=== PATIENT | male | born 1960 | race Caucasian/White ===

== ENCOUNTER 2019-12-28 22:47 | Inpatient (IN) | payer OTHER ==
[~2019-12-28] VITALS: Ht 177.8 cm; Wt 116.6 kg
--- NOTE | 2019-12-28 23:48 | PHYS DOC ---
Past Medical History Past Medical History: Hypertension Past Surgical History: Colectomy Smoking Status: Former Smoker Alcohol Use: Occasionally General Adult EDM: Chief Complaint: ABDOMINAL PAIN HPI: HPI: 59-year-old male presents with abdominal pain, nausea, abdominal distention and constipation that began about 10:00 this morning. Patient describes his pain is diffuse in his abdomen and crampy and severe in nature. Pain is worse with movement. Pain is nonradiating. Review of Systems: Review of Systems: Constitutional: Denies fever or chills. [] Eyes: Denies change in visual acuity. [] HENT: Denies nasal congestion or sore throat. [] Respiratory: Denies cough or but has chronic shortness of breath. [] Cardiovascular: Denies chest pain or edema. [] GI: Complains of abdominal pain, nausea, and constipation : Denies dysuria. [] Musculoskeletal: Denies back pain or joint pain. [] Integument: Denies rash. [] Neurologic: Denies headache, focal weakness or sensory changes. [] Endocrine: Denies polyuria or polydipsia. [] Lymphatic: Denies swollen glands. [] Psychiatric: Denies depression or anxiety. [] Heart Score: Risk Factors: Risk Factors: DM, Current or recent (<one month) smoker, HTN, HLP, family history of CAD, obesity. Risk Scores: Score 0 - 3: 2.5% MACE over next 6 weeks - Discharge Home Score 4 - 6: 20.3% MACE over next 6 weeks - Admit for Clinical Observation Score 7 - 10: 72.7% MACE over next 6 weeks - Early Invasive Strategies Current Medications: Current Medications Medications (Trade) Dose Ordered Sig/Cony Start Time Stop Time Status Last Admin Dose Admin Ondansetron HCl (Zofran) 4 mg 1X ONCE 12/29/19 00:00 12/29/19 00:01 Sodium Chloride 1,000 ml @ 1,000 mls/hr Q1H 12/29/19 00:00 12/29/19 00:59 Allergies: Allergies: Allergies Coded Allergies Type Severity Reaction Last Updated Verified Iodinated Contrast Media Allergy Intermediate hives 12/28/19 Yes ketorolac Allergy Intermediate hives 12/28/19 Yes Physical Exam: PE: Constitutional: Well developed, well nourished, no acute distress, non-toxic appearance. HENT: No trismus Eyes: Conjunctiva clear, EOMI Neck: Normal range of motion, no tenderness, supple, no stridor. [] Cardiovascular: Regular rate/rhythm, peripheral pulse intact, [employer] intact Lungs & Thorax: No respiratory distress Abdomen: Mild distention. Diffuse tenderness to palpation. No guarding or rebound. No pulsatile masses. Reducible umbilical hernia Skin: Diffuse: Intact, no rash Back: Full ROM Extremities: Normal inspection, no edema Neurologic: Alert and oriented X 3, normal motor function, , no focal deficits noted. Psychologic: Affect normal, judgement normal, mood normal. EKG: EKG: [] EKG interpreted by me at 11:51 PM normal sinus rhythm with a rate of 95 normal axis normal intervals normal ST segments Radiology/Procedures: Radiology/Procedures: [][facility] [address] [place] [address] IMAGING REPORT Signed PATIENT: JOE HYLTON ACCOUNT: [id number] : 1960 LOCATION: ER AGE: 59 SEX: M EXAM STATUS: REG ER ORD. PHYSICIAN: FELIX PRIETO MD REASON: RO SBO PROCEDURE: CT ABD PEL W/ORAL CONTRST ONLY CT scan of the abdomen and pelvis with contrast 12/29/2019 CLINICAL HISTORY: Abdominal pain, constipation and nausea. TECHNIQUE: After the oral administration of contrast only, contiguous, 5 mm axial sections were obtained through the abdomen and pelvis. One or more of the following individualized dose reduction techniques were utilized for this study: 1. Automated exposure control. 2. Adjustment of the mA and/or kV according to patient size. 3. Use of iterative reconstruction technique. FINDINGS: Comparison study is dated 10/30/2008. Images through the lung bases demonstrate a 1.5 cm rounded noncalcified nodule within the left lower lobe. A right perihilar infiltrate is seen. The liver parenchyma has a decreased attenuation consistent with fatty infiltration. The spleen, pancreas, adrenal glands and kidneys are within normal limits. Atherosclerotic calcification of the abdominal aorta is seen. The abdominal aorta tapers normally. The gallbladder is slightly contracted. No free fluid or free air is within the abdomen. Air and stool are seen throughout the colon. The appendix is well-visualized and is within normal limits. A umbilical hernia is seen which measures 7.7 cm in transverse diameter. This contains incarcerated proximal ileum. Progressive dilatation of the jejunum is seen extending into this hernia. These findings are consistent with a small bowel obstruction. The mid/distal ileum is normal in caliber. Air and stool are seen throughout the colon. Scattered diverticula are seen involving the colon. No inflammatory changes are seen adjacent fat. Images through pelvis demonstrate the urinary bladder distended with urine. The prostate gland is enlarged likely related to BPH. Calcifications are seen within the pelvis consistent with phleboliths. Very mild S-shaped curvature of the thoracolumbar spine is noted. Degenerative changes are seen involving lower thoracic and throughout the lumbar spine. IMPRESSION: 1. 7.7 cm umbilical hernia is seen which contains incarcerated small bowel loops resulting in a small bowel obstruction. 2. 1.5 cm noncalcified nodule is seen within the left lower lobe. Follow-up per Fleischner Society recommendations (see below) is recommended. Radiology, July 2016, volume 284, number 1, pages 228-243): In low risk solitary nodule patient: <6mm - No follow up required. 6-8mm - CT at 6-12 months, then consider CT at 18-24 months >8mm - Consider CT at 3 months, PET/CT, or tissue sampling In high risk solitary nodule patient: <6mm - Optional 12 month follow up. 6-8mm - CT at 6-12 months, then CT at 18-24 months >8mm - Consider CT at 3 months, PET/CT, or tissue sampling Electronically signed by: Scottie Quan MD (12/29/2019 2:53 AM) [id number] DICTATED and SIGNED BY: SCOTTIE QUAN MD DATE: 12/29/19 0253 Course & Med Decision Making: Course & Med Decision Making Pertinent Labs and Imaging studies reviewed. (See chart for details) []3:10 d/w Dr. Mcleod, suggests ng tube and admit to medicine. d/w dr. yaquelin burnett, will admit. kub/cxr done. official read not back. d/w gerald, will follow up on Dragon Disclaimer: Dragval Disclaimer: This electronic medical record was generated, in whole or in part, using a voice recognition dictation system. Departure Departure Impression: Primary Impression: Incarcerated umbilical hernia Additional Impression: Small bowel obstruction Disposition: 09 ADMITTED INPATIENT Condition: STABLE Referrals: UNKNOWN PCP NAME (PCP) Justicifation of Admission Dx: Justifications for Admission: Justification of Admission Dx: Yes FELIX PRIETO MD Dec 28, 2019 23:48
[2019-12-28 23:51] LABS: BASO % 0 % (0-3); EOS # 0.1 x10^3/uL (0.0-0.7); EOS % 1 % (0-3); HEMATOCRIT 44.9 % (39.0-53.0); HEMOGLOBIN 15.4 g/dL (13.0-17.5); LYMPH # 2.2 x10^3/uL (1.0-4.8); LYMPH % 24 % (24-48); MEAN CORPUSCULAR HEMOGLOBIN 31 pg (25-35); MEAN CORPUSCULAR HGB CONC 34 g/dL (31-37); MEAN CORPUSCULAR VOLUME 91 fL (79-100); MONO # 0.6 x10^3/uL (0.0-1.1); MONO % 6 % (0-9); NEUT # 6.6 x10^3/uL (1.8-7.7); NEUT % 69 % (31-73); PLATELET COUNT 380 x10^3/uL (140-400); RED BLOOD COUNT 4.94 x10^6/uL (4.30-5.70); RED CELL DISTRIBUTION WIDTH 14.4 % (11.5-14.5); WHITE BLOOD COUNT 9.5 x10^3/uL (4.0-11.0)
[2019-12-29] MEDS ORDERED: ONDANSETRON PF 4 MG/2 ML VIAL. IVP ONE
[2019-12-29] MEDS ORDERED: IV NORMAL SALINE 1000ML BAG 1,000 ML IV SCH
[2019-12-29] MEDS ORDERED: BARIUM SULFATE 2.1% 450 ML SUSP PO ONE (00:30)
[2019-12-29 00:36] LABS: CALCIUM 9.1 mg/dL (8.5-10.1); CREATININE 1.4 mg/dL (0.7-1.3); GFR 52.2; POTASSIUM 4.3 mmol/L (3.5-5.1)
[2019-12-29 00:43] LABS: ALBUMIN/GLOBULIN RATIO 1.1 (1.0-1.7); TOTAL BILIRUBIN 0.2 mg/dL (0.2-1.0); TOTAL PROTEIN 7.5 g/dL (6.4-8.2)
[2019-12-29 01:28] LABS: BILIRUBIN,URINE NEGATIVE (NEG); CLARITY,URINE CLEAR; COLOR,URINE YELLOW; NITRITE,URINE NEGATIVE (NEG); PROTEIN,URINE NEGATIVE (NEG-TRACE); UROBILINOGEN,URINE 0.2 mg/dL (0.2 mg/dL)
[2019-12-29 01:52] LABS: BACTERIA,URINE FEW /HPF (0-FEW); SQUAMOUS EPITHELIAL CELL,UR OCC /LPF
--- NOTE | 2019-12-29 02:57 | RAD ---
CT scan of the abdomen and pelvis with contrast 12/29/2019 CLINICAL HISTORY: Abdominal pain, constipation and nausea. TECHNIQUE: After the oral administration of contrast only, contiguous, 5 mm axial sections were obtained through the abdomen and pelvis. One or more of the following individualized dose reduction techniques were utilized for this study: 1. Automated exposure control. 2. Adjustment of the mA and/or kV according to patient size. 3. Use of iterative reconstruction technique. FINDINGS: Comparison study is dated 10/30/2008. Images through the lung bases demonstrate a 1.5 cm rounded noncalcified nodule within the left lower lobe. A right perihilar infiltrate is seen. The liver parenchyma has a decreased attenuation consistent with fatty infiltration. The spleen, pancreas, adrenal glands and kidneys are within normal limits. Atherosclerotic calcification of the abdominal aorta is seen. The abdominal aorta tapers normally. The gallbladder is slightly contracted. No free fluid or free air is within the abdomen. Air and stool are seen throughout the colon. The appendix is well-visualized and is within normal limits. A umbilical hernia is seen which measures 7.7 cm in transverse diameter. This contains incarcerated proximal ileum. Progressive dilatation of the jejunum is seen extending into this hernia. These findings are consistent with a small bowel obstruction. The mid/distal ileum is normal in caliber. Air and stool are seen throughout the colon. Scattered diverticula are seen involving the colon. No inflammatory changes are seen adjacent fat. Images through pelvis demonstrate the urinary bladder distended with urine. The prostate gland is enlarged likely related to BPH. Calcifications are seen within the pelvis consistent with phleboliths. Very mild S-shaped curvature of the thoracolumbar spine is noted. Degenerative changes are seen involving lower thoracic and throughout the lumbar spine. IMPRESSION: 1. 7.7 cm umbilical hernia is seen which contains incarcerated small bowel loops resulting in a small bowel obstruction. 2. 1.5 cm noncalcified nodule is seen within the left lower lobe. Follow-up per Fleischner Society recommendations (see below) is recommended. Radiology, July 2016, volume 284, number 1, pages 228-243): In low risk solitary nodule patient: <6mm - No follow up required. 6-8mm - CT at 6-12 months, then consider CT at 18-24 months >8mm - Consider CT at 3 months, PET/CT, or tissue sampling In high risk solitary nodule patient: <6mm - Optional 12 month follow up. 6-8mm - CT at 6-12 months, then CT at 18-24 months >8mm - Consider CT at 3 months, PET/CT, or tissue sampling Electronically signed by: Scottie Quan MD (12/29/2019 2:53 AM) [id number]
[2019-12-29] MEDS ORDERED: ONDANSETRON PF 4 MG/2 ML VIAL. IV PRN ×3 (03:30→17:15)
[2019-12-29] MEDS ORDERED: MORPHINE SULFATE 4 MG/ML VIAL. IV ONE ×2 (03:30→22:30)
[2019-12-29] MEDS ORDERED: BENZOCAINE ONE 20% MUCOSAL SPRAY. MM (04:00)
[2019-12-29 06:05] VITALS: BP 137/87
--- NOTE | 2019-12-29 06:05 | NUR ---
Pt admitted to room 650 via ER cart. Pt transferred self to bed from ER cart. Admission questions completed, history done. Pt states he takes a lot medications, but doesn't know all of their names and doses. He gets his meds through [facility], med list needs to be obtained, will pass on in report. Uriel venegas sandra, unable to find SCD machine at this time, will defer that and full assessment to dayshift nurse after report. Call light in reach, doctor paged for pain medication orders. Still awaiting KUB results from ER for NG tube placement. NG tube in in right nare, pt c/o sore throat, but NG had to be attempted 3 times in ER. POC discussed, admission packet given to pt. Will monitor and nursing report to Zee CHEEK.
--- NOTE | 2019-12-29 06:28 | RAD ---
Portable erect chest radiograph to include AP abdomen radiograph 12/29/2019 CLINICAL HISTORY: NG tube placement. An AP erect portable digital radiograph of the chest was obtained. An AP supine digital radiographs of the abdomen/pelvis was obtained. A right internal jugular Ghyrpd-u-[id number] type catheter is seen with its tip extending to overlie the SVC/right atrial junction. A NG tube has been placed. The tip of this tube appears to be coiled upon itself and the region of the GE junction/distal thoracic esophagus. The cardiac and mediastinal silhouettes are within normal limits in size and configuration. No acute pulmonary infiltrate is seen. No pleural effusion or pneumothorax is noted. The abdominal bowel gas pattern is nonobstructive. Calcifications are seen within the pelvis consistent with phleboliths. Degenerative changes are seen involving the thoracic and lumbar spine. IMPRESSION: The NG tube appears to be coiled upon itself in the region of the GE junction/distal thoracic esophagus. Electronically signed by: Scottie Quan MD (12/29/2019 6:25 AM) [id number]
--- NOTE | 2019-12-29 06:28 | RAD ---
Portable erect chest radiograph to include AP abdomen radiograph 12/29/2019 CLINICAL HISTORY: NG tube placement. An AP erect portable digital radiograph of the chest was obtained. An AP supine digital radiographs of the abdomen/pelvis was obtained. A right internal jugular [id number]-q-Ihzv type catheter is seen with its tip extending to overlie the SVC/right atrial junction. A NG tube has been placed. The tip of this tube appears to be coiled upon itself and the region of the GE junction/distal thoracic esophagus. The cardiac and mediastinal silhouettes are within normal limits in size and configuration. No acute pulmonary infiltrate is seen. No pleural effusion or pneumothorax is noted. The abdominal bowel gas pattern is nonobstructive. Calcifications are seen within the pelvis consistent with phleboliths. Degenerative changes are seen involving the thoracic and lumbar spine. IMPRESSION: The NG tube appears to be coiled upon itself in the region of the GE junction/distal thoracic esophagus. Electronically signed by: Scottie Quan MD (12/29/2019 6:25 AM) [id number]
[2019-12-29 07:00] VITALS: BP 125/78
[2019-12-29] MEDS: IV NORMAL SALINE 1000ML BAG 1,000 ML IV SCH ×4 (07:20→22:43)
[2019-12-29] MEDS: MORPHINE SULFATE 2 MG/ML VIAL. IV PRN ×2 (07:20→11:37)
--- NOTE | 2019-12-29 08:26 | PDOC1 ---
History and Physical Date of Admission: Date of Admission DATE: 12/29/19 TIME: 08:22 Chief Complaint: Chief Complain: Abdominal pain History of Present Illness: HPI: 59-year-old male presents with abdominal pain, nausea, abdominal distention and constipation that began about 10:00 this morning. Patient describes his pain is diffuse in his abdomen and crampy and severe in nature. Pain is worse with movement. Pain is nonradiating. Patient states last bowel movement was 2 days ago. Patient has been passing gas denies shortness of breath, chest pain, fever, no bloody bowel movements or diarrhea Past Medical/Surgical History: PMH/PSH: Past Medical History: Hypertension Past Surgical History: Colectomy Arthritis * Constipation * Depression * Diabetes-Type II * High Cholesterol * Hypertension Allergies: Allergies: Coded Allergies: Iodinated Contrast Media (Verified Allergy, Intermediate, hives, 12/28/19) ketorolac (Verified Allergy, Intermediate, hives, 12/28/19) Family History: Family History: None Social History: Social History: Smoking Status: Former Smoker Alcohol Use: Occasionally Current Medications: Current Medications Current Medications Sodium Chloride 1,000 ml @ 1,000 mls/hr Q1H IV Last administered on 12/29/19at 00:21; Start 12/29/19 at 00:00; Stop 12/29/19 at 00:59; Status DC Ondansetron HCl (Zofran) 4 mg 1X ONCE IVP Last administered on 12/29/19at 00:21; Start 12/29/19 at 00:00; Stop 12/29/19 at 00:01; Status DC Barium Sulfate (Readi-Cat 2) 900 ml 1X ONCE PO Last administered on 12/29/19at 00:00; Start 12/29/19 at 00:30; Stop 12/29/19 at 00:31; Status DC Morphine Sulfate (Morphine Sulfate) 4 mg 1X ONCE IV Last administered on 12/29/19at 03:20; Start 12/29/19 at 03:30; Stop 12/29/19 at 03:31; Status DC Ondansetron HCl (Zofran) 4 mg PRN Q8HRS PRN IV NAUSEA/VOMITING 1ST CHOICE; Start 12/29/19 at 03:30; Stop 12/30/19 at 03:29 Sodium Chloride 1,000 ml @ 125 mls/hr Q8H IV Last administered on 12/29/19at 07:20; Start 12/29/19 at 03:30; Stop 12/30/19 at 03:29 Benzocaine (Hurricaine One) 1 spray 1X ONCE MM Last administered on 12/29/19at 04:23; Start 12/29/19 at 04:00; Stop 12/29/19 at 04:01; Status DC Morphine Sulfate (Morphine Sulfate) 2 mg PRN Q2HR PRN IV SEVERE PAIN 7-10 Last administered on 12/29/19at 07:20; Start 12/29/19 at 06:45 ROS: Review of Systems Review of System REVIEW OF SYSTEMS: GENERAL: Denies weakness SKIN: No bruising, hair changes or rashes. EYES: No blurred, double or loss of vision. NOSE AND THROAT: No history of nosebleeds, hoarseness or sore throat. HEART: No history of palpitations, chest pain or shortness of breath on exertion. LUNGS: Denies cough, hemoptysis, wheezing or shortness of breath. GASTROINTESTINAL: Denies changes in appetite, nausea, vomiting, diarrhea or constipation. GENITOURINARY: No history of frequency, urgency, hesitancy or nocturia. NEUROLOGIC: Denies history of numbness, tingling, or tremor. PSYCHIATRIC: No history of panic, anxiety or depression. ENDOCRINE: No history of heat or cold intolerance, polyuria or polydipsia. EXTREMITIES: Denies joint pain, pain on walking or stiffness. Physical Exam: Vital Signs: Vital Signs Date Time Temp Pulse Resp B/P (MAP) Pulse Ox O2 Delivery O2 Flow Rate FiO2 12/29/19 07:20 20 Room Air 12/29/19 07:00 98.3 93 125/78 (94) 93 98.3 Physcial Exam: GEN: No apparent distress. Alert and oriented HEENT: Normal cephalic, atraumatic, external auditory canals are patent EYES: Extraocular muscles are intact, pupil are equally round and reactive to light and accommodation MUSCULOSKELETAL: Well developed , well nourished, good range of motion ENDOCRINE: No thyromegaly was palpated LYMPHATICS: No cervical chain or axillary nodes were noted HEMATOPOIETIC: No bruising NECK: Supple, no JVD, no thyromegaly was noted LUNGS: Clear to auscultation in all lung thompson without rhonchi or wheezing HEART: RRR, S!, S2 present. Peripheral pulses intact, no obvious murmurs noted ABDOMEN: Abdomen is obese and distended. Hypoactive bowel sounds. Obvious hernia with bowel palpated. No signs of erythema. Epigastric tenderness EXTREMITIES: Without clubbing, cyanosis, or edema. Pedal pulses intact. Negative Homans sign NEUROLOGIC: Normal speech and tone. A&O x 3, moves all extremities, no obvious focal deficits PSYCHIATRIC: Normal affect, normal mood. Stable SKIN: No ulcerations or rashes, good skin turgor, no jaundice VASCULAR: Good capillary refill, neurovascular bundle appears to be intact Labs: Labs: Laboratory Tests Test 12/28/19 22:38 12/28/19 23:40 12/29/19 01:15 12/29/19 07:58 Sodium Level 140 mmol/L (136-145) Potassium Level 4.3 mmol/L (3.5-5.1) Chloride Level 102 mmol/L (98-107) Carbon Dioxide Level 25 mmol/L (21-32) Anion Gap 13 (6-14) Blood Urea Nitrogen 24 mg/dL (8-26) Creatinine 1.4 mg/dL (0.7-1.3) Estimated GFR (Cockcroft-Gault) 52.2 BUN/Creatinine Ratio 17 (6-20) Glucose Level 138 mg/dL (70-99) Calcium Level 9.1 mg/dL (8.5-10.1) Total Bilirubin 0.2 mg/dL (0.2-1.0) Aspartate Amino Transf (AST/SGOT) 20 U/L (15-37) Alanine Aminotransferase (ALT/SGPT) 41 U/L (16-63) Alkaline Phosphatase 61 U/L (46-116) Total Protein 7.5 g/dL (6.4-8.2) Albumin 4.0 g/dL (3.4-5.0) Albumin/Globulin Ratio 1.1 (1.0-1.7) Lipase 40 U/L (73-393) White Blood Count 9.5 x10^3/uL (4.0-11.0) Red Blood Count 4.94 x10^6/uL (4.30-5.70) Hemoglobin 15.4 g/dL (13.0-17.5) Hematocrit 44.9 % (39.0-53.0) Mean Corpuscular Volume 91 fL (79-100) Mean Corpuscular Hemoglobin 31 pg (25-35) Mean Corpuscular Hemoglobin Concent 34 g/dL (31-37) Red Cell Distribution Width 14.4 % (11.5-14.5) Platelet Count 380 x10^3/uL (140-400) Neutrophils (%) (Auto) 69 % (31-73) Lymphocytes (%) (Auto) 24 % (24-48) Monocytes (%) (Auto) 6 % (0-9) Eosinophils (%) (Auto) 1 % (0-3) Basophils (%) (Auto) 0 % (0-3) Neutrophils # (Auto) 6.6 x10^3/uL (1.8-7.7) Lymphocytes # (Auto) 2.2 x10^3/uL (1.0-4.8) Monocytes # (Auto) 0.6 x10^3/uL (0.0-1.1) Eosinophils # (Auto) 0.1 x10^3/uL (0.0-0.7) Basophils # (Auto) 0.0 x10^3/uL (0.0-0.2) Urine Collection Type Void Urine Color Yellow Urine Clarity Clear Urine pH 5.0 (<5.0-8.0) Urine Specific [place] 1.020 (1.000-1.030) Urine Protein Negative mg/dL (NEG-TRACE) Urine Glucose (UA) Negative mg/dL (NEG) Urine Ketones (Stick) Negative mg/dL (NEG) Urine Blood Negative (NEG) Urine Nitrite Negative (NEG) Urine Bilirubin Negative (NEG) Urine Urobilinogen Dipstick 0.2 mg/dL (0.2 mg/dL) Urine Leukocyte Esterase Negative (NEG) Urine RBC 1-2 /HPF (0-2) Urine WBC 1-4 /HPF (0-4) Urine Squamous Epithelial Cells Occ /LPF Urine Bacteria Few /HPF (0-FEW) Urine Mucus Slight /LPF Glucose (Fingerstick) 139 mg/dL (70-99) Laboratory Tests Test 12/28/19 22:38 12/28/19 23:40 12/29/19 01:15 12/29/19 07:58 Sodium Level 140 mmol/L (136-145) Potassium Level 4.3 mmol/L (3.5-5.1) Chloride Level 102 mmol/L (98-107) Carbon Dioxide Level 25 mmol/L (21-32) Anion Gap 13 (6-14) Blood Urea Nitrogen 24 mg/dL (8-26) Creatinine 1.4 mg/dL (0.7-1.3) Estimated GFR (Cockcroft-Gault) 52.2 BUN/Creatinine Ratio 17 (6-20) Glucose Level 138 mg/dL (70-99) Calcium Level 9.1 mg/dL (8.5-10.1) Total Bilirubin 0.2 mg/dL (0.2-1.0) Aspartate Amino Transf (AST/SGOT) 20 U/L (15-37) Alanine Aminotransferase (ALT/SGPT) 41 U/L (16-63) Alkaline Phosphatase 61 U/L (46-116) Total Protein 7.5 g/dL (6.4-8.2) Albumin 4.0 g/dL (3.4-5.0) Albumin/Globulin Ratio 1.1 (1.0-1.7) Lipase 40 U/L (73-393) White Blood Count 9.5 x10^3/uL (4.0-11.0) Red Blood Count 4.94 x10^6/uL (4.30-5.70) Hemoglobin 15.4 g/dL (13.0-17.5) Hematocrit 44.9 % (39.0-53.0) Mean Corpuscular Volume 91 fL (79-100) Mean Corpuscular Hemoglobin 31 pg (25-35) Mean Corpuscular Hemoglobin Concent 34 g/dL (31-37) Red Cell Distribution Width 14.4 % (11.5-14.5) Platelet Count 380 x10^3/uL (140-400) Neutrophils (%) (Auto) 69 % (31-73) Lymphocytes (%) (Auto) 24 % (24-48) Monocytes (%) (Auto) 6 % (0-9) Eosinophils (%) (Auto) 1 % (0-3) Basophils (%) (Auto) 0 % (0-3) Neutrophils # (Auto) 6.6 x10^3/uL (1.8-7.7) Lymphocytes # (Auto) 2.2 x10^3/uL (1.0-4.8) Monocytes # (Auto) 0.6 x10^3/uL (0.0-1.1) Eosinophils # (Auto) 0.1 x10^3/uL (0.0-0.7) Basophils # (Auto) 0.0 x10^3/uL (0.0-0.2) Urine Collection Type Void Urine Color Yellow Urine Clarity Clear Urine pH 5.0 (<5.0-8.0) Urine Specific [place] 1.020 (1.000-1.030) Urine Protein Negative mg/dL (NEG-TRACE) Urine Glucose (UA) Negative mg/dL (NEG) Urine Ketones (Stick) Negative mg/dL (NEG) Urine Blood Negative (NEG) Urine Nitrite Negative (NEG) Urine Bilirubin Negative (NEG) Urine Urobilinogen Dipstick 0.2 mg/dL (0.2 mg/dL) Urine Leukocyte Esterase Negative (NEG) Urine RBC 1-2 /HPF (0-2) Urine WBC 1-4 /HPF (0-4) Urine Squamous Epithelial Cells Occ /LPF Urine Bacteria Few /HPF (0-FEW) Urine Mucus Slight /LPF Glucose (Fingerstick) 139 mg/dL (70-99) Assessment/Plan Assessment/Plan Acute abdominal pain due to partial SBO Incarcerated umbilical hernia Acute renal failurevasomotor nephropathy Hypertension Diabetes Dyslipidemia History of constipation Admit to medicine/telemetry N.p.o. Serial abdominal exams KUB in the a.m. Surgical consult Continue IV fluids IV pain management NG tube placement if persistent nausea vomiting Lovenox for DVT prophylaxis Regular diet Full code Discussed with RN and SW Dispo pending KUB in the a.m. Pending surgical evaluation. Will consider discharge when pain is controlled and tolerating diet Justicifation of Admission Dx: Justifications for Admission: Justification of Admission Dx: Yes CHEIKH SAENZ MD Dec 29, 2019 08:26
[2019-12-29] MEDS ORDERED: DEXTROSE 50% 25 GM / 50ML DISP.SYRIN. IV PRN (08:30)
--- NOTE | 2019-12-29 10:52 | PDOC2 ---
CONSULT Date of Consult Date of Consult DATE: 12/29/19 TIME: 10:51 History of Present Illness Reason for Visit: The patient is a 59 year old male who reported to the ER due to abdominal pain. The pain was located in the central abdomen with associated distension and nausea. He reports passing gas, no stool. Past Medical History Past Medical History morbid obesity Cardiovascular: HTN Past Surgical History Past Surgical History reports colon resection with prior hernia repair Social History 1 pack per day Current Problem List Problem List Problems Medical Problems: (1) Incarcerated umbilical hernia Status: Acute (2) Small bowel obstruction Status: Acute Current Medications Current Medications Current Medications Sodium Chloride 1,000 ml @ 1,000 mls/hr Q1H IV Last administered on 12/29/19at 00:21; Start 12/29/19 at 00:00; Stop 12/29/19 at 00:59; Status DC Ondansetron HCl (Zofran) 4 mg 1X ONCE IVP Last administered on 12/29/19at 00:21; Start 12/29/19 at 00:00; Stop 12/29/19 at 00:01; Status DC Barium Sulfate (Readi-Cat 2) 900 ml 1X ONCE PO Last administered on 12/29/19at 00:00; Start 12/29/19 at 00:30; Stop 12/29/19 at 00:31; Status DC Morphine Sulfate (Morphine Sulfate) 4 mg 1X ONCE IV Last administered on 12/29/19at 03:20; Start 12/29/19 at 03:30; Stop 12/29/19 at 03:31; Status DC Ondansetron HCl (Zofran) 4 mg PRN Q8HRS PRN IV NAUSEA/VOMITING 1ST CHOICE; Start 12/29/19 at 03:30; Stop 12/30/19 at 03:29 Sodium Chloride 1,000 ml @ 125 mls/hr Q8H IV Last administered on 12/29/19at 07:20; Start 12/29/19 at 03:30; Stop 12/30/19 at 03:29 Benzocaine (Hurricaine One) 1 spray 1X ONCE MM Last administered on 12/29/19at 04:23; Start 12/29/19 at 04:00; Stop 12/29/19 at 04:01; Status DC Morphine Sulfate (Morphine Sulfate) 2 mg PRN Q2HR PRN IV SEVERE PAIN 7-10 Last administered on 12/29/19at 07:20; Start 12/29/19 at 06:45 Insulin Human Lispro (HumaLOG) 0-5 UNITS TIDWMEALS SQ ; Start 12/29/19 at 12:00 Dextrose (Dextrose 50%-Water Syringe) 12.5 gm PRN Q15MIN PRN IV SEE COMMENTS; Start 12/29/19 at 08:30 Allergies Allergies: Coded Allergies: Iodinated Contrast Media (Verified Allergy, Intermediate, hives, 12/28/19) ketorolac (Verified Allergy, Intermediate, hives, 12/28/19) ROS General: No: Chills, Night Sweats, Fatigue, Malaise, Appetite, Other PSYCHOLOGICAL ROS: No: Anxiety, Behavioral Disorder, Concentration difficultie, Decreased libido, Depression, Disorientation, Hallucinations, Hostility, Irritablity, Memory difficulties, Mood Swings, Obsessive thoughts, Physical abuse, Sexual abuse, Sleep disturbances, Suicidal ideation, Other Eyes: No Blurry vision, No Decreased vision, No Double vision, No Dry eyes, No Excessive tearing, No Eye Pain, No Itchy Eyes, No Loss of vision, No Photophobia, No Scotomata, No Uses contacts, No Uses glasses, No Other HEENT: No: Heacaches, Visual Changes, Hearing change, Nasal congestion, Nasal discharge, Oral lesions, Sinus pain, Sore Throat, Epistaxis, Sneezing, Snoring, Tinnitus, Vertigo, Vocal changes, Other ALLERGY AND IMMUNOLOGY: No: Hives, Insect Bite Sensitivity, Itchy/Watery Eyes, Nasal Congestion, Post Nasal Drip, Seasonal Allergies, Other Hematological and Lymphatic: No: Bleeding Problems, Blood Clots, Blood Transfusions, Brusing, Night Sweats, Pallor, Swollen Lymph Nodes, Other ENDOCRINE: No: Breast Changes, Galactorrhea, Hair Pattern Changes, Hot Flashes, Malaise/lethargy, Mood Swings, Palpitations, Polydipsia/polyuria, Skin Changes, Temperature Intolerance, Unexpected Weight Changes, Other Respiratory: No: Cough, Hemoptysis, Orthopnea, Pleuritic Pain, Shortness of breath, SOB with excertion, Sputum Changes, Stridor, Tachypnea, Wheezing, Other Cardiovascular: No Chest Pain, No Palpitations, No Orthopnea, No Paroxysmal Noc. Dyspnea, No Edema, No Lt Headedness, No Other Gastrointestinal: Yes Abdominal Pain Genitourinary: No Dysuria, No Frequency, No Incontinence, No Hematuria, No Retention, No Discharge, No Urgency, No Pain, No Flank Pain, No Other, No , No , No , No , No , No , No Musculoskeletal: No Gait Disturbance, No Joint Pain, No Joint Stiffness, No Joint Swelling, No Muscle Pain, No Muscular Weakness, No Pain In:, No Swelling In:, No Other Neurological: No Behavorial Changes, No Bowel/Bladder ControlChng, No Confusion, No Dizziness, No Gait Disturbance, No Headaches, No Impaired Coord/balance, No Memory Loss, No Numbness/Tingling, No Seizures, No Speech Prob lems, No Tremors, No Visual Changes, No Weakness, No Other Skin: No Dry Skin, No Eczema, No Hair Changes, No Lumps, No Mole Changes, No Mottling, No Nail Changes, No Pruritus, No Rash, No Skin Lesion Changes, No Other, No Acne Physical Exam General: Alert, Oriented X3, No acute distress HEENT: Atraumatic Lungs: Clear to auscultation Heart: Regular rate Abdomen: Other (morbidly obese, abdomen with mild distension, tender with palpation central abdomen, prior healed vertical midline scar, soft reducible hernia near umbilicus) Extremities: No clubbing, No cyanosis Skin: No rashes Neuro: Normal speech Vitals VITALS Vital Signs Date Time Temp Pulse Resp B/P (MAP) Pulse Ox O2 Delivery O2 Flow Rate FiO2 12/29/19 07:50 18 Room Air 12/29/19 07:00 98.3 93 125/78 (94) 93 98.3 Labs Labs Laboratory Tests Test 12/28/19 22:38 12/28/19 23:40 12/29/19 01:15 12/29/19 07:58 Sodium Level 140 mmol/L (136-145) Potassium Level 4.3 mmol/L (3.5-5.1) Chloride Level 102 mmol/L (98-107) Carbon Dioxide Level 25 mmol/L (21-32) Anion Gap 13 (6-14) Blood Urea Nitrogen 24 mg/dL (8-26) Creatinine 1.4 mg/dL (0.7-1.3) Estimated GFR (Cockcroft-Gault) 52.2 BUN/Creatinine Ratio 17 (6-20) Glucose Level 138 mg/dL (70-99) Calcium Level 9.1 mg/dL (8.5-10.1) Total Bilirubin 0.2 mg/dL (0.2-1.0) Aspartate Amino Transf (AST/SGOT) 20 U/L (15-37) Alanine Aminotransferase (ALT/SGPT) 41 U/L (16-63) Alkaline Phosphatase 61 U/L (46-116) Total Protein 7.5 g/dL (6.4-8.2) Albumin 4.0 g/dL (3.4-5.0) Albumin/Globulin Ratio 1.1 (1.0-1.7) Lipase 40 U/L (73-393) White Blood Count 9.5 x10^3/uL (4.0-11.0) Red Blood Count 4.94 x10^6/uL (4.30-5.70) Hemoglobin 15.4 g/dL (13.0-17.5) Hematocrit 44.9 % (39.0-53.0) Mean Corpuscular Volume 91 fL (79-100) Mean Corpuscular Hemoglobin 31 pg (25-35) Mean Corpuscular Hemoglobin Concent 34 g/dL (31-37) Red Cell Distribution Width 14.4 % (11.5-14.5) Platelet Count 380 x10^3/uL (140-400) Neutrophils (%) (Auto) 69 % (31-73) Lymphocytes (%) (Auto) 24 % (24-48) Monocytes (%) (Auto) 6 % (0-9) Eosinophils (%) (Auto) 1 % (0-3) Basophils (%) (Auto) 0 % (0-3) Neutrophils # (Auto) 6.6 x10^3/uL (1.8-7.7) Lymphocytes # (Auto) 2.2 x10^3/uL (1.0-4.8) Monocytes # (Auto) 0.6 x10^3/uL (0.0-1.1) Eosinophils # (Auto) 0.1 x10^3/uL (0.0-0.7) Basophils # (Auto) 0.0 x10^3/uL (0.0-0.2) Urine Collection Type Void Urine Color Yellow Urine Clarity Clear Urine pH 5.0 (<5.0-8.0) Urine Specific [place] 1.020 (1.000-1.030) Urine Protein Negative mg/dL (NEG-TRACE) Urine Glucose (UA) Negative mg/dL (NEG) Urine Ketones (Stick) Negative mg/dL (NEG) Urine Blood Negative (NEG) Urine Nitrite Negative (NEG) Urine Bilirubin Negative (NEG) Urine Urobilinogen Dipstick 0.2 mg/dL (0.2 mg/dL) Urine Leukocyte Esterase Negative (NEG) Urine RBC 1-2 /HPF (0-2) Urine WBC 1-4 /HPF (0-4) Urine Squamous Epithelial Cells Occ /LPF Urine Bacteria Few /HPF (0-FEW) Urine Mucus Slight /LPF Glucose (Fingerstick) 139 mg/dL (70-99) Laboratory Tests Test 12/28/19 22:38 12/28/19 23:40 12/29/19 01:15 12/29/19 07:58 Sodium Level 140 mmol/L (136-145) Potassium Level 4.3 mmol/L (3.5-5.1) Chloride Level 102 mmol/L (98-107) Carbon Dioxide Level 25 mmol/L (21-32) Anion Gap 13 (6-14) Blood Urea Nitrogen 24 mg/dL (8-26) Creatinine 1.4 mg/dL (0.7-1.3) Estimated GFR (Cockcroft-Gault) 52.2 BUN/Creatinine Ratio 17 (6-20) Glucose Level 138 mg/dL (70-99) Calcium Level 9.1 mg/dL (8.5-10.1) Total Bilirubin 0.2 mg/dL (0.2-1.0) Aspartate Amino Transf (AST/SGOT) 20 U/L (15-37) Alanine Aminotransferase (ALT/SGPT) 41 U/L (16-63) Alkaline Phosphatase 61 U/L (46-116) Total Protein 7.5 g/dL (6.4-8.2) Albumin 4.0 g/dL (3.4-5.0) Albumin/Globulin Ratio 1.1 (1.0-1.7) Lipase 40 U/L (73-393) White Blood Count 9.5 x10^3/uL (4.0-11.0) Red Blood Count 4.94 x10^6/uL (4.30-5.70) Hemoglobin 15.4 g/dL (13.0-17.5) Hematocrit 44.9 % (39.0-53.0) Mean Corpuscular Volume 91 fL (79-100) Mean Corpuscular Hemoglobin 31 pg (25-35) Mean Corpuscular Hemoglobin Concent 34 g/dL (31-37) Red Cell Distribution Width 14.4 % (11.5-14.5) Platelet Count 380 x10^3/uL (140-400) Neutrophils (%) (Auto) 69 % (31-73) Lymphocytes (%) (Auto) 24 % (24-48) Monocytes (%) (Auto) 6 % (0-9) Eosinophils (%) (Auto) 1 % (0-3) Basophils (%) (Auto) 0 % (0-3) Neutrophils # (Auto) 6.6 x10^3/uL (1.8-7.7) Lymphocytes # (Auto) 2.2 x10^3/uL (1.0-4.8) Monocytes # (Auto) 0.6 x10^3/uL (0.0-1.1) Eosinophils # (Auto) 0.1 x10^3/uL (0.0-0.7) Basophils # (Auto) 0.0 x10^3/uL (0.0-0.2) Urine Collection Type Void Urine Color Yellow Urine Clarity Clear Urine pH 5.0 (<5.0-8.0) Urine Specific [place] 1.020 (1.000-1.030) Urine Protein Negative mg/dL (NEG-TRACE) Urine Glucose (UA) Negative mg/dL (NEG) Urine Ketones (Stick) Negative mg/dL (NEG) Urine Blood Negative (NEG) Urine Nitrite Negative (NEG) Urine Bilirubin Negative (NEG) Urine Urobilinogen Dipstick 0.2 mg/dL (0.2 mg/dL) Urine Leukocyte Esterase Negative (NEG) Urine RBC 1-2 /HPF (0-2) Urine WBC 1-4 /HPF (0-4) Urine Squamous Epithelial Cells Occ /LPF Urine Bacteria Few /HPF (0-FEW) Urine Mucus Slight /LPF Glucose (Fingerstick) 139 mg/dL (70-99) Assessment/Plan Assessment/Plan 59 year old male with ventral hernia, ?bowel obstruction, hernia appears reducible but difficult to be certain due to habitus; recommend bowel rest, pain control, serial exams, xrays; currently the patient is super morbidly obese and continues to use tobacco; the chance of success with an attempt at repair of the hernia under current circumstance is very limited with very significant risks; it would be important to quit smoking and lose a significant amount of weight prior to any attempt at surgical correction of the hernia and to reduce operative risks. The current concern is regarding bowel involvement with some degree of obstruction. Continue bowel rest, KUB in AM. May consider SB series to further evaluate if obstruction present. FELIX DAVIS MD Dec 29, 2019 10:52
[2019-12-29 11:10] VITALS: BP 126/84
--- NOTE | 2019-12-29 11:50 | NUR ---
Report received from TR[employer] LOADER Ivone, patient arrived to unit, patient hooked up to suction, patient assessed at this time, dressing are clean dry and intact. Patient currently has dilaudid TRANSITION MGR pump. Patient is a bit groggy but responds to verbal stimuli. Patient given instructions on use of TRANSITION MGR pump. Kauffman catheter in place as well. Patient orientated to unit and bed placed in lowest position and locked. Call light placed within reach of patient. Patient on frequent vital signs per protocol. Will continue to monitor patient at this time.
[2019-12-29] MEDS: INSULIN LISPRO 300 UNITS/3 ML VIAL. SQ SCH ×2 (12:00→16:59)
[2019-12-29 15:00] VITALS: BP 126/91
[2019-12-29] MEDS ORDERED: LIDOCAINE 2% JELLY 6ML IN APPLICATOR. MM ONE (16:00)
[2019-12-29 16:42] LABS: PROTHROMBIN TIME PATIENT 12.6 SEC (11.7-14.0)
[2019-12-29] MEDS ORDERED: KETAMINE HCL IN NACL, ISO-OSM 50 MG/5 ML SYRINGE ONE (16:51)
[2019-12-29] MEDS ORDERED: fentaNYL PF VIAL 100 MCG/2 ML VIAL ONE (16:51)
[2019-12-29] MEDS ORDERED: SUCCINYLCHOLINE 200 MG/10 ML VIAL. ONE (16:51)
[2019-12-29] MEDS ORDERED: FAMOTIDINE 20 MG/2 ML VIAL ONE (16:51)
[2019-12-29] MEDS ORDERED: LIDOCAINE 2% PF 5 ML VIAL. ONE (16:51)
[2019-12-29] MEDS ORDERED: PROPOFOL 10 MG/ML (20ML) VIAL. IV ONE (16:51)
[2019-12-29] MEDS ORDERED: DEXAMETHASONE SOD PHOS 4 MG/ML VIAL ONE (16:51)
[2019-12-29] MEDS ORDERED: ROCURONIUM 50 MG/5 ML VIAL. ONE ×3 (16:51→21:05)
[2019-12-29] MEDS ORDERED: ONDANSETRON PF 4 MG/2 ML VIAL. ONE ×2 (16:51→20:48)
[2019-12-29] MEDS ORDERED: PHENYLEPHRINE in 0.9% NACL PF 1 MG/10 ML SYRINGE. IV ONE ×2 (16:51→21:04)
--- NOTE | 2019-12-29 17:02 | NUR ---
Patients pain began to increase and his abdomen became more distended. I spoke to Dr Mcleod several times and labs as well as CT abdomen and pelvis ordered stat. Dr Elmore was at bedside and attempted several times to put in NG tube. We were unsucessful. Decision was made to take pt to surgery. Consents reviewed and signed. Pts cousin Chelsea was notified. Pt taken to surgery.
[2019-12-29] MEDS ORDERED: IV RINGERS,LACTATED 1000ML 1,000 ML IV SCH (17:07)
[2019-12-29] MEDS ORDERED: BUPIVACAINE-EPI 0.5%-1:200000 MPF 30 ML VIAL. ONE (17:14)
[2019-12-29] MEDS ORDERED: HYDROmorphone 2 MG/ML VIAL IV PRN (17:15)
[2019-12-29] MEDS ORDERED: LIDOCAINE 1% PF 2 ML VIAL. ID PRN (17:15)
[2019-12-29] MEDS ORDERED: MORPHINE SULFATE 2 MG/ML VIAL. IV PRN (17:15)
[2019-12-29] MEDS ORDERED: fentaNYL PF VIAL 100 MCG/2 ML VIAL IV PRN ×2 (17:15)
[2019-12-29] MEDS ORDERED: PIPERACILLIN/TAZOBACTAM 4.5 GM in IV NORMAL SALINE 100ML 100 ML IV ONE (17:45)
[2019-12-29] MEDS ORDERED: HYDROmorphone 2 MG/ML VIAL ONE ×2 (18:29→22:35)
[2019-12-29] MEDS ORDERED: DESFLURANE > 120 MINUTES IH ONE (18:59)
[2019-12-29] MEDS ORDERED: REMIFENTANIL 1 MG VIAL. IV ONE (20:32)
--- NOTE | 2019-12-29 21:41 | PDOC4 ---
Operative Note Operative Note Operative Note: Preoperative Diagnosis: Incarcerated ventral hernia with high-grade bowel obstruction Postoperative Diagnosis: Same Procedure: Repair of incarcerated ventral hernia with mesh Surgeon: Harsha [employer] Instructor: Jesus BUSCH Anesthesia: General EBL: 100 mL Specimen: None Drains: 19 Somali SHARON x2 Complications: None Indication: The patient is a 59-year-old male who presented with abdominal pain. His evaluation is consistent with incarcerated ventral hernia with a high-grade bowel obstruction. Based on his clinical presentation we recommend urgent surgical intervention. The risks of surgery were discussed which include bleeding, infection, hernia recurrence, pain, bowel injury, anesthetic risk, wound healing problems, potential need for additional surgery or procedure. He understands and would like to proceed. Description: The patient was taken to the operating room and placed supine in the operating table. General anesthesia was performed. The abdomen was prepped with ChloraPrep and draped with sterile towels, sheets, and an Ioban. A ve rtical midline incision was made in the skin with a scalpel. Cautery dissection was carried down to the fascia. The fascia was carefully opened and the abdominal cavity was entered. The patient had prominent adhesions involving bowel to the abdominal wall. These were quite dense and essentially incorporated into the abdominal wall. An extensive lysis of adhesions was required to free up the bowel. A small enterotomy was made in 1 loop with dense adhesions. This was repaired primarily with 2-0 Vicryl. An additional serosal disruption was also oversewn with 2-0 Vicryl. When the bowel was freed off the abdominal wall we were able to fully explore the abdominal cavity and run the small bowel. The intraoperative findings did confirm a high-grade bowel o bstruction due to the hernia with a well-defined transition point. The bowel appeared viable however with no evidence of ischemia or necrosis. A few interloop bowel adhesions were lysed and the remaining small bowel appeared unremarkable. We then mobilized the skin flaps laterally away from the fascia. This helped provide significant mobilization of the fascia for closure with reduced tension. Given the limited degree of contamination we did not feel that it was suitable for permanent synthetic mesh. The fascia was approximated with a 1 Prolene suture. The fascia was then reinforced with an onlay Phasix mesh. The mesh was sutured to the fascia using several interrupted 2-0 Vicryl stitches. The mesh provided very good coverage of the entire abdominal wall and appeared to reinforce the repair well. Two SHARON drains were left anterior to the mesh which exited the right and left lateral abdomen. These were secured to the skin with 2-0 silk. The subcutaneous tissues were approximated with 3-0 Vicryl. The skin was closed with 4-0 Monocryl. Steri-Strips and sterile dressings were applied. The patient tolerated the procedure well and was sent to the recovery room in stable condition. At the end of the case all counts were correct. FELIX DAVIS MD Dec 29, 2019 21:41
[2019-12-29] MEDS ORDERED: NALOXONE 0.4 MG/ML VIAL. IV PRN (21:45)
[2019-12-29] MEDS ORDERED: ENOXAPARIN 40 MG/0.4 ML SYRINGE. SQ SCH (22:00)
[2019-12-29] MEDS ORDERED: PROCHLORPERAZINE 10 MG/2 ML VIAL. ONE (22:02)
[2019-12-29] MEDS ORDERED: MORPHINE SULFATE 4 MG/ML VIAL. ONE (22:03)
[2019-12-29] MEDS: PROCHLORPERAZINE 10 MG/2 ML VIAL. IV PRN ×2 (22:14→22:41)
[2019-12-29] MEDS: HYDROmorphone 12mg/30ml PCA 30 ML IV PRN (22:19)
[2019-12-29] MEDS ORDERED: HYDROmorphone 2 MG/ML VIAL IV ONE (22:45)
[2019-12-29 23:30] VITALS: BP 155/90
[2019-12-29 23:45] VITALS: BP 139/87
[2019-12-30] VITALS (10 sets, daily range): BP systolic 125–158; BP diastolic 59–99
[2019-12-30 04:05] LABS: BASO % 0 % (0-3); EOS % 0 % (0-3); HEMOGLOBIN 15.1 g/dL (13.0-17.5); LYMPH # 0.7 x10^3/uL (1.0-4.8); LYMPH % 9 % (24-48); MEAN CORPUSCULAR HEMOGLOBIN 31 pg (25-35); MEAN CORPUSCULAR HGB CONC 34 g/dL (31-37); MEAN CORPUSCULAR VOLUME 91 fL (79-100); MONO # 0.8 x10^3/uL (0.0-1.1); MONO % 9 % (0-9); NEUT % 82 % (31-73); PLATELET COUNT 330 x10^3/uL (140-400); RED BLOOD COUNT 4.92 x10^6/uL (4.30-5.70); RED CELL DISTRIBUTION WIDTH 14.6 % (11.5-14.5); WHITE BLOOD COUNT 8.6 x10^3/uL (4.0-11.0)
--- NOTE | 2019-12-30 08:22 | RAD ---
Examination: Acute abdomen series HISTORY: History of small bowel obstruction. COMPARISON: 12/29/2019. Findings/ impression: Low lung volumes and technique accentuates heart size and pulmonary vascularity. Right-sided Port-A-Cath is identified. Feeding tube is identified in the stomach. Opacity identified in the right hilar infrahilar region likely atelectasis or infiltrate or neoplasm. Few distended bowel loops identified in the abdomen likely ileus or small bowel obstruction. Tubing projects in the abdomen likely drain tubing. Electronically signed by: Balaji Gonzalez MD (12/30/2019 8:19 AM) [id number]
[2019-12-30] MEDS ORDERED: ENOXAPARIN 40 MG/0.4 ML SYRINGE. SQ SCH (09:00)
[2019-12-30] MEDS: INSULIN LISPRO 300 UNITS/3 ML VIAL. SQ SCH ×3 (09:21→16:48)
--- NOTE | 2019-12-30 10:40 | PDOC ---
PROGRESS NOTES Subjective Subjective Some surgical pain, but looks improved from preop Objective Objective Vital Signs Date Time Temp Pulse Resp B/P (MAP) Pulse Ox O2 Delivery O2 Flow Rate FiO2 12/30/19 09:51 98.8 98.8 12/30/19 08:10 Nasal Cannula 2.0 12/30/19 07:59 117 22 149/59 (89) 93 Intake and Output 12/30/19 07:00 Intake Total 3100 ml Output Total 1510 ml Balance 1590 ml Intake IV Total 3100 ml Output Urine Total 700 ml Gastric Drainage Total 710 ml Estimated Blood Loss 100 ml Physical Exam Abdomen: Soft (binder intact, drains intact) General: Alert, Oriented X3 Assessment Assessment Problems Medical Problems: (1) Incarcerated umbilical hernia Status: Acute (2) Small bowel obstruction Status: Acute Plan Plan of Care POD 1 VHR with mesh; supportive care, continue NG for now until bowel fctn returns Comment Review of Relevant I have reviewed the following items catarina (where applicable) has been applied. Labs Laboratory Tests Test 12/28/19 22:38 12/28/19 23:40 12/29/19 01:15 12/29/19 03:30 Sodium Level 140 mmol/L (136-145) Potassium Level 4.3 mmol/L (3.5-5.1) Chloride Level 102 mmol/L (98-107) Carbon Dioxide Level 25 mmol/L (21-32) Anion Gap 13 (6-14) Blood Urea Nitrogen 24 mg/dL (8-26) Creatinine 1.4 mg/dL (0.7-1.3) Estimated GFR (Cockcroft-Gault) 52.2 BUN/Creatinine Ratio 17 (6-20) Glucose Level 138 mg/dL (70-99) Calcium Level 9.1 mg/dL (8.5-10.1) Total Bilirubin 0.2 mg/dL (0.2-1.0) Aspartate Amino Transf (AST/SGOT) 20 U/L (15-37) Alanine Aminotransferase (ALT/SGPT) 41 U/L (16-63) Alkaline Phosphatase 61 U/L (46-116) Total Protein 7.5 g/dL (6.4-8.2) Albumin 4.0 g/dL (3.4-5.0) Albumin/Globulin Ratio 1.1 (1.0-1.7) Lipase 40 U/L (73-393) White Blood Count 9.5 x10^3/uL (4.0-11.0) Red Blood Count 4.94 x10^6/uL (4.30-5.70) Hemoglobin 15.4 g/dL (13.0-17.5) Hematocrit 44.9 % (39.0-53.0) Mean Corpuscular Volume 91 fL (79-100) Mean Corpuscular Hemoglobin 31 pg (25-35) Mean Corpuscular Hemoglobin Concent 34 g/dL (31-37) Red Cell Distribution Width 14.4 % (11.5-14.5) Platelet Count 380 x10^3/uL (140-400) Neutrophils (%) (Auto) 69 % (31-73) Lymphocytes (%) (Auto) 24 % (24-48) Monocytes (%) (Auto) 6 % (0-9) Eosinophils (%) (Auto) 1 % (0-3) Basophils (%) (Auto) 0 % (0-3) Neutrophils # (Auto) 6.6 x10^3/uL (1.8-7.7) Lymphocytes # (Auto) 2.2 x10^3/uL (1.0-4.8) Monocytes # (Auto) 0.6 x10^3/uL (0.0-1.1) Eosinophils # (Auto) 0.1 x10^3/uL (0.0-0.7) Basophils # (Auto) 0.0 x10^3/uL (0.0-0.2) Urine Collection Type Void Urine Color Yellow Urine Clarity Clear Urine pH 5.0 (<5.0-8.0) Urine Specific [place] 1.020 (1.000-1.030) Urine Protein Negative mg/dL (NEG-TRACE) Urine Glucose (UA) Negative mg/dL (NEG) Urine Ketones (Stick) Negative mg/dL (NEG) Urine Blood Negative (NEG) Urine Nitrite Negative (NEG) Urine Bilirubin Negative (NEG) Urine Urobilinogen Dipstick 0.2 mg/dL (0.2 mg/dL) Urine Leukocyte Esterase Negative (NEG) Urine RBC 1-2 /HPF (0-2) Urine WBC 1-4 /HPF (0-4) Urine Squamous Epithelial Cells Occ /LPF Urine Bacteria Few /HPF (0-FEW) Urine Mucus Slight /LPF Coronavirus (COVID-19)(PCR) Negative (NEGATIVE) Test 12/29/19 07:58 12/29/19 12:07 12/29/19 15:10 12/29/19 16:24 Glucose (Fingerstick) 139 mg/dL (70-99) 170 mg/dL (70-99) 202 mg/dL (70-99) Prothrombin Time 12.6 SEC (11.7-14.0) Prothromb Time International Ratio 1.0 (0.8-1.1) Activated Partial Thromboplast Time 28 SEC (24-38) Lactic Acid Level 2.9 mmol/L (0.4-2.0) Test 12/29/19 18:30 12/29/19 20:44 12/29/19 22:02 12/30/19 03:30 Glucose (Fingerstick) 154 mg/dL (70-99) 191 mg/dL (70-99) 155 mg/dL (70-99) White Blood Count 8.6 x10^3/uL (4.0-11.0) Red Blood Count 4.92 x10^6/uL (4.30-5.70) Hemoglobin 15.1 g/dL (13.0-17.5) Hematocrit 45.0 % (39.0-53.0) Mean Corpuscular Volume 91 fL (79-100) Mean Corpuscular Hemoglobin 31 pg (25-35) Mean Corpuscular Hemoglobin Concent 34 g/dL (31-37) Red Cell Distribution Width 14.6 % (11.5-14.5) Platelet Count 330 x10^3/uL (140-400) Neutrophils (%) (Auto) 82 % (31-73) Lymphocytes (%) (Auto) 9 % (24-48) Monocytes (%) (Auto) 9 % (0-9) Eosinophils (%) (Auto) 0 % (0-3) Basophils (%) (Auto) 0 % (0-3) Neutrophils # (Auto) 7.0 x10^3/uL (1.8-7.7) Lymphocytes # (Auto) 0.7 x10^3/uL (1.0-4.8) Monocytes # (Auto) 0.8 x10^3/uL (0.0-1.1) Eosinophils # (Auto) 0.0 x10^3/uL (0.0-0.7) Basophils # (Auto) 0.0 x10^3/uL (0.0-0.2) Lactic Acid Level 1.5 mmol/L (0.4-2.0) Test 12/30/19 08:07 Glucose (Fingerstick) 211 mg/dL (70-99) Laboratory Tests Test 12/29/19 12:07 12/29/19 15:10 12/29/19 16:24 12/29/19 18:30 Glucose (Fingerstick) 170 mg/dL (70-99) 202 mg/dL (70-99) 154 mg/dL (70-99) Prothrombin Time 12.6 SEC (11.7-14.0) Prothromb Time International Ratio 1.0 (0.8-1.1) Activated Partial Thromboplast Time 28 SEC (24-38) Lactic Acid Level 2.9 mmol/L (0.4-2.0) Test 12/29/19 20:44 12/29/19 22:02 12/30/19 03:30 12/30/19 08:07 Glucose (Fingerstick) 191 mg/dL (70-99) 155 mg/dL (70-99) 211 mg/dL (70-99) White Blood Count 8.6 x10^3/uL (4.0-11.0) Red Blood Count 4.92 x10^6/uL (4.30-5.70) Hemoglobin 15.1 g/dL (13.0-17.5) Hematocrit 45.0 % (39.0-53.0) Mean Corpuscular Volume 91 fL (79-100) Mean Corpuscular Hemoglobin 31 pg (25-35) Mean Corpuscular Hemoglobin Concent 34 g/dL (31-37) Red Cell Distribution Width 14.6 % (11.5-14.5) Platelet Count 330 x10^3/uL (140-400) Neutrophils (%) (Auto) 82 % (31-73) Lymphocytes (%) (Auto) 9 % (24-48) Monocytes (%) (Auto) 9 % (0-9) Eosinophils (%) (Auto) 0 % (0-3) Basophils (%) (Auto) 0 % (0-3) Neutrophils # (Auto) 7.0 x10^3/uL (1.8-7.7) Lymphocytes # (Auto) 0.7 x10^3/uL (1.0-4.8) Monocytes # (Auto) 0.8 x10^3/uL (0.0-1.1) Eosinophils # (Auto) 0.0 x10^3/uL (0.0-0.7) Basophils # (Auto) 0.0 x10^3/uL (0.0-0.2) Lactic Acid Level 1.5 mmol/L (0.4-2.0) Medications Current Medications Sodium Chloride 1,000 ml @ 1,000 mls/hr Q1H IV Last administered on 12/29/19at 00:21; Start 12/29/19 at 00:00; Stop 12/29/19 at 00:59; Status DC Ondansetron HCl (Zofran) 4 mg 1X ONCE IVP Last administered on 12/29/19at 00:21; Start 12/29/19 at 00:00; Stop 12/29/19 at 00:01; Status DC Barium Sulfate (Readi-Cat 2) 900 ml 1X ONCE PO Last administered on 12/29/19at 00:00; Start 12/29/19 at 00:30; Stop 12/29/19 at 00:31; Status DC Morphine Sulfate (Morphine Sulfate) 4 mg 1X ONCE IV Last administered on 12/29/19at 03:20; Start 12/29/19 at 03:30; Stop 12/29/19 at 03:31; Status DC Ondansetron HCl (Zofran) 4 mg PRN Q8HRS PRN IV NAUSEA/VOMITING 1ST CHOICE Last administered on 12/29/19at 11:36; Start 12/29/19 at 03:30; Stop 12/29/19 at 14:29; Status DC Sodium Chloride 1,000 ml @ 125 mls/hr Q8H IV Last administered on 12/29/19at 22:43; Start 12/29/19 at 03:30; Stop 12/30/19 at 03:29; Status DC Benzocaine (Hurricaine One) 1 spray 1X ONCE MM Last administered on 12/29/19at 04:23; Start 12/29/19 at 04:00; Stop 12/29/19 at 04:01; Status DC Morphine Sulfate (Morphine Sulfate) 2 mg PRN Q2HR PRN IV SEVERE PAIN 7-10 Last administered on 12/29/19at 11:37; Start 12/29/19 at 06:45; Stop 12/29/19 at 22:08; Status DC Insulin Human Lispro (HumaLOG) 0-5 UNITS TIDWMEALS SQ ; Start 12/29/19 at 12:00 Dextrose (Dextrose 50%-Water Syringe) 12.5 gm PRN Q15MIN PRN IV SEE COMMENTS; Start 12/29/19 at 08:30 Enoxaparin Sodium (Lovenox 60mg Syringe) 60 mg Q12HR SQ ; Start 12/29/19 at 13:15; Stop 12/30/19 at 08:00; Status DC Ondansetron HCl (Zofran) 4 mg PRN Q4HRS PRN IV NAUSEA/VOMITING 1ST CHOICE; Start 12/29/19 at 16:00 Lidocaine HCl (Glydo (Lidocaine) Jelly) 1 kaya 1X ONCE MM Last administered on 12/29/19at 16:34; Start 12/29/19 at 16:00; Stop 12/29/19 at 16:01; Status DC Lidocaine HCl (Glydo (Lidocaine) Jelly) 1 kaya 1X ONCE MM Last administered on 12/29/19at 16:00; Start 12/29/19 at 16:00; Stop 12/29/19 at 16:01; Status DC Fentanyl Citrate (Fentanyl 2ml Vial) 100 mcg STK-MED ONCE .ROUTE ; Start 12/29/19 at 16:51; Stop 12/29/19 at 16:51; Status DC Ketamine HCl (Ketamine) 50 mg STK-MED ONCE .ROUTE ; Start 12/29/19 at 16:51; Stop 12/29/19 at 16:51; Status DC Succinylcholine Chloride (Anectine) 200 mg STK-MED ONCE .ROUTE ; Start 12/29/19 at 16:51; Stop 12/29/19 at 16:51; Status DC Rocuronium Speed (Zemuron) 50 mg STK-MED ONCE .ROUTE ; Start 12/29/19 at 16:51; Stop 12/29/19 at 16:51; Status DC Dexamethasone Sodium Phosphate (Decadron) 4 mg STK-MED ONCE .ROUTE ; Start 12/29/19 at 16:51; Stop 12/29/19 at 16:52; Status DC Ondansetron HCl (Zofran) 4 mg STK-MED ONCE .ROUTE ; Start 12/29/19 at 16:51; Stop 12/29/19 at 16:52; Status DC Propofol (Diprivan) 200 mg STK-MED ONCE IV ; Start 12/29/19 at 16:51; Stop 12/29/19 at 16:52; Status DC Famotidine (Pepcid Vial) 20 mg STK-MED ONCE .ROUTE ; Start 12/29/19 at 16:51; Stop 12/29/19 at 16:52; Status DC Lidocaine HCl (Lidocaine Pf 2% Vial) 5 ml STK-MED ONCE .ROUTE ; Start 12/29/19 at 16:51; Stop 12/29/19 at 16:52; Status DC Phenylephrine HCl (PHENYLEPHRINE in 0.9% NACL PF) 1 mg STK-MED ONCE IV ; Start 12/29/19 at 16:51; Stop 12/29/19 at 16:52; Status DC Ondansetron HCl (Zofran) 4 mg PRN Q6HRS PRN IV NAUSEA/VOMITING; Start 12/29/19 at 17:15; Stop 12/30/19 at 00:00; Status DC Fentanyl Citrate (Fentanyl 2ml Vial) 25 mcg PRN Q5MIN PRN IV MILD PAIN 1-3; Start 12/29/19 at 17:15; Stop 12/30/19 at 00:00; Status DC Fentanyl Citrate (Fentanyl 2ml Vial) 50 mcg PRN Q5MIN PRN IV MODERATE TO SEVERE PAIN; Start 12/29/19 at 17:15; Stop 12/30/19 at 00:00; Status DC Morphine Sulfate (Morphine Sulfate) 1 mg PRN Q10MIN PRN IV SEVERE PAIN 7-10; Start 12/29/19 at 17:15; Stop 12/30/19 at 00:00; Status DC Ringer's Solution 1,000 ml @ 30 mls/hr Q24H IV Last administered on 12/29/19at 22:14; Start 12/29/19 at 17:07; Stop 12/30/19 at 05:06; Status DC Lidocaine HCl (Xylocaine-Mpf 1% 2ml Vial) 2 ml PRN 1X PRN ID PRIOR TO IV START; Start 12/29/19 at 17:15; Stop 12/30/19 at 00:00; Status DC Hydromorphone HCl (Dilaudid) 0.5 mg PRN Q10MIN PRN IV SEV PAIN, Second choice; Start 12/29/19 at 17:15; Stop 12/30/19 at 00:00; Status DC Prochlorperazine Edisylate (Compazine) 5 mg PACU PRN PRN IV NAUSEA, MRX1 Last administered on 12/29/19at 22:41; Start 12/29/19 at 17:15; Stop 12/30/19 at 00:00; Status DC Bupivacaine HCl/ Epinephrine Bitart (Sensorcain-Epi 0.5%-1:[id number] Mpf) 30 ml STK-MED ONCE .ROUTE ; Start 12/29/19 at 17:14; Stop 12/29/19 at 17:14; Status DC Piperacillin Sod/ Tazobactam Sod 4.5 gm/Sodium Chloride 100 ml @ 200 mls/hr 1X ONCE IV Last administered on 12/29/19at 17:49; Start 12/29/19 at 17:45; Stop 12/29/19 at 18:14; Status DC Rocuronium Speed (Zemuron) 50 mg STK-MED ONCE .ROUTE ; Start 12/29/19 at 18:04; Stop 12/29/19 at 18:04; Status DC Hydromorphone HCl (Dilaudid) 2 mg STK-MED ONCE .ROUTE ; Start 12/29/19 at 18:29; Stop 12/29/19 at 18:29; Status DC Desflurane (Suprane) 90 ml STK-MED ONCE IH ; Start 12/29/19 at 18:59; Stop 12/29/19 at 18:59; Status DC Ondansetron HCl (Zofran) 4 mg STK-MED ONCE .ROUTE ; Start 12/29/19 at 20:48; Stop 12/29/19 at 20:48; Status DC Phenylephrine HCl (PHENYLEPHRINE in 0.9% NACL PF) 1 mg STK-MED ONCE IV ; Start 12/29/19 at 21:04; Stop 12/29/19 at 21:04; Status DC Rocuronium Speed (Zemuron) 50 mg STK-MED ONCE .ROUTE ; Start 12/29/19 at 21:05; Stop 12/29/19 at 21:06; Status DC Naloxone HCl (Narcan) 0.4 mg PRN Q2MIN PRN IV SEE INSTRUCTIONS; Start 12/29/19 at 21:45 Sodium Chloride 1,000 ml @ 25 mls/hr Q24H IV Last administered on 12/29/19at 21:41; Start 12/29/19 at 21:41 Hydromorphone HCl 30 ml @ 0 mls/hr CONT PRN PRN IV PER PROTOCOL Last administered on 12/29/19at 22:19; Start 12/29/19 at 21:45 Enoxaparin Sodium (Lovenox 40mg Syringe) 40 mg Q24H SQ ; Start 12/29/19 at 22:00; Status Cancel Morphine Sulfate (Morphine Sulfate) 4 mg 1X ONCE IV Last administered on 12/29/19at 22:18; Start 12/29/19 at 22:30; Stop 12/29/19 at 22:31; Status DC Hydromorphone HCl (Dilaudid) 2 mg STK-MED ONCE .ROUTE ; Start 12/29/19 at 22:35; Stop 12/29/19 at 22:35; Status DC Hydromorphone HCl (Dilaudid) 2 mg 1X ONCE IV Last administered on 12/29/19at 22:41; Start 12/29/19 at 22:45; Stop 12/29/19 at 22:46; Status DC Enoxaparin Sodium (Lovenox 40mg Syringe) 40 mg Q24H SQ ; Start 12/30/19 at 09:00; Stop 12/30/19 at 07:59; Status DC Enoxaparin Sodium (Lovenox 60mg Syringe) 60 mg Q12HR SQ Last administered on 12/30/19at 09:41; Start 12/30/19 at 09:00 Vitals/I & O Vital Sign - Last 24 Hours 12/29/19 12/29/19 12/29/19 12/29/19 11:10 11:37 12:07 15:00 Temp 98.8 98.9 98.8 98.9 Pulse 101 102 Resp 20 B/P (MAP) 126/84 (98) 126/91 (103) Pulse Ox 92 94 O2 Delivery Room Air Room Air Room Air Room Air 12/29/19 12/29/19 12/29/19 12/29/19 21:51 21:51 22:06 22:18 Temp 98.4 98.4 Pulse 108 100 Resp 22 22 20 B/P (MAP) 157/79 175/82 Pulse Ox 99 95 95 O2 Delivery Mask Simple Mask Nasal Cannula O2 Flow Rate 10 10 10 2.0 12/29/19 12/29/19 12/29/19 12/29/19 22:19 22:21 22:36 22:41 Pulse 103 111 Resp 22 20 22 20 B/P (MAP) 173/81 185/81 Pulse Ox 94 93 94 O2 Delivery Nasal Cannula Nasal Cannula Nasal Cannula Nasal Cannula O2 Flow Rate 2.0 2 2 2.0 12/29/19 12/29/19 12/29/19 12/29/19 22:49 22:49 23:00 23:00 Temp 97.0 97.0 Pulse 110 Resp 20 B/P (MAP) 150/72 Pulse Ox 95 95 96 O2 Delivery Nasal Cannula Nasal Cannula Nasal Cannula Nasal Cannula O2 Flow Rate 2.0 2.0 2 2 12/29/19 12/29/19 12/29/19 12/30/19 23:15 23:30 23:45 00:00 Temp 97.2 98.6 97.2 98.6 Pulse 108 112 114 113 Resp 20 26 B/P (MAP) 166/75 155/90 (111) 139/87 (104) 148/87 (107) Pulse Ox 95 93 O2 Delivery Nasal Cannula O2 Flow Rate 2 12/30/19 12/30/19 12/30/19 12/30/19 00:15 00:45 02:00 03:00 Temp 99.3 99.3 Pulse 116 110 112 109 Resp 18 B/P (MAP) 151/89 (109) 139/95 (110) 158/90 (112) 142/93 (109) Pulse Ox 93 12/30/19 12/30/19 12/30/19 07:59 08:10 09:51 Temp 99.3 98.8 99.3 98.8 Pulse 117 Resp 22 B/P (MAP) 149/59 (89) Pulse Ox 93 O2 Delivery Nasal Cannula Nasal Cannula O2 Flow Rate 4.0 2.0 Intake and Output 12/29/19 12/29/19 12/30/19 15:00 23:00 07:00 Intake Total 3100 ml Output Total 1100 ml 410 ml Balance 2000 ml -410 ml Justicifation of Admission Dx: Justifications for Admission: Justification of Admission Dx: Yes FELIX DAVIS MD Dec 30, 2019 10:40
--- NOTE | 2019-12-30 11:01 | PDOC ---
PROGRESS NOTES History of Present Illness History of Present Illness Assessment/Plan Assessment/Plan Acute abdominal pain Incarcerated ventral hernia with high-grade bowel obstruction pod # 1 Acute renal failurevasomotor nephropathy Hypertension Diabetes Dyslipidemia History of constipation PLAN Admit to medicine/telemetry N.p.o. Serial abdominal exams KUB in the a.m. Surgical consult Continue IV fluids IV pain management NG tube placement Lovenox for DVT prophylaxis Regular diet Full code Discussed with RN Justicifation of Admission Dx: Justifications for Admission: Justification of Admission Dx: Yes Operative Note Operative Note Operative Note Operative Note: Preoperative Diagnosis: Incarcerated ventral hernia with high-grade bowel obstruction Postoperative Diagnosis: Same Procedure: Repair of incarcerated ventral hernia with mesh Surgeon: Harsha Blacktop Spreader: Jesus BUSCH Anesthesia: General EBL: 100 mL Specimen: None Drains: 19 [place] SHARON x2 Complications: None Indication: The patient is a 59-year-old male who presented with abdominal pain. His evaluation is consistent with incarcerated ventral hernia with a high-grade bowel obstruction. Vitals Vitals Vital Signs Date Time Temp Pulse Resp B/P (MAP) Pulse Ox O2 Delivery O2 Flow Rate FiO2 12/30/19 09:51 98.8 98.8 12/30/19 08:10 Nasal Cannula 2.0 12/30/19 07:59 117 22 149/59 (89) 93 Physical Exam General: Alert, Oriented X3, Cooperative, No acute distress Heart: Regular rate, No murmurs Abdomen: Soft (binder intact, drains intact) Extremities: No clubbing, No cyanosis Skin: No rashes Labs LABS Operative Note Operative Note: Preoperative Diagnosis: Incarcerated ventral hernia with high-grade bowel obstruction Postoperative Diagnosis: Same Procedure: Repair of incarcerated ventral hernia with mesh Surgeon: Harsha Blacktop Spreader: Jesus BUSCH Anesthesia: General EBL: 100 mL Specimen: None Drains: 19 Armenian SHARON x2 Complications: None Laboratory Tests Test 12/29/19 12:07 12/29/19 15:10 12/29/19 16:24 12/29/19 18:30 Glucose (Fingerstick) 170 mg/dL (70-99) 202 mg/dL (70-99) 154 mg/dL (70-99) Prothrombin Time 12.6 SEC (11.7-14.0) Prothromb Time International Ratio 1.0 (0.8-1.1) Activated Partial Thromboplast Time 28 SEC (24-38) Lactic Acid Level 2.9 mmol/L (0.4-2.0) Test 12/29/19 20:44 12/29/19 22:02 12/30/19 03:30 12/30/19 08:07 Glucose (Fingerstick) 191 mg/dL (70-99) 155 mg/dL (70-99) 211 mg/dL (70-99) White Blood Count 8.6 x10^3/uL (4.0-11.0) Red Blood Count 4.92 x10^6/uL (4.30-5.70) Hemoglobin 15.1 g/dL (13.0-17.5) Hematocrit 45.0 % (39.0-53.0) Mean Corpuscular Volume 91 fL (79-100) Mean Corpuscular Hemoglobin 31 pg (25-35) Mean Corpuscular Hemoglobin Concent 34 g/dL (31-37) Red Cell Distribution Width 14.6 % (11.5-14.5) Platelet Count 330 x10^3/uL (140-400) Neutrophils (%) (Auto) 82 % (31-73) Lymphocytes (%) (Auto) 9 % (24-48) Monocytes (%) (Auto) 9 % (0-9) Eosinophils (%) (Auto) 0 % (0-3) Basophils (%) (Auto) 0 % (0-3) Neutrophils # (Auto) 7.0 x10^3/uL (1.8-7.7) Lymphocytes # (Auto) 0.7 x10^3/uL (1.0-4.8) Monocytes # (Auto) 0.8 x10^3/uL (0.0-1.1) Eosinophils # (Auto) 0.0 x10^3/uL (0.0-0.7) Basophils # (Auto) 0.0 x10^3/uL (0.0-0.2) Lactic Acid Level 1.5 mmol/L (0.4-2.0) Assessment and Plan Assessmemt and Plan Problems Medical Problems: (1) Incarcerated umbilical hernia Status: Acute (2) Small bowel obstruction Status: Acute Comment Review of Relevant I have reviewed the following items catarina (where applicable) has been applied. Labs Laboratory Tests Test 12/28/19 22:38 12/28/19 23:40 12/29/19 01:15 12/29/19 03:30 Sodium Level 140 mmol/L (136-145) Potassium Level 4.3 mmol/L (3.5-5.1) Chloride Level 102 mmol/L (98-107) Carbon Dioxide Level 25 mmol/L (21-32) Anion Gap 13 (6-14) Blood Urea Nitrogen 24 mg/dL (8-26) Creatinine 1.4 mg/dL (0.7-1.3) Estimated GFR (Cockcroft-Gault) 52.2 BUN/Creatinine Ratio 17 (6-20) Glucose Level 138 mg/dL (70-99) Calcium Level 9.1 mg/dL (8.5-10.1) Total Bilirubin 0.2 mg/dL (0.2-1.0) Aspartate Amino Transf (AST/SGOT) 20 U/L (15-37) Alanine Aminotransferase (ALT/SGPT) 41 U/L (16-63) Alkaline Phosphatase 61 U/L (46-116) Total Protein 7.5 g/dL (6.4-8.2) Albumin 4.0 g/dL (3.4-5.0) Albumin/Globulin Ratio 1.1 (1.0-1.7) Lipase 40 U/L (73-393) White Blood Count 9.5 x10^3/uL (4.0-11.0) Red Blood Count 4.94 x10^6/uL (4.30-5.70) Hemoglobin 15.4 g/dL (13.0-17.5) Hematocrit 44.9 % (39.0-53.0) Mean Corpuscular Volume 91 fL (79-100) Mean Corpuscular Hemoglobin 31 pg (25-35) Mean Corpuscular Hemoglobin Concent 34 g/dL (31-37) Red Cell Distribution Width 14.4 % (11.5-14.5) Platelet Count 380 x10^3/uL (140-400) Neutrophils (%) (Auto) 69 % (31-73) Lymphocytes (%) (Auto) 24 % (24-48) Monocytes (%) (Auto) 6 % (0-9) Eosinophils (%) (Auto) 1 % (0-3) Basophils (%) (Auto) 0 % (0-3) Neutrophils # (Auto) 6.6 x10^3/uL (1.8-7.7) Lymphocytes # (Auto) 2.2 x10^3/uL (1.0-4.8) Monocytes # (Auto) 0.6 x10^3/uL (0.0-1.1) Eosinophils # (Auto) 0.1 x10^3/uL (0.0-0.7) Basophils # (Auto) 0.0 x10^3/uL (0.0-0.2) Urine Collection Type Void Urine Color Yellow Urine Clarity Clear Urine pH 5.0 (<5.0-8.0) Urine Specific [place] 1.020 (1.000-1.030) Urine Protein Negative mg/dL (NEG-TRACE) Urine Glucose (UA) Negative mg/dL (NEG) Urine Ketones (Stick) Negative mg/dL (NEG) Urine Blood Negative (NEG) Urine Nitrite Negative (NEG) Urine Bilirubin Negative (NEG) Urine Urobilinogen Dipstick 0.2 mg/dL (0.2 mg/dL) Urine Leukocyte Esterase Negative (NEG) Urine RBC 1-2 /HPF (0-2) Urine WBC 1-4 /HPF (0-4) Urine Squamous Epithelial Cells Occ /LPF Urine Bacteria Few /HPF (0-FEW) Urine Mucus Slight /LPF Coronavirus (COVID-19)(PCR) Negative (NEGATIVE) Test 12/29/19 07:58 12/29/19 12:07 12/29/19 15:10 12/29/19 16:24 Glucose (Fingerstick) 139 mg/dL (70-99) 170 mg/dL (70-99) 202 mg/dL (70-99) Prothrombin Time 12.6 SEC (11.7-14.0) Prothromb Time International Ratio 1.0 (0.8-1.1) Activated Partial Thromboplast Time 28 SEC (24-38) Lactic Acid Level 2.9 mmol/L (0.4-2.0) Test 12/29/19 18:30 12/29/19 20:44 12/29/19 22:02 12/30/19 03:30 Glucose (Fingerstick) 154 mg/dL (70-99) 191 mg/dL (70-99) 155 mg/dL (70-99) White Blood Count 8.6 x10^3/uL (4.0-11.0) Red Blood Count 4.92 x10^6/uL (4.30-5.70) Hemoglobin 15.1 g/dL (13.0-17.5) Hematocrit 45.0 % (39.0-53.0) Mean Corpuscular Volume 91 fL (79-100) Mean Corpuscular Hemoglobin 31 pg (25-35) Mean Corpuscular Hemoglobin Concent 34 g/dL (31-37) Red Cell Distribution Width 14.6 % (11.5-14.5) Platelet Count 330 x10^3/uL (140-400) Neutrophils (%) (Auto) 82 % (31-73) Lymphocytes (%) (Auto) 9 % (24-48) Monocytes (%) (Auto) 9 % (0-9) Eosinophils (%) (Auto) 0 % (0-3) Basophils (%) (Auto) 0 % (0-3) Neutrophils # (Auto) 7.0 x10^3/uL (1.8-7.7) Lymphocytes # (Auto) 0.7 x10^3/uL (1.0-4.8) Monocytes # (Auto) 0.8 x10^3/uL (0.0-1.1) Eosinophils # (Auto) 0.0 x10^3/uL (0.0-0.7) Basophils # (Auto) 0.0 x10^3/uL (0.0-0.2) Lactic Acid Level 1.5 mmol/L (0.4-2.0) Test 12/30/19 08:07 Glucose (Fingerstick) 211 mg/dL (70-99) Laboratory Tests Test 12/29/19 12:07 12/29/19 15:10 12/29/19 16:24 12/29/19 18:30 Glucose (Fingerstick) 170 mg/dL (70-99) 202 mg/dL (70-99) 154 mg/dL (70-99) Prothrombin Time 12.6 SEC (11.7-14.0) Prothromb Time International Ratio 1.0 (0.8-1.1) Activated Partial Thromboplast Time 28 SEC (24-38) Lactic Acid Level 2.9 mmol/L (0.4-2.0) Test 12/29/19 20:44 12/29/19 22:02 12/30/19 03:30 12/30/19 08:07 Glucose (Fingerstick) 191 mg/dL (70-99) 155 mg/dL (70-99) 211 mg/dL (70-99) White Blood Count 8.6 x10^3/uL (4.0-11.0) Red Blood Count 4.92 x10^6/uL (4.30-5.70) Hemoglobin 15.1 g/dL (13.0-17.5) Hematocrit 45.0 % (39.0-53.0) Mean Corpuscular Volume 91 fL (79-100) Mean Corpuscular Hemoglobin 31 pg (25-35) Mean Corpuscular Hemoglobin Concent 34 g/dL (31-37) Red Cell Distribution Width 14.6 % (11.5-14.5) Platelet Count 330 x10^3/uL (140-400) Neutrophils (%) (Auto) 82 % (31-73) Lymphocytes (%) (Auto) 9 % (24-48) Monocytes (%) (Auto) 9 % (0-9) Eosinophils (%) (Auto) 0 % (0-3) Basophils (%) (Auto) 0 % (0-3) Neutrophils # (Auto) 7.0 x10^3/uL (1.8-7.7) Lymphocytes # (Auto) 0.7 x10^3/uL (1.0-4.8) Monocytes # (Auto) 0.8 x10^3/uL (0.0-1.1) Eosinophils # (Auto) 0.0 x10^3/uL (0.0-0.7) Basophils # (Auto) 0.0 x10^3/uL (0.0-0.2) Lactic Acid Level 1.5 mmol/L (0.4-2.0) Medications Current Medications Sodium Chloride 1,000 ml @ 1,000 mls/hr Q1H IV Last administered on 12/29/19at 00:21; Start 12/29/19 at 00:00; Stop 12/29/19 at 00:59; Status DC Ondansetron HCl (Zofran) 4 mg 1X ONCE IVP Last administered on 12/29/19at 00:2 1; Start 12/29/19 at 00:00; Stop 12/29/19 at 00:01; Status DC Barium Sulfate (Readi-Cat 2) 900 ml 1X ONCE PO Last administered on 12/29/19at 00:00; Start 12/29/19 at 00:30; Stop 12/29/19 at 00:31; Status DC Morphine Sulfate (Morphine Sulfate) 4 mg 1X ONCE IV Last administered on 12/29/19at 03:20; Start 12/29/19 at 03:30; Stop 12/29/19 at 03:31; Status DC Ondansetron HCl (Zofran) 4 mg PRN Q8HRS PRN IV NAUSEA/VOMITING 1ST CHOICE Last administered on 12/29/19at 11:36; Start 12/29/19 at 03:30; Stop 12/29/19 at 14:29; Status DC Sodium Chloride 1,000 ml @ 125 mls/hr Q8H IV Last administered on 12/29/19at 22:43; Start 12/29/19 at 03:30; Stop 12/30/19 at 03:29; Status DC Benzocaine (Hurricaine One) 1 spray 1X ONCE MM Last administered on 12/29/19at 04:23; Start 12/29/19 at 04:00; Stop 12/29/19 at 04:01; Status DC Morphine Sulfate (Morphine Sulfate) 2 mg PRN Q2HR PRN IV SEVERE PAIN 7-10 Last administered on 12/29/19at 11:37; Start 12/29/19 at 06:45; Stop 12/29/19 at 22:08; Status DC Insulin Human Lispro (HumaLOG) 0-5 UNITS TIDWMEALS SQ ; Start 12/29/19 at 12:00 Dextrose (Dextrose 50%-Water Syringe) 12.5 gm PRN Q15MIN PRN IV SEE COMMENTS; Start 12/29/19 at 08:30 Enoxaparin Sodium (Lovenox 60mg Syringe) 60 mg Q12HR SQ ; Start 12/29/19 at 13:15; Stop 12/30/19 at 08:00; Status DC Ondansetron HCl (Zofran) 4 mg PRN Q4HRS PRN IV NAUSEA/VOMITING 1ST CHOICE; Start 12/29/19 at 16:00 Lidocaine HCl (Glydo (Lidocaine) Jelly) 1 kaya 1X ONCE MM Last administered on 12/29/19at 16:34; Start 12/29/19 at 16:00; Stop 12/29/19 at 16:01; Status DC Lidocaine HCl (Glydo (Lidocaine) Jelly) 1 kaya 1X ONCE MM Last administered on 12/29/19at 16:00; Start 12/29/19 at 16:00; Stop 12/29/19 at 16:01; Status DC Fentanyl Citrate (Fentanyl 2ml Vial) 100 mcg STK-MED ONCE .ROUTE ; Start 12/11 01/30 at 16:51; Stop 12/29/19 at 16:51; Status DC Ketamine HCl (Ketamine) 50 mg STK-MED ONCE .ROUTE ; Start 12/29/19 at 16:51; Stop 12/29/19 at 16:51; Status DC Succinylcholine Chloride (Anectine) 200 mg STK-MED ONCE .ROUTE ; Start 12/29/19 at 16:51; Stop 12/29/19 at 16:51; Status DC Rocuronium [place] (Zemuron) 50 mg STK-MED ONCE .ROUTE ; Start 12/29/19 at 16:51; Stop 12/29/19 at 16:51; Status DC Dexamethasone Sodium Phosphate (Decadron) 4 mg STK-MED ONCE .ROUTE ; Start 12/29/19 at 16:51; Stop 12/29/19 at 16:52; Status DC Ondansetron HCl (Zofran) 4 mg STK-MED ONCE .ROUTE ; Start 12/29/19 at 16:51; Stop 12/29/19 at 16:52; Status DC Propofol (Diprivan) 200 mg STK-MED ONCE IV ; Start 12/29/19 at 16:51; Stop 12/29/19 at 16:52; Status DC Famotidine (Pepcid Vial) 20 mg STK-MED ONCE .ROUTE ; Start 12/29/19 at 16:51; Stop 12/29/19 at 16:52; Status DC Lidocaine HCl (Lidocaine Pf 2% Vial) 5 ml STK-MED ONCE .ROUTE ; Start 12/29/19 at 16:51; Stop 12/29/19 at 16:52; Status DC Phenylephrine HCl (PHENYLEPHRINE in 0.9% NACL PF) 1 mg STK-MED ONCE IV ; Start 12/29/19 at 16:51; Stop 12/29/19 at 16:52; Status DC Ondansetron HCl (Zofran) 4 mg PRN Q6HRS PRN IV NAUSEA/VOMITING; Start 12/29/19 at 17:15; Stop 12/30/19 at 00:00; Status DC Fentanyl Citrate (Fentanyl 2ml Vial) 25 mcg PRN Q5MIN PRN IV MILD PAIN 1-3; Start 12/29/19 at 17:15; Stop 12/30/19 at 00:00; Status DC Fentanyl Citrate (Fentanyl 2ml Vial) 50 mcg PRN Q5MIN PRN IV MODERATE TO SEVERE PAIN; Start 12/29/19 at 17:15; Stop 12/30/19 at 00:00; Status DC Morphine Sulfate (Morphine Sulfate) 1 mg PRN Q10MIN PRN IV SEVERE PAIN 7-10; Start 12/29/19 at 17:15; Stop 12/30/19 at 00:00; Status DC Ringer's Solution 1,000 ml @ 30 mls/hr Q24H IV Last administered on 12/29/19at 22:14; Start 12/29/19 at 17:07; Stop 12/30/19 at 05:06; Status DC Lidocaine HCl (Xylocaine-Mpf 1% 2ml Vial) 2 ml PRN 1X PRN ID PRIOR TO IV START; Start 12/29/19 at 17:15; Stop 12/30/19 at 00:00; Status DC Hydromorphone HCl (Dilaudid) 0.5 mg PRN Q10MIN PRN IV SEV PAIN, Second choice; Start 12/29/19 at 17:15; Stop 12/30/19 at 00:00; Status DC Prochlorperazine Edisylate (Compazine) 5 mg PACU PRN PRN IV NAUSEA, MRX1 Last administered on 12/29/19at 22:41; Start 12/29/19 at 17:15; Stop 12/30/19 at 00:00; Status DC Bupivacaine HCl/ Epinephrine Bitart (Sensorcain-Epi 0.5%-1:619320 Mpf) 30 ml STK-MED ONCE .ROUTE ; Start 7/18/20 at 17:14; Stop 12/29/19 at 17:14; Status DC Piperacillin Sod/ Tazobactam Sod 4.5 gm/Sodium Chloride 100 ml @ 200 mls/hr 1X ONCE IV Last administered on 12/29/19at 17:49; Start 12/29/19 at 17:45; Stop 12/29/19 at 18:14; Status DC Rocuronium [place] (Zemuron) 50 mg STK-MED ONCE .ROUTE ; Start 12/29/19 at 18:04; Stop 12/29/19 at 18:04; Status DC Hydromorphone HCl (Dilaudid) 2 mg STK-MED ONCE .ROUTE ; Start 12/29/19 at 18:29; Stop 12/29/19 at 18:29; Status DC Desflurane (Suprane) 90 ml STK-MED ONCE IH ; Start 12/29/19 at 18:59; Stop 12/29/19 at 18:59; Status DC Ondansetron HCl (Zofran) 4 mg STK-MED ONCE .ROUTE ; Start 12/29/19 at 20:48; Stop 12/29/19 at 20:48; Status DC Phenylephrine HCl (PHENYLEPHRINE in 0.9% NACL PF) 1 mg STK-MED ONCE IV ; Start 12/29/19 at 21:04; Stop 12/29/19 at 21:04; Status DC Rocuronium [place] (Zemuron) 50 mg STK-MED ONCE .ROUTE ; Start 12/29/19 at 21:05; Stop 12/29/19 at 21:06; Status DC Naloxone HCl (Narcan) 0.4 mg PRN Q2MIN PRN IV SEE INSTRUCTIONS; Start 12/29/19 at 21:45 Sodium Chloride 1,000 ml @ 25 mls/hr Q24H IV Last administered on 12/29/19at 21:41; Start 12/29/19 at 21:41 Hydromorphone HCl 30 ml @ 0 mls/hr CONT PRN PRN IV PER PROTOCOL Last ad ministered on 12/29/19at 22:19; Start 12/29/19 at 21:45 Enoxaparin Sodium (Lovenox 40mg Syringe) 40 mg Q24H SQ ; Start 12/29/19 at 22:00; Status Cancel Morphine Sulfate (Morphine Sulfate) 4 mg 1X ONCE IV Last administered on 12/29/19at 22:18; Start 12/29/19 at 22:30; Stop 12/29/19 at 22:31; Status DC Hydromorphone HCl (Dilaudid) 2 mg STK-MED ONCE .ROUTE ; Start 12/29/19 at 22:35; Stop 12/29/19 at 22:35; Status DC Hydromorphone HCl (Dilaudid) 2 mg 1X ONCE IV Last administered on 12/29/19at 22:41; Start 12/29/19 at 22:45; Stop 12/29/19 at 22:46; Status DC Enoxaparin Sodium (Lovenox 40mg Syringe) 40 mg Q24H SQ ; Start 12/30/19 at 09:00; Stop 12/30/19 at 07:59; Status DC Enoxaparin Sodium (Lovenox 60mg Syringe) 60 mg Q12HR SQ Last administered on 12/30/19at 09:41; Start 12/30/19 at 09:00 Vitals/I & O Vital Sign - Last 24 Hours 12/29/19 12/29/19 12/29/19 12/29/19 11:10 11:37 12:07 15:00 Temp 98.8 98.9 98.8 98.9 Pulse 101 102 Resp B/P (MAP) 126/84 (98) 126/91 (103) Pulse Ox 92 94 O2 Delivery Room Air Room Air Room Air Room Air 12/29/19 12/29/19 12/29/19 12/29/19 21:51 21:51 22:06 22:18 Temp 98.4 98.4 Pulse 108 100 Resp B/P (MAP) 157/79 175/82 Pulse Ox 99 95 95 O2 Delivery Mask Simple Mask Nasal Cannula O2 Flow Rate 10 10 10 2.0 12/29/19 12/29/19 12/29/19 12/29/19 22:19 22:21 22:36 22:41 Pulse 103 111 Resp B/P (MAP) 173/81 185/81 Pulse Ox 94 93 94 O2 Delivery Nasal Cannula Nasal Cannula Nasal Cannula Nasal Cannula O2 Flow Rate 2.0 2 2 2.0 7/18/20 7/18/20 7/18/20 7/18/20 22:49 22:49 23:00 23:00 Temp 97.0 97.0 Pulse 110 Resp 20 B/P (MAP) 150/72 Pulse Ox 95 95 96 O2 Delivery Nasal Cannula Nasal Cannula Nasal Cannula Nasal Cannula O2 Flow Rate 2.0 2.0 2 2 12/29/19 12/29/19 12/29/19 12/30/19 23:15 23:30 23:45 00:00 Temp 97.2 98.6 97.2 98.6 Pulse 108 112 114 113 Resp 20 26 B/P (MAP) 166/75 155/90 (111) 139/87 (104) 148/87 (107) Pulse Ox 95 93 O2 Delivery Nasal Cannula O2 Flow Rate 2 12/30/19 12/30/19 12/30/19 12/30/19 00:15 00:45 02:00 03:00 Temp 99.3 99.3 Pulse 116 110 112 109 Resp 18 B/P (MAP) 151/89 (109) 139/95 (110) 158/90 (112) 142/93 (109) Pulse Ox 93 12/30/19 12/30/19 12/30/19 07:59 08:10 09:51 Temp 99.3 98.8 99.3 98.8 Pulse 117 Resp 22 B/P (MAP) 149/59 (89) Pulse Ox 93 O2 Delivery Nasal Cannula Nasal Cannula O2 Flow Rate 4.0 2.0 Intake and Output 12/29/19 12/29/19 12/30/19 15:00 23:00 07:00 Intake Total 3100 ml Output Total 1100 ml 410 ml Balance 2000 ml -410 ml Justicifation of Admission Dx: Justifications for Admission: Justification of Admission Dx: Yes JONO DAVIS MD Dec 30, 2019 11:01
[2019-12-30] MEDS: HYDROmorphone 12mg/30ml PCA 30 ML IV PRN (19:02)
[2019-12-30] MEDS ORDERED: PHENOL ORAL SPRAY 177ML BOTTLE. PO PRN (21:00)
[2019-12-30] MEDS: IV NORMAL SALINE 1000ML BAG 1,000 ML IV SCH (21:41)
--- NOTE | 2019-12-31 02:03 | NUR ---
Patient removed NG tube. Patient is requesting another not be placed. After explaining to patient reasoning for NG tube he refuses to allow this RN to try and replace NG tube at this time. Paged MD to make aware of current situation. NG tube had minimal output < 20ml out since beginning of shift. Will continue to monitor patient at this time.
[2019-12-31 03:00] VITALS: BP 134/98
[2019-12-31 04:28] LABS: BASO % 0 % (0-3); EOS % 0 % (0-3); HEMATOCRIT 39.2 % (39.0-53.0); HEMOGLOBIN 13.1 g/dL (13.0-17.5); LYMPH # 1.3 x10^3/uL (1.0-4.8); LYMPH % 15 % (24-48); MEAN CORPUSCULAR HEMOGLOBIN 31 pg (25-35); MEAN CORPUSCULAR HGB CONC 33 g/dL (31-37); MEAN CORPUSCULAR VOLUME 91 fL (79-100); MONO % 11 % (0-9); NEUT # 6.5 x10^3/uL (1.8-7.7); NEUT % 74 % (31-73); PLATELET COUNT 288 x10^3/uL (140-400); RED BLOOD COUNT 4.29 x10^6/uL (4.30-5.70); RED CELL DISTRIBUTION WIDTH 14.7 % (11.5-14.5); WHITE BLOOD COUNT 8.8 x10^3/uL (4.0-11.0)
[2019-12-31 05:25] LABS: ALBUMIN 2.9 g/dL (3.4-5.0); ALBUMIN/GLOBULIN RATIO 0.7 (1.0-1.7); CALCIUM 8.3 mg/dL (8.5-10.1); CREATININE 1.5 mg/dL (0.7-1.3); GFR 48.2; POTASSIUM 3.9 mmol/L (3.5-5.1); TOTAL BILIRUBIN 0.4 mg/dL (0.2-1.0); TOTAL PROTEIN 6.8 g/dL (6.4-8.2)
[2019-12-31 07:00] VITALS: BP 149/94
--- NOTE | 2019-12-31 07:56 | EKG ---
[facility] [address] [place] [address] Test Date: 2019-12-28 Test Time: 23:47:58 Pat Name: JOE HYLTON Department: Room: Gender: M Inspector Plating: : 1960 Requested By: FELIX PRIETO Order Number: [id number] Reading MD: Measurements Intervals [place] Rate: 95 P: 56 NC: 152 QRS: 46 QRSD: 90 T: 62 QT: 354 QTc: 448 Interpretive Statements SINUS RHYTHM NORMAL ECG RI6.02 No previous ECG available for comparison
[2019-12-31] MEDS: INSULIN LISPRO 300 UNITS/3 ML VIAL. SQ SCH ×3 (08:00→17:00)
--- NOTE | 2019-12-31 08:02 | PDOC ---
PROGRESS NOTES History of Present Illness History of Present Illness Assessment/Plan Assessment/Plan Acute abdominal pain Incarcerated ventral hernia with high-grade bowel obstruction pod # 3 Acute renal failurevasomotor nephropathy Hypertension Diabetes Dyslipidemia History of constipation ATELECTASIS PLAN Admit to medicine/telemetry N.p.o. Serial abdominal exams KUB in the a.m. Surgical consult Continue IV fluids IV pain management NG tube placement Lovenox for DVT prophylaxis Regular diet Full code Discussed with RN IS PT/OT 37 min pt exam, chart review, > 50% of time spent with exam, chart review, pt care coordination Justicifation of Admission Dx: Justifications for Admission: Justification of Admission Dx: Yes Operative Note Operative Note Operative Note Operative Note: Preoperative Diagnosis: Incarcerated ventral hernia with high-grade bowel obstruction Postoperative Diagnosis: Same Procedure: Repair of incarcerated ventral hernia with mesh Surgeon: Harsha Optimization Specialist: Jesus BUSCH Anesthesia: General EBL: 100 mL Specimen: None Drains: 19 American SHARON x2 Complications: None Indication: The patient is a 59-year-old male who presented with abdominal pain. His evaluation is consistent with incarcerated ventral hernia with a high-grade bowel obstruction. Vitals Vitals Vital Signs Date Time Temp Pulse Resp B/P (MAP) Pulse Ox O2 Delivery O2 Flow Rate FiO2 12/31/19 03:00 99.0 107 18 134/98 (110) 95 Nasal Cannula 4.0 99.0 Physical Exam General: Alert, Oriented X3, Cooperative, No acute distress Heart: Regular rate, Normal S1, No murmurs Lungs: Clear Abdomen: Soft (binder intact, drains intact), No tenderness Extremities: No clubbing, No cyanosis Skin: No rashes Labs LABS Laboratory Tests Test 12/30/19 08:07 12/30/19 12:43 12/30/19 16:46 12/30/19 21:21 Glucose (Fingerstick) 211 mg/dL (70-99) 183 mg/dL (70-99) 200 mg/dL (70-99) 191 mg/dL (70-99) Test 12/31/19 04:03 White Blood Count 8.8 x10^3/uL (4.0-11.0) Red Blood Count 4.29 x10^6/uL (4.30-5.70) Hemoglobin 13.1 g/dL (13.0-17.5) Hematocrit 39.2 % (39.0-53.0) Mean Corpuscular Volume 91 fL (79-100) Mean Corpuscular Hemoglobin 31 pg (25-35) Mean Corpuscular Hemoglobin Concent 33 g/dL (31-37) Red Cell Distribution Width 14.7 % (11.5-14.5) Platelet Count 288 x10^3/uL (140-400) Neutrophils (%) (Auto) 74 % (31-73) Lymphocytes (%) (Auto) 15 % (24-48) Monocytes (%) (Auto) 11 % (0-9) Eosinophils (%) (Auto) 0 % (0-3) Basophils (%) (Auto) 0 % (0-3) Neutrophils # (Auto) 6.5 x10^3/uL (1.8-7.7) Lymphocytes # (Auto) 1.3 x10^3/uL (1.0-4.8) Monocytes # (Auto) 1.0 x10^3/uL (0.0-1.1) Eosinophils # (Auto) 0.0 x10^3/uL (0.0-0.7) Basophils # (Auto) 0.0 x10^3/uL (0.0-0.2) Sodium Level 144 mmol/L (136-145) Potassium Level 3.9 mmol/L (3.5-5.1) Chloride Level 109 mmol/L (98-107) Carbon Dioxide Level 23 mmol/L (21-32) Anion Gap 12 (6-14) Blood Urea Nitrogen 22 mg/dL (8-26) Creatinine 1.5 mg/dL (0.7-1.3) Estimated GFR (Cockcroft-Gault) 48.2 BUN/Creatinine Ratio 15 (6-20) Glucose Level 206 mg/dL (70-99) Calcium Level 8.3 mg/dL (8.5-10.1) Total Bilirubin 0.4 mg/dL (0.2-1.0) Aspartate Amino Transf (AST/SGOT) 16 U/L (15-37) Alanine Aminotransferase (ALT/SGPT) 58 U/L (16-63) Alkaline Phosphatase 49 U/L (46-116) Total Protein 6.8 g/dL (6.4-8.2) Albumin 2.9 g/dL (3.4-5.0) Albumin/Globulin Ratio 0.7 (1.0-1.7) Assessment and Plan Assessmemt and Plan Problems Medical Problems: (1) Incarcerated umbilical hernia Status: Acute (2) Small bowel obstruction Status: Acute Comment Review of Relevant I have reviewed the following items catarina (where applicable) has been applied. Labs Laboratory Tests Test 12/29/19 12:07 12/29/19 15:10 12/29/19 16:24 12/29/19 18:30 Glucose (Fingerstick) 170 mg/dL (70-99) 202 mg/dL (70-99) 154 mg/dL (70-99) Prothrombin Time 12.6 SEC (11.7-14.0) Prothromb Time International Ratio 1.0 (0.8-1.1) Activated Partial Thromboplast Time 28 SEC (24-38) Lactic Acid Level 2.9 mmol/L (0.4-2.0) Test 12/29/19 20:44 12/29/19 22:02 12/30/19 03:30 12/30/19 08:07 Glucose (Fingerstick) 191 mg/dL (70-99) 155 mg/dL (70-99) 211 mg/dL (70-99) White Blood Count 8.6 x10^3/uL (4.0-11.0) Red Blood Count 4.92 x10^6/uL (4.30-5.70) Hemoglobin 15.1 g/dL (13.0-17.5) Hematocrit 45.0 % (39.0-53.0) Mean Corpuscular Volume 91 fL (79-100) Mean Corpuscular Hemoglobin 31 pg (25-35) Mean Corpuscular Hemoglobin Concent 34 g/dL (31-37) Red Cell Distribution Width 14.6 % (11.5-14.5) Platelet Count 330 x10^3/uL (140-400) Neutrophils (%) (Auto) 82 % (31-73) Lymphocytes (%) (Auto) 9 % (24-48) Monocytes (%) (Auto) 9 % (0-9) Eosinophils (%) (Auto) 0 % (0-3) Basophils (%) (Auto) 0 % (0-3) Neutrophils # (Auto) 7.0 x10^3/uL (1.8-7.7) Lymphocytes # (Auto) 0.7 x10^3/uL (1.0-4.8) Monocytes # (Auto) 0.8 x10^3/uL (0.0-1.1) Eosinophils # (Auto) 0.0 x10^3/uL (0.0-0.7) Basophils # (Auto) 0.0 x10^3/uL (0.0-0.2) Lactic Acid Level 1.5 mmol/L (0.4-2.0) Test 12/30/19 12:43 12/30/19 16:46 12/30/19 21:21 12/31/19 04:03 Glucose (Fingerstick) 183 mg/dL (70-99) 200 mg/dL (70-99) 191 mg/dL (70-99) White Blood Count 8.8 x10^3/uL (4.0-11.0) Red Blood Count 4.29 x10^6/uL (4.30-5.70) Hemoglobin 13.1 g/dL (13.0-17.5) Hematocrit 39.2 % (39.0-53.0) Mean Corpuscular Volume 91 fL (79-100) Mean Corpuscular Hemoglobin 31 pg (25-35) Mean Corpuscular Hemoglobin Concent 33 g/dL (31-37) Red Cell Distribution Width 14.7 % (11.5-14.5) Platelet Count 288 x10^3/uL (140-400) Neutrophils (%) (Auto) 74 % (31-73) Lymphocytes (%) (Auto) 15 % (24-48) Monocytes (%) (Auto) 11 % (0-9) Eosinophils (%) (Auto) 0 % (0-3) Basophils (%) (Auto) 0 % (0-3) Neutrophils # (Auto) 6.5 x10^3/uL (1.8-7.7) Lymphocytes # (Auto) 1.3 x10^3/uL (1.0-4.8) Monocytes # (Auto) 1.0 x10^3/uL (0.0-1.1) Eosinophils # (Auto) 0.0 x10^3/uL (0.0-0.7) Basophils # (Auto) 0.0 x10^3/uL (0.0-0.2) Sodium Level 144 mmol/L (136-145) Potassium Level 3.9 mmol/L (3.5-5.1) Chloride Level 109 mmol/L (98-107) Carbon Dioxide Level 23 mmol/L (21-32) Anion Gap 12 (6-14) Blood Urea Nitrogen 22 mg/dL (8-26) Creatinine 1.5 mg/dL (0.7-1.3) Estimated GFR (Cockcroft-Gault) 48.2 BUN/Creatinine Ratio 15 (6-20) Glucose Level 206 mg/dL (70-99) Calcium Level 8.3 mg/dL (8.5-10.1) Total Bilirubin 0.4 mg/dL (0.2-1.0) Aspartate Amino Transf (AST/SGOT) 16 U/L (15-37) Alanine Aminotransferase (ALT/SGPT) 58 U/L (16-63) Alkaline Phosphatase 49 U/L (46-116) Total Protein 6.8 g/dL (6.4-8.2) Albumin 2.9 g/dL (3.4-5.0) Albumin/Globulin Ratio 0.7 (1.0-1.7) Laboratory Tests Test 12/30/19 08:07 12/30/19 12:43 12/30/19 16:46 12/30/19 21:21 Glucose (Fingerstick) 211 mg/dL (70-99) 183 mg/dL (70-99) 200 mg/dL (70-99) 191 mg/dL (70-99) Test 12/31/19 04:03 White Blood Count 8.8 x10^3/uL (4.0-11.0) Red Blood Count 4.29 x10^6/uL (4.30-5.70) Hemoglobin 13.1 g/dL (13.0-17.5) Hematocrit 39.2 % (39.0-53.0) Mean Corpuscular Volume 91 fL (79-100) Mean Corpuscular Hemoglobin 31 pg (25-35) Mean Corpuscular Hemoglobin Concent 33 g/dL (31-37) Red Cell Distribution Width 14.7 % (11.5-14.5) Platelet Count 288 x10^3/uL (140-400) Neutrophils (%) (Auto) 74 % (31-73) Lymphocytes (%) (Auto) 15 % (24-48) Monocytes (%) (Auto) 11 % (0-9) Eosinophils (%) (Auto) 0 % (0-3) Basophils (%) (Auto) 0 % (0-3) Neutrophils # (Auto) 6.5 x10^3/uL (1.8-7.7) Lymphocytes # (Auto) 1.3 x10^3/uL (1.0-4.8) Monocytes # (Auto) 1.0 x10^3/uL (0.0-1.1) Eosinophils # (Auto) 0.0 x10^3/uL (0.0-0.7) Basophils # (Auto) 0.0 x10^3/uL (0.0-0.2) Sodium Level 144 mmol/L (136-145) Potassium Level 3.9 mmol/L (3.5-5.1) Chloride Level 109 mmol/L (98-107) Carbon Dioxide Level 23 mmol/L (21-32) Anion Gap 12 (6-14) Blood Urea Nitrogen 22 mg/dL (8-26) Creatinine 1.5 mg/dL (0.7-1.3) Estimated GFR (Cockcroft-Gault) 48.2 BUN/Creatinine Ratio 15 (6-20) Glucose Level 206 mg/dL (70-99) Calcium Level 8.3 mg/dL (8.5-10.1) Total Bilirubin 0.4 mg/dL (0.2-1.0) Aspartate Amino Transf (AST/SGOT) 16 U/L (15-37) Alanine Aminotransferase (ALT/SGPT) 58 U/L (16-63) Alkaline Phosphatase 49 U/L (46-116) Total Protein 6.8 g/dL (6.4-8.2) Albumin 2.9 g/dL (3.4-5.0) Albumin/Globulin Ratio 0.7 (1.0-1.7) Medications Current Medications Sodium Chloride 1,000 ml @ 1,000 mls/hr Q1H IV Last administered on 12/29/19at 00:21; Start 12/29/19 at 00:00; Stop 12/29/19 at 00:59; Status DC Ondansetron HCl (Zofran) 4 mg 1X ONCE IVP Last administered on 12/29/19at 00:21; Start 12/29/19 at 00:00; Stop 12/29/19 at 00:01; Status DC Barium Sulfate (Readi-Cat 2) 900 ml 1X ONCE PO Last administered on 12/29/19at 00:00; Start 12/29/19 at 00:30; Stop 12/29/19 at 00:31; Status DC Morphine Sulfate (Morphine Sulfate) 4 mg 1X ONCE IV Last administered on 12/29/19at 03:20; Start 12/29/19 at 03:30; Stop 12/29/19 at 03:31; Status DC Ondansetron HCl (Zofran) 4 mg PRN Q8HRS PRN IV NAUSEA/VOMITING 1ST CHOICE Last administered on 12/29/19at 11:36; Start 12/29/19 at 03:30; Stop 12/29/19 at 14:29; Status DC Sodium Chloride 1,000 ml @ 125 mls/hr Q8H IV Last administered on 12/29/19at 22:43; Start 12/29/19 at 03:30; Stop 12/30/19 at 03:29; Status DC Benzocaine (Hurricaine One) 1 spray 1X ONCE MM Last administered on 12/29/19at 04:23; Start 12/29/19 at 04:00; Stop 12/29/19 at 04:01; Status DC Morphine Sulfate (Morphine Sulfate) 2 mg PRN Q2HR PRN IV SEVERE PAIN 7-10 Last administered on 12/29/19at 11:37; Start 12/29/19 at 06:45; Stop 12/29/19 at 22:08; Status DC Insulin Human Lispro (HumaLOG) 0-5 UNITS TIDWMEALS SQ ; Start 12/29/19 at 12:00 Dextrose (Dextrose 50%-Water Syringe) 12.5 gm PRN Q15MIN PRN IV SEE COMMENTS; Start 12/29/19 at 08:30 Enoxaparin Sodium (Lovenox 60mg Syringe) 60 mg Q12HR SQ ; Start 12/29/19 at 13:15; Stop 12/30/19 at 08:00; Status DC Ondansetron HCl (Zofran) 4 mg PRN Q4HRS PRN IV NAUSEA/VOMITING 1ST CHOICE; Start 12/29/19 at 16:00 Lidocaine HCl (Glydo (Lidocaine) Jelly) 1 kaya 1X ONCE MM Last administered on 12/29/19at 16:34; Start 12/29/19 at 16:00; Stop 12/29/19 at 16:01; Status DC Lidocaine HCl (Glydo (Lidocaine) Jelly) 1 kaya 1X ONCE MM Last administered on 12/29/19at 16:00; Start 12/29/19 at 16:00; Stop 12/29/19 at 16:01; Status DC Fentanyl Citrate (Fentanyl 2ml Vial) 100 mcg STK-MED ONCE .ROUTE ; Start 12/29/19 at 16:51; Stop 12/29/19 at 16:51; Status DC Ketamine HCl (Ketamine) 50 mg STK-MED ONCE .ROUTE ; Start 12/29/19 at 16:51; Stop 12/29/19 at 16:51; Status DC Succinylcholine Chloride (Anectine) 200 mg STK-MED ONCE .ROUTE ; Start 12/29/19 at 16:51; Stop 12/29/19 at 16:51; Status DC Rocuronium [place] (Zemuron) 50 mg STK-MED ONCE .ROUTE ; Start 12/29/19 at 16:51; Stop 12/29/19 at 16:51; Status DC Dexamethasone Sodium Phosphate (Decadron) 4 mg STK-MED ONCE .ROUTE ; Start 12/29/19 at 16:51; Stop 12/29/19 at 16:52; Status DC Ondansetron HCl (Zofran) 4 mg STK-MED ONCE .ROUTE ; Start 12/29/19 at 16:51; Stop 12/29/19 at 16:52; Status DC Propofol (Diprivan) 200 mg STK-MED ONCE IV ; Start 12/29/19 at 16:51; Stop 12/29/19 at 16:52; Status DC Famotidine (Pepcid Vial) 20 mg STK-MED ONCE .ROUTE ; Start 12/29/19 at 16:51; Stop 12/29/19 at 16:52; Status DC Lidocaine HCl (Lidocaine Pf 2% Vial) 5 ml STK-MED ONCE .ROUTE ; Start 12/29/19 at 16:51; Stop 12/29/19 at 16:52; Status DC Phenylephrine HCl (PHENYLEPHRINE in 0.9% NACL PF) 1 mg STK-MED ONCE IV ; Start 12/29/19 at 16:51; Stop 12/29/19 at 16:52; Status DC Ondansetron HCl (Zofran) 4 mg PRN Q6HRS PRN IV NAUSEA/VOMITING; Start 12/29/19 at 17:15; Stop 12/30/19 at 00:00; Status DC Fentanyl Citrate (Fentanyl 2ml Vial) 25 mcg PRN Q5MIN PRN IV MILD PAIN 1-3; Start 12/29/19 at 17:15; Stop 12/30/19 at 00:00; Status DC Fentanyl Citrate (Fentanyl 2ml Vial) 50 mcg PRN Q5MIN PRN IV MODERATE TO SEVERE PAIN; Start 12/29/19 at 17:15; Stop 12/30/19 at 00:00; Status DC Morphine Sulfate (Morphine Sulfate) 1 mg PRN Q10MIN PRN IV SEVERE PAIN 7-10; Start 12/29/19 at 17:15; Stop 12/30/19 at 00:00; Status DC Ringer's Solution 1,000 ml @ 30 mls/hr Q24H IV Last administered on 12/29/19at 22:14; Start 12/29/19 at 17:07; Stop 12/30/19 at 05:06; Status DC Lidocaine HCl (Xylocaine-Mpf 1% 2ml Vial) 2 ml PRN 1X PRN ID PRIOR TO IV START; Start 12/29/19 at 17:15; Stop 12/30/19 at 00:00; Status DC Hydromorphone HCl (Dilaudid) 0.5 mg PRN Q10MIN PRN IV SEV PAIN, Second choice; Start 12/29/19 at 17:15; Stop 12/30/19 at 00:00; Status DC Prochlorperazine Edisylate (Compazine) 5 mg PACU PRN PRN IV NAUSEA, MRX1 Last administered on 12/29/19at 22:41; Start 12/29/19 at 17:15; Stop 12/30/19 at 00:00; Status DC Bupivacaine HCl/ Epinephrine Bitart (Sensorcain-Epi 0.5%-1:100168 Mpf) [address] K-MED ONCE .ROUTE ; Start 12/29/19 at 17:14; Stop 12/29/19 at 17:14; Status DC Piperacillin Sod/ Tazobactam Sod 4.5 gm/Sodium Chloride 100 ml @ 200 mls/hr 1X ONCE IV Last administered on 12/29/19at 17:49; Start 12/29/19 at 17:45; Stop 12/29/19 at 18:14; Status DC Rocuronium [place] (Zemuron) 50 mg STK-MED ONCE .ROUTE ; Start 12/29/19 at 18:04; Stop 12/29/19 at 18:04; Status DC Hydromorphone HCl (Dilaudid) 2 mg STK-MED ONCE .ROUTE ; Start 12/29/19 at 18:29; Stop 12/29/19 at 18:29; Status DC Desflurane (Suprane) 90 ml STK-MED ONCE IH ; Start 12/29/19 at 18:59; Stop 12/29/19 at 18:59; Status DC Ondansetron HCl (Zofran) 4 mg STK-MED ONCE .ROUTE ; Start 12/29/19 at 20:48; Stop 12/29/19 at 20:48; Status DC Phenylephrine HCl (PHENYLEPHRINE in 0.9% NACL PF) 1 mg STK-MED ONCE IV ; Start 12/29/19 at 21:04; Stop 12/29/19 at 21:04; Status DC Rocuronium [place] (Zemuron) 50 mg STK-MED ONCE .ROUTE ; Start 12/29/19 at 21:05; Stop 12/29/19 at 21:06; Status DC Naloxone HCl (Narcan) 0.4 mg PRN Q2MIN PRN IV SEE INSTRUCTIONS; Start 12/29/19 at 21:45 Sodium Chloride 1,000 ml @ 25 mls/hr Q24H IV Last administered on 12/30/19at 21:41; Start 12/29/19 at 21:41 Hydromorphone HCl 30 ml @ 0 mls/hr CONT PRN PRN IV PER PROTOCOL Last administered on 12/30/19at 19:02; Start 12/29/19 at 21:45 Enoxaparin Sodium (Lovenox 40mg Syringe) 40 mg Q24H SQ ; Start 12/29/19 at 22:00; Status Cancel Morphine Sulfate (Morphine Sulfate) 4 mg 1X ONCE IV Last administered on 12/29/19at 22:18; Start 12/29/19 at 22:30; Stop 12/29/19 at 22:31; Status DC Hydromorphone HCl (Dilaudid) 2 mg STK-MED ONCE .ROUTE ; Start 12/29/19 at 22:35; Stop 12/29/19 at 22:35; Status DC Hydromorphone HCl (Dilaudid) 2 mg 1X ONCE IV Last administered on 12/29/19at 22:41; Start 12/29/19 at 22:45; Stop 12/29/19 at 22:46; Status DC Enoxaparin Sodium (Lovenox 40mg Syringe) 40 mg Q24H SQ ; Start 12/30/19 at 09:00; Stop 12/30/19 at 07:59; Status DC Enoxaparin Sodium (Lovenox 60mg Syringe) 60 mg Q12HR SQ Last administered on 12/30/19at 21:38; Start 12/30/19 at 09:00 Phenol (Chloraseptic) 1 spray PRN Q2HR PRN PO SORE THROAT Last administered on 12/30/19at 21:39; Start 12/30/19 at 21:00 Vitals/I & O Vital Sign - Last 24 Hours 12/30/19 12/30/19 12/30/19 12/30/19 08:10 09:51 11:59 15:57 Temp 98.8 98.7 98.3 98.8 98.7 98.3 Pulse 109 111 Resp 22 22 B/P (MAP) 125/81 (96) 132/88 (103) Pulse Ox 94 92 O2 Delivery Nasal Cannula Nasal Cannula Nasal Cannula O2 Flow Rate 2.0 4.0 4.0 12/30/19 12/30/19 12/30/19 12/30/19 19:00 19:02 20:00 21:37 Temp 99.2 99.2 Pulse 120 Resp 18 B/P (MAP) 149/99 (116) Pulse Ox 94 92 O2 Delivery Nasal Cannula Nasal Cannula Nasal Cannula O2 Flow Rate 2.0 4.0 12/30/19 12/31/19 23:00 03:00 Temp 100.1 99.0 100.1 99.0 Pulse 115 107 Resp 18 18 B/P (MAP) 137/96 (110) 134/98 (110) Pulse Ox 91 95 O2 Delivery Nasal Cannula Nasal Cannula O2 Flow Rate 4.0 4.0 Intake and Output 12/30/19 12/30/19 12/31/19 15:00 23:00 07:00 Intake Total 28 ml Output Total 780 ml 990 ml 450 ml Balance -780 ml -962 ml -450 ml Justicifation of Admission Dx: Justifications for Admission: Justification of Admission Dx: Yes JONO DAVIS MD Dec 31, 2019 08:02
--- NOTE | 2019-12-31 10:11 | PDOC ---
[facility] [employer] 12/31/19 1011: SURGICAL PROGRESS NOTE Subjective sitting up in chair pain managed no flatus no n/v removed ng overnight Vital Signs Vital Signs Date Time Temp Pulse Resp B/P (MAP) Pulse Ox O2 Delivery O2 Flow Rate FiO2 12/31/19 08:00 Nasal Cannula 4.0 12/31/19 03:00 99.0 107 18 134/98 (110) 95 99.0 I&O Intake and Output 12/31/19 07:00 Intake Total 28 ml Output Total 2220 ml Balance -2192 ml Intake IV Total 28 ml Output Urine Total 1650 ml Gastric Drainage Total 220 ml Drainage Total 350 ml General: Alert, Oriented X3, Cooperative Abdomen: Soft, Other (dressing dry, binder in place, drain serosang ) Labs Laboratory Tests Test 12/29/19 12:07 12/29/19 15:10 12/29/19 16:24 12/29/19 18:30 Glucose (Fingerstick) 170 mg/dL (70-99) 202 mg/dL (70-99) 154 mg/dL (70-99) Prothrombin Time 12.6 SEC (11.7-14.0) Prothromb Time International Ratio 1.0 (0.8-1.1) Activated Partial Thromboplast Time 28 SEC (24-38) Lactic Acid Level 2.9 mmol/L (0.4-2.0) Test 12/29/19 20:44 12/29/19 22:02 12/30/19 03:30 12/30/19 08:07 Glucose (Fingerstick) 191 mg/dL (70-99) 155 mg/dL (70-99) 211 mg/dL (70-99) White Blood Count 8.6 x10^3/uL (4.0-11.0) Red Blood Count 4.92 x10^6/uL (4.30-5.70) Hemoglobin 15.1 g/dL (13.0-17.5) Hematocrit 45.0 % (39.0-53.0) Mean Corpuscular Volume 91 fL (79-100) Mean Corpuscular Hemoglobin 31 pg (25-35) Mean Corpuscular Hemoglobin Concent 34 g/dL (31-37) Red Cell Distribution Width 14.6 % (11.5-14.5) Platelet Count 330 x10^3/uL (140-400) Neutrophils (%) (Auto) 82 % (31-73) Lymphocytes (%) (Auto) 9 % (24-48) Monocytes (%) (Auto) 9 % (0-9) Eosinophils (%) (Auto) 0 % (0-3) Basophils (%) (Auto) 0 % (0-3) Neutrophils # (Auto) 7.0 x10^3/uL (1.8-7.7) Lymphocytes # (Auto) 0.7 x10^3/uL (1.0-4.8) Monocytes # (Auto) 0.8 x10^3/uL (0.0-1.1) Eosinophils # (Auto) 0.0 x10^3/uL (0.0-0.7) Basophils # (Auto) 0.0 x10^3/uL (0.0-0.2) Lactic Acid Level 1.5 mmol/L (0.4-2.0) Test 12/30/19 12:43 12/30/19 16:46 12/30/19 21:21 12/31/19 04:03 Glucose (Fingerstick) 183 mg/dL (70-99) 200 mg/dL (70-99) 191 mg/dL (70-99) White Blood Count 8.8 x10^3/uL (4.0-11.0) Red Blood Count 4.29 x10^6/uL (4.30-5.70) Hemoglobin 13.1 g/dL (13.0-17.5) Hematocrit 39.2 % (39.0-53.0) Mean Corpuscular Volume 91 fL (79-100) Mean Corpuscular Hemoglobin 31 pg (25-35) Mean Corpuscular Hemoglobin Concent 33 g/dL (31-37) Red Cell Distribution Width 14.7 % (11.5-14.5) Platelet Count 288 x10^3/uL (140-400) Neutrophils (%) (Auto) 74 % (31-73) Lymphocytes (%) (Auto) 15 % (24-48) Monocytes (%) (Auto) 11 % (0-9) Eosinophils (%) (Auto) 0 % (0-3) Basophils (%) (Auto) 0 % (0-3) Neutrophils # (Auto) 6.5 x10^3/uL (1.8-7.7) Lymphocytes # (Auto) 1.3 x10^3/uL (1.0-4.8) Monocytes # (Auto) 1.0 x10^3/uL (0.0-1.1) Eosinophils # (Auto) 0.0 x10^3/uL (0.0-0.7) Basophils # (Auto) 0.0 x10^3/uL (0.0-0.2) Sodium Level 144 mmol/L (136-145) Potassium Level 3.9 mmol/L (3.5-5.1) Chloride Level 109 mmol/L (98-107) Carbon Dioxide Level 23 mmol/L (21-32) Anion Gap 12 (6-14) Blood Urea Nitrogen 22 mg/dL (8-26) Creatinine 1.5 mg/dL (0.7-1.3) Estimated GFR (Cockcroft-Gault) 48.2 BUN/Creatinine Ratio 15 (6-20) Glucose Level 206 mg/dL (70-99) Calcium Level 8.3 mg/dL (8.5-10.1) Total Bilirubin 0.4 mg/dL (0.2-1.0) Aspartate Amino Transf (AST/SGOT) 16 U/L (15-37) Alanine Aminotransferase (ALT/SGPT) 58 U/L (16-63) Alkaline Phosphatase 49 U/L (46-116) Total Protein 6.8 g/dL (6.4-8.2) Albumin 2.9 g/dL (3.4-5.0) Albumin/Globulin Ratio 0.7 (1.0-1.7) Test 12/31/19 08:49 Glucose (Fingerstick) 175 mg/dL (70-99) Laboratory Tests Test 12/30/19 12:43 12/30/19 16:46 12/30/19 21:21 12/31/19 04:03 Glucose (Fingerstick) 183 mg/dL (70-99) 200 mg/dL (70-99) 191 mg/dL (70-99) White Blood Count 8.8 x10^3/uL (4.0-11.0) Red Blood Count 4.29 x10^6/uL (4.30-5.70) Hemoglobin 13.1 g/dL (13.0-17.5) Hematocrit 39.2 % (39.0-53.0) Mean Corpuscular Volume 91 fL (79-100) Mean Corpuscular Hemoglobin 31 pg (25-35) Mean Corpuscular Hemoglobin Concent 33 g/dL (31-37) Red Cell Distribution Width 14.7 % (11.5-14.5) Platelet Count 288 x10^3/uL (140-400) Neutrophils (%) (Auto) 74 % (31-73) Lymphocytes (%) (Auto) 15 % (24-48) Monocytes (%) (Auto) 11 % (0-9) Eosinophils (%) (Auto) 0 % (0-3) Basophils (%) (Auto) 0 % (0-3) Neutrophils # (Auto) 6.5 x10^3/uL (1.8-7.7) Lymphocytes # (Auto) 1.3 x10^3/uL (1.0-4.8) Monocytes # (Auto) 1.0 x10^3/uL (0.0-1.1) Eosinophils # (Auto) 0.0 x10^3/uL (0.0-0.7) Basophils # (Auto) 0.0 x10^3/uL (0.0-0.2) Sodium Level 144 mmol/L (136-145) Potassium Level 3.9 mmol/L (3.5-5.1) Chloride Level 109 mmol/L (98-107) Carbon Dioxide Level 23 mmol/L (21-32) Anion Gap 12 (6-14) Blood Urea Nitrogen 22 mg/dL (8-26) Creatinine 1.5 mg/dL (0.7-1.3) Estimated GFR (Cockcroft-Gault) 48.2 BUN/Creatinine Ratio 15 (6-20) Glucose Level 206 mg/dL (70-99) Calcium Level 8.3 mg/dL (8.5-10.1) Total Bilirubin 0.4 mg/dL (0.2-1.0) Aspartate Amino Transf (AST/SGOT) 16 U/L (15-37) Alanine Aminotransferase (ALT/SGPT) 58 U/L (16-63) Alkaline Phosphatase 49 U/L (46-116) Total Protein 6.8 g/dL (6.4-8.2) Albumin 2.9 g/dL (3.4-5.0) Albumin/Globulin Ratio 0.7 (1.0-1.7) Test 12/31/19 08:49 Glucose (Fingerstick) 175 mg/dL (70-99) Problem List Problems Medical Problems: (1) Incarcerated umbilical hernia Status: Acute (2) Small bowel obstruction Status: Acute Assessment/Plan s/p VHR await bowel function would rec replacing NG tube if patient will allow Justicifation of Admission Dx: Justifications for Admission: Justification of Admission Dx: Yes FELIX DAVIS MD 12/31/19 1104: SURGICAL PROGRESS NOTE Assessment/Plan Above noted; NG came out; would prefer replacing given degree of obstruction AMY HENRY APRN Dec 31, 2019 10:11 FELIX DAVIS MD Dec 31, 2019 11:04
[2019-12-31 11:00] VITALS: BP 132/89
--- NOTE | 2019-12-31 11:16 | NUR ---
doesn't want ng replaced
--- NOTE | 2019-12-31 15:38 | NUR ---
ambulated to room 428 and back. soa with exertion. burped but is not passing flatus. doesn't want them to try to put ng down--they tried several times and couldn't place and was very uncomfortable. resting in recliner at this time with 02 on at 4l
--- NOTE | 2019-12-31 16:09 | NUR ---
SS following for discharge planning. SS reviewed pt chart and discussed with pt RN. Pt is from home and is currently requiring oxygen. Pt had surgery on 12/29/2019. Pt currently NPO and pulled NG tube out. Pt refusing to have NG tube replaced. SS will continue to follow for discharge planning.
--- NOTE | 2019-12-31 17:53 | NUR ---
ambulated in hallway x 2. tolerated well. sitting in chair. left julián drain had 30cc and right had 10cc
[2019-12-31 19:00] VITALS: BP 155/100
[2019-12-31] MEDS: IV NORMAL SALINE 1000ML BAG 1,000 ML IV SCH (19:55)
[2019-12-31] MEDS: HYDROmorphone 12mg/30ml PCA 30 ML IV PRN (20:23)
[2019-12-31 23:00] VITALS: BP 158/91
[2020-01-01 03:00] VITALS: BP 139/88
[2020-01-01 07:00] VITALS: BP 159/97
[2020-01-01 07:06] LABS: ALBUMIN 2.9 g/dL (3.4-5.0); CALCIUM 8.7 mg/dL (8.5-10.1); PHOSPHORUS 3.4 mg/dL (2.6-4.7); POTASSIUM 3.9 mmol/L (3.5-5.1)
[2020-01-01] MEDS: INSULIN LISPRO 300 UNITS/3 ML VIAL. SQ SCH ×3 (08:00→17:00)
--- NOTE | 2020-01-01 08:22 | PDOC ---
PROGRESS NOTES History of Present Illness History of Present Illness IMPRESSION Assessment/Plan Acute abdominal pain Incarcerated ventral hernia with high-grade bowel obstruction pod # 3 Acute renal failurevasomotor nephropathy Hypertension Diabetes Dyslipidemia History of constipation ATELECTASIS PLAN Admit to medicine/telemetry N.p.o. Serial abdominal exams KUB in the a.m. Surgical consult Continue IV fluids IV pain management NG tube placement Lovenox for DVT prophylaxis Regular diet Full code Discussed with RN IS PT/OT WORING WELL WITH PT 27 min pt exam, chart review, > 50% of time spent with exam, chart review, pt care coordination Justicifation of Admission Dx: Justifications for Admission: Justification of Admission Dx: Yes Operative Note Operative Note Operative Note Operative Note: Preoperative Diagnosis: Incarcerated ventral hernia with high-grade bowel obstruction Postoperative Diagnosis: Same Procedure: Repair of incarcerated ventral hernia with mesh Surgeon: Harsha Spout Tender: Jesus BUSCH Anesthesia: General EBL: 100 mL Specimen: None Drains: 19 [place] SHARON x2 Complications: None Indication: The patient is a 59-year-old male who presented with abdominal pain. His evaluation is consistent with incarcerated ventral hernia with a high-grade bowel obstruction. Vitals Vitals Vital Signs Date Time Temp Pulse Resp B/P (MAP) Pulse Ox O2 Delivery O2 Flow Rate FiO2 01/01/20 07:00 98.6 97 18 159/97 (117) 96 Nasal Cannula 4.0 98.6 Physical Exam General: Alert, Oriented X3, Cooperative, No acute distress Heart: Regular rate, Normal S1, No murmurs Lungs: Clear Abdomen: Normal bowel sounds, Soft (binder intact, drains intact), No tenderness Extremities: No clubbing, No cyanosis, No edema Skin: No rashes Labs LABS Laboratory Tests Test 12/31/19 08:49 12/31/19 12:21 12/31/19 17:09 12/31/19 21:07 Glucose (Fingerstick) 175 mg/dL (70-99) 164 mg/dL (70-99) 155 mg/dL (70-99) 140 mg/dL (70-99) Test 01/01/20 05:50 01/01/20 07:28 Sodium Level 145 mmol/L (136-145) Potassium Level 3.9 mmol/L (3.5-5.1) Chloride Level 108 mmol/L (98-107) Carbon Dioxide Level 25 mmol/L (21-32) Anion Gap 12 (6-14) Blood Urea Nitrogen 16 mg/dL (8-26) Creatinine 1.0 mg/dL (0.7-1.3) Estimated GFR (Cockcroft-Gault) 77.0 Glucose Level 155 mg/dL (70-99) Calcium Level 8.7 mg/dL (8.5-10.1) Phosphorus Level 3.4 mg/dL (2.6-4.7) Albumin 2.9 g/dL (3.4-5.0) Glucose (Fingerstick) 145 mg/dL (70-99) Assessment and Plan Assessmemt and Plan Problems Medical Problems: (1) Incarcerated umbilical hernia Status: Acute (2) Small bowel obstruction Status: Acute Comment Review of Relevant I have reviewed the following items catarina (where applicable) has been applied. Labs Laboratory Tests Test 12/30/19 12:43 12/30/19 16:46 12/30/19 21:21 12/31/19 04:03 Glucose (Fingerstick) 183 mg/dL (70-99) 200 mg/dL (70-99) 191 mg/dL (70-99) White Blood Count 8.8 x10^3/uL (4.0-11.0) Red Blood Count 4.29 x10^6/uL (4.30-5.70) Hemoglobin 13.1 g/dL (13.0-17.5) Hematocrit 39.2 % (39.0-53.0) Mean Corpuscular Volume 91 fL (79-100) Mean Corpuscular Hemoglobin 31 pg (25-35) Mean Corpuscular Hemoglobin Concent 33 g/dL (31-37) Red Cell Distribution Width 14.7 % (11.5-14.5) Platelet Count 288 x10^3/uL (140-400) Neutrophils (%) (Auto) 74 % (31-73) Lymphocytes (%) (Auto) 15 % (24-48) Monocytes (%) (Auto) 11 % (0-9) Eosinophils (%) (Auto) 0 % (0-3) Basophils (%) (Auto) 0 % (0-3) Neutrophils # (Auto) 6.5 x10^3/uL (1.8-7.7) Lymphocytes # (Auto) 1.3 x10^3/uL (1.0-4.8) Monocytes # (Auto) 1.0 x10^3/uL (0.0-1.1) Eosinophils # (Auto) 0.0 x10^3/uL (0.0-0.7) Basophils # (Auto) 0.0 x10^3/uL (0.0-0.2) Sodium Level 144 mmol/L (136-145) Potassium Level 3.9 mmol/L (3.5-5.1) Chloride Level 109 mmol/L (98-107) Carbon Dioxide Level 23 mmol/L (21-32) Anion Gap 12 (6-14) Blood Urea Nitrogen 22 mg/dL (8-26) Creatinine 1.5 mg/dL (0.7-1.3) Estimated GFR (Cockcroft-Gault) 48.2 BUN/Creatinine Ratio 15 (6-20) Glucose Level 206 mg/dL (70-99) Calcium Level 8.3 mg/dL (8.5-10.1) Total Bilirubin 0.4 mg/dL (0.2-1.0) Aspartate Amino Transf (AST/SGOT) 16 U/L (15-37) Alanine Aminotransferase (ALT/SGPT) 58 U/L (16-63) Alkaline Phosphatase 49 U/L (46-116) Total Protein 6.8 g/dL (6.4-8.2) Albumin 2.9 g/dL (3.4-5.0) Albumin/Globulin Ratio 0.7 (1.0-1.7) Test 12/31/19 08:49 12/31/19 12:21 12/31/19 17:09 12/31/19 21:07 Glucose (Fingerstick) 175 mg/dL (70-99) 164 mg/dL (70-99) 155 mg/dL (70-99) 140 mg/dL (70-99) Test 01/01/20 05:50 01/01/20 07:28 Sodium Level 145 mmol/L (136-145) Potassium Level 3.9 mmol/L (3.5-5.1) Chloride Level 108 mmol/L (98-107) Carbon Dioxide Level 25 mmol/L (21-32) Anion Gap 12 (6-14) Blood Urea Nitrogen 16 mg/dL (8-26) Creatinine 1.0 mg/dL (0.7-1.3) Estimated GFR (Cockcroft-Gault) 77.0 Glucose Level 155 mg/dL (70-99) Calcium Level 8.7 mg/dL (8.5-10.1) Phosphorus Level 3.4 mg/dL (2.6-4.7) Albumin 2.9 g/dL (3.4-5.0) Glucose (Fingerstick) 145 mg/dL (70-99) Laboratory Tests Test 12/31/19 08:49 12/31/19 12:21 12/31/19 17:09 12/31/19 21:07 Glucose (Fingerstick) 175 mg/dL (70-99) 164 mg/dL (70-99) 155 mg/dL (70-99) 140 mg/dL (70-99) Test 01/01/20 05:50 01/01/20 07:28 Sodium Level 145 mmol/L (136-145) Potassium Level 3.9 mmol/L (3.5-5.1) Chloride Level 108 mmol/L (98-107) Carbon Dioxide Level 25 mmol/L (21-32) Anion Gap 12 (6-14) Blood Urea Nitrogen 16 mg/dL (8-26) Creatinine 1.0 mg/dL (0.7-1.3) Estimated GFR (Cockcroft-Gault) 77.0 Glucose Level 155 mg/dL (70-99) Calcium Level 8.7 mg/dL (8.5-10.1) Phosphorus Level 3.4 mg/dL (2.6-4.7) Albumin 2.9 g/dL (3.4-5.0) Glucose (Fingerstick) 145 mg/dL (70-99) Medications Current Medications Sodium Chloride 1,000 ml @ 1,000 mls/hr Q1H IV Last administered on 12/29/19at 00:21; Start 12/29/19 at 00:00; Stop 12/29/19 at 00:59; Status DC Ondansetron HCl (Zofran) 4 mg 1X ONCE IVP Last administered on 12/29/19at 00:21; Start 12/29/19 at 00:00; Stop 12/29/19 at 00:01; Status DC Barium Sulfate (Readi-Cat 2) 900 ml 1X ONCE PO Last administered on 12/29/19at 00:00; Start 12/29/19 at 00:30; Stop 12/29/19 at 00:31; Status DC Morphine Sulfate (Morphine Sulfate) 4 mg 1X ONCE IV Last administered on 12/29/19at 03:20; Start 12/29/19 at 03:30; Stop 12/29/19 at 03:31; Status DC Ondansetron HCl (Zofran) 4 mg PRN Q8HRS PRN IV NAUSEA/VOMITING 1ST CHOICE Last administered on 12/29/19at 11:36; Start 12/29/19 at 03:30; Stop 12/29/19 at 14:29; Status DC Sodium Chloride 1,000 ml @ 125 mls/hr Q8H IV Last administered on 12/29/19at 22:43; Start 12/29/19 at 03:30; Stop 12/30/19 at 03:29; Status DC Benzocaine (Hurricaine One) 1 spray 1X ONCE MM Last administered on 12/29/19at 04:23; Start 12/29/19 at 04:00; Stop 12/29/19 at 04:01; Status DC Morphine Sulfate (Morphine Sulfate) 2 mg PRN Q2HR PRN IV SEVERE PAIN 7-10 Last administered on 12/29/19at 11:37; Start 12/29/19 at 06:45; Stop 12/29/19 at 22:08; Status DC Insulin Human Lispro (HumaLOG) 0-5 UNITS TIDWMEALS SQ ; Start 12/29/19 at 12:00 Dextrose (Dextrose 50%-Water Syringe) 12.5 gm PRN Q15MIN PRN IV SEE COMMENTS; Start 12/29/19 at 08:30 Enoxaparin Sodium (Lovenox 60mg Syringe) 60 mg Q12HR SQ ; Start 12/29/19 at 13:15; Stop 12/30/19 at 08:00; Status DC Ondansetron HCl (Zofran) 4 mg PRN Q4HRS PRN IV NAUSEA/VOMITING 1ST CHOICE; Start 12/29/19 at 16:00 Lidocaine HCl (Glydo (Lidocaine) Jelly) 1 kaya 1X ONCE MM Last administered on 12/29/19at 16:34; Start 12/29/19 at 16:00; Stop 12/29/19 at 16:01; Status DC Lidocaine HCl (Glydo (Lidocaine) Jelly) 1 kaya 1X ONCE MM Last administered on 12/29/19at 16:00; Start 12/29/19 at 16:00; Stop 12/29/19 at 16:01; Status DC Fentanyl Citrate (Fentanyl 2ml Vial) 100 mcg STK-MED ONCE .ROUTE ; Start 12/29/19 at 16:51; Stop 12/29/19 at 16:51; Status DC Ketamine HCl (Ketamine) 50 mg STK-MED ONCE .ROUTE ; Start 12/29/19 at 16:51; Stop 12/29/19 at 16:51; Status DC Succinylcholine Chloride (Anectine) 200 mg STK-MED ONCE .ROUTE ; Start 12/29/19 at 16:51; Stop 12/29/19 at 16:51; Status DC Rocuronium [place] (Zemuron) 50 mg STK-MED ONCE .ROUTE ; Start 12/29/19 at 16:51; Stop 12/29/19 at 16:51; Status DC Dexamethasone Sodium Phosphate (Decadron) 4 mg STK-MED ONCE .ROUTE ; Start 12/29/19 at 16:51; Stop 12/29/19 at 16:52; Status DC Ondansetron HCl (Zofran) 4 mg STK-MED ONCE .ROUTE ; Start 12/29/19 at 16:51; Stop 12/29/19 at 16:52; Status DC Propofol (Diprivan) 200 mg STK-MED ONCE IV ; Start 12/29/19 at 16:51; Stop 12/29/19 at 16:52; Status DC Famotidine (Pepcid Vial) 20 mg STK-MED ONCE .ROUTE ; Start 12/29/19 at 16:51; Stop 12/29/19 at 16:52; Status DC Lidocaine HCl (Lidocaine Pf 2% Vial) 5 ml STK-MED ONCE .ROUTE ; Start 12/29/19 at 16:51; Stop 12/29/19 at 16:52; Status DC Phenylephrine HCl (PHENYLEPHRINE in 0.9% NACL PF) 1 mg STK-MED ONCE IV ; Start 12/29/19 at 16:51; Stop 12/29/19 at 16:52; Status DC Ondansetron HCl (Zofran) 4 mg PRN Q6HRS PRN IV NAUSEA/VOMITING; Start 12/29/19 at 17:15; Stop 12/30/19 at 00:00; Status DC Fentanyl Citrate (Fentanyl 2ml Vial) 25 mcg PRN Q5MIN PRN IV MILD PAIN 1-3; Start 12/29/19 at 17:15; Stop 12/30/19 at 00:00; Status DC Fentanyl Citrate (Fentanyl 2ml Vial) 50 mcg PRN Q5MIN PRN IV MODERATE TO SEVERE PAIN; Start 12/29/19 at 17:15; Stop 12/30/19 at 00:00; Status DC Morphine Sulfate (Morphine Sulfate) 1 mg PRN Q10MIN PRN IV SEVERE PAIN 7-10; Start 12/29/19 at 17:15; Stop 12/30/19 at 00:00; Status DC Ringer's Solution 1,000 ml @ 30 mls/hr Q24H IV Last administered on 12/29/19at 22:14; Start 12/29/19 at 17:07; Stop 12/30/19 at 05:06; Status DC Lidocaine HCl (Xylocaine-Mpf 1% 2ml Vial) 2 ml PRN 1X PRN ID PRIOR TO IV START; Start 12/29/19 at 17:15; Stop 12/30/19 at 00:00; Status DC Hydromorphone HCl (Dilaudid) 0.5 mg PRN Q10MIN PRN IV SEV PAIN, Second choice; Start 12/29/19 at 17:15; Stop 12/30/19 at 00:00; Status DC Prochlorperazine Edisylate (Compazine) 5 mg PACU PRN PRN IV NAUSEA, MRX1 Last administered on 12/29/19at 22:41; Start 12/29/19 at 17:15; Stop 12/30/19 at 00:00; Status DC Bupivacaine HCl/ Epinephrine Bitart (Sensorcain-Epi 0.5%-1:330802 Mpf) 30 ml STK-MED ONCE .ROUTE ; Start 12/29/19 at 17:14; Stop 12/29/19 at 17:14; Status DC Piperacillin Sod/ Tazobactam Sod 4.5 gm/Sodium Chloride 100 ml @ 200 mls/hr 1X ONCE IV Last administered on 12/29/19at 17:49; Start 12/29/19 at 17:45; Stop 12/29/19 at 18:14; Status DC Rocuronium [place] (Zemuron) 50 mg STK-MED ONCE .ROUTE ; Start 12/29/19 at 18:04; Stop 12/29/19 at 18:04; Status DC Hydromorphone HCl (Dilaudid) 2 mg STK-MED ONCE .ROUTE ; Start 12/29/19 at 18:29; Stop 12/29/19 at 18:29; Status DC Desflurane (Suprane) 90 ml STK-MED ONCE IH ; Start 12/29/19 at 18:59; Stop 12/29/19 at 18:59; Status DC Ondansetron HCl (Zofran) 4 mg STK-MED ONCE .ROUTE ; Start 12/29/19 at 20:48; Stop 12/29/19 at 20:48; Status DC Phenylephrine HCl (PHENYLEPHRINE in 0.9% NACL PF) 1 mg STK-MED ONCE IV ; Start 12/29/19 at 21:04; Stop 12/29/19 at 21:04; Status DC Rocuronium [place] (Zemuron) 50 mg STK-MED ONCE .ROUTE ; Start 12/29/19 at 21:05; Stop 12/29/19 at 21:06; Status DC Naloxone HCl (Narcan) 0.4 mg PRN Q2MIN PRN IV SEE INSTRUCTIONS; Start 12/29/19 at 21:45 Sodium Chloride 1,000 ml @ 25 mls/hr Q24H IV Last administered on 12/31/19at 19:55; Start 12/29/19 at 21:41 Hydromorphone HCl 30 ml @ 0 mls/hr CONT PRN PRN IV PER PROTOCOL Last administered on 12/31/19at 20:23; Start 12/29/19 at 21:45 Enoxaparin Sodium (Lovenox 40mg Syringe) 40 mg Q24H SQ ; Start 12/29/19 at 22:00; Status Cancel Morphine Sulfate (Morphine Sulfate) 4 mg 1X ONCE IV Last administered on 12/29/19at 22:18; Start 12/29/19 at 22:30; Stop 12/29/19 at 22:31; Status DC Hydromorphone HCl (Dilaudid) 2 mg STK-MED ONCE .ROUTE ; Start 12/29/19 at 22:35; Stop 12/29/19 at 22:35; Status DC Hydromorphone HCl (Dilaudid) 2 mg 1X ONCE IV Last administered on 12/29/19at 22:41; Start 12/29/19 at 22:45; Stop 12/29/19 at 22:46; Status DC Enoxaparin Sodium (Lovenox 40mg Syringe) 40 mg Q24H SQ ; Start 12/30/19 at 09:00; Stop 12/30/19 at 07:59; Status DC Enoxaparin Sodium (Lovenox 60mg Syringe) 60 mg Q12HR SQ Last administered on 12/31/19at 21:19; Start 12/30/19 at 09:00 Phenol (Chloraseptic) 1 spray PRN Q2HR PRN PO SORE THROAT Last administered on 12/30/19at 21:39; Start 12/30/19 at 21:00 Vitals/I & O Vital Sign - Last 24 Hours 12/31/19 12/31/19 12/31/19 12/31/19 11:00 15:54 17:46 19:00 Temp 98.2 98.4 98.2 98.4 Pulse 102 102 Resp 18 18 B/P (MAP) 132/89 (103) 155/100 (118) Pulse Ox 94 94 95 91 O2 Delivery Room Air Nasal Cannula Nasal Cannula Nasal Cannula O2 Flow Rate 4.0 3.5 4.0 12/31/19 12/31/19 12/31/19 12/31/19 20:15 20:23 21:00 23:00 Temp 98.4 98.4 Pulse 99 Resp 18 B/P (MAP) 158/91 (113) Pulse Ox 2 95 95 O2 Delivery Nasal Cannula Nasal Cannula Nasal Cannula Nasal Cannula O2 Flow Rate 4.0 4.0 4.0 01/01/20 01/01/20 03:00 07:00 Temp 97.6 98.6 97.6 98.6 Pulse 100 97 Resp 18 18 B/P (MAP) 139/88 (105) 159/97 (117) Pulse Ox 94 96 O2 Delivery Nasal Cannula Nasal Cannula O2 Flow Rate 4.0 4.0 Intake and Output 12/31/19 12/31/19 01/01/20 15:00 23:00 07:00 Output Total 1060 ml 160 ml 300 ml Balance -1060 ml -160 ml -300 ml Justicifation of Admission Dx: Justifications for Admission: Justification of Admission Dx: Yes JONO DAVIS MD Jan 01, 2020 08:22
--- NOTE | 2020-01-01 09:24 | PDOC ---
AMY HENRY INFORMATION TECHNOLOGY ARCHITECT 01/01/20 0924: SURGICAL PROGRESS NOTE Subjective small amount of flatus this AM ambulating pain managed refused ng replacement yesterday Vital Signs Vital Signs Date Time Temp Pulse Resp B/P (MAP) Pulse Ox O2 Delivery O2 Flow Rate FiO2 01/01/20 07:00 98.6 97 18 159/97 (117) 96 Nasal Cannula 4.0 98.6 I&O Intake and Output 01/01/20 07:00 Output Total 1520 ml Balance -1520 ml Output Urine Total 1350 ml Drainage Total 170 ml PATIENT HAS A LOONEY: Yes General: Alert, Oriented X3, Cooperative Abdomen: Soft, Other (dressings dry, drains serosang ) Labs Laboratory Tests Test 12/30/19 12:43 12/30/19 16:46 12/30/19 21:21 12/31/19 04:03 Glucose (Fingerstick) 183 mg/dL (70-99) 200 mg/dL (70-99) 191 mg/dL (70-99) White Blood Count 8.8 x10^3/uL (4.0-11.0) Red Blood Count 4.29 x10^6/uL (4.30-5.70) Hemoglobin 13.1 g/dL (13.0-17.5) Hematocrit 39.2 % (39.0-53.0) Mean Corpuscular Volume 91 fL (79-100) Mean Corpuscular Hemoglobin 31 pg (25-35) Mean Corpuscular Hemoglobin Concent 33 g/dL (31-37) Red Cell Distribution Width 14.7 % (11.5-14.5) Platelet Count 288 x10^3/uL (140-400) Neutrophils (%) (Auto) 74 % (31-73) Lymphocytes (%) (Auto) 15 % (24-48) Monocytes (%) (Auto) 11 % (0-9) Eosinophils (%) (Auto) 0 % (0-3) Basophils (%) (Auto) 0 % (0-3) Neutrophils # (Auto) 6.5 x10^3/uL (1.8-7.7) Lymphocytes # (Auto) 1.3 x10^3/uL (1.0-4.8) Monocytes # (Auto) 1.0 x10^3/uL (0.0-1.1) Eosinophils # (Auto) 0.0 x10^3/uL (0.0-0.7) Basophils # (Auto) 0.0 x10^3/uL (0.0-0.2) Sodium Level 144 mmol/L (136-145) Potassium Level 3.9 mmol/L (3.5-5.1) Chloride Level 109 mmol/L (98-107) Carbon Dioxide Level 23 mmol/L (21-32) Anion Gap 12 (6-14) Blood Urea Nitrogen 22 mg/dL (8-26) Creatinine 1.5 mg/dL (0.7-1.3) Estimated GFR (Cockcroft-Gault) 48.2 BUN/Creatinine Ratio 15 (6-20) Glucose Level 206 mg/dL (70-99) Calcium Level 8.3 mg/dL (8.5-10.1) Total Bilirubin 0.4 mg/dL (0.2-1.0) Aspartate Amino Transf (AST/SGOT) 16 U/L (15-37) Alanine Aminotransferase (ALT/SGPT) 58 U/L (16-63) Alkaline Phosphatase 49 U/L (46-116) Total Protein 6.8 g/dL (6.4-8.2) Albumin 2.9 g/dL (3.4-5.0) Albumin/Globulin Ratio 0.7 (1.0-1.7) Test 12/31/19 08:49 12/31/19 12:21 12/31/19 17:09 12/31/19 21:07 Glucose (Fingerstick) 175 mg/dL (70-99) 164 mg/dL (70-99) 155 mg/dL (70-99) 140 mg/dL (70-99) Test 01/01/20 05:50 01/01/20 07:28 Sodium Level 145 mmol/L (136-145) Potassium Level 3.9 mmol/L (3.5-5.1) Chloride Level 108 mmol/L (98-107) Carbon Dioxide Level 25 mmol/L (21-32) Anion Gap 12 (6-14) Blood Urea Nitrogen 16 mg/dL (8-26) Creatinine 1.0 mg/dL (0.7-1.3) Estimated GFR (Cockcroft-Gault) 77.0 Glucose Level 155 mg/dL (70-99) Calcium Level 8.7 mg/dL (8.5-10.1) Phosphorus Level 3.4 mg/dL (2.6-4.7) Albumin 2.9 g/dL (3.4-5.0) Glucose (Fingerstick) 145 mg/dL (70-99) Laboratory Tests Test 12/31/19 12:21 12/31/19 17:09 12/31/19 21:07 01/01/20 05:50 Glucose (Fingerstick) 164 mg/dL (70-99) 155 mg/dL (70-99) 140 mg/dL (70-99) Sodium Level 145 mmol/L (136-145) Potassium Level 3.9 mmol/L (3.5-5.1) Chloride Level 108 mmol/L (98-107) Carbon Dioxide Level 25 mmol/L (21-32) Anion Gap 12 (6-14) Blood Urea Nitrogen 16 mg/dL (8-26) Creatinine 1.0 mg/dL (0.7-1.3) Estimated GFR (Cockcroft-Gault) 77.0 Glucose Level 155 mg/dL (70-99) Calcium Level 8.7 mg/dL (8.5-10.1) Phosphorus Level 3.4 mg/dL (2.6-4.7) Albumin 2.9 g/dL (3.4-5.0) Test 01/01/20 07:28 Glucose (Fingerstick) 145 mg/dL (70-99) Problem List Problems Medical Problems: (1) Incarcerated umbilical hernia Status: Acute (2) Small bowel obstruction Status: Acute Assessment/Plan s/p [facility] await improved bowel fx--sips and ice chips ny MARICHUY looney continue ambulating Justicifation of Admission Dx: Justifications for Admission: Justification of Admission Dx: Yes FELIX DAVIS MD 01/01/20 1252: SURGICAL PROGRESS NOTE Assessment/Plan Agree with above; would go slow with AMY Stiles APRN Jan 01, 2020 09:24 FELIX DAVIS MD Jan 01, 2020 12:52
--- NOTE | 2020-01-01 10:01 | NUR ---
SW following. Discussed with RN, pt on 2L oxygen - RN will try to titrate. Pt still has [employer], no NG tube, NPO, minor being removed today, awaiting bowel function. SW will continue to follow.
[2020-01-01 10:30] VITALS: BP 141/86
[2020-01-01 14:23] VITALS: BP 146/99
[2020-01-01 19:00] VITALS: BP 148/92
[2020-01-01] MEDS: IV NORMAL SALINE 1000ML BAG 1,000 ML IV SCH (20:41)
[2020-01-01 23:00] VITALS: BP 156/89
[2020-01-02] VITALS (7 sets, daily range): BP systolic 136–165; BP diastolic 85–104
[2020-01-02] MEDS: HYDROmorphone 12mg/30ml PCA 30 ML IV PRN (00:30)
[2020-01-02] MEDS: INSULIN LISPRO 300 UNITS/3 ML VIAL. SQ SCH ×3 (08:00→17:00)
--- NOTE | 2020-01-02 11:10 | PDOC ---
PROGRESS NOTES Subjective Subjective improving, passing gas, had a stool, hungry Objective Objective Vital Signs Date Time Temp Pulse Resp B/P (MAP) Pulse Ox O2 Delivery O2 Flow Rate FiO2 01/02/20 08:14 98.2 92 20 148/96 (113) 93 98.2 01/02/20 08:00 Room Air 01/02/20 03:00 3.0 Intake and Output 01/02/20 07:00 Intake Total 100 ml Output Total 845 ml Balance -745 ml Intake Oral 100 ml Output Urine Total 575 ml Drainage Total 270 ml # Voids 2 # Bowel Movements 2 Physical Exam Abdomen: Soft Assessment Assessment Problems Medical Problems: (1) Incarcerated umbilical hernia Status: Acute (2) Small bowel obstruction Status: Acute Plan Plan of Care Start liquids Comment Review of Relevant I have reviewed the following items catarina (where applicable) has been applied. Labs Laboratory Tests Test 12/31/19 12:21 12/31/19 17:09 12/31/19 21:07 01/01/20 05:50 Glucose (Fingerstick) 164 mg/dL (70-99) 155 mg/dL (70-99) 140 mg/dL (70-99) Sodium Level 145 mmol/L (136-145) Potassium Level 3.9 mmol/L (3.5-5.1) Chloride Level 108 mmol/L (98-107) Carbon Dioxide Level 25 mmol/L (21-32) Anion Gap 12 (6-14) Blood Urea Nitrogen 16 mg/dL (8-26) Creatinine 1.0 mg/dL (0.7-1.3) Estimated GFR (Cockcroft-Gault) 77.0 Glucose Level 155 mg/dL (70-99) Calcium Level 8.7 mg/dL (8.5-10.1) Phosphorus Level 3.4 mg/dL (2.6-4.7) Albumin 2.9 g/dL (3.4-5.0) Test 01/01/20 07:28 01/01/20 11:13 01/01/20 12:14 01/01/20 16:09 Glucose (Fingerstick) 145 mg/dL (70-99) 172 mg/dL (70-99) 154 mg/dL (70-99) 111 mg/dL (70-99) Test 01/01/20 21:13 01/02/20 07:50 Glucose (Fingerstick) 107 mg/dL (70-99) 123 mg/dL (70-99) Laboratory Tests Test 01/01/20 11:13 01/01/20 12:14 01/01/20 16:09 01/01/20 21:13 Glucose (Fingerstick) 172 mg/dL (70-99) 154 mg/dL (70-99) 111 mg/dL (70-99) 107 mg/dL (70-99) Test 01/02/20 07:50 Glucose (Fingerstick) 123 mg/dL (70-99) Medications Current Medications Sodium Chloride 1,000 ml @ 1,000 mls/hr Q1H IV Last administered on 12/29/19at 00:21; Start 12/29/19 at 00:00; Stop 12/29/19 at 00:59; Status DC Ondansetron HCl (Zofran) 4 mg 1X ONCE IVP Last administered on 12/29/19at 00:21; Start 12/29/19 at 00:00; Stop 12/29/19 at 00:01; Status DC Barium Sulfate (Readi-Cat 2) 900 ml 1X ONCE PO Last administered on 12/29/19at 00:00; Start 12/29/19 at 00:30; Stop 12/29/19 at 00:31; Status DC Morphine Sulfate (Morphine Sulfate) 4 mg 1X ONCE IV Last administered on 12/29/19at 03:20; Start 12/29/19 at 03:30; Stop 12/29/19 at 03:31; Status DC Ondansetron HCl (Zofran) 4 mg PRN Q8HRS PRN IV NAUSEA/VOMITING 1ST CHOICE Last administered on 12/29/19at 11:36; Start 12/29/19 at 03:30; Stop 12/29/19 at 14:29; Status DC Sodium Chloride 1,000 ml @ 125 mls/hr Q8H IV Last administered on 12/29/19at 22:43; Start 12/29/19 at 03:30; Stop 12/30/19 at 03:29; Status DC Benzocaine (Hurricaine One) 1 spray 1X ONCE MM Last administered on 12/29/19at 04:23; Start 12/29/19 at 04:00; Stop 12/29/19 at 04:01; Status DC Morphine Sulfate (Morphine Sulfate) 2 mg PRN Q2HR PRN IV SEVERE PAIN 7-10 Last administered on 12/29/19at 11:37; Start 12/29/19 at 06:45; Stop 12/29/19 at 22:0 8; Status DC Insulin Human Lispro (HumaLOG) 0-5 UNITS TIDWMEALS SQ ; Start 12/29/19 at 12:00 Dextrose (Dextrose 50%-Water Syringe) 12.5 gm PRN Q15MIN PRN IV SEE COMMENTS; Start 12/29/19 at 08:30 Enoxaparin Sodium (Lovenox 60mg Syringe) 60 mg Q12HR SQ ; Start 12/29/19 at 13:15; Stop 12/30/19 at 08:00; Status DC Ondansetron HCl (Zofran) 4 mg PRN Q4HRS PRN IV NAUSEA/VOMITING 1ST CHOICE; Start 12/29/19 at 16:00 Lidocaine HCl (Glydo (Lidocaine) Jelly) 1 kaya 1X ONCE MM Last administered on 12/29/19at 16:34; Start 12/29/19 at 16:00; Stop 12/29/19 at 16:01; Status DC Lidocaine HCl (Glydo (Lidocaine) Jelly) 1 kaya 1X ONCE MM Last administered on 12/29/19at 16:00; Start 12/29/19 at 16:00; Stop 12/29/19 at 16:01; Status DC Fentanyl Citrate (Fentanyl 2ml Vial) 100 mcg STK-MED ONCE .ROUTE ; Start 12/29/19 at 16:51; Stop 12/29/19 at 16:51; Status DC Ketamine HCl (Ketamine) 50 mg STK-MED ONCE .ROUTE ; Start 12/29/19 at 16:51; Stop 12/29/19 at 16:51; Status DC Succinylcholine Chloride (Anectine) 200 mg STK-MED ONCE .ROUTE ; Start 12/29/19 at 16:51; Stop 12/29/19 at 16:51; Status DC Rocuronium [place] (Zemuron) 50 mg STK-MED ONCE .ROUTE ; Start 12/29/19 at 16:51; Stop 12/29/19 at 16:51; Status DC Dexamethasone Sodium Phosphate (Decadron) 4 mg STK-MED ONCE .ROUTE ; Start 12/29/19 at 16:51; Stop 12/29/19 at 16:52; Status DC Ondansetron HCl (Zofran) 4 mg STK-MED ONCE .ROUTE ; Start 12/29/19 at 16:51; Stop 12/29/19 at 16:52; Status DC Propofol (Diprivan) 200 mg STK-MED ONCE IV ; Start 12/29/19 at 16:51; Stop 12/29/19 at 16:52; Status DC Famotidine (Pepcid Vial) 20 mg STK-MED ONCE .ROUTE ; Start 12/29/19 at 16:51; Stop 12/29/19 at 16:52; Status DC Lidocaine HCl (Lidocaine Pf 2% Vial) 5 ml STK-MED ONCE .ROUTE ; Start 12/29/19 at 16:51; Stop 12/29/19 at 16:52; Status DC Phenylephrine HCl (PHENYLEPHRINE in 0.9% NACL PF) 1 mg STK-MED ONCE IV ; Start 12/29/19 at 16:51; Stop 12/29/19 at 16:52; Status DC Ondansetron HCl (Zofran) 4 mg PRN Q6HRS PRN IV NAUSEA/VOMITING; Start 12/29/19 at 17:15; Stop 12/30/19 at 00:00; Status DC Fentanyl Citrate (Fentanyl 2ml Vial) 25 mcg PRN Q5MIN PRN IV MILD PAIN 1-3; Start 12/29/19 at 17:15; Stop 12/30/19 at 00:00; Status DC Fentanyl Citrate (Fentanyl 2ml Vial) 50 mcg PRN Q5MIN PRN IV MODERATE TO SEVERE PAIN; Start 12/29/19 at 17:15; Stop 12/30/19 at 00:00; Status DC Morphine Sulfate (Morphine Sulfate) 1 mg PRN Q10MIN PRN IV SEVERE PAIN 7-10; Start 12/29/19 at 17:15; Stop 12/30/19 at 00:00; Status DC Ringer's Solution 1,000 ml @ 30 mls/hr Q24H IV Last administered on 12/29/19at 22:14; Start 12/29/19 at 17:07; Stop 12/30/19 at 05:06; Status DC Lidocaine HCl (Xylocaine-Mpf 1% 2ml Vial) 2 ml PRN 1X PRN ID PRIOR TO IV START; Start 12/29/19 at 17:15; Stop 12/30/19 at 00:00; Status DC Hydromorphone HCl (Dilaudid) 0.5 mg PRN Q10MIN PRN IV SEV PAIN, Second choice; Start 12/29/19 at 17:15; Stop 12/30/19 at 00:00; Status DC Prochlorperazine Edisylate (Compazine) 5 mg PACU PRN PRN IV NAUSEA, MRX1 Last administered on 12/29/19at 22:41; Start 12/29/19 at 17:15; Stop 12/30/19 at 00:00; Status DC Bupivacaine HCl/ Epinephrine Bitart (Sensorcain-Epi 0.5%-1:640375 Mpf) 30 ml STK-MED ONCE .ROUTE ; Start 12/29/19 at 17:14; Stop 12/29/19 at 17:14; Status DC Piperacillin Sod/ Tazobactam Sod 4.5 gm/Sodium Chloride 100 ml @ 200 mls/hr 1X ONCE IV Last administered on 12/29/19at 17:49; Start 12/29/19 at 17:45; Stop 12/29/19 at 18:14; Status DC Rocuronium [place] (Zemuron) 50 mg STK-MED ONCE .ROUTE ; Start 12/29/19 at 18:04; Stop 12/29/19 at 18:04; Status DC Hydromorphone HCl (Dilaudid) 2 mg STK-MED ONCE .ROUTE ; Start 12/29/19 at 18:29; Stop 12/29/19 at 18:29; Status DC Desflurane (Suprane) 90 ml STK-MED ONCE IH ; Start 12/29/19 at 18:59; Stop 12/29/19 at 18:59; Status DC Ondansetron HCl (Zofran) 4 mg STK-MED ONCE .ROUTE ; Start 12/29/19 at 20:48; Stop 12/29/19 at 20:48; Status DC Phenylephrine HCl (PHENYLEPHRINE in 0.9% NACL PF) 1 mg STK-MED ONCE IV ; Start 12/29/19 at 21:04; Stop 12/29/19 at 21:04; Status DC Rocuronium [place] (Zemuron) 50 mg STK-MED ONCE .ROUTE ; Start 12/29/19 at 21:05; Stop 12/29/19 at 21:06; Status DC Naloxone HCl (Narcan) 0.4 mg PRN Q2MIN PRN IV SEE INSTRUCTIONS; Start 12/29/19 at 21:45 Sodium Chloride 1,000 ml @ 25 mls/hr Q24H IV Last administered on 12/31/19at 19:55; Start 12/29/19 at 21:41 Hydromorphone HCl 30 ml @ 0 mls/hr CONT PRN PRN IV PER PROTOCOL Last administered on 01/02/20at 00:30; Start 12/29/19 at 21:45 Enoxaparin Sodium (Lovenox 40mg Syringe) 40 mg Q24H SQ ; Start 12/29/19 at 22:00; Status Cancel Morphine Sulfate (Morphine Sulfate) 4 mg 1X ONCE IV Last administered on 12/29/19at 22:18; Start 12/29/19 at 22:30; Stop 12/29/19 at 22:31; Status DC Hydromorphone HCl (Dilaudid) 2 mg STK-MED ONCE .ROUTE ; Start 12/29/19 at 22:35; Stop 12/29/19 at 22:35; Status DC Hydromorphone HCl (Dilaudid) 2 mg 1X ONCE IV Last administered on 12/29/19at 22:41; Start 12/29/19 at 22:45; Stop 12/29/19 at 22:46; Status DC Enoxaparin Sodium (Lovenox 40mg Syringe) 40 mg Q24H SQ ; Start 12/30/19 at 09:00; Stop 12/30/19 at 07:59; Status DC Enoxaparin Sodium (Lovenox 60mg Syringe) 60 mg Q12HR SQ Last administered on 01/02/20at 08:18; Start 12/30/19 at 09:00 Phenol (Chloraseptic) 1 spray PRN Q2HR PRN PO SORE THROAT Last administered on 12/30/19at 21:39; Start 12/30/19 at 21:00 Vitals/I & O Vital Sign - Last 24 Hours 01/01/20 01/01/20 01/01/20 01/01/20 14:23 19:00 20:00 23:00 Temp 97.8 98.2 98.3 97.8 98.2 98.3 Pulse 98 92 94 Resp 18 18 18 B/P (MAP) 146/99 (115) 148/92 (110) 156/89 (111) Pulse Ox 95 96 93 O2 Delivery Nasal Cannula Nasal Cannula Nasal Cannula Nasal Cannula O2 Flow Rate 3.0 3.0 3.0 3.0 01/02/20 01/02/20 01/02/20 01/02/20 00:30 01:00 03:00 07:05 Temp 98.7 98.2 98.7 98.2 Pulse 96 92 Resp 18 16 18 20 B/P (MAP) 139/85 (103) 148/96 (113) Pulse Ox 93 93 95 93 O2 Delivery Nasal Cannula Nasal Cannula Nasal Cannula O2 Flow Rate 3.0 3.0 3.0 01/02/20 01/02/20 08:00 08:14 Temp 98.2 98.2 Pulse 92 Resp 20 B/P (MAP) 148/96 (113) Pulse Ox 93 O2 Delivery Room Air Intake and Output 01/01/20 01/01/20 01/02/20 15:00 23:00 07:00 Intake Total 0 ml 50 ml 50 ml Output Total 30 ml 300 ml 515 ml Balance -30 ml -250 ml -465 ml Justicifation of Admission Dx: Justifications for Admission: Justification of Admission Dx: Yes FELIX DAVIS MD Jan 02, 2020 11:10
[2020-01-02] MEDS ORDERED: HYDROmorphone 2 MG/ML VIAL IVP PRN ×4 (11:15→11:30)
--- NOTE | 2020-01-02 12:11 | NUR ---
SW following. Discussed with RN, pt advanced to clear liquid diet, had two BM. RN reported pt gets around fine. Therapy now recommending home health at discharge. SW to meet with pt to determine home health decision. SUMAN will continue to follow. Addendum: 01/02/20 at 1552 by MARILYN WILL SUMAN met wit pt (no isolation precautions at the time) to discuss home health. Pt agreeable, does not have a preference, signed choice of vendor form. SUMAN explained pt's insurance is not accepted with many home health companies. SUMAN will continue to follow.
[2020-01-02] MEDS: oxyCODONE/APAP 10/325 1 TAB TABLET PO PRN ×3 (12:13→22:47)
--- NOTE | 2020-01-02 15:45 | PDOC ---
PROGRESS NOTES Chief Complaint Chief Complaint No acute events reported overnight, case discussed with nursing staff patient in no acute distress no complaints during my visit, case discussed with certified ophthalmic surgical assistant at bedside and we will start advancing diet as tolerated History of Present Illness History of Present Illness IMPRESSION Assessment/Plan Acute abdominal pain Incarcerated ventral hernia with high-grade bowel obstruction pod # 3 Acute renal failurevasomotor nephropathy Hypertension Diabetes Dyslipidemia History of constipation ATELECTASIS PLAN Resume diet as per certified ophthalmic surgical assistant Continue IV fluids, may discontinue if he is tolerating oral route well IV pain management as per certified ophthalmic surgical assistant and oral pain management as well as per certified ophthalmic surgical assistant Lovenox for DVT prophylaxis Full code Discussed with RN IS PT/OT WORING WELL WITH PT 27 min pt exam, chart review, > 50% of time spent with exam, chart review, pt care coordination Justicifation of Admission Dx: Justifications for Admission: Justification of Admission Dx: Yes Operative Note Operative Note Operative Note Operative Note: Preoperative Diagnosis: Incarcerated ventral hernia with high-grade bowel obstruction Postoperative Diagnosis: Same Procedure: Repair of incarcerated ventral hernia with mesh Surgeon: Harsha Warp Clamper: Jesus BUSCH Anesthesia: General EBL: 100 mL Specimen: None Drains: 19 [place] SHARON x2 Complications: None Indication: The patient is a 59-year-old male who presented with abdominal pain. His evaluation is consistent with incarcerated ventral hernia with a high-grade bowel obstruction. Vitals Vitals Vital Signs Date Time Temp Pulse Resp B/P (MAP) Pulse Ox O2 Delivery O2 Flow Rate FiO2 01/02/20 15:00 98.5 97 20 136/104 (115) 95 Room Air 98.5 01/02/20 03:00 3.0 Physical Exam General: Alert, Oriented X3, Cooperative, No acute distress Heart: Regular rate, Normal S1, No murmurs Lungs: Clear Abdomen: Soft Extremities: No clubbing, No cyanosis, No edema Skin: No rashes Labs LABS Laboratory Tests Test 01/01/20 16:09 01/01/20 21:13 01/02/20 07:50 01/02/20 11:53 Glucose (Fingerstick) 111 mg/dL (70-99) 107 mg/dL (70-99) 123 mg/dL (70-99) 127 mg/dL (70-99) Assessment and Plan Assessmemt and Plan Problems Medical Problems: (1) Incarcerated umbilical hernia Status: Acute (2) Small bowel obstruction Status: Acute Comment Review of Relevant I have reviewed the following items catarina (where applicable) has been applied. Labs Laboratory Tests Test 12/31/19 17:09 12/31/19 21:07 01/01/20 05:50 01/01/20 07:28 Glucose (Fingerstick) 155 mg/dL (70-99) 140 mg/dL (70-99) 145 mg/dL (70-99) Sodium Level 145 mmol/L (136-145) Potassium Level 3.9 mmol/L (3.5-5.1) Chloride Level 108 mmol/L (98-107) Carbon Dioxide Level 25 mmol/L (21-32) Anion Gap 12 (6-14) Blood Urea Nitrogen 16 mg/dL (8-26) Creatinine 1.0 mg/dL (0.7-1.3) Estimated GFR (Cockcroft-Gault) 77.0 Glucose Level 155 mg/dL (70-99) Calcium Level 8.7 mg/dL (8.5-10.1) Phosphorus Level 3.4 mg/dL (2.6-4.7) Albumin 2.9 g/dL (3.4-5.0) Test 01/01/20 11:13 01/01/20 12:14 01/01/20 16:09 01/01/20 21:13 Glucose (Fingerstick) 172 mg/dL (70-99) 154 mg/dL (70-99) 111 mg/dL (70-99) 107 mg/dL (70-99) Test 01/02/20 07:50 01/02/20 11:53 Glucose (Fingerstick) 123 mg/dL (70-99) 127 mg/dL (70-99) Laboratory Tests Test 01/01/20 16:09 01/01/20 21:13 01/02/20 07:50 01/02/20 11:53 Glucose (Fingerstick) 111 mg/dL (70-99) 107 mg/dL (70-99) 123 mg/dL (70-99) 127 mg/dL (70-99) Medications Current Medications Sodium Chloride 1,000 ml @ 1,000 mls/hr Q1H IV Last administered on 12/29/19at 00:21; Start 12/29/19 at 00:00; Stop 12/29/19 at 00:59; Status DC Ondansetron HCl (Zofran) 4 mg 1X ONCE IVP Last administered on 12/29/19at 00:21; Start 12/29/19 at 00:00; Stop 12/29/19 at 00:01; Status DC Barium Sulfate (Readi-Cat 2) 900 ml 1X ONCE PO Last administered on 12/29/19at 00:00; Start 12/29/19 at 00:30; Stop 12/29/19 at 00:31; Status DC Morphine Sulfate (Morphine Sulfate) 4 mg 1X ONCE IV Last administered on 12/29/19at 03:20; Start 12/29/19 at 03:30; Stop 12/29/19 at 03:31; Status DC Ondansetron HCl (Zofran) 4 mg PRN Q8HRS PRN IV NAUSEA/VOMITING 1ST CHOICE Last administered on 12/29/19at 11:36; Start 12/29/19 at 03:30; Stop 12/29/19 at 14:29; Status DC Sodium Chloride 1,000 ml @ 125 mls/hr Q8H IV Last administered on 12/29/19at 22:43; Start 12/29/19 at 03:30; Stop 12/30/19 at 03:29; Status DC Benzocaine (Hurricaine One) 1 spray 1X ONCE MM Last administered on 12/29/19at 04:23; Start 12/29/19 at 04:00; Stop 12/29/19 at 04:01; Status DC Morphine Sulfate (Morphine Sulfate) 2 mg PRN Q2HR PRN IV SEVERE PAIN 7-10 Last administered on 12/29/19at 11:37; Start 12/29/19 at 06:45; Stop 12/29/19 at 22:08; Status DC Insulin Human Lispro (HumaLOG) 0-5 UNITS TIDWMEALS SQ ; Start 12/29/19 at 12:00 Dextrose (Dextrose 50%-Water Syringe) 12.5 gm PRN Q15MIN PRN IV SEE COMMENTS; Start 12/29/19 at 08:30 Enoxaparin Sodium (Lovenox 60mg Syringe) 60 mg Q12HR SQ ; Start 12/29/19 at 13:15; Stop 12/30/19 at 08:00; Status DC Ondansetron HCl (Zofran) 4 mg PRN Q4HRS PRN IV NAUSEA/VOMITING 1ST CHOICE; Sta rt 12/29/19 at 16:00 Lidocaine HCl (Glydo (Lidocaine) Jelly) 1 kaya 1X ONCE MM Last administered on 12/29/19at 16:34; Start 12/29/19 at 16:00; Stop 12/29/19 at 16:01; Status DC Lidocaine HCl (Glydo (Lidocaine) Jelly) 1 kaya 1X ONCE MM Last administered on 12/29/19at 16:00; Start 12/29/19 at 16:00; Stop 12/29/19 at 16:01; Status DC Fentanyl Citrate (Fentanyl 2ml Vial) 100 mcg STK-MED ONCE .ROUTE ; Start 12/29/19 at 16:51; Stop 12/29/19 at 16:51; Status DC Ketamine HCl (Ketamine) 50 mg STK-MED ONCE .ROUTE ; Start 12/29/19 at 16:51; Stop 12/29/19 at 16:51; Status DC Succinylcholine Chloride (Anectine) 200 mg STK-MED ONCE .ROUTE ; Start 12/29/19 at 16:51; Stop 12/29/19 at 16:51; Status DC Rocuronium [place] (Zemuron) 50 mg STK-MED ONCE .ROUTE ; Start 12/29/19 at 16:51; Stop 12/29/19 at 16:51; Status DC Dexamethasone Sodium Phosphate (Decadron) 4 mg STK-MED ONCE .ROUTE ; Start 12/29/19 at 16:51; Stop 12/29/19 at 16:52; Status DC Ondansetron HCl (Zofran) 4 mg STK-MED ONCE .ROUTE ; Start 12/29/19 at 16:51; St op 12/29/19 at 16:52; Status DC Propofol (Diprivan) 200 mg STK-MED ONCE IV ; Start 12/29/19 at 16:51; Stop 12/29/19 at 16:52; Status DC Famotidine (Pepcid Vial) 20 mg STK-MED ONCE .ROUTE ; Start 12/29/19 at 16:51; Stop 12/29/19 at 16:52; Status DC Lidocaine HCl (Lidocaine Pf 2% Vial) 5 ml STK-MED ONCE .ROUTE ; Start 12/29/19 at 16:51; Stop 12/29/19 at 16:52; Status DC Phenylephrine HCl (PHENYLEPHRINE in 0.9% NACL PF) 1 mg STK-MED ONCE IV ; Start 12/29/19 at 16:51; Stop 12/29/19 at 16:52; Status DC Ondansetron HCl (Zofran) 4 mg PRN Q6HRS PRN IV NAUSEA/VOMITING; Start 12/29/19 at 17:15; Stop 12/30/19 at 00:00; Status DC Fentanyl Citrate (Fentanyl 2ml Vial) 25 mcg PRN Q5MIN PRN IV MILD PAIN 1-3; Start 12/29/19 at 17:15; Stop 12/30/19 at 00:00; Status DC Fentanyl Citrate (Fentanyl 2ml Vial) 50 mcg PRN Q5MIN PRN IV MODERATE TO SEVERE PAIN; Start 12/29/19 at 17:15; Stop 12/30/19 at 00:00; Status DC Morphine Sulfate (Morphine Sulfate) 1 mg PRN Q10MIN PRN IV SEVERE PAIN 7-10; Start 12/29/19 at 17:15; Stop 12/30/19 at 00:00; Status DC Ringer's Solution 1,000 ml @ 30 mls/hr Q24H IV Last administered on 12/29/19at 22:14; Start 12/29/19 at 17:07; Stop 12/30/19 at 05:06; Status DC Lidocaine HCl (Xylocaine-Mpf 1% 2ml Vial) 2 ml PRN 1X PRN ID PRIOR TO IV START; Start 12/29/19 at 17:15; Stop 12/30/19 at 00:00; Status DC Hydromorphone HCl (Dilaudid) 0.5 mg PRN Q10MIN PRN IV SEV PAIN, Second choice; Start 12/29/19 at 17:15; Stop 12/30/19 at 00:00; Status DC Prochlorperazine Edisylate (Compazine) 5 mg PACU PRN PRN IV NAUSEA, MRX1 Last administered on 12/29/19at 22:41; Start 12/29/19 at 17:15; Stop 12/30/19 at 00:00; Status DC Bupivacaine HCl/ Epinephrine Bitart (Sensorcain-Epi 0.5%-1:026769 Mpf) 30 ml STK-MED ONCE .ROUTE ; Start 12/29/19 at 17:14; Stop 12/29/19 at 17:14; Status DC Piperacillin Sod/ Tazobactam Sod 4.5 gm/Sodium Chloride 100 ml @ 200 mls/hr 1X ONCE IV Last administered on 12/29/19at 17:49; Start 12/29/19 at 17:45; Stop 12/29/19 at 18:14; Status DC Rocuronium [place] (Zemuron) 50 mg STK-MED ONCE .ROUTE ; Start 12/29/19 at 18:04; Stop 12/29/19 at 18:04; Status DC Hydromorphone HCl (Dilaudid) 2 mg STK-MED ONCE .ROUTE ; Start 12/29/19 at 18:29; Stop 12/29/19 at 18:29; Status DC Desflurane (Suprane) 90 ml STK-MED ONCE IH ; Start 12/29/19 at 18:59; Stop 12/29/19 at 18:59; Status DC Ondansetron HCl (Zofran) 4 mg STK-MED ONCE .ROUTE ; Start 12/29/19 at 20:48; Stop 12/29/19 at 20:48; Status DC Phenylephrine HCl (PHENYLEPHRINE in 0.9% NACL PF) 1 mg STK-MED ONCE IV ; Start 12/29/19 at 21:04; Stop 12/29/19 at 21:04; Status DC Rocuronium [place] (Zemuron) 50 mg STK-MED ONCE .ROUTE ; Start 12/29/19 at 21:05; Stop 12/29/19 at 21:06; Status DC Naloxone HCl (Narcan) 0.4 mg PRN Q2MIN PRN IV SEE INSTRUCTIONS; Start 12/29/19 at 21:45; Stop 01/02/20 at 11:13; Status DC Sodium Chloride 1,000 ml @ 25 mls/hr Q24H IV Last administered on 12/31/19at 19:55; Start 12/29/19 at 21:41; Stop 01/02/20 at 11:13; Status DC Hydromorphone HCl 30 ml @ 0 mls/hr CONT PRN PRN IV PER PROTOCOL Last administered on 01/02/20at 00:30; Start 12/29/19 at 21:45; Stop 01/02/20 at 11:13; Status DC Enoxaparin Sodium (Lovenox 40mg Syringe) 40 mg Q24H SQ ; Start 12/29/19 at 22:00; Status Cancel Morphine Sulfate (Morphine Sulfate) 4 mg 1X ONCE IV Last administered on 12/29/19at 22:18; Start 12/29/19 at 22:30; Stop 12/29/19 at 22:31; Status DC Hydromorphone HCl (Dilaudid) 2 mg STK-MED ONCE .ROUTE ; Start 12/29/19 at 22:35; Stop 12/29/19 at 22:35; Status DC Hydromorphone HCl (Dilaudid) 2 mg 1X ONCE IV Last administered on 12/29/19at 22:41; Start 12/29/19 at 22:45; Stop 12/29/19 at 22:46; Status DC Enoxaparin Sodium (Lovenox 40mg Syringe) 40 mg Q24H SQ ; Start 12/30/19 at 09:00; Stop 12/30/19 at 07:59; Status DC Enoxaparin Sodium (Lovenox 60mg Syringe) 60 mg Q12HR SQ Last administered on at 08:18; Start 12/30/19 at 09:00 Phenol (Chloraseptic) 1 spray PRN Q2HR PRN PO SORE THROAT Last administered on 12/30/19at 21:39; Start 12/30/19 at 21:00 Oxycodone/ Acetaminophen (Percocet 10/325) 1 tab PRN Q4HRS PRN PO MODERATE PAIN Last administered on 01/02/20at 12:13; Start 01/02/20 at 11:15 Hydromorphone HCl (Dilaudid) 0.2 mg PRN Q3HRS PRN IVP MODERATE TO SEVERE PAIN; Start 01/02/20 at 11:15 Oxycodone/ Acetaminophen (Percocet 10/325) 2 tab PRN Q4HRS PRN PO SEVERE PAIN; Start 01/02/20 at 11:30 Hydromorphone HCl (Dilaudid) 1 mg PRN Q3HRS PRN IVP MODERATE TO SEVERE PAIN; Start 01/02/20 at 11:30 Hydromorphone HCl (Dilaudid) 0.4 mg PRN Q3HRS PRN IVP MODERATE TO SEVERE PAIN; Start 01/02/20 at 11:30 Hydromorphone HCl (Dilaudid) 0.6 mg PRN Q3HRS PRN IVP MODERATE TO SEVERE PAIN; Start 01/02/20 at 11:30 Hydromorphone HCl (Dilaudid) 0.8 mg PRN Q3HRS PRN IVP MODERATE TO SEVERE PAIN; Start 01/02/20 at 11:30 Vitals/I & O Vital Sign - Last 24 Hours 01/01/20 01/01/20 01/01/20 01/02/20 19:00 20:00 23:00 00:30 Temp 98.2 98.3 98.2 98.3 Pulse 92 94 Resp 18 18 18 B/P (MAP) 148/92 (110) 156/89 (111) Pulse Ox 96 93 93 O2 Delivery Nasal Cannula Nasal Cannula Nasal Cannula Nasal Cannula O2 Flow Rate 3.0 3.0 3.0 3.0 01/02/20 01/02/20 01/02/20 01/02/20 01:00 03:00 07:05 08:00 Temp 98.7 98.2 98.7 98.2 Pulse 96 92 Resp 16 18 20 B/P (MAP) 139/85 (103) 148/96 (113) Pulse Ox 93 95 93 O2 Delivery Nasal Cannula Nasal Cannula Room Air O2 Flow Rate 3.0 3.0 01/02/20 01/02/20 01/02/20 01/02/20 08:14 11:00 12:13 13:13 Temp 98.2 98.0 98.2 98.0 Pulse 92 98 Resp 20 20 B/P (MAP) 148/96 (113) 154/99 (117) Pulse Ox 93 93 O2 Delivery Room Air Room Air 01/02/20 15:00 Temp 98.5 98.5 Pulse 97 Resp 20 B/P (MAP) 136/104 (115) Pulse Ox 95 O2 Delivery Room Air Intake and Output 01/01/20 01/01/20 01/02/20 15:00 23:00 07:00 Intake Total 0 ml 50 ml 50 ml Output Total 30 ml 300 ml 515 ml Balance -30 ml -250 ml -465 ml Justicifation of Admission Dx: Justifications for Admission: Justification of Admission Dx: Yes KATHY SANCHEZ MD Jan 02, 2020 15:45
[2020-01-03 03:00] VITALS: BP 156/93
[2020-01-03] MEDS: oxyCODONE/APAP 10/325 1 TAB TABLET PO PRN ×6 (03:22→20:06)
[2020-01-03 07:00] VITALS: BP 147/93
[2020-01-03] MEDS: INSULIN LISPRO 300 UNITS/3 ML VIAL. SQ SCH ×3 (08:00→17:00)
[2020-01-03 11:00] VITALS: BP 132/104
--- NOTE | 2020-01-03 11:11 | NUR ---
SW following. Discussed with RN, pt on full liquid diet. SUMAN faxed home health referral to [facility] as they are in network for pt's insurance, awaiting acceptance decision. SUMAN will continue to follow. Addendum: 01/03/20 at 1443 by MARILYN WILL [facility] declined due to staffing. [facility], [facility] and [facility] are not in network. [facility] is at capacity. SUMAN spoke with pt, pt verbalized understanding of difficulty in finding home health at this time. Pt reported he can go home with no home health and can call his cousin if he needs anything. Pt anticipating his diet being advanced tomorrow (01/04/2020). SW will continue to try for home health. RN notified.
--- NOTE | 2020-01-03 12:35 | PDOC ---
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 1235: SURGICAL PROGRESS NOTE Subjective full liquids started this AM no n/v + flatus Vital Signs Vital Signs Date Time Temp Pulse Resp B/P (MAP) Pulse Ox O2 Delivery O2 Flow Rate FiO2 01/03/20 11:00 97.9 95 18 132/104 (113) 96 Room Air 97.9 I&O Intake and Output 01/03/20 07:00 Intake Total 300 ml Output Total 70 ml Balance 230 ml Intake Oral 300 ml Drainage Total 70 ml # Voids 3 General: Alert, Oriented X3, Cooperative Abdomen: Soft, Other (binder in place, drains serosang) Labs Laboratory Tests Test 01/01/20 16:09 01/01/20 21:13 01/02/20 07:50 01/02/20 11:53 Glucose (Fingerstick) 111 mg/dL (70-99) 107 mg/dL (70-99) 123 mg/dL (70-99) 127 mg/dL (70-99) Test 01/02/20 20:27 01/03/20 06:54 01/03/20 11:37 Glucose (Fingerstick) 132 mg/dL (70-99) 136 mg/dL (70-99) 204 mg/dL (70-99) Laboratory Tests Test 01/02/20 20:27 01/03/20 06:54 01/03/20 11:37 Glucose (Fingerstick) 132 mg/dL (70-99) 136 mg/dL (70-99) 204 mg/dL (70-99) Problem List Problems Medical Problems: (1) Incarcerated umbilical hernia Status: Acute (2) Small bowel obstruction Status: Acute Assessment/Plan slowly advancing diet Justicifation of Admission Dx: Justifications for Admission: Justification of Admission Dx: Yes FELIX DAVIS MD 01/03/20 1653: SURGICAL PROGRESS NOTE Assessment/Plan Agree with above, ?discharge tomorrow? AMY HENRY APRN Jan 03, 2020 12:35 FELIX DAVIS MD Jan 03, 2020 16:53
--- NOTE | 2020-01-03 14:42 | PDOC ---
PROGRESS NOTES Chief Complaint Chief Complaint Patient in no acute events reported overnight, case discussed with nursing staff patient in no acute distress no complaints during my visit, case discussed with surgical services director at bedside and we will start advancing diet as tolerated patient quite concerned about constipation since he has suffered from in the past which has given him trouble. Reassurance has been provided no other concerns voiced during my visit History of Present Illness History of Present Illness IMPRESSION Assessment/Plan Acute abdominal pain Incarcerated ventral hernia with high-grade bowel obstruction pod # 3 Acute renal failurevasomotor nephropathy Hypertension Diabetes Dyslipidemia History of constipation ATELECTASIS PLAN Resume diet as per surgical services director MiraLAX MiraLAX and Colace Continue IV fluids, may discontinue if he is tolerating oral route well IV pain management as per surgical services director and oral pain management as well as per surgical services director Lovenox for DVT prophylaxis Full code Discussed with RN IS PT/OT WORING WELL WITH PT 27 min pt exam, chart review, > 50% of time spent with exam, chart review, pt care coordination Justicifation of Admission Dx: Justifications for Admission: Justification of Admission Dx: Yes Operative Note Operative Note Operative Note Operative Note: Preoperative Diagnosis: Incarcerated ventral hernia with high-grade bowel obstruction Postoperative Diagnosis: Same Procedure: Repair of incarcerated ventral hernia with mesh Surgeon: Harsha Water Trainer: Jesus BUSCH Anesthesia: General EBL: 100 mL Specimen: None Drains: 19 Irish SHARON x2 Complications: None Indication: The patient is a 59-year-old male who presented with abdominal pain. His evaluation is consistent with incarcerated ventral hernia with a high-grade bowel obstruction. Vitals Vitals Vital Signs Date Time Temp Pulse Resp B/P (MAP) Pulse Ox O2 Delivery O2 Flow Rate FiO2 01/03/20 11:00 97.9 95 18 132/104 (113) 96 Room Air 97.9 Physical Exam General: Alert, Oriented X3, Cooperative Heart: Regular rate, Normal S1, No murmurs Lungs: Clear Abdomen: Soft, Other (binder in place, drains serosang) Extremities: No clubbing, No cyanosis, No edema Skin: No rashes Labs LABS Laboratory Tests Test 01/02/20 20:27 01/03/20 06:54 01/03/20 11:37 Glucose (Fingerstick) 132 mg/dL (70-99) 136 mg/dL (70-99) 204 mg/dL (70-99) Assessment and Plan Assessmemt and Plan Problems Medical Problems: (1) Incarcerated umbilical hernia Status: Acute (2) Small bowel obstruction Status: Acute Comment Review of Relevant I have reviewed the following items catarina (where applicable) has been applied. Labs Laboratory Tests Test 01/01/20 16:09 01/01/20 21:13 01/02/20 07:50 01/02/20 11:53 Glucose (Fingerstick) 111 mg/dL (70-99) 107 mg/dL (70-99) 123 mg/dL (70-99) 127 mg/dL (70-99) Test 01/02/20 20:27 01/03/20 06:54 01/03/20 11:37 Glucose (Fingerstick) 132 mg/dL (70-99) 136 mg/dL (70-99) 204 mg/dL (70-99) Laboratory Tests Test 01/02/20 20:27 01/03/20 06:54 01/03/20 11:37 Glucose (Fingerstick) 132 mg/dL (70-99) 136 mg/dL (70-99) 204 mg/dL (70-99) Medications Current Medications Sodium Chloride 1,000 ml @ 1,000 mls/hr Q1H IV Last administered on 12/29/19at 00:21; Start 12/29/19 at 00:00; Stop 12/29/19 at 00:59; Status DC Ondansetron HCl (Zofran) 4 mg 1X ONCE IVP Last administered on 12/29/19at 00:21; Start 12/29/19 at 00:00; Stop 12/29/19 at 00:01; Status DC Barium Sulfate (Readi-Cat 2) 900 ml 1X ONCE PO Last administered on 12/29/19at 00:00; Start 12/29/19 at 00:30; Stop 12/29/19 at 00:31; Status DC Morphine Sulfate (Morphine Sulfate) 4 mg 1X ONCE IV Last administered on 12/29/19at 03:20; Start 12/29/19 at 03:30; Stop 12/29/19 at 03:31; Status DC Ondansetron HCl (Zofran) 4 mg PRN Q8HRS PRN IV NAUSEA/VOMITING 1ST CHOICE Last administered on 12/29/19at 11:36; Start 12/29/19 at 03:30; Stop 12/29/19 at 14:29; Status DC Sodium Chloride 1,000 ml @ 125 mls/hr Q8H IV Last administered on 12/29/19at 22:43; Start 12/29/19 at 03:30; Stop 12/30/19 at 03:29; Status DC Benzocaine (Hurricaine One) 1 spray 1X ONCE MM Last administered on 12/29/19at 04:23; Start 12/29/19 at 04:00; Stop 12/29/19 at 04:01; Status DC Morphine Sulfate (Morphine Sulfate) 2 mg PRN Q2HR PRN IV SEVERE PAIN 7-10 Last administered on 12/29/19at 11:37; Start 12/29/19 at 06:45; Stop 12/29/19 at 22:08; Status DC Insulin Human Lispro (HumaLOG) 0-5 UNITS TIDWMEALS SQ Last administered on 01/03/20at 12:01; Start 12/29/19 at 12:00 Dextrose (Dextrose 50%-Water Syringe) 12.5 gm PRN Q15MIN PRN IV SEE COMMENTS; Start 12/29/19 at 08:30 Enoxaparin Sodium (Lovenox 60mg Syringe) 60 mg Q12HR SQ ; Start 12/29/19 at 13:15; Stop 12/30/19 at 08:00; Status DC Ondansetron HCl (Zofran) 4 mg PRN Q4HRS PRN IV NAUSEA/VOMITING 1ST CHOICE; Start 12/29/19 at 16:00 Lidocaine HCl (Glydo (Lidocaine) Jelly) 1 kaya 1X ONCE MM Last administered on 12/29/19at 16:34; Start 12/29/19 at 16:00; Stop 12/29/19 at 16:01; Status DC Lidocaine HCl (Glydo (Lidocaine) Jelly) 1 kaya 1X ONCE MM Last administered on 12/29/19at 16:00; Start 12/29/19 at 16:00; Stop 12/29/19 at 16:01; Status DC Fentanyl Citrate (Fentanyl 2ml Vial) 100 mcg [facility]-MED ONCE .ROUTE ; Start 12/29/19 at 16:51; Stop 12/29/19 at 16:51; Status DC Ketamine HCl (Ketamine) 50 mg STK-MED ONCE .ROUTE ; Start 12/29/19 at 16:51; Stop 12/29/19 at 16:51; Status DC Succinylcholine Chloride (Anectine) 200 mg STK-MED ONCE .ROUTE ; Start 12/29/19 at 16:51; Stop 12/29/19 at 16:51; Status DC Rocuronium [place] (Zemuron) 50 mg STK-MED ONCE .ROUTE ; Start 12/29/19 at 16:51; Stop 12/29/19 at 16:51; Status DC Dexamethasone Sodium Phosphate (Decadron) 4 mg STK-MED ONCE .ROUTE ; Start 12/29/19 at 16:51; Stop 12/29/19 at 16:52; Status DC Ondansetron HCl (Zofran) 4 mg STK-MED ONCE .ROUTE ; Start 12/29/19 at 16:51; Stop 12/29/19 at 16:52; Status DC Propofol (Diprivan) 200 mg STK-MED ONCE IV ; Start 12/29/19 at 16:51; Stop 12/29/19 at 16:52; Status DC Famotidine (Pepcid Vial) 20 mg STK-MED ONCE .ROUTE ; Start 12/29/19 at 16:51; Stop 12/29/19 at 16:52; Status DC Lidocaine HCl (Lidocaine Pf 2% Vial) 5 ml STK-MED ONCE .ROUTE ; Start 12/29/19 at 16:51; Stop 12/29/19 at 16:52; Status DC Phenylephrine HCl (PHENYLEPHRINE in 0.9% NACL PF) 1 mg STK-MED ONCE IV ; Start 12/29/19 at 16:51; Stop 12/29/19 at 16:52; Status DC Ondansetron HCl (Zofran) 4 mg PRN Q6HRS PRN IV NAUSEA/VOMITING; Start 12/29/19 at 17:15; Stop 12/30/19 at 00:00; Status DC Fentanyl Citrate (Fentanyl 2ml Vial) 25 mcg PRN Q5MIN PRN IV MILD PAIN 1-3; Start 12/29/19 at 17:15; Stop 12/30/19 at 00:00; Status DC Fentanyl Citrate (Fentanyl 2ml Vial) 50 mcg PRN Q5MIN PRN IV MODERATE TO SEVERE PAIN; Start 12/29/19 at 17:15; Stop 12/30/19 at 00:00; Status DC Morphine Sulfate (Morphine Sulfate) 1 mg PRN Q10MIN PRN IV SEVERE PAIN 7-10; Start 12/29/19 at 17:15; Stop 12/30/19 at 00:00; Status DC Ringer's Solution 1,000 ml @ 30 mls/hr Q24H IV Last administered on 12/29/19at 22:14; Start 12/29/19 at 17:07; Stop 12/30/19 at 05:06; Status DC Lidocaine HCl (Xylocaine-Mpf 1% 2ml Vial) 2 ml PRN 1X PRN ID PRIOR TO IV START; Start 12/29/19 at 17:15; Stop 12/30/19 at 00:00; Status DC Hydromorphone HCl (Dilaudid) 0.5 mg PRN Q10MIN PRN IV SEV PAIN, Second choice; Start 12/29/19 at 17:15; Stop 12/30/19 at 00:00; Status DC Prochlorperazine Edisylate (Compazine) 5 mg PACU PRN PRN IV NAUSEA, MRX1 Last administered on 12/29/19at 22:41; Start 12/29/19 at 17:15; Stop 12/30/19 at 00:00; Status DC Bupivacaine HCl/ Epinephrine Bitart (Sensorcain-Epi 0.5%-1:[id number] Mpf) 30 ml STK-MED ONCE .ROUTE ; Start 12/29/19 at 17:14; Stop 12/29/19 at 17:14; Status DC Piperacillin Sod/ Tazobactam Sod 4.5 gm/Sodium Chloride 100 ml @ 200 mls/hr 1X ONCE IV Last administered on 12/29/19at 17:49; Start 12/29/19 at 17:45; Stop 12/29/19 at 18:14; Status DC Rocuronium [place] (Zemuron) 50 mg STK-MED ONCE .ROUTE ; Start 12/29/19 at 18:04; Stop 12/29/19 at 18:04; Status DC Hydromorphone HCl (Dilaudid) 2 mg STK-MED ONCE .ROUTE ; Start 12/29/19 at 18:29; Stop 12/29/19 at 18:29; Status DC Desflurane (Suprane) 90 ml STK-MED ONCE IH ; Start 12/29/19 at 18:59; Stop 12/29/19 at 18:59; Status DC Ondansetron HCl (Zofran) 4 mg STK-MED ONCE .ROUTE ; Start 12/29/19 at 20:48; Stop 12/29/19 at 20:48; Status DC Phenylephrine HCl (PHENYLEPHRINE in 0.9% NACL PF) 1 mg STK-MED ONCE IV ; Start 12/29/19 at 21:04; Stop 12/29/19 at 21:04; Status DC Rocuronium [place] (Zemuron) 50 mg STK-MED ONCE .ROUTE ; Start 12/29/19 at 21:05; Stop 12/29/19 at 21:06; Status DC Naloxone HCl (Narcan) 0.4 mg PRN Q2MIN PRN IV SEE INSTRUCTIONS; Start 12/29/19 at 21:45; Stop 01/02/20 at 11:13; Status DC Sodium Chloride 1,000 ml @ 25 mls/hr Q24H IV Last administered on 12/31/19at 19:55; Start 12/29/19 at 21:41; Stop 01/02/20 at 11:13; Status DC Hydromorphone HCl 30 ml @ 0 mls/hr CONT PRN PRN IV PER PROTOCOL Last administered on 01/02/20at 00:30; Start 12/29/19 at 21:45; Stop 01/02/20 at 11:13 ; Status DC Enoxaparin Sodium (Lovenox 40mg Syringe) 40 mg Q24H SQ ; Start 12/29/19 at 22:00; Status Cancel Morphine Sulfate (Morphine Sulfate) 4 mg 1X ONCE IV Last administered on 12/29/19at 22:18; Start 12/29/19 at 22:30; Stop 12/29/19 at 22:31; Status DC Hydromorphone HCl (Dilaudid) 2 mg STK-MED ONCE .ROUTE ; Start 12/29/19 at 22:35; Stop 12/29/19 at 22:35; Status DC Hydromorphone HCl (Dilaudid) 2 mg 1X ONCE IV Last administered on 12/29/19at 22:41; Start 12/29/19 at 22:45; Stop 12/29/19 at 22:46; Status DC Enoxaparin Sodium (Lovenox 40mg Syringe) 40 mg Q24H SQ ; Start 12/30/19 at 09:00; Stop 12/30/19 at 07:59; Status DC Enoxaparin Sodium (Lovenox 60mg Syringe) 60 mg Q12HR SQ Last administered on 01/03/20at 10:15; Start 12/30/19 at 09:00 Phenol (Chloraseptic) 1 spray PRN Q2HR PRN PO SORE THROAT Last administered on 12/30/19at 21:39; Start 12/30/19 at 21:00 Oxycodone/ Acetaminophen (Percocet 10/325) 1 tab PRN Q4HRS PRN PO MODERATE PAIN Last administered on 01/02/20at 22:47; Start 01/02/20 at 11:15 Hydromorphone HCl (Dilaudid) 0.2 mg PRN Q3HRS PRN IVP MODERATE TO SEVERE PAIN; Start 01/02/20 at 11:15 Oxycodone/ Acetaminophen (Percocet 10/325) 2 tab PRN Q4HRS PRN PO SEVERE PAIN Last administered on 01/03/20at 11:41; Start 01/02/20 at 11:30 Hydromorphone HCl (Dilaudid) 1 mg PRN Q3HRS PRN IVP MODERATE TO SEVERE PAIN; Start 01/02/20 at 11:30 Hydromorphone HCl (Dilaudid) 0.4 mg PRN Q3HRS PRN IVP MODERATE TO SEVERE PAIN; Start 01/02/20 at 11:30 Hydromorphone HCl (Dilaudid) 0.6 mg PRN Q3HRS PRN IVP MODERATE TO SEVERE PAIN; Start 01/02/20 at 11:30 Hydromorphone HCl (Dilaudid) 0.8 mg PRN Q3HRS PRN IVP MODERATE TO SEVERE PAIN; Start 01/02/20 at 11:30 Remifentanil HCl (Ultiva) 1 mg STK-MED ONCE IV ; Start 12/29/19 at 20:32; Stop 01/03/20 at 09:06; Status DC Prochlorperazine Edisylate (Compazine) 10 mg STK-MED ONCE .ROUTE ; Start 12/29/19 at 22:02; Stop 01/03/20 at 09:06; Status DC Morphine Sulfate (Morphine Sulfate) 4 mg STK-MED ONCE .ROUTE ; Start 12/29/19 at 22:03; Stop 01/03/20 at 09:06; Status DC Docusate Sodium (Colace) 100 mg BID PO ; Start 01/03/20 at 13:30 Vitals/I & O Vital Sign - Last 24 Hours 01/02/20 01/02/20 01/02/20 01/02/20 15:00 16:29 17:29 19:00 Temp 98.5 98.5 98.5 98.5 Pulse 97 96 Resp 20 18 B/P (MAP) 136/104 (115) 146/99 (115) Pulse Ox 95 98 O2 Delivery Room Air Room Air Room Air Room Air 01/02/20 01/02/20 01/02/20 01/02/20 20:00 22:47 23:00 23:47 Temp 99.1 99.1 Pulse 101 Resp 18 B/P (MAP) 165/91 (115) Pulse Ox 95 O2 Delivery Room Air Room Air Room Air Room Air 01/03/20 01/03/20 01/03/20 01/03/20 03:00 03:28 04:28 07:00 Temp 97.9 98.7 97.9 98.7 Pulse 98 87 Resp 18 16 B/P (MAP) 156/93 (114) 147/93 (111) Pulse Ox 95 94 O2 Delivery Room Air Room Air Room Air Room Air 01/03/20 01/03/20 08:00 11:00 Temp 97.9 97.9 Pulse 95 Resp 18 B/P (MAP) 132/104 (113) Pulse Ox 96 O2 Delivery Room Air Room Air Intake and Output 01/02/20 01/02/20 01/03/20 15:00 23:00 07:00 Intake Total 300 ml Output Total 70 ml Balance 300 ml -70 ml Justicifation of Admission Dx: Justifications for Admission: Justification of Admission Dx: Yes KATHY SANCHEZ MD Jan 03, 2020 14:42
[2020-01-03] MEDS ORDERED: LACTULOSE 20 GM/30 ML SOLUTION. PO PRN (14:45)
[2020-01-03] MEDS ORDERED: MAGNESIUM HYDROXIDE 2,400 MG/30 ML ORAL.SUSP. PO PRN (14:45)
[2020-01-03] MEDS ORDERED: BISACODYL 10 MG SUPP.RECT. PR PRN (14:45)
[2020-01-03 15:00] VITALS: BP 162/91
[2020-01-03] MEDS: DOCUSATE SODIUM 100 MG CAPSULE. PO SCH ×2 (15:02→20:07)
[2020-01-03] MEDS: SENNOSIDES/DOCUSATE 8.6/50MG TABLET. PO SCH ×2 (15:02→20:07)
[2020-01-03] MEDS ORDERED: LISI10TA2 PO (15:51)
[2020-01-03] MEDS ORDERED: ERGO500027 PO (15:51)
[2020-01-03] MEDS ORDERED: CARV25TA PO (15:51)
[2020-01-03] MEDS ORDERED: FURO-68 PO (15:51)
[2020-01-03] MEDS ORDERED: OMEP40CA45 PO (15:51)
[2020-01-03] MEDS ORDERED: SIMV20TA18 PO (15:51)
[2020-01-03] MEDS ORDERED: LEVO88TA4 PO (15:51)
[2020-01-03] MEDS ORDERED: OXYC1TAB22 PO (15:51)
[2020-01-03] MEDS ORDERED: NORT25CA PO (15:51)
[2020-01-03] MEDS ORDERED: INSU100I13 SQ (15:51)
[2020-01-03] MEDS ORDERED: METF10007 PO (15:51)
[2020-01-03] MEDS: CARVEDILOL 6.25 MG TABLET. PO SCH (16:56)
[2020-01-03 19:38] VITALS: BP 147/100
[2020-01-03] MEDS ORDERED: SIMVASTATIN 20 MG TABLET PO SCH (21:00)
[2020-01-03] MEDS ORDERED: NORTRIPTYLINE 25 MG CAPSULE PO SCH (21:00)
[2020-01-03] MEDS ORDERED: INSULIN GLARGINE SYRINGE. SQ SCH (21:00)
[2020-01-03] MEDS: HYDROmorphone 2 MG/ML VIAL IVP PRN (21:06)
[2020-01-03 23:00] VITALS: BP 140/97
[2020-01-04] MEDS: HYDROmorphone 2 MG/ML VIAL IVP PRN (02:55)
[2020-01-04 03:00] VITALS: BP 143/99
[2020-01-04] MEDS: oxyCODONE/APAP 10/325 1 TAB TABLET PO PRN ×4 (03:59→16:24)
[2020-01-04] MEDS ORDERED: PANTOPRAZOLE 40 MG TABLET.DR. PO SCH (07:30)
[2020-01-04] MEDS ORDERED: LEVOTHYROXINE 88 MCG TABLET PO SCH (07:30)
[2020-01-04 07:39] VITALS: BP 131/86
[2020-01-04] MEDS: INSULIN LISPRO 300 UNITS/3 ML VIAL. SQ SCH ×2 (07:41→12:06)
[2020-01-04] MEDS: SENNOSIDES/DOCUSATE 8.6/50MG TABLET. PO SCH (08:03)
[2020-01-04] MEDS: FUROSEMIDE 40 MG TABLET. PO SCH ×2 (08:03→15:49)
[2020-01-04] MEDS: CARVEDILOL 6.25 MG TABLET. PO SCH ×2 (08:04→15:50)
[2020-01-04] MEDS: DOCUSATE SODIUM 100 MG CAPSULE. PO SCH (08:04)
[2020-01-04] MEDS ORDERED: LISINOPRIL 10 MG TABLET PO SCH (09:00)
[2020-01-04] MEDS ORDERED: ERGOCALCIFEROL (VITAMIN D2) 50,000 UNIT CAPSULE. PO SCH (09:00)
[2020-01-04 09:24] LABS: BASO % 0 % (0-3); EOS # 0.1 x10^3/uL (0.0-0.7); EOS % 1 % (0-3); HEMATOCRIT 41.4 % (39.0-53.0); HEMOGLOBIN 13.7 g/dL (13.0-17.5); LYMPH # 1.5 x10^3/uL (1.0-4.8); LYMPH % 23 % (24-48); MEAN CORPUSCULAR HEMOGLOBIN 30 pg (25-35); MEAN CORPUSCULAR HGB CONC 33 g/dL (31-37); MEAN CORPUSCULAR VOLUME 91 fL (79-100); MONO # 0.4 x10^3/uL (0.0-1.1); MONO % 6 % (0-9); NEUT # 4.4 x10^3/uL (1.8-7.7); NEUT % 69 % (31-73); PLATELET COUNT 336 x10^3/uL (140-400); RED BLOOD COUNT 4.53 x10^6/uL (4.30-5.70); RED CELL DISTRIBUTION WIDTH 14.3 % (11.5-14.5); WHITE BLOOD COUNT 6.4 x10^3/uL (4.0-11.0)
[2020-01-04 09:25] LABS: CALCIUM 9.3 mg/dL (8.5-10.1); CREATININE 1.4 mg/dL (0.7-1.3); GFR 52.2; POTASSIUM 3.2 mmol/L (3.5-5.1)
--- NOTE | 2020-01-04 10:49 | NUR ---
Per patient request, carvedilol and furosemide held to be given at 1400 which is when patient normally takes medication per his PCP orders.
[2020-01-04 11:05] VITALS: BP 136/87
--- NOTE | 2020-01-04 11:16 | NUR ---
SUMAN following. Discussed with RN, pt advanced to GI soft diet. SW faxed referral to [facility] as they are in network. [facility] contacted SW back to advise they cannot accept pt as they are now on diversion. Per conversation yesterday pt is agreeable to going home without home health. Pt will call his cousin if he needs anything. RN and Dr. Kennedy notified. Anticipate discharge home today.
--- NOTE | 2020-01-04 12:31 | PDOC ---
AMY HENRY AMMONIA DISTILLER 01/04/20 1231: SURGICAL PROGRESS NOTE Subjective Tolerating diet bowels working possible home today left drain has not been working, draining around site Vital Signs Vital Signs Date Time Temp Pulse Resp B/P (MAP) Pulse Ox O2 Delivery O2 Flow Rate FiO2 01/04/20 12:07 93 Room Air 3.0 01/04/20 11:05 97.9 92 19 136/87 (103) 97.9 I&O Intake and Output 01/04/20 07:00 Output Total 2460 ml Balance -2460 ml Output Urine Total 2350 ml Drainage Total 110 ml # Voids 3 General: Alert, Oriented X3, Cooperative Abdomen: Soft, Other (ND, incision c/d/i, no erythema, right julián serosang drainage, left drain not holding suction, noted drain has migrated out ) Labs Laboratory Tests Test 01/02/20 20:27 01/03/20 06:54 01/03/20 11:37 01/03/20 16:48 Glucose (Fingerstick) 132 mg/dL (70-99) 136 mg/dL (70-99) 204 mg/dL (70-99) 125 mg/dL (70-99) Test 01/03/20 20:28 01/04/20 07:25 01/04/20 08:50 01/04/20 10:48 Glucose (Fingerstick) 154 mg/dL (70-99) 137 mg/dL (70-99) 189 mg/dL (70-99) White Blood Count 6.4 x10^3/uL (4.0-11.0) Red Blood Count 4.53 x10^6/uL (4.30-5.70) Hemoglobin 13.7 g/dL (13.0-17.5) Hematocrit 41.4 % (39.0-53.0) Mean Corpuscular Volume 91 fL (79-100) Mean Corpuscular Hemoglobin 30 pg (25-35) Mean Corpuscular Hemoglobin Concent 33 g/dL (31-37) Red Cell Distribution Width 14.3 % (11.5-14.5) Platelet Count 336 x10^3/uL (140-400) Neutrophils (%) (Auto) 69 % (31-73) Lymphocytes (%) (Auto) 23 % (24-48) Monocytes (%) (Auto) 6 % (0-9) Eosinophils (%) (Auto) 1 % (0-3) Basophils (%) (Auto) 0 % (0-3) Neutrophils # (Auto) 4.4 x10^3/uL (1.8-7.7) Lymphocytes # (Auto) 1.5 x10^3/uL (1.0-4.8) Monocytes # (Auto) 0.4 x10^3/uL (0.0-1.1) Eosinophils # (Auto) 0.1 x10^3/uL (0.0-0.7) Basophils # (Auto) 0.0 x10^3/uL (0.0-0.2) Sodium Level 140 mmol/L (136-145) Potassium Level 3.2 mmol/L (3.5-5.1) Chloride Level 98 mmol/L (98-107) Carbon Dioxide Level 30 mmol/L (21-32) Anion Gap 12 (6-14) Blood Urea Nitrogen 11 mg/dL (8-26) Creatinine 1.4 mg/dL (0.7-1.3) Estimated GFR (Cockcroft-Gault) 52.2 Glucose Level 170 mg/dL (70-99) Calcium Level 9.3 mg/dL (8.5-10.1) Laboratory Tests Test 01/03/20 16:48 01/03/20 20:28 01/04/20 07:25 01/04/20 08:50 Glucose (Fingerstick) 125 mg/dL (70-99) 154 mg/dL (70-99) 137 mg/dL (70-99) White Blood Count 6.4 x10^3/uL (4.0-11.0) Red Blood Count 4.53 x10^6/uL (4.30-5.70) Hemoglobin 13.7 g/dL (13.0-17.5) Hematocrit 41.4 % (39.0-53.0) Mean Corpuscular Volume 91 fL (79-100) Mean Corpuscular Hemoglobin 30 pg (25-35) Mean Corpuscular Hemoglobin Concent 33 g/dL (31-37) Red Cell Distribution Width 14.3 % (11.5-14.5) Platelet Count 336 x10^3/uL (140-400) Neutrophils (%) (Auto) 69 % (31-73) Lymphocytes (%) (Auto) 23 % (24-48) Monocytes (%) (Auto) 6 % (0-9) Eosinophils (%) (Auto) 1 % (0-3) Basophils (%) (Auto) 0 % (0-3) Neutrophils # (Auto) 4.4 x10^3/uL (1.8-7.7) Lymphocytes # (Auto) 1.5 x10^3/uL (1.0-4.8) Monocytes # (Auto) 0.4 x10^3/uL (0.0-1.1) Eosinophils # (Auto) 0.1 x10^3/uL (0.0-0.7) Basophils # (Auto) 0.0 x10^3/uL (0.0-0.2) Sodium Level 140 mmol/L (136-145) Potassium Level 3.2 mmol/L (3.5-5.1) Chloride Level 98 mmol/L (98-107) Carbon Dioxide Level 30 mmol/L (21-32) Anion Gap 12 (6-14) Blood Urea Nitrogen 11 mg/dL (8-26) Creatinine 1.4 mg/dL (0.7-1.3) Estimated GFR (Cockcroft-Gault) 52.2 Glucose Level 170 mg/dL (70-99) Calcium Level 9.3 mg/dL (8.5-10.1) Test 01/04/20 10:48 Glucose (Fingerstick) 189 mg/dL (70-99) Problem List Problems Medical Problems: (1) Incarcerated umbilical hernia Status: Acute (2) Small bowel obstruction Status: Acute Assessment/Plan ok to dc home will dc left drain since not hold suction home with right drain, wear binder Justicifation of Admission Dx: Justifications for Admission: Justification of Admission Dx: Yes FELIX DAVIS MD 01/04/20 1344: SURGICAL PROGRESS NOTE Assessment/Plan Agree with above AMY HENRY AMMONIA DISTILLER Jan 04, 2020 12:31 FELIX DAVIS MD Jan 04, 2020 13:44
[2020-01-04] MEDS ORDERED: OXYC1TAB22 PO (12:35)
[2020-01-04 15:00] VITALS: BP 132/97
[2020-01-04 15:50] VITALS: BP 132/97
--- NOTE | 2020-01-04 15:57 | PDOC3 ---
Discharge Summary Visit Information Date of Admission: Dec 29, 2019 Date of Discharge: Jan 04, 2020 Admitting Diagnosis Comment: Acute abdominal pain due to partial SBO Incarcerated umbilical hernia Acute renal failurevasomotor nephropathy Hypertension Diabetes Dyslipidemia History of constipation Final Diagnosis Problems Medical Problems: (1) Incarcerated umbilical hernia Status: Acute (2) Small bowel obstruction Status: Acute Acute abdominal pain Incarcerated ventral hernia with high-grade bowel obstruction status post herniorrhaphy Acute renal failurevasomotor nephropathy Hypertension Diabetes Dyslipidemia History of constipation ATELECTASIS Brief Hospital Course Allergies Allergies Coded Allergies Type Severity Reaction Last Updated Verified Iodinated Contrast Media Allergy Intermediate hives 12/28/19 Yes ketorolac Allergy Intermediate [facility] 12/28/19 Yes Vital Signs Vital Signs Date Time Temp Pulse Resp B/P (MAP) Pulse Ox O2 Delivery O2 Flow Rate FiO2 01/04/20 15:50 92 132/97 01/04/20 15:00 97.7 18 92 Room Air 97.7 01/04/20 12:07 3.0 Lab Results Laboratory Tests Test 01/02/20 20:27 01/03/20 06:54 01/03/20 11:37 01/03/20 16:48 Glucose (Fingerstick) 132 mg/dL (70-99) 136 mg/dL (70-99) 204 mg/dL (70-99) 125 mg/dL (70-99) Test 01/03/20 20:28 01/04/20 07:25 01/04/20 08:50 01/04/20 10:48 Glucose (Fingerstick) 154 mg/dL (70-99) 137 mg/dL (70-99) 189 mg/dL (70-99) White Blood Count 6.4 x10^3/uL (4.0-11.0) Red Blood Count 4.53 x10^6/uL (4.30-5.70) Hemoglobin 13.7 g/dL (13.0-17.5) Hematocrit 41.4 % (39.0-53.0) Mean Corpuscular Volume 91 fL (79-100) Mean Corpuscular Hemoglobin 30 pg (25-35) Mean Corpuscular Hemoglobin Concent 33 g/dL (31-37) Red Cell Distribution Width 14.3 % (11.5-14.5) Platelet Count 336 x10^3/uL (140-400) Neutrophils (%) (Auto) 69 % (31-73) Lymphocytes (%) (Auto) 23 % (24-48) Monocytes (%) (Auto) 6 % (0-9) Eosinophils (%) (Auto) 1 % (0-3) Basophils (%) (Auto) 0 % (0-3) Neutrophils # (Auto) 4.4 x10^3/uL (1.8-7.7) Lymphocytes # (Auto) 1.5 x10^3/uL (1.0-4.8) Monocytes # (Auto) 0.4 x10^3/uL (0.0-1.1) Eosinophils # (Auto) 0.1 x10^3/uL (0.0-0.7) Basophils # (Auto) 0.0 x10^3/uL (0.0-0.2) Sodium Level 140 mmol/L (136-145) Potassium Level 3.2 mmol/L (3.5-5.1) Chloride Level 98 mmol/L (98-107) Carbon Dioxide Level 30 mmol/L (21-32) Anion Gap 12 (6-14) Blood Urea Nitrogen 11 mg/dL (8-26) Creatinine 1.4 mg/dL (0.7-1.3) Estimated GFR (Cockcroft-Gault) 52.2 Glucose Level 170 mg/dL (70-99) Calcium Level 9.3 mg/dL (8.5-10.1) Laboratory Tests Test 01/03/20 16:48 01/03/20 20:28 01/04/20 07:25 01/04/20 08:50 Glucose (Fingerstick) 125 mg/dL (70-99) 154 mg/dL (70-99) 137 mg/dL (70-99) White Blood Count 6.4 x10^3/uL (4.0-11.0) Red Blood Count 4.53 x10^6/uL (4.30-5.70) Hemoglobin 13.7 g/dL (13.0-17.5) Hematocrit 41.4 % (39.0-53.0) Mean Corpuscular Volume 91 fL (79-100) Mean Corpuscular Hemoglobin 30 pg (25-35) Mean Corpuscular Hemoglobin Concent 33 g/dL (31-37) Red Cell Distribution Width 14.3 % (11.5-14.5) Platelet Count 336 x10^3/uL (140-400) Neutrophils (%) (Auto) 69 % (31-73) Lymphocytes (%) (Auto) 23 % (24-48) Monocytes (%) (Auto) 6 % (0-9) Eosinophils (%) (Auto) 1 % (0-3) Basophils (%) (Auto) 0 % (0-3) Neutrophils # (Auto) 4.4 x10^3/uL (1.8-7.7) Lymphocytes # (Auto) 1.5 x10^3/uL (1.0-4.8) Monocytes # (Auto) 0.4 x10^3/uL (0.0-1.1) Eosinophils # (Auto) 0.1 x10^3/uL (0.0-0.7) Basophils # (Auto) 0.0 x10^3/uL (0.0-0.2) Sodium Level 140 mmol/L (136-145) Potassium Level 3.2 mmol/L (3.5-5.1) Chloride Level 98 mmol/L (98-107) Carbon Dioxide Level 30 mmol/L (21-32) Anion Gap 12 (6-14) Blood Urea Nitrogen 11 mg/dL (8-26) Creatinine 1.4 mg/dL (0.7-1.3) Estimated GFR (Cockcroft-Gault) 52.2 Glucose Level 170 mg/dL (70-99) Calcium Level 9.3 mg/dL (8.5-10.1) Test 01/04/20 10:48 Glucose (Fingerstick) 189 mg/dL (70-99) Brief Hospital Course History and Physical Date of Admission: Date of Admission DATE: 12/29/19 TIME: 08:22 Chief Complaint: Chief Complain: Abdominal pain History of Present Illness: HPI: 59-year-old male presents with abdominal pain, nausea, abdominal distention and constipation that began about 10:00 this morning. Patient describes his pain is diffuse in his abdomen and crampy and severe in nature. Pain is worse with move ment. Pain is nonradiating. Patient states last bowel movement was 2 days ago. Patient has been passing gas denies shortness of breath, chest pain, fever, no bloody bowel movements or diarrhea Mr. Jones Campo was seen in consultation by Dr. Suero on the and he was taken to the OR on December 28 as well. Operative note is as follows: Preoperative Diagnosis: Incarcerated ventral hernia with high-grade bowel obstruction Postoperative Diagnosis: Same Procedure: Repair of incarcerated ventral hernia with mesh Surgeon: Harsha Etcher Apprentice: Jesus BUSCH Anesthesia: General EBL: 100 mL Specimen: None Drains: 19 Belgian SHARON x2 Complications: None Indication: The patient is a 59-year-old male who presented with abdominal pain. His evaluation is consistent with incarcerated ventral hernia with a high-grade bowel obstruction. Based on his clinical presentation we recommend urgent surgical intervention. The risks of surgery were discussed which include bleeding, infection, hernia recurrence, pain, bowel injury, anesthetic risk, wound healing problems, potential need for additional surgery or procedure. He understands and would like to proceed. Description: The patient was taken to the operating room and placed supine in the operating table. General anesthesia was performed. The abdomen was prepped with ChloraPrep and draped with sterile towels, sheets, and an Ioban. A vertical midline incision was made in the skin with a scalpel. Cautery dissection was carried down to the fascia. The fascia was carefully opened and the abdominal cavity was entered. The patient had prominent adhesions involving bowel to the abdominal wall. These were quite dense and essentially incorporated into the abdominal wall. An extensive lysis of adhesions was required to free up the bowel. A small enterotomy was made in 1 loop with dense adhesions. This was repaired primarily with 2-0 Vicryl. An additional serosal disruption was also oversewn with 2-0 Vicryl. When the bowel was freed off the abdominal wall we were able to fully explore the abdominal cavity and run the small bowel. The intraoperative findings did confirm a high-grade bowel obstruction due to the hernia with a well-defined transition point. The bowel appeared viable however with no evidence of ischemia or necrosis. A few interloop bowel adhesions were lysed and the remaining small bowel appeared unremarkable. We then mobilized the skin flaps laterally away from the fascia. This helped provide significant mobilization of the fascia for closure with reduced tension. Given the limited degree of contamination we did not feel that it was suitable for permanent synthetic mesh. The fascia was approximated with a 1 Prolene suture. The fascia was then reinforced with an onlay Phasix mesh. The mesh was sutured to the fascia using several interrupted 2-0 Vicryl stitches. The mesh provided very good coverage of the entire abdominal wall and appeared to reinforce the repair well. Two SHARON drains were left anterior to the mesh which exited the right and left lateral abdomen. These were secured to the skin with 2-0 silk. The subcutaneous tissues were approximated with 3-0 Vicryl. The skin was closed with 4-0 Monocryl. Steri-Strips and sterile dressings were applied. The patient tolerated the procedure well and was sent to the recovery room in stable condition. At the end of the case all counts were correct. He was admitted to the medical telemetry floor and he was kept n.p.o. until 2 days prior to his discharge plan once the product development consultant established return bowel function clear liquids were instituted. His diet was advanced as tolerated and on the day of discharge she was tolerating solid food. He had several bowel movements prior to discharge which was most of his concerns since he has gone quite constipated in the past after hospital stays. Signs and symptoms of alarm were discussed with the patient prior to discharge when to seek medical attention was discussed as well and he acknowledged understanding of all the instructions. Patient is in hemodynamically stable condition to be discharged home his pain seems to be well controlled, 1 of his drains was discontinued and please see below further recommendations from our surgical instrument maker. Hardboard Grinder recommendations upon discharge:Problem List Problems Medical Problems: (1) Incarcerated umbilical hernia Status: Acute (2) Small bowel obstruction Status: Acute Assessment/Plan ok to dc home will dc left drain since not hold suction home with right drain, wear binder Assessment Assessment Physical Exam General: Alert, Oriented X3, Cooperative, No acute distress Heart: Regular rate, Normal S1, No murmurs Lungs: Clear Abdomen: Soft (binder intact, drains intact), No tenderness Extremities: No clubbing, No cyanosis Skin: No rashes CT results IMPRESSION: 1. 7.7 cm umbilical hernia is seen which contains incarcerated small bowel loops resulting in a small bowel obstruction. 2. 1.5 cm noncalcified nodule is seen within the left lower lobe. Follow-up per Fleischner Society recommendations (see below) is recommended. IMAGING REPORT Signed PATIENT: JOE HYLTON ACCOUNT: [id number] : 1960 LOCATION: [address] [place] [address] AGE: 59 SEX: M EXAM STATUS: ADM IN ORD. PHYSICIAN: FELIX DAVIS MD REASON: SBO PROCEDURE: ACUTE ABDOMEN SERIES Examination: Acute abdomen series HISTORY: History of small bowel obstruction. COMPARISON: 12/29/2019. Findings/ impression: Low lung volumes and technique accentuates heart size and pulmonary vascularity. Right-sided Port-A-Cath is identified. Feeding tube is identified in the stomach. Opacity identified in the right hilar infrahilar region likely atelectasis or infiltrate or neoplasm. Few distended bowel loops identified in the abdomen likely ileus or small bowel obstruction. Tubing projects in the abdomen likely drain tubing. Electronically signed by: Balaji Gonzalez MD (12/30/2019 8:19 AM) [id number] Discharge Information Condition at Discharge: Improved Follow Up: Weeks Disposition/Orders: D/C to Home Scheduled Carvedilol (Coreg) 25 Mg Tablet, 6.25 MG PO BIDWMEALS for CARDIAC, (Reported) Entered as Reported by: ADRIENNE JACOB on 01/03/20 155 Last Taken: Unknown Dose on 12/28/19 Last Action: Converted on 01/03/20 1632 by ADRIENNE JACOB Ergocalciferol (Vitamin D2) (Vitamin D2) 1,250 Mcg Capsule, 1,250 MCG PO QMONFR for supplement, (Reported) Entered as Reported by: ADRIENNE JACOB on 01/03/20 1551 Last Taken: Unknown Dose on 12/27/19 Last Action: Continued on 01/03/20 1632 by ADRIENNE JACOB Furosemide (Lasix) 40 Mg Tablet, 40 MG PO DAILY for diuretic, (Reported) Entered as Reported by: ADRIENNE JACOB on 01/03/20 155 Last Taken: Unknown Dose on 12/28/19 Last Action: Continued on 01/03/20 1632 by ADRIENNE JACOB Insulin Glargine,Hum.rec.anlog (Lantus Solostar) 100 Unit/1 Ml Insuln.pen, 30 UNIT SQ QHS for diabetes, #15 Ref 3 (Reported) Entered as Reported by: ADRIENNE JACOB on 01/03/20 1551 Last Taken: Unknown Dose on 12/28/19 Last Action: Converted on 01/03/20 1632 by ADRIENNE JACOB Levothyroxine Sodium (Levothyroxine Sodium) 88 Mcg Tablet, 88 MCG PO DAILYAC for THYROID SUPPLEMENT, #30 Ref 0 (Reported) Entered as Reported by: ADRIENNE JACOB on 01/03/201550 Last Taken: Unknown Dose on 12/28/19 Last Action: Continued on 01/03/20 1632 by ADRIENNE JACOB Lisinopril (Lisinopril) 10 Mg Tablet, 1 TAB PO DAILY for HTN, #30 Ref 5 (Reported) Entered as Reported by: ADRIENNE JACOB on 01/03/201550 Last Taken: Unknown Dose on 12/28/19 Last Action: Continued on 01/03/20 163 by ADRIENNE JACOB Metformin Hcl (Metformin Hcl) 1,000 Mg Tablet, 1,000 MG PO BIDWMEALS for diabetes, (Reported) Entered as Reported by: ADRIENNE JACOB on 01/03/201550 Last Taken: Unknown Dose on 12/28/19 Last Action: New Order on 01/03/201550 by ADRIENNE JACOB Nortriptyline Hcl (Nortriptyline Hcl) 25 Mg Capsule, 2 CAP PO QHS for nerve pain, #30 (Reported) Entered as Reported by: ADRIENNE JACOB on 01/03/201550 Last Taken: Unknown Dose on 12/28/19 Last Action: Continued on 01/03/201631 by ADRIENNE JACOB Omeprazole (Omeprazole) 40 Mg Capsule.dr, 40 MG PO DAILY for GERD, (Reported) Entered as Reported by: ADRIENNE JACOB on 01/03/201550 Last Taken: Unknown Dose on 12/28/19 Last Action: Converted on 01/03/201631 by ADRIENNE JACOB Oxycodone/Apap 10-325 (Percocet 10-325 Mg Tablet ) 1 Each Tablet, 1 TAB PO HS for pain, Ref 0 (Reported) Entered as Reported by: ADRIENNE JACOB on 01/03/201550 Last Taken: Unknown Dose on 12/28/19 Last Action: New Order on 01/03/201550 by ADRIENNE JACOB Simvastatin (Simvastatin) 20 Mg Tablet, 20 MG PO HS for FOR CHOLESTEROL, #30 Ref 0 (Reported) Entered as Reported by: ADRIENNE JACOB on 01/03/201550 Last Taken: Unknown Dose on 12/28/19 Last Action: Continued on 01/03/20 1632 by ADRIENNE JACOB Scheduled PRN Oxycodone/Apap 10-325 (Percocet 10-325 Mg Tablet ) 1 Each Tablet, 1 TAB PO PRN Q4HRS PRN for MODERATE PAIN, #30 Ref 0 Prescribed by: Olivia Lyons on 01/04/20 1235 Justicifation of Admission Dx: Justifications for Admission: Justification of Admission Dx: Yes KATHY SANCHEZ MD Jan 04, 2020 15:57
--- NOTE | 2020-01-04 16:56 | NUR ---
Discharge Note: JOE HYLTON [address] [place] [address] Discharge instructions and discharge home medications reviewed with Patient and a copy given. All questions have been answered and understanding verbalized. The following instructions and handouts were given: diet, activity, medication list and follow up instructions provided to patient. Patient also taught SHARON drain care and incision care. Right SHARON drain in place with dressing clean, dry and intact. Discontinued lines and drains: Peripheral IV discontinued and catheter intact. Patient discharged to Home or Self Care with Friend via Wheelchair
== END 2020-01-04 16:55 | disposition home or self-care (01) | DRG 353 ==
LOC: ER 22:47 → 6 SOUTH 12-29 03:37 → 1 WEST ICU 12-29 18:00 → 4 NORTH 12-29 22:51
PROVIDERS: ADMIT Internal Medicine; ATTEND Internal Medicine
PROC: 0D9670Z Drainage of Stomach with Drainage Device, Via Natural or Artificial Opening (ICD-10-PCS; 2019-12-29)
PROC: 0WUF0JZ Supplement Abdominal Wall with Synthetic Substitute, Open Approach (ICD-10-PCS; principal; 2019-12-29 16:45)
DX: K43.6 Other and unspecified ventral hernia with obstruction, without gangrene (principal); N17.0 Acute kidney failure with tubular necrosis; J98.11 Atelectasis; E11.9 Type 2 diabetes mellitus without complications; E66.01 Morbid (severe) obesity due to excess calories; Z68.36 Body mass index [BMI] 36.0-36.9, adult; E78.00 Pure hypercholesterolemia, unspecified; E78.5 Hyperlipidemia, unspecified; I10 Essential (primary) hypertension; K42.0 Umbilical hernia with obstruction, without gangrene; K66.0 Peritoneal adhesions (postprocedural) (postinfection); F32.9 Major depressive disorder, single episode, unspecified; M19.90 Unspecified osteoarthritis, unspecified site; Z90.49 Acquired absence of other specified parts of digestive tract; Z88.8 Allergy status to other drugs, medicaments and biological substances; Z91.041 Radiographic dye allergy status; Z87.891 Personal history of nicotine dependence; Z20.828 Contact with and (suspected) exposure to other viral communicable diseases
CPT/HCPCS: 36415; 71045; 74018; 74022; 74176; 80048; 80053; 80069; 81001; 82962; 83605; 83690; 85025; 85610; 85730; 93005; 94760; 96361; 96374; 96375; C1713; C1769; G0238; J0330; J0780; J1100; J1170; J1650; J1815; J2270; J2370; J2405; J2543; J2704; J3010; J3490; J7030; J7120; 97116-GP; 97530-GP; 97535-GO; 99285-25; G0378; U0003-CS

== ENCOUNTER 2020-01-06 15:49 | Emergency (ER) | payer OTHER ==
[~2020-01-06] VITALS: Ht 177.8 cm; Wt 116.8 kg
[~2020-01-06 15:49] MED LIST: CARV25TA PO; ERGO500027 PO; FURO-68 PO; INSU100I13 SQ; LEVO88TA4 PO; LISI10TA2 PO; METF10007 PO; NORT25CA PO; OMEP40CA45 PO; OXYC1TAB22 PO; SIMV20TA18 PO
[2020-01-06 16:16] VITALS: BP 107/58
--- NOTE | 2020-01-06 16:19 | PHYS DOC ---
Past Medical History Past Medical History: Hypertension Additional Past Medical Histor: CHRONIC BACK PAIN, C4-C5, T8, L4-L5 COMPRESSION FRACTURES, LUNG CA Past Surgical History: Colectomy Additional Past Surgical Histo: HERNIA REPAIR, PARTIAL COLECTOMY, HAND SURGERY, PORT RIGHT CHEST Smoking Status: Current Some Day Smoker Alcohol Use: Occasionally General Adult EDM: Chief Complaint: POST-OP PROBLEM HPI: HPI: Patient is a 59 year old male presented to the ER for evaluation because he said the bulb from his SHARON drain disconnected from the flexible tubing part and he does not know how to reconnect it. Review of Systems: Review of Systems: Constitutional: Denies fever or chills. [] Eyes: Denies change in visual acuity. [] HENT: Denies nasal congestion or sore throat. [] Respiratory: Denies cough or shortness of breath. [] Cardiovascular: Denies chest pain or edema. [] GI: Denies abdominal pain, nausea, vomiting, bloody stools or diarrhea. [] : Denies dysuria. [] Musculoskeletal: Denies back pain or joint pain. [] Integument: Denies rash. [] Neurologic: Denies headache, focal weakness or sensory changes. [] Endocrine: Denies polyuria or polydipsia. [] Lymphatic: Denies swollen glands. [] Psychiatric: Denies depression or anxiety. [] Heart Score: Risk Factors: Risk Factors: DM, Current or recent (<one month) smoker, HTN, HLP, family history of CAD, obesity. Risk Scores: Score 0 - 3: 2.5% MACE over next 6 weeks - Discharge Home Score 4 - 6: 20.3% MACE over next 6 weeks - Admit for Clinical Observation Score 7 - 10: 72.7% MACE over next 6 weeks - Early Invasive Strategies Allergies: Allergies: Allergies Coded Allergies Type Severity Reaction Last Updated Verified Iodinated Contrast Media Allergy Intermediate hives 12/28/19 Yes ketorolac Allergy Intermediate hives 12/28/19 Yes Physical Exam: PE: Constitutional: Well developed, well nourished, no acute distress, non-toxic appearance. [] HENT: Normocephalic, atraumatic, bilateral external ears normal, oropharynx moist, no oral exudates, nose normal. [] Eyes: PERRLA, EOMI, conjunctiva normal, no discharge. [] Neck: Normal range of motion, no tenderness, supple, no stridor. [] Cardiovascular:Heart rate regular rhythm, no murmur [] Lungs & Thorax: Bilateral breath sounds clear to auscultation [] Abdomen: Bowel sounds normal, soft,SHARON DRAIN IN PLACE, THE BULB WAS NOT CONNECTED TO THE FLEXIBLE TUBING, Skin: Warm, dry, no erythema, no rash. [] Back: No tenderness, no CVA tenderness. [] Extremities: No tenderness, no cyanosis, no clubbing, ROM intact, no edema. [] Neurologic: Alert and oriented X 3, normal motor function, normal sensory function, no focal deficits noted. [] Psychologic: Affect normal, judgement normal, mood normal. [] EKG: EKG: [] Radiology/Procedures: Radiology/Procedures: [] Course & Med Decision Making: Course & Med Decision Making Pertinent Labs and Imaging studies reviewed. (See chart for details) The bulb was reconnected to the flexible TUBING and secured with tape. The SHARON drain was functional. He was discharged home, follow up with his general surgeon. Stef Disclaimer: Stef Disclaimer: This electronic medical record was generated, in whole or in part, using a voice recognition dictation system. Departure Departure Impression: Primary Impression: SHARON drain, broken Disposition: HOME, SELF-CARE Condition: STABLE Referrals: UNKNOWN PCP NAME (PCP) Additional Instructions: Discharge Instructions: Caring for Your Jaron-Ford Drainage Tube Your doctor discharges you with a Jaron-Ford drainage tube. Doctors commonly leave this drain within the abdominal cavity after surgery. It helps drain and collect blood and body fluid after surgery. This can prevent swelling and reduces the risk for infection. The tube is held in place by a few stitches. It is covered with a bandage. Your doctor will remove the drain when he or she determines you no longer need it. Home care Dont sleep on the same side as the tube. Secure the tube and bag inside your clothing with a safety pin. This helps keep the tube from being pulled out. Empty your drain at least twice a day. Empty it more often if the drain is full. Wash and dry your hands before emptying the drain. Lift the opening on the drain. Drain the fluid into a measuring cup. Record the amount of fluid each time you empty the drain. Include the date and time it was emptied. Share this information with your doctor on your next visit. Squeeze the bulb with your hands until you hear air coming out of the bulb if your doctor has instructed you to do so (sometimes the bulb is used as a reservoir without suction). Check with your doctor about specific drain instructions. Close the opening. Change the dressing around the tube every day. Wash your hands. Remove the old bandage. Wash your hands again. Wet a cotton swab and clean the skin around the incision and tube site. Use normal saline solution (salt and water). Or, you can use warm, soapy water. Put a new bandage on the incision and tube site. Make the bandage large enough to cover the whole incision area. Tape the bandage in place. Keep the bandage and tube site dry when you shower. Ask your healthcare provider about the best way to do this. Stripping the tube helps keep blood clots from blocking the tube. Ask your nurse how often you should strip the tube. Stripping may not be needed, depending on where and why your doctor placed the tube. It may even be dangerous in some cases. Hold the tubing where it leaves the skin, with one hand. This keeps it from pulling on the skin. Pinch the tubing with the thumb and first finger of your other hand. Slowly and firmly pull your thumb and first finger down the tubing. You may find it helpful to hold an alcohol swab between your fingers and the tube to lub ricate the tubing. If the pulling hurts or feels like its coming out of the skin, stop. Begin again more gently. Follow-up care Make a follow-up appointment as directed by our staff. When to seek medical care Call your healthcare provider right away if you have any of the following: New or increased pain around the tube Redness, swelling, or warmth around the incision or tube Drainage that is foul-smelling Vomiting Fever of 100.4F (38C) Fluid leaking around the tube Incision seems not to be healing Stitches become loose Tube falls out or breaks Drainage that changes from light pink to dark red Blood clots in the drainage bulb A sudden increase or decrease in the amount of drainage (over 30 mL) Justicifation of Admission Dx: Justifications for Admission: Justification of Admission Dx: N/A APOLINAR LUNA DO Jan 06, 2020 16:19
== END 2020-01-06 16:24 | disposition home or self-care (01) ==
LOC: ER 15:49
DX: T85.698A Other mechanical complication of other specified internal prosthetic devices, implants and grafts, initial encounter (principal); I10 Essential (primary) hypertension; G89.29 Other chronic pain; F17.200 Nicotine dependence, unspecified, uncomplicated; Z90.49 Acquired absence of other specified parts of digestive tract; Z98.890 Other specified postprocedural states; Z91.041 Radiographic dye allergy status; Z88.6 Allergy status to analgesic agent; Y82.8 Other medical devices associated with adverse incidents; Y92.89 Other specified places as the place of occurrence of the external cause
CPT/HCPCS: 99282; 99283

== ENCOUNTER 2020-01-16 12:08 | Inpatient (IN) | payer OTHER ==
[~2020-01-16] VITALS: Ht 177.8 cm; Wt 118.3 kg
--- NOTE | 2020-01-16 12:21 | PDOC1 ---
History and Physical Date of Admission Date of Admission DATE: 01/16/20 TIME: 12:21 Identification/Chief Complaint Chief Complaint cc post operative wound dehiscence with wound infection, Direct admit from DR DAVIS'S OFFICE WITH CONCERN FOR WOUND INFECTION Had visited the ER at [facility] over the weekend for increased wound drainage, had c/o mild chills, wound now open. lives alone, has to prepare own meals and activity may have been too high post- op due to ADL needs still a smoker which may compromise wound healing, denies chest pain, but has some chills, wheezing Past Medical History Cardiovascular: HTN, Hyperlipidemia Endocrine: Diabetes Family History Family History: High Cholestrol, Hypertension Social History Smoke: <1 pack per day ALCOHOL: none Drugs: None Current Medications Current Medications Active Scripts Active Percocet 10-325 Mg Tablet (Oxycodone/Acetaminophen) 1 Each Tablet 1 Tab PO PRN Q4HRS PRN Reported Metformin Hcl 1,000 Mg Tablet 1,000 Mg PO BIDWMEALS Lisinopril 10 Mg Tablet 1 Tab PO DAILY Levothyroxine Sodium 88 Mcg Tablet 88 Mcg PO DAILYAC Lasix (Furosemide) 40 Mg Tablet 40 Mg PO DAILY Lantus Solostar (Insulin Glargine,Hum.rec.anlog) 100 Unit/1 Ml Insuln.pen 30 Unit SQ QHS Vitamin D2 (Ergocalciferol (Vitamin D2)) 1,250 Mcg Capsule 1,250 Mcg PO QMONFR Nortriptyline Hcl 25 Mg Capsule 2 Cap PO QHS Omeprazole 40 Mg Capsule.dr 40 Mg PO DAILY Simvastatin 20 Mg Tablet 20 Mg PO HS Percocet 10-325 Mg Tablet (Oxycodone/Acetaminophen) 1 Each Tablet 1 Tab PO HS Coreg (Carvedilol) 25 Mg Tablet 6.25 Mg PO BIDWMEALS Allergies Allergies: Coded Allergies: Iodinated Contrast Media (Verified Allergy, Intermediate, hives, 12/28/19) ketorolac (Verified Allergy, Intermediate, hives, 12/28/19) ROS General: YES: Chills, Fatigue PSYCHOLOGICAL ROS: YES: Anxiety Eyes: No Blurry vision, No Decreased vision, No Double vision, No Dry eyes, No Excessive tearing, No Eye Pain, No Itchy Eyes, No Loss of vision, No Photophobi a, No Scotomata, No Uses contacts, No Uses glasses, No Other Hematological and Lymphatic: No: Bleeding Problems, Blood Clots, Blood Transfusions, Brusing, Night Sweats, Pallor, Swollen Lymph Nodes, Other ENDOCRINE: No: Breast Changes, Galactorrhea, Hair Pattern Changes, Hot Flashes, Malaise/lethargy, Mood Swings, Palpitations, Polydipsia/polyuria, Skin Changes, Temperature Intolerance, Unexpected Weight Changes, Other Respiratory: YES: Shortness of breath, SOB with excertion Cardiovascular: No Chest Pain, No Palpitations, No Orthopnea, No Paroxysmal Noc. Dyspnea, No Edema, No Lt Headedness, No Other Gastrointestinal: Yes Nausea; No Vomiting, No Abdominal Pain, No Diarrhea, No Constipation, No Melena, No Hematochezia, No Other Genitourinary: No Dysuria, No Frequency, No Incontinence, No Hematuria, No Retention, No Discharge, No Urgency, No Pain, No Flank Pain, No Other, No , No , No , No , No , No , No Musculoskeletal: Yes Gait Disturbance, Yes Joint Stiffness Neurological: No Behavorial Changes, No Bowel/Bladder ControlChng, No Confusion, No Dizziness, No Gait Disturbance, No Headaches, No Impaired Coord/balance, No Memory Loss, No Numbness/Tingling, No Seizures, No Speech Problems, No Tremors, No Visual Changes, No Weakness, No Other Skin: Yes Skin Lesion Changes Physical Exam General: Alert, Oriented X3, Cooperative, No acute distress HEENT: PERRLA Lungs: Normal air movement, Other (mild exp wheezing ) Heart: RRR, no thrills, no rubs, no gallops Breasts: Not examined Abdomen: Soft, Other (mildline surgical wound with dehisense ) Rectal Exam: not examined PELVIC: Examination not indicated Extremities: No cyanosis Neuro: Normal speech, Cranial nerves 3-12 NL Psych/Mental Status: Mental status NL, Mood NL Images Images CT Abdomen and Pelvis without contrast History: Postop wound infection Technique: Noncontrast CT imaging was performed of the abdomen and pelvis. Multiplanar images are reviewed. Exposure: One or more of the following individualized dose reduction techniques were utilized for this examination: 1. Automated exposure control 2. Adjustment of the mA and/or kV according to patient size 3. Use of iterative reconstruction technique. Comparison: December 29, 2019 Findings: There is again noncalcified left lower lobe pulmonary nodule about 1.3 cm. There is no pleural fluid at the visualized lung bases. Accurate evaluation of the abdominal visceral organs is limited without intravenous contrast. There is hepatic steatosis. Gallbladder is present without obvious intraluminal abnormality by CT. No new obvious focal abnormality is identified liver, spleen, partially fat replaced pancreas. The bowel is not significantly dilated. There is no free air or free fluid. There is scattered plaque of the abdominal aorta and branches. There is again mild nonspecific fullness of the left adrenal gland. There is now scattered gas of the ventral subcutaneous fat in the abdomen and pelvis. There is new ventral parasagittal fluid collection with intermixed gas at surgical site superficial to the fascia in the subcutaneous fat, measures about 7.3 cm transverse by 3.2 cm AP by about 14.8 cm CC. There are some scattered diverticula of the descending and sigmoid colon not associated with significant inflammatory change. Normal caliber appendix is visualized. There is more advanced degenerative disc disease at L3-4 and L1-L2, also variably of visualized inferior thoracic levels. Impression: 1. There is now scattered gas of the ventral subcutaneous fat, superficial to the fascia. There is also new localized fluid collection with intermixed gas of the ventral parasagittal subcutaneous fat at wound site of uncertain sterility, could be due to seroma although abscess not excluded. 2. There is again noncalcified left lower lobe pulmonary nodule. Dedicated chest CT may be indicated to fully evaluate for lung nodules. Regarding the visualized nodule, PET CT or three-month follow-up is recommended as per revised Fleischner guidelines. 3. There is hepatic steatosis. Electronically signed by: John Ahn MD (01/16/2020 2:10 PM) [id number] Preoperative Diagnosis: Incarcerated ventral hernia with high-grade bowel obstruction Postoperative Diagnosis: Same Procedure: Repair of incarcerated ventral hernia with mesh Surgeon: Harsha Cover Seamer: Jesus BUSCH Anesthesia: General EBL: 100 mL Specimen: None Drains: 19 [place] SHARON x2 Complications: None Indication: The patient is a 59-year-old male who presented with abdominal pain. His evaluation is consistent with incarcerated ventral hernia with a high-grade bowel obstruction. VTE Prophylaxis Ordered VTE Prophylaxis Devices: Yes VTE Pharmacological Prophylaxi: Contraindicated Assessment/Plan Assessment/Plan IMPRESSION POST-OP Wound infection 01/15 CT new ventral parasagittal fluid collection with intermixed gas at surgical site superficial to the fascia in the subcutaneous fat, measures about 7.3 cm transverse by 3.2 cm AP by about 14.8 cm Post-op Diagnosis: Incarcerated ventral hernia with high-grade bowel obstruction 12/29/19 RECENT partial SBO Incarcerated umbilical hernia pre-op Acute renal failurevasomotor nephropathy resolving Hypertension Diabetes Dyslipidemia History of constipation COPD GERD plan Admit to medicine/telemetry Serial wound exams Surgical consult IV pain management scd's DVT prophylaxis Regular diet Full code Discussed with RN ID CONSULT IV ZOSYN , vanc pending ID consult cbc, comp smoking cessation education provided 77 min pt exam, chart review, > 50% of time spent with exam, chart review, pt care coordination Justicifation of Admission Dx: Justifications for Admission: Justification of Admission Dx: N/A JONO DAVIS MD Jan 16, 2020 12:21
[2020-01-16] MEDS ORDERED: 0.9 % SODIUM CHLORIDE 10 ML DISP.SYRIN. IV PRN (12:45)
[2020-01-16] MEDS ORDERED: cloNIDine HCL 0.1 MG TABLET PO PRN (12:45)
[2020-01-16] MEDS ORDERED: ONDANSETRON PF 4 MG/2 ML VIAL. IV PRN (12:45)
[2020-01-16] MEDS ORDERED: MAG HYDROX/ALUMINUM HYD/SIMETH 30 ML ORAL.SUSP PO PRN (12:45)
[2020-01-16] MEDS: PIPERACILLIN/TAZOBACTAM 3.375 GM in IV NORMAL SALINE 50ML 50 ML IV SCH ×2 (13:00→18:05)
[2020-01-16] MEDS ORDERED: oxyCODONE/APAP 10/325 1 TAB TABLET PO PRN ×2 (13:00→16:00)
[2020-01-16] MEDS ORDERED: ASPI-630 PO (13:02)
[2020-01-16] MEDS ORDERED: SENN8.6T11 PO (13:03)
[2020-01-16] MEDS ORDERED: OXYC1TAB22 PO ×2 (13:13→13:17)
[2020-01-16] MEDS: LISINOPRIL 10 MG TABLET PO SCH (13:20)
[2020-01-16] MEDS: PANTOPRAZOLE 40 MG TABLET.DR. PO SCH (13:20)
[2020-01-16] MEDS ORDERED: FUROSEMIDE 40 MG TABLET. PO SCH (13:30)
[2020-01-16] MEDS ORDERED: LEVOTHYROXINE 88 MCG TABLET PO SCH (13:30)
[2020-01-16] MEDS ORDERED: VANCOMYCIN 2 GM in IV NORMAL SALINE 500ML BAG 500 ML IV ONE (13:30)
[2020-01-16 13:47] LABS: BASO # 0.1 x10^3/uL (0.0-0.2); BASO % 1 % (0-3); EOS # 0.1 x10^3/uL (0.0-0.7); EOS % 1 % (0-3); HEMATOCRIT 34.5 % (39.0-53.0); HEMOGLOBIN 11.5 g/dL (13.0-17.5); LYMPH # 1.4 x10^3/uL (1.0-4.8); LYMPH % 14 % (24-48); MEAN CORPUSCULAR HEMOGLOBIN 30 pg (25-35); MEAN CORPUSCULAR HGB CONC 33 g/dL (31-37); MEAN CORPUSCULAR VOLUME 91 fL (79-100); MONO # 0.6 x10^3/uL (0.0-1.1); MONO % 6 % (0-9); NEUT # 7.5 x10^3/uL (1.8-7.7); NEUT % 78 % (31-73); PLATELET COUNT 622 x10^3/uL (140-400); RED BLOOD COUNT 3.81 x10^6/uL (4.30-5.70); RED CELL DISTRIBUTION WIDTH 14.7 % (11.5-14.5); WHITE BLOOD COUNT 9.6 x10^3/uL (4.0-11.0)
[2020-01-16] MEDS: SENNOSIDES 8.6 MG TABLET PO SCH ×3 (14:00→22:07)
[2020-01-16 14:03] LABS: ALBUMIN 2.6 g/dL (3.4-5.0); ALBUMIN/GLOBULIN RATIO 0.6 (1.0-1.7); CALCIUM 8.8 mg/dL (8.5-10.1); CREATININE 1.2 mg/dL (0.7-1.3); GFR 62.4; POTASSIUM 3.9 mmol/L (3.5-5.1); TOTAL BILIRUBIN 0.1 mg/dL (0.2-1.0); TOTAL PROTEIN 7.2 g/dL (6.4-8.2)
[2020-01-16] MEDS: IV NORMAL SALINE 1000ML BAG 1,000 ML IV SCH ×2 (14:07→22:37)
--- NOTE | 2020-01-16 14:13 | RAD ---
CT Abdomen and Pelvis without contrast History: Postop wound infection Technique: Noncontrast CT imaging was performed of the abdomen and pelvis. Multiplanar images are reviewed. Exposure: One or more of the following individualized dose reduction techniques were utilized for this examination: 1. Automated exposure control 2. Adjustment of the mA and/or kV according to patient size 3. Use of iterative reconstruction technique. Comparison: December 29, 2019 Findings: There is again noncalcified left lower lobe pulmonary nodule about 1.3 cm. There is no pleural fluid at the visualized lung bases. Accurate evaluation of the abdominal visceral organs is limited without intravenous contrast. There is hepatic steatosis. Gallbladder is present without obvious intraluminal abnormality by CT. No new obvious focal abnormality is identified liver, spleen, partially fat replaced pancreas. The bowel is not significantly dilated. There is no free air or free fluid. There is scattered plaque of the abdominal aorta and branches. There is again mild nonspecific fullness of the left adrenal gland. There is now scattered gas of the ventral subcutaneous fat in the abdomen and pelvis. There is new ventral parasagittal fluid collection with intermixed gas at surgical site superficial to the fascia in the subcutaneous fat, measures about 7.3 cm transverse by 3.2 cm AP by about 14.8 cm CC. There are some scattered diverticula of the descending and sigmoid colon not associated with significant inflammatory change. Normal caliber appendix is visualized. There is more advanced degenerative disc disease at L3-4 and L1-L2, also variably of visualized inferior thoracic levels. Impression: 1. There is now scattered gas of the ventral subcutaneous fat, superficial to the fascia. There is also new localized fluid collection with intermixed gas of the ventral parasagittal subcutaneous fat at wound site of uncertain sterility, could be due to seroma although abscess not excluded. 2. There is again noncalcified left lower lobe pulmonary nodule. Dedicated chest CT may be indicated to fully evaluate for lung nodules. Regarding the visualized nodule, PET CT or three-month follow-up is recommended as per revised Fleischner guidelines. 3. There is hepatic steatosis. Electronically signed by: oJhn Ahn MD (01/16/2020 2:10 PM) [id number]
[2020-01-16] MEDS: VANCOMYCIN PER PHARMACY MC PRN (14:52)
--- NOTE | 2020-01-16 14:55 | NUR ---
Pharmacy Vancomycin Dosing Note S:Consulted to monitor and dose vancomycin started 01/16/20. O:JOE HYLTON is a 59 year old M with post-op wound infection . Height: 5 feet, 10 inches Weight: 115.7 kg [place] Body Weight: 73.00 Adjusted Body Weight: 90.08 Dosing Weight: Actual Other Antibiotics: zosyn LABS: Last BUN: 16 Last Creatinine: 1.2 Creatinine Clearance: 86 mL/min Last WBC: 9.6 Last Procalcitonin: Tmax (past 24 hours): Last dose given 01/16/20 at 1407 Vancomycin Dosing: Loading Dose: 2000 mg x1 Dosing Weight: Actual Target Trough: 10-20 A: Based on: weight and renal function P: 1. Begin Vancomycin 1500 mg IV q12h 2. Follow up Trough level on 01/18/20 at 0130 3. Pharmacy will continue to monitor, follow and adjust therapy as needed. Rina Dobbins RPH, 01/16/20 [id number]
[2020-01-16 15:00] VITALS: BP 133/96
[2020-01-16] MEDS: IPRATRPIUM/ALBUTEROL 0.5/2.5MG 3 ML NEBU. NEB SCH ×2 (15:31→20:41)
--- NOTE | 2020-01-16 15:59 | NUR ---
Wound/Ostomy Care Wound Type/Assessment: Midline abdomen incision dehisence and right abdomen removal of drain site Treatment Recommendations/Plan: Dr. Mcleod to see patient for possible surgical intervention, at this time will control drainage with ABD pads and tape. Change daily or multiple times a day when saturated. Education provided: Patient educated on turning and pressure relief and dressing changes. Offloading surface/device: Recommended Referrals/Tests: Dr. Mcleod to see patient for further POC. Wound care will follow patient. Discharge Recommendations for dressings: Patient will most likely follow up with us in the wound clinic. Spoke with RN regarding POC. Bed lowered and call light in reach.
[2020-01-16] MEDS ORDERED: CARVEDILOL 6.25 MG TABLET. PO SCH (17:00)
[2020-01-16] MEDS: FUROSEMIDE 40 MG TABLET. PO SCH (17:17)
[2020-01-16] MEDS ORDERED: oxyCODONE/APAP 10/325 1 TAB TABLET PO SCH ×2 (18:00→21:00)
[2020-01-16 19:00] VITALS: BP 140/78
[2020-01-16] MEDS ORDERED: oxyCODONE IR 5 MG TABLET PO ONE (19:30)
[2020-01-16] MEDS ORDERED: oxyCODONE IR 5 MG TABLET PO SCH (22:00)
[2020-01-16] MEDS: SIMVASTATIN 20 MG TABLET PO SCH (22:07)
[2020-01-16] MEDS: LACTOBACILLUS RHAMNOSUS GG 1 CAPSULE. PO SCH (22:07)
[2020-01-16] MEDS: oxyCODONE/APAP 10/325 1 TAB TABLET PO PRN (22:08)
[2020-01-16] MEDS: NORTRIPTYLINE 25 MG CAPSULE PO SCH (22:09)
[2020-01-16] MEDS: CARVEDILOL 6.25 MG TABLET. PO SCH (22:09)
[2020-01-16] MEDS: INSULIN GLARGINE SYRINGE. SQ SCH (22:16)
[2020-01-16 23:00] VITALS: BP 121/85
[2020-01-17] MEDS: PIPERACILLIN/TAZOBACTAM 3.375 GM in IV NORMAL SALINE 50ML 50 ML IV SCH ×4 (00:10→17:45)
[2020-01-17] MEDS: guaiFENesin ORAL 200 MG/10 ML LIQUID. PO PRN ×2 (00:15→19:36)
[2020-01-17] MEDS: IPRATRPIUM/ALBUTEROL 0.5/2.5MG 3 ML NEBU. NEB SCH ×7 (00:16→23:33)
[2020-01-17] MEDS: oxyCODONE IR 5 MG TABLET PO SCH ×6 (02:06→21:56)
[2020-01-17] MEDS: oxyCODONE/APAP 10/325 1 TAB TABLET PO PRN ×6 (02:06→21:56)
[2020-01-17] MEDS: VANCOMYCIN 1.5 GM in IV NORMAL SALINE 500ML BAG 500 ML IV SCH ×2 (02:07→14:12)
[2020-01-17] MEDS: IV NORMAL SALINE 1000ML BAG 1,000 ML IV SCH ×2 (02:08→19:00)
[2020-01-17 03:00] VITALS: BP 113/86
[2020-01-17] MEDS: LEVOTHYROXINE 88 MCG TABLET PO SCH (05:17)
[2020-01-17 07:00] VITALS: BP 125/79
[2020-01-17 08:07] LABS: ALBUMIN 2.5 g/dL (3.4-5.0); ALBUMIN/GLOBULIN RATIO 0.5 (1.0-1.7); BASO % 0 % (0-3); CALCIUM 8.9 mg/dL (8.5-10.1); CREATININE 1.1 mg/dL (0.7-1.3); EOS # 0.1 x10^3/uL (0.0-0.7); EOS % 1 % (0-3); HEMATOCRIT 33.7 % (39.0-53.0); HEMOGLOBIN 11.2 g/dL (13.0-17.5); LYMPH # 1.8 x10^3/uL (1.0-4.8); LYMPH % 19 % (24-48); MEAN CORPUSCULAR HEMOGLOBIN 30 pg (25-35); MEAN CORPUSCULAR HGB CONC 33 g/dL (31-37); MEAN CORPUSCULAR VOLUME 91 fL (79-100); MONO # 0.7 x10^3/uL (0.0-1.1); MONO % 7 % (0-9); NEUT # 6.9 x10^3/uL (1.8-7.7); NEUT % 72 % (31-73); PLATELET COUNT 567 x10^3/uL (140-400); POTASSIUM 3.6 mmol/L (3.5-5.1); RED BLOOD COUNT 3.72 x10^6/uL (4.30-5.70); RED CELL DISTRIBUTION WIDTH 14.5 % (11.5-14.5); TOTAL BILIRUBIN 0.2 mg/dL (0.2-1.0); TOTAL PROTEIN 7.1 g/dL (6.4-8.2); WHITE BLOOD COUNT 9.6 x10^3/uL (4.0-11.0)
--- NOTE | 2020-01-17 09:07 | PDOC ---
Infectious Disease Note Vital Sign Vital Signs Vital Signs Date Time Temp Pulse Resp B/P (MAP) Pulse Ox O2 Delivery O2 Flow Rate FiO2 01/17/20 07:08 94 Room Air 01/17/20 03:00 98.3 98 18 113/86 (95) 98.3 Labs Lab Laboratory Tests Test 01/16/20 13:30 01/16/20 16:32 01/16/20 20:52 01/17/20 06:10 White Blood Count 9.6 x10^3/uL (4.0-11.0) 9.6 x10^3/uL (4.0-11.0) Red Blood Count 3.81 x10^6/uL (4.30-5.70) 3.72 x10^6/uL (4.30-5.70) Hemoglobin 11.5 g/dL (13.0-17.5) 11.2 g/dL (13.0-17.5) Hematocrit 34.5 % (39.0-53.0) 33.7 % (39.0-53.0) Mean Corpuscular Volume 91 fL (79-100) 91 fL (79-100) Mean Corpuscular Hemoglobin 30 pg (25-35) 30 pg (25-35) Mean Corpuscular Hemoglobin Concent 33 g/dL (31-37) 33 g/dL (31-37) Red Cell Distribution Width 14.7 % (11.5-14.5) 14.5 % (11.5-14.5) Platelet Count 622 x10^3/uL (140-400) 567 x10^3/uL (140-400) Neutrophils (%) (Auto) 78 % (31-73) 72 % (31-73) Lymphocytes (%) (Auto) 14 % (24-48) 19 % (24-48) Monocytes (%) (Auto) 6 % (0-9) 7 % (0-9) Eosinophils (%) (Auto) 1 % (0-3) 1 % (0-3) Basophils (%) (Auto) 1 % (0-3) 0 % (0-3) Neutrophils # (Auto) 7.5 x10^3/uL (1.8-7.7) 6.9 x10^3/uL (1.8-7.7) Lymphocytes # (Auto) 1.4 x10^3/uL (1.0-4.8) 1.8 x10^3/uL (1.0-4.8) Monocytes # (Auto) 0.6 x10^3/uL (0.0-1.1) 0.7 x10^3/uL (0.0-1.1) Eosinophils # (Auto) 0.1 x10^3/uL (0.0-0.7) 0.1 x10^3/uL (0.0-0.7) Basophils # (Auto) 0.1 x10^3/uL (0.0-0.2) 0.0 x10^3/uL (0.0-0.2) Sodium Level 136 mmol/L (136-145) 139 mmol/L (136-145) Potassium Level 3.9 mmol/L (3.5-5.1) 3.6 mmol/L (3.5-5.1) Chloride Level 99 mmol/L (98-107) 101 mmol/L (98-107) Carbon Dioxide Level 28 mmol/L (21-32) 29 mmol/L (21-32) Anion Gap 9 (6-14) 9 (6-14) Blood Urea Nitrogen 16 mg/dL (8-26) 13 mg/dL (8-26) Creatinine 1.2 mg/dL (0.7-1.3) 1.1 mg/dL (0.7-1.3) Estimated GFR (Cockcroft-Gault) 62.4 69.0 BUN/Creatinine Ratio 13 (6-20) 12 (6-20) Glucose Level 263 mg/dL (70-99) 110 mg/dL (70-99) Calcium Level 8.8 mg/dL (8.5-10.1) 8.9 mg/dL (8.5-10.1) Total Bilirubin 0.1 mg/dL (0.2-1.0) 0.2 mg/dL (0.2-1.0) Aspartate Amino Transf (AST/SGOT) 16 U/L (15-37) 14 U/L (15-37) Alanine Aminotransferase (ALT/SGPT) 29 U/L (16-63) 27 U/L (16-63) Alkaline Phosphatase 67 U/L (46-116) 65 U/L (46-116) Troponin I Quantitative < 0.017 ng/mL (0.000-0.055) Total Protein 7.2 g/dL (6.4-8.2) 7.1 g/dL (6.4-8.2) Albumin 2.6 g/dL (3.4-5.0) 2.5 g/dL (3.4-5.0) Albumin/Globulin Ratio 0.6 (1.0-1.7) 0.5 (1.0-1.7) Procalcitonin < 0.10 ng/mL (0.00-0.10) Glucose (Fingerstick) 180 mg/dL (70-99) 276 mg/dL (70-99) Test 01/17/20 07:55 Glucose (Fingerstick) 124 mg/dL (70-99) Objective Assessment pt seen, consult dictated Plan Plan of Care / CELENA BLEDSOE MD Jan 17, 2020 09:07
[2020-01-17] MEDS: LACTOBACILLUS RHAMNOSUS GG 1 CAPSULE. PO SCH ×2 (09:50→21:55)
[2020-01-17] MEDS: FUROSEMIDE 40 MG TABLET. PO SCH (09:50)
[2020-01-17] MEDS: LISINOPRIL 10 MG TABLET PO SCH (09:50)
[2020-01-17] MEDS: PANTOPRAZOLE 40 MG TABLET.DR. PO SCH (09:50)
[2020-01-17] MEDS: SENNOSIDES 8.6 MG TABLET PO SCH ×2 (09:51→21:55)
[2020-01-17] MEDS: ASPIRIN CHEWABLE 81 MG TABLET. PO SCH (09:51)
--- NOTE | 2020-01-17 09:56 | CONS ---
DATE OF CONSULTATION: 01/17/2020 REQUESTING PHYSICIAN: Dr. Taylor. REASON FOR CONSULTATION: Postsurgical abdominal infection. HISTORY OF PRESENT ILLNESS: This is a 59-year-old gentleman with a history of hypertension, diabetes, who had what appears to be abdominal hernia. The patient underwent an incarcerated ventral hernia with mesh on 12/29/2019. The patient had high-grade bowel obstruction. The patient ended up with lysis of adhesion. Repair to free up the bowel, a small enterotomy was made, which was repaired and biologic mesh was applied. The patient then was discharged home and the patient says this is pretty soon. After discharge, he has had been leaking and this leakage had been a significant leakage when he was seen by Dr. Mcleod. He was recommended to get admitted. The patient denied any fever, denied any nausea, vomiting, diarrhea, chest pain, or shortness of breath. PAST MEDICAL HISTORY: Positive for diabetes mellitus, hypertension, and hyperlipidemia. The patient had lung cancer with chemoradiation done in the past, has had partial colectomy in the past, bilateral hand surgery, history of depression, hypothyroidism. SOCIAL HISTORY: Positive for smoking. Negative for alcohol use or drug use. ALLERGIES: LISTED ALLERGIC TO KETOROLAC AND IODINATED CONTRAST MEDIA. REVIEW OF SYSTEMS: As per HPI, all other systems reviewed and are negative. PHYSICAL EXAMINATION: GENERAL: Alert, oriented gentleman, not in distress. VITAL SIGNS: Stable, afebrile. HEENT: NAD. NECK: Supple, no JVP, no lymphadenopathy. LUNGS: Clear. HEART: S1, S2 regular. ABDOMEN: Soft. The patient has a large incision on the abdomen with extensive erythema in the surrounding area as well as necrotic edges into the wound and drainage from the wound. There is no deep tenderness, no rebound or guarding. EXTREMITIES: No edema, cyanosis. SKIN: Rest of skin exam is unremarkable. NEUROLOGIC: The patient is alert, awake and appropriate. No focal neurologic deficit. LABORATORY DATA: White count is normal. BUN and creatinine is normal. Urinalysis was unremarkable. COVID-[address] showed scattered gas of the ventral subcutaneous fat superficial to the fascia. There is also new localized fluid collection with intermixed gas of the ventral parasagittal subcutaneous fat, abscess versus seroma. IMPRESSION: 1. Abdominal incision infection post-hernia surgery. 2. Incarcerated ventral hernia, status post surgery, resection, enterotomy repair, and a biologic mesh placement on 18th of the last month. 3. Diabetes. 4. Hypertension. 5. Obesity. RECOMMENDATIONS: Recommend continue vancomycin and Zosyn, supportive care, cultures. We will follow the cultures. May need I and D as per Dr Mcleod Thank you very much, Dr. Taylor, for giving me the opportunity to participate in this patient's care. CELENA BLEDSOE MD DR: YEE/mari JOB#: [id number] / [id number] EDA
--- NOTE | 2020-01-17 10:06 | NUR ---
SW following. Discussed with RN, pt from home alone. Wound care following, ID consult, PT/OT ordered. SW will continue to follow for discharge planning needs.
[2020-01-17 10:59] VITALS: BP 125/82
--- NOTE | 2020-01-17 11:01 | CONS ---
DATE OF CONSULTATION: 01/17/2020 PULMONARY CONSULTATION ATTENDING PHYSICIAN: Dr. Taylor. REASON FOR CONSULTATION: Lung nodule and history of lung cancer. HISTORY OF PRESENT ILLNESS: The patient is a 59-year-old male who has history of hypertension, diabetes and history of lung cancer, status post chemoradiation done at and has been followed at every 6 months with CAT scans. He was brought into the hospital with abdominal distention and pain. He had an incarcerated ventral hernia repair with mesh about 2-3 weeks ago. The patient has been currently seen by Infectious Disease and Surgery. I have been asked to see him for further evaluation of a lung nodule. CT abdomen and pelvis was performed and it showed a smooth lung nodule in the left lower lobe about 1.5 cm in size. The patient states he was diagnosed with lung cancer about 2 years ago. He is status post chemoradiation. He states he gets CAT scans at every 6 months. He smoked for 40 years and has not completely quit cigarettes. No history of deep vein thrombosis or pulmonary embolism. He states he is supposed to be on oxygen at nighttime, but has not been using it as his [employer] has not been helpful. PAST MEDICAL HISTORY: Significant for history of diabetes, hypertension, hyperlipidemia, and history of lung cancer, being followed at diagnosed 2 years ago, status post chemoradiation. History of partial colectomy in the past and bilateral hand surgery. PAST SURGICAL HISTORY: As discussed above. SOCIAL HISTORY: He is smoker for 40 years, continues to smoke cigarettes. ALLERGIES: IV DYE. MEDICATIONS: Reviewed as listed in the [facility] including antibiotics. REVIEW OF SYSTEMS: The 12-point system obtained. Pertinent positives discussed in my history of present illness, otherwise noncontributory. All systems that were negative were reviewed as well. FAMILY HISTORY: Noncontributory to lungs. PHYSICAL EXAMINATION: VITAL SIGNS: Reviewed. He is on room air, saturation 93%. NECK: Supple. LUNGS: With diminished breath sounds. CARDIOVASCULAR: With a regular rate. ABDOMEN: Distended and tender. He has a wound that is covered with dressing in the mid abdomen. EXTREMITIES: With trace pitting edema. LABORATORY DATA: Reviewed. White cell count 9.6, hemoglobin 11.2, and platelets are 567. BUN 13 and creatinine 1.1. IMPRESSION: 1. Smooth noncalcified left lower lobe nodule about 1.5 cm in size. This was also seen in previous CAT scan done in December. The patient has known history of lung cancer, being followed at , he is status post chemo and radiation. This nodule is likely metastatic. However, we will obtain full CT chest for further evaluation of the primary lesion. 2. Abdominal incision infection post-hernia surgery. 3. Incarcerated ventral hernia, status post surgery and enterotomy, and synthetic mesh placement. 4. Diabetes. 5. Morbid obesity. RECOMMENDATIONS: 1. We will obtain complete CT chest. 2. The patient has been followed at regularly every [address] chest follows. We would recommend to continue to follow up over there. However, I will make note of the CT chest once done. 3. Follow ID recommendation. 4. Antibiotics per Infectious Disease. 5. Follow Surgical input. 6. Discussed with RN. We will follow along with you. SKYLAR GUTIERREZ MD DR: VIVIANA/mari JOB#: [id number] / [id number]
--- NOTE | 2020-01-17 11:15 | PDOC ---
[employer] PROGRESS NOTE Date of Service DOS: DATE: 01/17/20 TIME: 11:07 Chief Complaint Chief Complaint OST-OP Wound infection Post-op Diagnosis: Incarcerated ventral hernia with high-grade bowel obstruction 12/29/19 RECENT partial SBO Incarcerated umbilical hernia pre-op Acute renal failurevasomotor nephropathy resolving Hypertension Diabetes Dyslipidemia History of constipation COPD GERD History of Present Illness History of Present Illness 01/16/2020 Patient seen and examined Ventral dressing is clean, dry and intact Discussed with RN Reviewed Charts Vitals/I&O Vitals/I&O: Vital Signs Date Time Temp Pulse Resp B/P (MAP) Pulse Ox O2 Delivery O2 Flow Rate FiO2 01/17/20 10:59 98.2 105 18 125/82 (96) 94 Room Air 98.2 I & O 01/16/20 01/16/20 01/17/20 15:00 23:00 07:00 Intake Total 400 ml 800 ml Output Total 900 ml Balance 400 ml -100 ml Physical Exam General: Alert, Oriented X3, Cooperative, No acute distress Heart: Regular rate, No murmurs Lungs: Other (decreased breather sounds) Abdomen: Soft, Other (mildline surgical wound with dehiscence ) Extremities: No cyanosis Labs Labs: Laboratory Tests Test 01/16/20 13:30 01/16/20 16:32 01/16/20 20:52 01/17/20 06:10 White Blood Count 9.6 x10^3/uL (4.0-11.0) 9.6 x10^3/uL (4.0-11.0) Red Blood Count 3.81 x10^6/uL (4.30-5.70) 3.72 x10^6/uL (4.30-5.70) Hemoglobin 11.5 g/dL (13.0-17.5) 11.2 g/dL (13.0-17.5) Hematocrit 34.5 % (39.0-53.0) 33.7 % (39.0-53.0) Mean Corpuscular Volume 91 fL (79-100) 91 fL (79-100) Mean Corpuscular Hemoglobin 30 pg (25-35) 30 pg (25-35) Mean Corpuscular Hemoglobin Concent 33 g/dL (31-37) 33 g/dL (31-37) Red Cell Distribution Width 14.7 % (11.5-14.5) 14.5 % (11.5-14.5) Platelet Count 622 x10^3/uL (140-400) 567 x10^3/uL (140-400) Neutrophils (%) (Auto) 78 % (31-73) 72 % (31-73) Lymphocytes (%) (Auto) 14 % (24-48) 19 % (24-48) Monocytes (%) (Auto) 6 % (0-9) 7 % (0-9) Eosinophils (%) (Auto) 1 % (0-3) 1 % (0-3) Basophils (%) (Auto) 1 % (0-3) 0 % (0-3) Neutrophils # (Auto) 7.5 x10^3/uL (1.8-7.7) 6.9 x10^3/uL (1.8-7.7) Lymphocytes # (Auto) 1.4 x10^3/uL (1.0-4.8) 1.8 x10^3/uL (1.0-4.8) Monocytes # (Auto) 0.6 x10^3/uL (0.0-1.1) 0.7 x10^3/uL (0.0-1.1) Eosinophils # (Auto) 0.1 x10^3/uL (0.0-0.7) 0.1 x10^3/uL (0.0-0.7) Basophils # (Auto) 0.1 x10^3/uL (0.0-0.2) 0.0 x10^3/uL (0.0-0.2) Sodium Level 136 mmol/L (136-145) 139 mmol/L (136-145) Potassium Level 3.9 mmol/L (3.5-5.1) 3.6 mmol/L (3.5-5.1) Chloride Level 99 mmol/L (98-107) 101 mmol/L (98-107) Carbon Dioxide Level 28 mmol/L (21-32) 29 mmol/L (21-32) Anion Gap 9 (6-14) 9 (6-14) Blood Urea Nitrogen 16 mg/dL (8-26) 13 mg/dL (8-26) Creatinine 1.2 mg/dL (0.7-1.3) 1.1 mg/dL (0.7-1.3) Estimated GFR (Cockcroft-Gault) 62.4 69.0 BUN/Creatinine Ratio 13 (6-20) 12 (6-20) Glucose Level 263 mg/dL (70-99) 110 mg/dL (70-99) Calcium Level 8.8 mg/dL (8.5-10.1) 8.9 mg/dL (8.5-10.1) Total Bilirubin 0.1 mg/dL (0.2-1.0) 0.2 mg/dL (0.2-1.0) Aspartate Amino Transf (AST/SGOT) 16 U/L (15-37) 14 U/L (15-37) Alanine Aminotransferase (ALT/SGPT) 29 U/L (16-63) 27 U/L (16-63) Alkaline Phosphatase 67 U/L (46-116) 65 U/L (46-116) Troponin I Quantitative < 0.017 ng/mL (0.000-0.055) Total Protein 7.2 g/dL (6.4-8.2) 7.1 g/dL (6.4-8.2) Albumin 2.6 g/dL (3.4-5.0) 2.5 g/dL (3.4-5.0) Albumin/Globulin Ratio 0.6 (1.0-1.7) 0.5 (1.0-1.7) Procalcitonin < 0.10 ng/mL (0.00-0.10) Glucose (Fingerstick) 180 mg/dL (70-99) 276 mg/dL (70-99) Test 01/17/20 07:55 Glucose (Fingerstick) 124 mg/dL (70-99) Review of Systems Review of Systems: All systems are otherwise negative Assessment and Plan Assessmemt and Plan Assessment OST-OP Wound infection Post-op Diagnosis: Incarcerated ventral hernia with high-grade bowel obstruction 12/29/19 RECENT partial SBO Incarcerated umbilical hernia pre-op Acute renal failurevasomotor nephropathy resolving Hypertension Diabetes Dyslipidemia History of constipation COPD GERD Plan Awaiting wound care and surgery input IV pain management Regular diet IV antibiotics DVT prophylaxis Full Code Comment Review of Relevant I have reviewed the following items catarina (where applicable) has been applied. Medications: Current Medications Medications (Trade) Dose Ordered Sig/Cony Route PRN Reason Start Time Stop Time Status Last Admin Dose Admin Sodium Chloride 1,000 ml @ 100 mls/hr Q10H IV 01/16/20 12:37 01/16/20 14:07 Albuterol/ Ipratropium (Duoneb) 3 ml Q4H NEB 01/16/20 12:45 01/17/20 07:07 Guaifenesin (Robitussin) 200 mg PRN Q4HRS PRN PO COUGH 01/16/20 12:45 01/17/20 00:15 Vancomycin HCl (Vanco Per Pharmacy) 1 each PRN DAILY PRN MC SEE COMMENTS 01/16/20 12:45 01/16/20 14:52 Piperacillin Sod/ Tazobactam Sod 3.375 gm/Sodium Chloride 50 ml @ 100 mls/hr Q6HRS IV 01/16/20 13:00 01/17/20 06:14 Lisinopril (Prinivil) 10 mg DAILY PO 01/16/20 13:30 01/17/20 09:50 Nortriptyline HCl (Pamelor) 50 mg QHS PO 01/16/20 21:00 01/16/20 22:09 Simvastatin (Zocor) 20 mg HS PO 01/16/20 21:00 01/16/20 22:07 Insulin Glargine (Lantus Syringe) 30 unit QHS SQ 01/16/20 21:00 01/16/20 22:16 Pantoprazole Sodium (Protonix) 40 mg DAILYAC PO 01/16/20 13:30 01/17/20 09:50 Aspirin (Aspirin Chewable) 81 mg DAILY PO 01/17/20 09:00 01/17/20 09:51 Sennosides (Senna) 8.6 mg BID PO 01/16/20 14:00 01/17/20 09:51 Vancomycin HCl 2 gm/Sodium Chloride 500 ml @ 250 mls/hr 1X ONCE IV 01/16/20 13:30 01/16/20 15:29 DC 01/16/20 14:07 Vancomycin HCl 1.5 gm/Sodium Chloride 500 ml @ 250 mls/hr Q12H IV 01/17/20 02:00 01/17/20 02:07 Lactobacillus Rhamnosus (Culturelle) 1 cap BID PO 01/16/20 21:00 01/17/20 09:50 Carvedilol (Coreg) 6.25 mg 1400,2200 PO 01/16/20 22:00 01/16/20 22:09 Furosemide (Lasix) 40 mg DAILY PO 01/16/20 17:00 01/17/20 09:50 Oxycodone/ Acetaminophen (Percocet 10/325) 1 tab Q4H PO 01/16/20 18:00 01/16/20 19:26 DC 01/16/20 18:04 Oxycodone/ Acetaminophen (Percocet 10/325) 1 tab PRN Q4HRS PRN PO BREAKTHROUGH PAIN 01/16/20 22:20 01/17/20 09:58 Oxycodone HCl (Roxicodone) 10 mg Q4HRS PO 01/16/20 22:00 01/17/20 01:38 DC 01/16/20 22:08 Oxycodone HCl (Roxicodone) 10 mg 1X ONCE PO 01/16/20 19:30 01/16/20 19:33 DC 01/16/20 19:39 Levothyroxine Sodium (Synthroid) 88 mcg DAILY05 PO 01/17/20 05:00 01/17/20 05:17 Oxycodone HCl (Roxicodone) 10 mg Q4H PO 01/17/20 02:00 01/17/20 09:59 Justicifation of Admission Dx: Justifications for Admission: Justification of Admission Dx: N/A BESSIE GOODE III DO Jan 17, 2020 11:15
[2020-01-17] MEDS: CARVEDILOL 6.25 MG TABLET. PO SCH ×2 (14:10→21:55)
[2020-01-17] MEDS: VANCOMYCIN PER PHARMACY MC PRN (14:27)
--- NOTE | 2020-01-17 14:28 | PDOC ---
AMY HENRY [employer] CUST[employer]ER SERVICE CLERK 01/17/20 1428: SURGICAL PROGRESS NOTE DATE: 01/17/20 TIME: 14:26 Subjective known from office visits, previous admission d/w pt and wound care questions answered Vital Signs Vital Signs Date Time Temp Pulse Resp B/P (MAP) Pulse Ox O2 Delivery O2 Flow Rate FiO2 01/17/20 14:11 20 93 Room Air 01/17/20 14:10 105 125/82 01/17/20 10:59 98.2 98.2 I&O Intake and Output 01/17/20 07:00 Intake Total 1200 ml Output Total 900 ml Balance 300 ml Intake Oral 1200 ml Output Urine Total 900 ml # Voids 1 General: Alert, Oriented X3, Cooperative Abdomen: Soft, Other (wound with eschar, some drainage ) Labs Laboratory Tests Test 01/16/20 13:30 01/16/20 16:32 01/16/20 20:52 01/17/20 06:10 White Blood Count 9.6 x10^3/uL (4.0-11.0) 9.6 x10^3/uL (4.0-11.0) Red Blood Count 3.81 x10^6/uL (4.30-5.70) 3.72 x10^6/uL (4.30-5.70) Hemoglobin 11.5 g/dL (13.0-17.5) 11.2 g/dL (13.0-17.5) Hematocrit 34.5 % (39.0-53.0) 33.7 % (39.0-53.0) Mean Corpuscular Volume 91 fL (79-100) 91 fL (79-100) Mean Corpuscular Hemoglobin 30 pg (25-35) 30 pg (25-35) Mean Corpuscular Hemoglobin Concent 33 g/dL (31-37) 33 g/dL (31-37) Red Cell Distribution Width 14.7 % (11.5-14.5) 14.5 % (11.5-14.5) Platelet Count 622 x10^3/uL (140-400) 567 x10^3/uL (140-400) Neutrophils (%) (Auto) 78 % (31-73) 72 % (31-73) Lymphocytes (%) (Auto) 14 % (24-48) 19 % (24-48) Monocytes (%) (Auto) 6 % (0-9) 7 % (0-9) Eosinophils (%) (Auto) 1 % (0-3) 1 % (0-3) Basophils (%) (Auto) 1 % (0-3) 0 % (0-3) Neutrophils # (Auto) 7.5 x10^3/uL (1.8-7.7) 6.9 x10^3/uL (1.8-7.7) Lymphocytes # (Auto) 1.4 x10^3/uL (1.0-4.8) 1.8 x10^3/uL (1.0-4.8) Monocytes # (Auto) 0.6 x10^3/uL (0.0-1.1) 0.7 x10^3/uL (0.0-1.1) Eosinophils # (Auto) 0.1 x10^3/uL (0.0-0.7) 0.1 x10^3/uL (0.0-0.7) Basophils # (Auto) 0.1 x10^3/uL (0.0-0.2) 0.0 x10^3/uL (0.0-0.2) Sodium Level 136 mmol/L (136-145) 139 mmol/L (136-145) Potassium Level 3.9 mmol/L (3.5-5.1) 3.6 mmol/L (3.5-5.1) Chloride Level 99 mmol/L (98-107) 101 mmol/L (98-107) Carbon Dioxide Level 28 mmol/L (21-32) 29 mmol/L (21-32) Anion Gap 9 (6-14) 9 (6-14) Blood Urea Nitrogen 16 mg/dL (8-26) 13 mg/dL (8-26) Creatinine 1.2 mg/dL (0.7-1.3) 1.1 mg/dL (0.7-1.3) Estimated GFR (Cockcroft-Gault) 62.4 69.0 BUN/Creatinine Ratio 13 (6-20) 12 (6-20) Glucose Level 263 mg/dL (70-99) 110 mg/dL (70-99) Calcium Level 8.8 mg/dL (8.5-10.1) 8.9 mg/dL (8.5-10.1) Total Bilirubin 0.1 mg/dL (0.2-1.0) 0.2 mg/dL (0.2-1.0) Aspartate Amino Transf (AST/SGOT) 16 U/L (15-37) 14 U/L (15-37) Alanine Aminotransferase (ALT/SGPT) 29 U/L (16-63) 27 U/L (16-63) Alkaline Phosphatase 67 U/L (46-116) 65 U/L (46-116) Troponin I Quantitative < 0.017 ng/mL (0.000-0.055) Total Protein 7.2 g/dL (6.4-8.2) 7.1 g/dL (6.4-8.2) Albumin 2.6 g/dL (3.4-5.0) 2.5 g/dL (3.4-5.0) Albumin/Globulin Ratio 0.6 (1.0-1.7) 0.5 (1.0-1.7) Procalcitonin < 0.10 ng/mL (0.00-0.10) Glucose (Fingerstick) 180 mg/dL (70-99) 276 mg/dL (70-99) Test 01/17/20 07:55 01/17/20 11:48 Glucose (Fingerstick) 124 mg/dL (70-99) 191 mg/dL (70-99) Laboratory Tests Test 01/16/20 16:32 01/16/20 20:52 01/17/20 06:10 01/17/20 07:55 Glucose (Fingerstick) 180 mg/dL (70-99) 276 mg/dL (70-99) 124 mg/dL (70-99) White Blood Count 9.6 x10^3/uL (4.0-11.0) Red Blood Count 3.72 x10^6/uL (4.30-5.70) Hemoglobin 11.2 g/dL (13.0-17.5) Hematocrit 33.7 % (39.0-53.0) Mean Corpuscular Volume 91 fL (79-100) Mean Corpuscular Hemoglobin 30 pg (25-35) Mean Corpuscular Hemoglobin Concent 33 g/dL (31-37) Red Cell Distribution Width 14.5 % (11.5-14.5) Platelet Count 567 x10^3/uL (140-400) Neutrophils (%) (Auto) 72 % (31-73) Lymphocytes (%) (Auto) 19 % (24-48) Monocytes (%) (Auto) 7 % (0-9) Eosinophils (%) (Auto) 1 % (0-3) Basophils (%) (Auto) 0 % (0-3) Neutrophils # (Auto) 6.9 x10^3/uL (1.8-7.7) Lymphocytes # (Auto) 1.8 x10^3/uL (1.0-4.8) Monocytes # (Auto) 0.7 x10^3/uL (0.0-1.1) Eosinophils # (Auto) 0.1 x10^3/uL (0.0-0.7) Basophils # (Auto) 0.0 x10^3/uL (0.0-0.2) Sodium Level 139 mmol/L (136-145) Potassium Level 3.6 mmol/L (3.5-5.1) Chloride Level 101 mmol/L (98-107) Carbon Dioxide Level 29 mmol/L (21-32) Anion Gap 9 (6-14) Blood Urea Nitrogen 13 mg/dL (8-26) Creatinine 1.1 mg/dL (0.7-1.3) Estimated GFR (Cockcroft-Gault) 69.0 BUN/Creatinine Ratio 12 (6-20) Glucose Level 110 mg/dL (70-99) Calcium Level 8.9 mg/dL (8.5-10.1) Total Bilirubin 0.2 mg/dL (0.2-1.0) Aspartate Amino Transf (AST/SGOT) 14 U/L (15-37) Alanine Aminotransferase (ALT/SGPT) 27 U/L (16-63) Alkaline Phosphatase 65 U/L (46-116) Total Protein 7.1 g/dL (6.4-8.2) Albumin 2.5 g/dL (3.4-5.0) Albumin/Globulin Ratio 0.5 (1.0-1.7) Test 01/17/20 11:48 Glucose (Fingerstick) 191 mg/dL (70-99) Assessment/Plan d/w Dr Mcleod--mesh is not permanent, no plans for removal d/w wound care--poor previous recovery with surgery--will attempt veraflo vac --follow wound, may require debridement if not improving Justicifation of Admission Dx: Justifications for Admission: Justification of Admission Dx: N/A FELIX MCLEOD MD 01/18/20 1149: SURGICAL PROGRESS NOTE Assessment/Plan Reviewed; Mesh is temporary and does not need to be removed; debridement a consideration, however given his problems with wound healing would hold off for now; continue IV abx; placement of a wound vac AMY HENRY APRN Jan 17, 2020 14:28 FELIX MCLEOD MD Jan 18, 2020 11:49
[2020-01-17 15:00] VITALS: BP 125/89
--- NOTE | 2020-01-17 15:24 | NUR ---
Wound Care Spoke to Olivia Lyons APRN who ordered a veraflo vac to clean up eschar and slough as pt is not a good surgical candidate. Veraflo vac placed at 125 mmHg intermittent with 10ml NS flush for 5 min every 2 hours. OK to leave dressing in place until Tuesday per Olivia. Gauze changed over lateral drain site. WC will check on vac tomorrow.
--- NOTE | 2020-01-17 16:05 | RAD ---
CT scan of the chest without contrast 01/17/2020 CLINICAL HISTORY: History of left lung nodule seen on CT scan of the abdomen. TECHNIQUE: Unenhanced, contiguous, 5 mm axial sections were obtained through the chest and upper abdomen. One or more of the following individualized dose reduction techniques were utilized for this study: 1. Automated exposure control. 2. Adjustment of the mA and/or kV according to patient size. 3. Use of iterative reconstruction technique. FINDINGS: Comparison is made to patient's CT scan of the abdomen dated 01/16/2020. Additional comparison is made to a CT scan of the abdomen dated 12/29/2019. A right internal jugular [id number] type catheter is seen with its tip extending to the right atrium of heart. Atherosclerotic calcification of the thoracic aorta is seen. The thoracic aorta is mildly tortuous but tapers normally. The heart is normal in size. No hilar, mediastinal or axillary lymphadenopathy is noted. A 1.5 cm noncalcified nodule is seen involving the left lower lobe which corresponds to the abnormality seen on the patients CT scan from yesterday. It is unchanged from the patient's recent CT scan dated 12/29/2019. No additional significant pulmonary nodule is seen. Bronchiectasis is seen involving both lungs, right greater than left. A Right perihilar infiltrate and or area of scarring is seen. This does not appear significantly changed when compared to a portable chest radiograph dated 12/29/2019. Linear bands of subsegmental atelectasis are seen involving the right lung. No pneumothorax or pleural effusion is noted. Images through the upper abdomen are unchanged. Degenerative changes are seen throughout the thoracic spine. IMPRESSION: 1.5 cm noncalcified nodule is seen involving the left lower lobe. Follow-up per Fleischner Society recommended (seen below) is recommended. No additional significant pulmonary nodule is seen. Radiology, July 2016, volume 284, number 1, pages 228-243): In low risk solitary nodule patient: <6mm - No follow up required. 6-8mm - CT at 6-12 months, then consider CT at 18-24 months >8mm - Consider CT at 3 months, PET/CT, or tissue sampling In high risk solitary nodule patient: <6mm - Optional 12 month follow up. 6-8mm - CT at 6-12 months, then CT at 18-24 months >8mm - Consider CT at 3 months, PET/CT, or tissue sampling Electronically signed by: Scottie Quan MD (01/17/2020 4:02 PM) [id number]
[2020-01-17 18:26] VITALS: BP_SYST 110; BP_SYST 124; BP_DIAS 68; BP_DIAS 80
[2020-01-17] MEDS: NORTRIPTYLINE 25 MG CAPSULE PO SCH (21:55)
[2020-01-17] MEDS: SIMVASTATIN 20 MG TABLET PO SCH (21:55)
[2020-01-17] MEDS: INSULIN GLARGINE SYRINGE. SQ SCH (22:06)
[2020-01-17 23:20] VITALS: BP 137/82
[2020-01-18] MEDS: PIPERACILLIN/TAZOBACTAM 3.375 GM in IV NORMAL SALINE 50ML 50 ML IV SCH ×5 (00:09→23:42)
[2020-01-18 01:52] LABS: VANC TR 13.8 mcg/mL (10.0-20.0)
[2020-01-18] MEDS: VANCOMYCIN PER PHARMACY MC PRN ×2 (02:05→17:19)
--- NOTE | 2020-01-18 02:06 | NUR ---
Pharmacy Vancomycin Dosing Note S: Consulted to monitor and dose vancomycin started 01/16/20. O: JOE HYLTON is a 59 year old M with , Post-op wound infection . Other Antibiotics: ZOSYN 3.375GM IV Q6HRS LABS: Last BUN: 13 Last Creatinine: 1.1 Creatinine Clearance: 94 mL/min Last WBC: 9.6 Last Procalcitonin: Tmax (past 24 hours): 98.8 Microbiology: BLOOD: NGTD I/O: <0.1 Drug Levels: Last Trough level: 13.8 on 01/18/20 at 0115 Last dose given 01/17/20 at 1412 Vancomycin Dosing: Dosing Weight: Actual Target Trough: 10-20 A: Based on: Trough, Actual Wt and CrCl P: 1. 01/18/20 0200 Continue Vancomycin 1500 mg IV q12h 2. Follow up Trough level in 5 to 7 days as needed 3. Pharmacy will continue to monitor, follow and adjust therapy as needed. HERO CHATMAN RPH, 01/18/20 0206 Signed: 01/18/20 at 0207 by HERO CHATMAN RPH PHA
[2020-01-18] MEDS: VANCOMYCIN 1.5 GM in IV NORMAL SALINE 500ML BAG 500 ML IV SCH ×2 (02:08→14:50)
[2020-01-18] MEDS: oxyCODONE IR 5 MG TABLET PO SCH ×6 (02:08→22:03)
[2020-01-18] MEDS: oxyCODONE/APAP 10/325 1 TAB TABLET PO PRN ×6 (02:09→22:02)
[2020-01-18 03:00] VITALS: BP 112/82
[2020-01-18 03:03] LABS: CREATININE 1.4 mg/dL (0.7-1.3); GFR 52.2
[2020-01-18] MEDS: IV NORMAL SALINE 1000ML BAG 1,000 ML IV SCH ×3 (03:13→21:06)
[2020-01-18] MEDS: IPRATRPIUM/ALBUTEROL 0.5/2.5MG 3 ML NEBU. NEB SCH ×6 (04:21→23:37)
[2020-01-18] MEDS: LEVOTHYROXINE 88 MCG TABLET PO SCH (05:16)
[2020-01-18 07:00] VITALS: BP 105/80
[2020-01-18] MEDS: ASPIRIN CHEWABLE 81 MG TABLET. PO SCH (09:29)
[2020-01-18] MEDS: PANTOPRAZOLE 40 MG TABLET.DR. PO SCH (09:29)
[2020-01-18] MEDS: SENNOSIDES 8.6 MG TABLET PO SCH ×2 (09:29→21:08)
[2020-01-18] MEDS: FUROSEMIDE 40 MG TABLET. PO SCH (09:29)
[2020-01-18] MEDS: LISINOPRIL 10 MG TABLET PO SCH (09:29)
[2020-01-18] MEDS: LACTOBACILLUS RHAMNOSUS GG 1 CAPSULE. PO SCH ×2 (09:29→21:08)
--- NOTE | 2020-01-18 10:20 | NUR ---
SS following up with discharge planning. SS reviewed pt chart and discussed with pt RN. Pt is currently on room air. Pt on IV Vancomycin and IV Zosyn. PT/OT recommended home with home healthcare. Per RN, pt has wound infection to midline. Nurse navigator to meet with pt to discuss home healthcare. SS will continue to follow for discharge planning.
--- NOTE | 2020-01-18 10:44 | PDOC ---
Infectious Disease Note Subjective Subjective pt is feeling better, has wound vac in place ROS ROS no n/v/d/sob Vital Sign Vital Signs Vital Signs Date Time Temp Pulse Resp B/P (MAP) Pulse Ox O2 Delivery O2 Flow Rate FiO2 01/18/20 10:36 20 94 Room Air 01/18/20 09:29 94 105/80 01/18/20 08:00 5.0 01/18/20 07:00 98.3 98.3 Physical Exam PHYSICAL EXAM GENERAL: Alert, oriented gentleman, not in distress. VITAL SIGNS: Stable, afebrile. HEENT: NAD. NECK: Supple, no JVP, no lymphadenopathy. LUNGS: Clear. HEART: S1, S2 regular. ABDOMEN: Soft. The patient has a large incision on the abdomen with extensive erythema in the surrounding area as well as necrotic edges into the wound and drainage from the wound. There is no deep tenderness, no rebound or guarding. EXTREMITIES: No edema, cyanosis. SKIN: Rest of skin exam is unremarkable. NEUROLOGIC: The patient is alert, awake and appropriate. No focal neurologic deficit. Labs Lab Laboratory Tests Test 01/17/20 11:48 01/17/20 17:08 01/17/20 20:58 01/18/20 01:15 Glucose (Fingerstick) 191 mg/dL (70-99) 137 mg/dL (70-99) 233 mg/dL (70-99) Vancomycin Level Trough 13.8 mcg/mL (10.0-20.0) Vancomycin Last Dose Date Vancomycin Last Dose Time 1400 Test 01/18/20 02:00 01/18/20 07:49 Creatinine 1.4 mg/dL (0.7-1.3) Estimated GFR (Cockcroft-Gault) 52.2 Glucose (Fingerstick) 107 mg/dL (70-99) Micro GRAM STAIN Final Final GRAM NEGATIVE RODS:FEW GRAM POSITIVE RODS:RARE GRAM POSITIVE COCCI:MODERATE SQUAMOUS EPI CELL:FEW PMN (WBCs):MODERATE Unless otherwise specified, Testing Performed by: [address] [address] For Inquires, the Physician may contact the Microbiology department at [phone] AEROBIC CULTURE PENDING Objective Assessment IMPRESSION: 1. Abdominal incision infection post-hernia surgery. 2. Incarcerated ventral hernia, status post surgery, resection, enterotomy repair, and a biologic mesh placement on of the last month. 3. Diabetes. 4. Hypertension. 5. Obesity. Plan Plan of Care cont antibiotics check cultures wound vac CELENA BLEDSOE MD Jan 18, 2020 10:44
--- NOTE | 2020-01-18 10:53 | PDOC ---
PULMONARY PROGRESS NOTES DATE: 01/18/20 TIME: 10:51 Subjective no soa no CP Vitals Vital Signs Date Time Temp Pulse Resp B/P (MAP) Pulse Ox O2 Delivery O2 Flow Rate FiO2 01/18/20 10:36 20 94 Room Air 01/18/20 09:29 94 105/80 01/18/20 08:00 5.0 01/18/20 07:00 98.3 98.3 General: No acute distress Lungs: Clear Cardiovascular: S1 Abdomen: Soft, Other (distended, dressing midline) Extremities: No Edema Skin: Warm Labs Laboratory Tests Test 01/16/20 13:30 01/16/20 16:32 01/16/20 20:52 01/17/20 06:10 White Blood Count 9.6 x10^3/uL (4.0-11.0) 9.6 x10^3/uL (4.0-11.0) Red Blood Count 3.81 x10^6/uL (4.30-5.70) 3.72 x10^6/uL (4.30-5.70) Hemoglobin 11.5 g/dL (13.0-17.5) 11.2 g/dL (13.0-17.5) Hematocrit 34.5 % (39.0-53.0) 33.7 % (39.0-53.0) Mean Corpuscular Volume 91 fL (79-100) 91 fL (79-100) Mean Corpuscular Hemoglobin 30 pg (25-35) 30 pg (25-35) Mean Corpuscular Hemoglobin Concent 33 g/dL (31-37) 33 g/dL (31-37) Red Cell Distribution Width 14.7 % (11.5-14.5) 14.5 % (11.5-14.5) Platelet Count 622 x10^3/uL (140-400) 567 x10^3/uL (140-400) Neutrophils (%) (Auto) 78 % (31-73) 72 % (31-73) Lymphocytes (%) (Auto) 14 % (24-48) 19 % (24-48) Monocytes (%) (Auto) 6 % (0-9) 7 % (0-9) Eosinophils (%) (Auto) 1 % (0-3) 1 % (0-3) Basophils (%) (Auto) 1 % (0-3) 0 % (0-3) Neutrophils # (Auto) 7.5 x10^3/uL (1.8-7.7) 6.9 x10^3/uL (1.8-7.7) Lymphocytes # (Auto) 1.4 x10^3/uL (1.0-4.8) 1.8 x10^3/uL (1.0-4.8) Monocytes # (Auto) 0.6 x10^3/uL (0.0-1.1) 0.7 x10^3/uL (0.0-1.1) Eosinophils # (Auto) 0.1 x10^3/uL (0.0-0.7) 0.1 x10^3/uL (0.0-0.7) Basophils # (Auto) 0.1 x10^3/uL (0.0-0.2) 0.0 x10^3/uL (0.0-0.2) Sodium Level 136 mmol/L (136-145) 139 mmol/L (136-145) Potassium Level 3.9 mmol/L (3.5-5.1) 3.6 mmol/L (3.5-5.1) Chloride Level 99 mmol/L (98-107) 101 mmol/L (98-107) Carbon Dioxide Level 28 mmol/L (21-32) 29 mmol/L (21-32) Anion Gap 9 (6-14) 9 (6-14) Blood Urea Nitrogen 16 mg/dL (8-26) 13 mg/dL (8-26) Creatinine 1.2 mg/dL (0.7-1.3) 1.1 mg/dL (0.7-1.3) Estimated GFR (Cockcroft-Gault) 62.4 69.0 BUN/Creatinine Ratio 13 (6-20) 12 (6-20) Glucose Level 263 mg/dL (70-99) 110 mg/dL (70-99) Calcium Level 8.8 mg/dL (8.5-10.1) 8.9 mg/dL (8.5-10.1) Total Bilirubin 0.1 mg/dL (0.2-1.0) 0.2 mg/dL (0.2-1.0) Aspartate Amino Transf (AST/SGOT) 16 U/L (15-37) 14 U/L (15-37) Alanine Aminotransferase (ALT/SGPT) 29 U/L (16-63) 27 U/L (16-63) Alkaline Phosphatase 67 U/L (46-116) 65 U/L (46-116) Troponin I Quantitative < 0.017 ng/mL (0.000-0.055) Total Protein 7.2 g/dL (6.4-8.2) 7.1 g/dL (6.4-8.2) Albumin 2.6 g/dL (3.4-5.0) 2.5 g/dL (3.4-5.0) Albumin/Globulin Ratio 0.6 (1.0-1.7) 0.5 (1.0-1.7) Procalcitonin < 0.10 ng/mL (0.00-0.10) Glucose (Fingerstick) 180 mg/dL (70-99) 276 mg/dL (70-99) Test 01/17/20 07:55 01/17/20 11:48 01/17/20 17:08 01/17/20 20:58 Glucose (Fingerstick) 124 mg/dL (70-99) 191 mg/dL (70-99) 137 mg/dL (70-99) 233 mg/dL (70-99) Test 01/18/20 01:15 01/18/20 02:00 01/18/20 07:49 Vancomycin Level Trough 13.8 mcg/mL (10.0-20.0) Vancomycin Last Dose Date Vancomycin Last Dose Time 1400 Creatinine 1.4 mg/dL (0.7-1.3) Estimated GFR (Cockcroft-Gault) 52.2 Glucose (Fingerstick) 107 mg/dL (70-99) Laboratory Tests Test 01/17/20 11:48 01/17/20 17:08 01/17/20 20:58 01/18/20 01:15 Glucose (Fingerstick) 191 mg/dL (70-99) 137 mg/dL (70-99) 233 mg/dL (70-99) Vancomycin Level Trough 13.8 mcg/mL (10.0-20.0) Vancomycin Last Dose Date Vancomycin Last Dose Time 1400 Test 01/18/20 02:00 01/18/20 07:49 Creatinine 1.4 mg/dL (0.7-1.3) Estimated GFR (Cockcroft-Gault) 52.2 Glucose (Fingerstick) 107 mg/dL (70-99) Medications Active Scripts Medications Dose Route/Sig Max Daily Dose Days Date Category Percocet 10-325 Mg Tablet (Oxycodone/Acetaminophen) 1 Each Tablet 1 Tab PO Q4HRS MDD 6 Tablet(s) 3 01/16/20 Reported Senna Laxative (Sennosides) 8.6 Mg Tablet 1 Tab PO Q4HRS 30 01/16/20 Reported Aspirin 81 Mg Tab.chew 1 Tab PO DAILY 01/16/20 Reported Metformin Hcl 1,000 Mg Tablet 1,000 Mg PO BIDWMEALS 01/03/20 Reported Lisinopril 10 Mg Tablet 1 Tab PO DAILY 01/03/20 Reported Levothyroxine Sodium 88 Mcg Tablet 88 Mcg PO DAILYAC 01/03/20 Reported Lasix (Furosemide) 40 Mg Tablet 40 Mg PO DAILY 01/03/20 Reported Lantus Solostar (Insulin Glargine,Hum.rec.anlog) 100 Unit/1 Ml Insuln.pen 30 Unit SQ QHS 01/03/20 Reported Vitamin D2 (Ergocalciferol (Vitamin D2)) 1,250 Mcg Capsule 1,250 Mcg PO QMONFR 01/03/20 Reported Nortriptyline Hcl 25 Mg Capsule 2 Cap PO QHS 01/03/20 Reported Omeprazole 40 Mg Capsule.dr 40 Mg PO DAILY 01/03/20 Reported Simvastatin 20 Mg Tablet 20 Mg PO HS 01/03/20 Reported Coreg (Carvedilol) 25 Mg Tablet 6.25 Mg PO BIDWMEALS 01/03/20 Reported Impression . 1. Smooth noncalcified left lower lobe nodule about 1.5 cm in size. This was also seen in previous CAT scan done in December. The patient has known history of lung cancer, being followed at , he is status post chemo and radiation. 2. Abdominal incision infection post-hernia surgery. 3. Incarcerated ventral hernia, status post surgery and enterotomy, and synthetic mesh placement. 4. Diabetes. 5. Morbid obesity. Plan . 1. CT chest reviewed. 1.5 cm LLL nodule. No other mass or adenopathy seen 2. The patient has been followed at regularly every [address] chest follows. We would recommend to continue to follow up over there. 3. Follow ID recommendation. 4. Antibiotics per Infectious Disease. 5. Follow Surgical input. 6. Discussed with RN. We will follow along with you. SKYLAR GUTIERREZ MD Jan 18, 2020 10:53
[2020-01-18 11:00] VITALS: BP 127/77
--- NOTE | 2020-01-18 11:21 | PDOC ---
[employer] PROGRESS NOTE Date of Service DOS: DATE: 01/18/20 TIME: 11:15 Chief Complaint Chief Complaint OST-OP Wound infection Post-op Diagnosis: Incarcerated ventral hernia with high-grade bowel obstruction 12/29/19 RECENT partial SBO Incarcerated umbilical hernia pre-op Acute renal failurevasomotor nephropathy resolving Hypertension Diabetes Dyslipidemia History of constipation COPD GERD History of Present Illness History of Present Illness 01/18/2020 Patient seen and examined Ventral dressing is CDI Wound vacuum attached Discussed with RN Charts reviewed 01/17/2020 Patient seen and examined Ventral dressing is clean, dry and intact Discussed with RN Reviewed Charts Vitals/I&O Vitals/I&O: Vital Signs Date Time Temp Pulse Resp B/P (MAP) Pulse Ox O2 Delivery O2 Flow Rate FiO2 01/18/20 10:36 20 94 Room Air 01/18/20 09:29 94 105/80 01/18/20 08:00 5.0 01/18/20 07:00 98.3 98.3 I & O 01/17/20 01/17/20 01/18/20 15:00 23:00 07:00 Intake Total 850 ml 650 ml Output Total 800 ml 1600 ml 1100 ml Balance 50 ml -1600 ml -450 ml Physical Exam Physical Exam: GENERAL: Alert, oriented gentleman, not in distress. VITAL SIGNS: Stable, afebrile. HEENT: NAD. NECK: Supple, no JVP, no lymphadenopathy. LUNGS: Clear. HEART: S1, S2 regular. ABDOMEN: Soft. The patient has a large incision on the abdomen with extensive erythema in the surrounding area as well as necrotic edges into the wound and drainage from the wound. There is no deep tenderness, no rebound or guarding. EXTREMITIES: No edema, cyanosis. SKIN: Rest of skin exam is unremarkable. NEUROLOGIC: The patient is alert, awake and appropriate. No focal neurologic deficit. General: Alert, Oriented X3, Cooperative Heart: Regular rate, No murmurs Lungs: Clear Abdomen: Soft, Other (Wound vacuum attached) Extremities: No cyanosis Labs Labs: Laboratory Tests Test 01/17/20 11:48 01/17/20 17:08 01/17/20 20:58 01/18/20 01:15 Glucose (Fingerstick) 191 mg/dL (70-99) 137 mg/dL (70-99) 233 mg/dL (70-99) Vancomycin Level Trough 13.8 mcg/mL (10.0-20.0) Vancomycin Last Dose Date Vancomycin Last Dose Time 1400 Test 01/18/20 02:00 01/18/20 07:49 Creatinine 1.4 mg/dL (0.7-1.3) Estimated GFR (Cockcroft-Gault) 52.2 Glucose (Fingerstick) 107 mg/dL (70-99) Review of Systems Review of Systems: Other systems are otherwise negative Assessment and Plan Assessmemt and Plan OST-OP Wound infection Post-op Diagnosis: Incarcerated ventral hernia with high-grade bowel obstruction 12/29/19 RECENT partial SBO Incarcerated umbilical hernia pre-op Acute renal failurevasomotor nephropathy resolving Hypertension Diabetes Dyslipidemia History of constipation COPD GERD Plan Wound care management Encourage PO intake Home Meds IV antibiotic Trend labs Appreciate input from wound acre and surgery Comment Review of Relevant I have reviewed the following items catarina (where applicable) has been applied. Medications: Current Medications Medications (Trade) Dose Ordered Sig/Cony Route PRN Reason Start Time Stop Time Status Last Admin Dose Admin Vancomycin HCl (Vancomycin Trough Level) 1 each 1X ONCE 01/18/20 01:30 01/18/20 01:31 DC 01/18/20 01:25 Justicifation of Admission Dx: Justifications for Admission: Justification of Admission Dx: N/A BESSIE GOODE III DO Jan 18, 2020 11:21
--- NOTE | 2020-01-18 12:59 | PDOC ---
AMY HENRY [employer] 01/18/20 1259: SURGICAL PROGRESS NOTE DATE: 01/18/20 TIME: 12:58 Subjective tolerating diet feeling ok Vital Signs Vital Signs Date Time Temp Pulse Resp B/P (MAP) Pulse Ox O2 Delivery O2 Flow Rate FiO2 01/18/20 11:40 96 Room Air 01/18/20 11:40 19 01/18/20 11:00 97.8 96 127/77 (94) 97.8 01/18/20 08:00 5.0 I&O Intake and Output 01/18/20 07:00 Intake Total 1500 ml Output Total 3500 ml Balance -2000 ml Intake Oral 1450 ml IV Total 50 ml Output Urine Total 3500 ml # Voids 1 # Bowel Movements 1 General: Alert, Oriented X3, Cooperative Abdomen: Soft, Other (vac in place) Labs Laboratory Tests Test 01/16/20 13:30 01/16/20 16:32 01/16/20 20:52 01/17/20 06:10 White Blood Count 9.6 x10^3/uL (4.0-11.0) 9.6 x10^3/uL (4.0-11.0) Red Blood Count 3.81 x10^6/uL (4.30-5.70) 3.72 x10^6/uL (4.30-5.70) Hemoglobin 11.5 g/dL (13.0-17.5) 11.2 g/dL (13.0-17.5) Hematocrit 34.5 % (39.0-53.0) 33.7 % (39.0-53.0) Mean Corpuscular Volume 91 fL (79-100) 91 fL (79-100) Mean Corpuscular Hemoglobin 30 pg (25-35) 30 pg (25-35) Mean Corpuscular Hemoglobin Concent 33 g/dL (31-37) 33 g/dL (31-37) Red Cell Distribution Width 14.7 % (11.5-14.5) 14.5 % (11.5-14.5) Platelet Count 622 x10^3/uL (140-400) 567 x10^3/uL (140-400) Neutrophils (%) (Auto) 78 % (31-73) 72 % (31-73) Lymphocytes (%) (Auto) 14 % (24-48) 19 % (24-48) Monocytes (%) (Auto) 6 % (0-9) 7 % (0-9) Eosinophils (%) (Auto) 1 % (0-3) 1 % (0-3) Basophils (%) (Auto) 1 % (0-3) 0 % (0-3) Neutrophils # (Auto) 7.5 x10^3/uL (1.8-7.7) 6.9 x10^3/uL (1.8-7.7) Lymphocytes # (Auto) 1.4 x10^3/uL (1.0-4.8) 1.8 x10^3/uL (1.0-4.8) Monocytes # (Auto) 0.6 x10^3/uL (0.0-1.1) 0.7 x10^3/uL (0.0-1.1) Eosinophils # (Auto) 0.1 x10^3/uL (0.0-0.7) 0.1 x10^3/uL (0.0-0.7) Basophils # (Auto) 0.1 x10^3/uL (0.0-0.2) 0.0 x10^3/uL (0.0-0.2) Sodium Level 136 mmol/L (136-145) 139 mmol/L (136-145) Potassium Level 3.9 mmol/L (3.5-5.1) 3.6 mmol/L (3.5-5.1) Chloride Level 99 mmol/L (98-107) 101 mmol/L (98-107) Carbon Dioxide Level 28 mmol/L (21-32) 29 mmol/L (21-32) Anion Gap 9 (6-14) 9 (6-14) Blood Urea Nitrogen 16 mg/dL (8-26) 13 mg/dL (8-26) Creatinine 1.2 mg/dL (0.7-1.3) 1.1 mg/dL (0.7-1.3) Estimated GFR (Cockcroft-Gault) 62.4 69.0 BUN/Creatinine Ratio 13 (6-20) 12 (6-20) Glucose Level 263 mg/dL (70-99) 110 mg/dL (70-99) Calcium Level 8.8 mg/dL (8.5-10.1) 8.9 mg/dL (8.5-10.1) Total Bilirubin 0.1 mg/dL (0.2-1.0) 0.2 mg/dL (0.2-1.0) Aspartate Amino Transf (AST/SGOT) 16 U/L (15-37) 14 U/L (15-37) Alanine Aminotransferase (ALT/SGPT) 29 U/L (16-63) 27 U/L (16-63) Alkaline Phosphatase 67 U/L (46-116) 65 U/L (46-116) Troponin I Quantitative < 0.017 ng/mL (0.000-0.055) Total Protein 7.2 g/dL (6.4-8.2) 7.1 g/dL (6.4-8.2) Albumin 2.6 g/dL (3.4-5.0) 2.5 g/dL (3.4-5.0) Albumin/Globulin Ratio 0.6 (1.0-1.7) 0.5 (1.0-1.7) Procalcitonin < 0.10 ng/mL (0.00-0.10) Glucose (Fingerstick) 180 mg/dL (70-99) 276 mg/dL (70-99) Test 01/17/20 07:55 01/17/20 11:48 01/17/20 17:08 01/17/20 20:58 Glucose (Fingerstick) 124 mg/dL (70-99) 191 mg/dL (70-99) 137 mg/dL (70-99) 233 mg/dL (70-99) Test 01/18/20 01:15 01/18/20 02:00 01/18/20 07:49 01/18/20 11:58 Vancomycin Level Trough 13.8 mcg/mL (10.0-20.0) Vancomycin Last Dose Date Vancomycin Last Dose Time 1400 Creatinine 1.4 mg/dL (0.7-1.3) Estimated GFR (Cockcroft-Gault) 52.2 Glucose (Fingerstick) 107 mg/dL (70-99) 169 mg/dL (70-99) Laboratory Tests Test 01/17/20 17:08 01/17/20 20:58 01/18/20 01:15 01/18/20 02:00 Glucose (Fingerstick) 137 mg/dL (70-99) 233 mg/dL (70-99) Vancomycin Level Trough 13.8 mcg/mL (10.0-20.0) Vancomycin Last Dose Date Vancomycin Last Dose Time 1400 Creatinine 1.4 mg/dL (0.7-1.3) Estimated GFR (Cockcroft-Gault) 52.2 Test 01/18/20 07:49 01/18/20 11:58 Glucose (Fingerstick) 107 mg/dL (70-99) 169 mg/dL (70-99) Problem List continue wound care Justicifation of Admission Dx: Justifications for Admission: Justification of Admission Dx: N/A FELIX DAVIS MD 01/18/20 1521: SURGICAL PROGRESS NOTE Assessment/Plan Continue with wound vac, will take time for secondary intent healing AMY HENRY APRN Jan 18, 2020 12:59 FELIX DAVIS MD Jan 18, 2020 15:21
[2020-01-18] MEDS: CARVEDILOL 6.25 MG TABLET. PO SCH ×2 (14:48→22:09)
[2020-01-18 15:00] VITALS: BP 117/72
[2020-01-18] MEDS: ERGOCALCIFEROL (VITAMIN D2) 50,000 UNIT CAPSULE. PO SCH (17:37)
[2020-01-18 19:00] VITALS: BP 123/83
[2020-01-18] MEDS: SIMVASTATIN 20 MG TABLET PO SCH (21:08)
[2020-01-18] MEDS: NORTRIPTYLINE 25 MG CAPSULE PO SCH (21:08)
[2020-01-18] MEDS: guaiFENesin ORAL 200 MG/10 ML LIQUID. PO PRN (22:02)
[2020-01-18] MEDS: INSULIN GLARGINE SYRINGE. SQ SCH (22:08)
[2020-01-18 23:00] VITALS: BP 123/87
[2020-01-19] MEDS: guaiFENesin ORAL 200 MG/10 ML LIQUID. PO PRN ×3 (01:54→19:43)
[2020-01-19] MEDS: oxyCODONE/APAP 10/325 1 TAB TABLET PO PRN ×6 (01:54→22:01)
[2020-01-19] MEDS: oxyCODONE IR 5 MG TABLET PO SCH ×6 (01:54→22:01)
[2020-01-19] MEDS: VANCOMYCIN 1.5 GM in IV NORMAL SALINE 500ML BAG 500 ML IV SCH ×2 (01:55→15:13)
[2020-01-19] MEDS: IPRATRPIUM/ALBUTEROL 0.5/2.5MG 3 ML NEBU. NEB SCH ×5 (02:37→20:54)
[2020-01-19 03:00] VITALS: BP 110/81
[2020-01-19] MEDS: LEVOTHYROXINE 88 MCG TABLET PO SCH (04:21)
[2020-01-19 05:05] LABS: CREATININE 1.1 mg/dL (0.7-1.3)
[2020-01-19] MEDS: PIPERACILLIN/TAZOBACTAM 3.375 GM in IV NORMAL SALINE 50ML 50 ML IV SCH ×3 (06:09→17:56)
[2020-01-19 07:00] VITALS: BP 113/89
--- NOTE | 2020-01-19 08:04 | PDOC ---
PULMONARY PROGRESS NOTES DATE: 01/19/20 TIME: 08:03 Subjective no soa, has occ cough, no CP is obese no psg done Vitals Vital Signs Date Time Temp Pulse Resp B/P (MAP) Pulse Ox O2 Delivery O2 Flow Rate FiO2 01/19/20 07:47 Room Air 01/19/20 06:08 20 01/19/20 03:00 98.5 97 110/81 (91) 93 98.5 01/18/20 08:00 5.0 ROS: No Nausea, No Chest Pain General: Alert, No acute distress HEENT: Other (nc at perrl ) Lungs: Clear Cardiovascular: S1, S2 Abdomen: Soft, Non-tender, Other (distended, dressing midline) Neuro Exam: Alert Extremities: No Edema Skin: Warm Labs Laboratory Tests Test 01/17/20 11:48 01/17/20 17:08 01/17/20 20:58 01/18/20 01:15 Glucose (Fingerstick) 191 mg/dL (70-99) 137 mg/dL (70-99) 233 mg/dL (70-99) Vancomycin Level Trough 13.8 mcg/mL (10.0-20.0) Vancomycin Last Dose Date Vancomycin Last Dose Time 1400 Test 01/18/20 02:00 01/18/20 07:49 01/18/20 11:58 01/18/20 17:02 Creatinine 1.4 mg/dL (0.7-1.3) Estimated GFR (Cockcroft-Gault) 52.2 Glucose (Fingerstick) 107 mg/dL (70-99) 169 mg/dL (70-99) 164 mg/dL (70-99) Test 01/18/20 20:43 01/19/20 04:10 01/19/20 07:52 Glucose (Fingerstick) 168 mg/dL (70-99) 105 mg/dL (70-99) Creatinine 1.1 mg/dL (0.7-1.3) Estimated GFR (Cockcroft-Gault) 69.0 Laboratory Tests Test 01/18/20 11:58 01/18/20 17:02 01/18/20 20:43 01/19/20 04:10 Glucose (Fingerstick) 169 mg/dL (70-99) 164 mg/dL (70-99) 168 mg/dL (70-99) Creatinine 1.1 mg/dL (0.7-1.3) Estimated GFR (Cockcroft-Gault) 69.0 Test 01/19/20 07:52 Glucose (Fingerstick) 105 mg/dL (70-99) Medications Active Scripts Medications Dose Route/Sig Max Daily Dose Days Date Category Percocet 10-325 Mg Tablet (Oxycodone/Acetaminophen) 1 Each Tablet 1 Tab PO Q4HRS MDD 6 Tablet(s) 3 01/16/20 Reported Senna Laxative (Sennosides) 8.6 Mg Tablet 1 Tab PO Q4HRS 30 01/16/20 Reported Aspirin 81 Mg Tab.chew 1 Tab PO DAILY 01/16/20 Reported Metformin Hcl 1,000 Mg Tablet 1,000 Mg PO BIDWMEALS 01/03/20 Reported Lisinopril 10 Mg Tablet 1 Tab PO DAILY 01/03/20 Reported Levothyroxine Sodium 88 Mcg Tablet 88 Mcg PO DAILYAC 01/03/20 Reported Lasix (Furosemide) 40 Mg Tablet 40 Mg PO DAILY 01/03/20 Reported Lantus Solostar (Insulin Glargine,Hum.rec.anlog) 100 Unit/1 Ml Insuln.pen 30 Unit SQ QHS 01/03/20 Reported Vitamin D2 (Ergocalciferol (Vitamin D2)) 1,250 Mcg Capsule 1,250 Mcg PO QMONFR 01/03/20 Reported Nortriptyline Hcl 25 Mg Capsule 2 Cap PO QHS 01/03/20 Reported Omeprazole 40 Mg Capsule.dr 40 Mg PO DAILY 01/03/20 Reported Simvastatin 20 Mg Tablet 20 Mg PO HS 01/03/20 Reported Coreg (Carvedilol) 25 Mg Tablet 6.25 Mg PO BIDWMEALS 01/03/[address] of chest reviewed 1.5 cm noncalcified nodule is seen involving the left lower lobe. . No additional significant pulmonary nodule is seen. Impression . 1. Smooth noncalcified left lower lobe nodule about 1.5 cm in size. This was also seen in previous CAT scan done in December. The patient has known history of lung cancer, being followed at , he is status post chemo and radiation. 2. Abdominal incision infection post-hernia surgery. 3. Incarcerated ventral hernia, status post surgery and enterotomy, and synthetic mesh placement. 4. Diabetes. 5. Morbid obesity prob shanel. Plan . 1. CT chest reviewed. 1.5 cm LLL nodule. No other mass or adenopathy seen 2. The patient has been followed at regularly every [address] chest follows. We would recommend to continue to follow up at . discussed w pt 3. Follow ID recommendation. 4. Antibiotics per Infectious Disease. 5. Follow Surgical input. 6. psg as out pt Discussed with RN. We will follow along with you. MARYLOU BRENNER MD Jan 19, 2020 08:04
[2020-01-19] MEDS: ASPIRIN CHEWABLE 81 MG TABLET. PO SCH (08:55)
[2020-01-19] MEDS: FUROSEMIDE 40 MG TABLET. PO SCH (08:55)
[2020-01-19] MEDS: SENNOSIDES 8.6 MG TABLET PO SCH ×4 (08:55→21:00)
[2020-01-19] MEDS: PANTOPRAZOLE 40 MG TABLET.DR. PO SCH (08:55)
[2020-01-19] MEDS: LACTOBACILLUS RHAMNOSUS GG 1 CAPSULE. PO SCH ×2 (08:55→21:20)
[2020-01-19] MEDS: LISINOPRIL 10 MG TABLET PO SCH (08:55)
[2020-01-19] MEDS: VANCOMYCIN PER PHARMACY MC PRN (09:01)
[2020-01-19] MEDS: IV NORMAL SALINE 1000ML BAG 1,000 ML IV SCH ×2 (10:16→21:20)
[2020-01-19 10:58] VITALS: BP 149/93
--- NOTE | 2020-01-19 11:19 | PDOC ---
Infectious Disease Note Subjective Subjective Abdomen sore Constipated Denies N/V/F/C ROS ROS as mentioned above Vital Sign Vital Signs Vital Signs Date Time Temp Pulse Resp B/P (MAP) Pulse Ox O2 Delivery O2 Flow Rate FiO2 01/19/20 10:58 98.0 93 20 149/93 (111) 94 Room Air 98.0 01/18/20 08:00 5.0 Physical Exam PHYSICAL EXAM GENERAL: Sitting in the chair, alert, in NAD HEENT: Oral cavity pink, moist. No thrush NECK: Supple, no JVP, no lymphadenopathy. LUNGS: Clear. HEART: S1, S2 regular. ABDOMEN: Obese, BS present, wound vac in place, mild area redness and indur ation EXTREMITIES: No edema, cyanosis. SKIN: without signs of rash NEUROLOGIC: Alert, awake and appropriate. No focal neurologic deficit. PIV Port-A-Cath not in use, clean Labs Lab Laboratory Tests Test 01/18/20 11:58 01/18/20 17:02 01/18/20 20:43 01/19/20 04:10 Glucose (Fingerstick) 169 mg/dL (70-99) 164 mg/dL (70-99) 168 mg/dL (70-99) Creatinine 1.1 mg/dL (0.7-1.3) Estimated GFR (Cockcroft-Gault) 69.0 Test 01/19/20 07:52 Glucose (Fingerstick) 105 mg/dL (70-99) Micro 01/15. abdominal wound GRAM STAIN Final Final GRAM NEGATIVE RODS:FEW GRAM POSITIVE RODS:RARE GRAM POSITIVE COCCI:MODERATE SQUAMOUS EPI CELL:FEW PMN (WBCs):MODERATE AEROBIC CULTURE Preliminary Preliminary MANY GRAM POSITIVE COCCI on 01/18/20 at 1333 FINAL ID= [STAPHYLOCOCCUS AUREUS] MANY GRAM NEGATIVE RODS on 01/18/20 at 1333 FINAL ID= [ENTEROBACTER CLOACAE COMPLEX] ANTIMICROBIAL SUSCEPTIBILITY Preliminary NEG PETER 56 ENTEROBACTER CLOACAE COMPLEX ANTIBIOTIC RESULT INTERPRETATION AMPICILLIN/SULBACTAM <=4/2 R* AMIKACIN <=16 S AMPICILLIN <=8 R* AMOXICILLIN/K CLAVULANATE <=8/4 R* AZTREONAM <=4 S CEFTRIAXONE <=1 S CEFTAZIDIME <=1 S CEFOTAXIME <=2 S CEFOXITIN <=8 R* CIPROFLOXACIN <=0.25 S CEFEPIME <=2 S CEFUROXIME <=4 R* ERTAPENEM <=0.5 S GENTAMICIN <=2 S LEVOFLOXACIN <=0.5 S MEROPENEM <=1 S PIPERACILLIN/TAZOBACTAM <=8 S TRIMETHOPRIM/SULFAMETHOXAZOLE <=0.5/9.5 S TETRACYCLINE <=4 S TOBRAMYCIN <=2 S Objective Assessment Abdominal incision infection post-hernia surgery. GPR, Staph aureus and Enterobacter cloacae Incarcerated ventral hernia, status post surgery, resection, enterotomy repair, and a biologic mesh placement on of the last month. Diabetes. Hypertension. Obesity. h/o lung cancer s/p chemo. Port-A-Cath still in place Plan Plan of Care Vancomycin, Zosyn Monitor renal function closely. Trough 13.8 on 01/17. Probiotics Bowel regime Wound care as directed Follow-up cultures Supportive care Attending Co-Sign The patient was seen and interviewed as well as examined at the bedside. The chart was reviewed. The case was discussed. Agree with the plan of care. ROD CABRERA APRN Jan 19, 2020 11:19 CELENA BLEDSOE MD Jan 19, 2020 12:47
--- NOTE | 2020-01-19 11:49 | PDOC ---
PROGRESS NOTES Date of Service: DATE: 01/19/20 TIME: 11:49 Chief Complaint Chief Complaint IMPRESSION POST-OP Wound infection Post-op Diagnosis: Incarcerated ventral hernia with high-grade bowel obstruction 12/29/19 RECENT partial SBO Incarcerated umbilical hernia pre-op Acute renal failurevasomotor nephropathy resolving Hypertension Diabetes Dyslipidemia History of constipation// inc senna to qid COPD GERD AEROBIC CULTURE Preliminary Preliminary MANY GRAM POSITIVE COCCI on 01/18/20 at 1333 FINAL ID= [STAPHYLOCOCCUS AUREUS] MANY GRAM NEGATIVE RODS on 01/18/20 at 1333 FINAL ID= [ENTEROBACTER CLOACAE COMPLEX] 39 MIN pt exam, chart review, > 50% of time spent with exam, chart review, pt care coordination History of Present Illness History of Present Illness 01/18/2020 Patient seen and examined Ventral dressing is CDI Wound vacuum attached Discussed with RN Charts reviewed 01/17/2020 Patient seen and examined Ventral dressing is clean, dry and intact Discussed with RN Reviewed Charts Vitals Vitals Vital Signs Date Time Temp Pulse Resp B/P (MAP) Pulse Ox O2 Delivery O2 Flow Rate FiO2 01/19/20 11:46 93 Room Air 01/19/20 10:58 98.0 93 20 149/93 (111) 98.0 01/18/20 08:00 5.0 Physical Exam Physical Exam GENERAL: Sitting in the chair, alert, in NAD HEENT: Oral cavity pink, moist. No thrush NECK: Supple, no JVP, no lymphadenopathy. LUNGS: Clear. HEART: S1, S2 regular. ABDOMEN: Obese, BS present, wound vac in place, mild area redness and induration EXTREMITIES: No edema, cyanosis. SKIN: without signs of rash NEUROLOGIC: Alert, awake and appropriate. No focal neurologic deficit. PIV Port-A-Cath not in use, clean General: Alert, Oriented X3, Cooperative Heart: Regular rate, No murmurs Lungs: Clear Abdomen: Soft, Other (vac in place) Extremities: No cyanosis Labs LABS Laboratory Tests Test 01/18/20 11:58 01/18/20 17:02 01/18/20 20:43 01/19/20 04:10 Glucose (Fingerstick) 169 mg/dL (70-99) 164 mg/dL (70-99) 168 mg/dL (70-99) Creatinine 1.1 mg/dL (0.7-1.3) Estimated GFR (Cockcroft-Gault) 69.0 Test 01/19/20 07:52 01/19/20 11:25 Glucose (Fingerstick) 105 mg/dL (70-99) 153 mg/dL (70-99) Comment Review of Relevant I have reviewed the following items catarina (where applicable) has been applied. Labs Laboratory Tests Test 01/17/20 17:08 01/17/20 20:58 01/18/20 01:15 01/18/20 02:00 Glucose (Fingerstick) 137 mg/dL (70-99) 233 mg/dL (70-99) Vancomycin Level Trough 13.8 mcg/mL (10.0-20.0) Vancomycin Last Dose Date Vancomycin Last Dose Time 1400 Creatinine 1.4 mg/dL (0.7-1.3) Estimated GFR (Cockcroft-Gault) 52.2 Test 01/18/20 07:49 01/18/20 11:58 01/18/20 17:02 01/18/20 20:43 Glucose (Fingerstick) 107 mg/dL (70-99) 169 mg/dL (70-99) 164 mg/dL (70-99) 168 mg/dL (70-99) Test 01/19/20 04:10 01/19/20 07:52 01/19/20 11:25 Creatinine 1.1 mg/dL (0.7-1.3) Estimated GFR (Cockcroft-Gault) 69.0 Glucose (Fingerstick) 105 mg/dL (70-99) 153 mg/dL (70-99) Laboratory Tests Test 01/18/20 11:58 01/18/20 17:02 01/18/20 20:43 01/19/20 04:10 Glucose (Fingerstick) 169 mg/dL (70-99) 164 mg/dL (70-99) 168 mg/dL (70-99) Creatinine 1.1 mg/dL (0.7-1.3) Estimated GFR (Cockcroft-Gault) 69.0 Test 01/19/20 07:52 01/19/20 11:25 Glucose (Fingerstick) 105 mg/dL (70-99) 153 mg/dL (70-99) Microbiology 01/16/20 Gram Stain - Final, Resulted 01/16/20 Aerobic Culture - Preliminary, Resulted 01/16/20 Antimicrobic Susceptibility - Preliminary, Resulted 01/16/20 Blood Culture - Preliminary, Resulted NO GROWTH AFTER 2 DAYS Medications Current Medications Sodium Chloride (Normal Saline Flush) 3 ml QSHIFT PRN IV AFTER MEDS AND BLOOD DRAWS; Start 01/16/20 at 12:45 Sodium Chloride 1,000 ml @ 100 mls/hr Q10H IV Last administered on 01/19/20at 10:16; Start 01/16/20 at 12:37 Ondansetron HCl (Zofran) 4 mg PRN Q4HRS PRN IV NAUSEA/VOMITING; Start 01/16/20 at 12:45 Al Hydroxide/Mg Hydroxide (Mylanta Plus Xs) 30 ml PRN DAILY PRN PO HEARTBURN / GAS; Start 01/16/20 at 12:45 Clonidine HCl (Catapres) 0.1 mg PRN Q6HRS PRN PO SBP>160 OR DBP>90; Start 01/16/20 at 12:45 Docusate Sodium (Colace) 100 mg PRN BID PRN PO HARD STOOLS; Start 01/16/20 at 12:45 Albuterol/ Ipratropium (Duoneb) 3 ml Q4H NEB Last administered on 01/19/20at 11:46; Start 01/16/20 at 12:45 Guaifenesin (Robitussin) 200 mg PRN Q4HRS PRN PO COUGH Last administered on 01/19/20at 01:54; Start 01/16/20 at 12:45 Vancomycin HCl (Vanco Per Pharmacy) 1 each PRN DAILY PRN MC SEE COMMENTS Last administered on 01/19/20at 09:01; Start 01/16/20 at 12:45 Piperacillin Sod/ Tazobactam Sod 3.375 gm/Sodium Chloride 50 ml @ 100 mls/hr Q6HRS IV Last administered on 01/19/20at 06:09; Start 01/16/20 at 13:00 Ergocalciferol (Vitamin D2) 50,000 unit QMONFR PO Last administered on 01/18/20at 17:37; Start 01/18/20 at 16:00 Furosemide (Lasix) 40 mg DAILY PO ; Start 01/16/20 at 13:30; Stop 01/16/20 at 16:13; Status DC Levothyroxine Sodium (Synthroid) 88 mcg DAILYAC PO ; Start 01/16/20 at 13:30; Stop 01/17/20 at 01:31; Status DC Lisinopril (Prinivil) 10 mg DAILY PO Last administered on 01/19/20at 08:55; Start 01/16/20 at 13:30 Nortriptyline HCl (Pamelor) 50 mg QHS PO Last administered on 01/18/20at 21:08; Start 01/16/20 at 21:00 Oxycodone/ Acetaminophen (Percocet 10/325) 1 tab HS PO ; Start 01/16/20 at 21:00; Stop 01/16/20 at 16:16; Status DC Oxycodone/ Acetaminophen (Percocet 10/325) 1 tab PRN Q4HRS PRN PO MODERATE PAIN; Start 01/16/20 at 13:00; Status Cancel Simvastatin (Zocor) 20 mg HS PO Last administered on 01/18/20at 21:08; Start 01/16/20 at 21:00 Carvedilol (Coreg) 6.25 mg BIDWMEALS PO ; Start 01/16/20 at 17:00; Stop 01/16/20 at 16:13; Status DC Insulin Glargine (Lantus Syringe) 30 unit QHS SQ Last administered on 01/18/20at 22:08; Start 01/16/20 at 21:00 Pantoprazole Sodium (Protonix) 40 mg DAILYAC PO Last administered on 01/19/20at 08:55; Start 01/16/20 at 13:30 Aspirin (Aspirin Chewable) 81 mg DAILY PO Last administered on 01/19/20at 08:55; Start 01/17/20 at 09:00 Oxycodone/ Acetaminophen (Percocet 10/325) 1 tab PRN Q4HRS PRN PO PAIN; Start 01/16/20 at 16:00; Stop 01/16/20 at 16:19; Status DC Sennosides (Senna) 8.6 mg BID PO Last administered on 01/19/20at 08:55; Start 01/16/20 at 14:00 Vancomycin HCl 2 gm/Sodium Chloride 500 ml @ 250 mls/hr 1X ONCE IV Last administered on 01/16/20 14:07; Start 01/16/20 at 13:30; Stop 01/16/20 at 15:29; Status DC Vancomycin HCl 1.5 gm/Sodium Chloride 500 ml @ 250 mls/hr Q12H IV Last administered on 01/19/20 01:55; Start 01/17/20 at 02:00 Vancomycin HCl (Vancomycin Trough Level) 1 each 1X ONCE MC Last administered on 01/18/20at 01:25; Start 01/18/20 at 01:30; Stop 01/18/20 at 01:31; Status DC Lactobacillus Rhamnosus (Culturelle) 1 cap BID PO Last administered on 01/19/20 08:55; Start 01/16/20 at 21:00 Carvedilol (Coreg) 6.25 mg 1400,2200 PO Last administered on 01/18/20at 22:09; Start 01/16/20 at 22:00 Furosemide (Lasix) 40 mg DAILY PO Last administered on 01/19/20at 08:55; Start 01/16/20 at 17:00 Oxycodone/ Acetaminophen (Percocet 10/325) 1 tab Q4H PO Last administered on 01/16/20at 18:04; Start 01/16/20 at 18:00; Stop 01/16/20 at 19:26; Status DC Oxycodone/ Acetaminophen (Percocet 10/325) 1 tab PRN Q4HRS PRN PO BREAKTHROUGH PAIN Last administered on 01/19/20at 10:11; Start 01/16/20 at 22:20 Oxycodone HCl (Roxicodone) 10 mg Q4HRS PO Last administered on 01/16/20 22:08; Start 01/16/20 at 22:00; Stop 01/17/20 at 01:38; Status DC Oxycodone HCl (Roxicodone) 10 mg 1X ONCE PO Last administered on 01/16/20at 19:39; Start 01/16/20 at 19:30; Stop 01/16/20 at 19:33; Status DC Levothyroxine Sodium (Synthroid) 88 mcg DAILY05 PO Last administered on 01/19/20at 04:21; Start 01/17/20 at 05:00 Oxycodone HCl (Roxicodone) 10 mg Q4H PO Last administered on 01/19/20at 10:11; Start 01/17/20 at 02:00 Active Scripts Active Reported Percocet 10-325 Mg Tablet (Oxycodone/Acetaminophen) 1 Each Tablet 1 Tab PO Q4HRS MDD 6 Tablet(s) 3 Days Senna Laxative (Sennosides) 8.6 Mg Tablet 1 Tab PO Q4HRS 30 Days Aspirin 81 Mg Tab.chew 1 Tab PO DAILY Metformin Hcl 1,000 Mg Tablet 1,000 Mg PO BIDWMEALS Lisinopril 10 Mg Tablet 1 Tab PO DAILY Levothyroxine Sodium 88 Mcg Tablet 88 Mcg PO DAILYAC Lasix (Furosemide) 40 Mg Tablet 40 Mg PO DAILY Lantus Solostar (Insulin Glargine,Hum.rec.anlog) 100 Unit/1 Ml Insuln.pen 30 Unit SQ QHS Vitamin D2 (Ergocalciferol (Vitamin D2)) 1,250 Mcg Capsule 1,250 Mcg PO QMONFR Nortriptyline Hcl 25 Mg Capsule 2 Cap PO QHS Omeprazole 40 Mg Capsule.dr 40 Mg PO DAILY Simvastatin 20 Mg Tablet 20 Mg PO HS Coreg (Carvedilol) 25 Mg Tablet 6.25 Mg PO BIDWMEALS Vitals/I & O Vital Sign - Last 24 Hours 01/18/20 01/18/20 01/18/20 01/18/20 14:48 14:49 14:50 15:00 Temp 98.1 98.1 Pulse 96 110 Resp 20 20 20 B/P (MAP) 127/77 117/72 (87) Pulse Ox 93 93 97 O2 Delivery Room Air Room Air Room Air 01/18/20 01/18/20 01/18/20 01/18/20 15:46 16:00 16:00 18:26 Resp 20 20 20 Pulse Ox 96 94 94 94 O2 Delivery Room Air Room Air Room Air Room Air 01/18/20 01/18/20 01/18/20 01/18/20 18:27 19:00 19:26 19:26 Temp 98.1 98.1 Pulse 98 Resp 20 20 20 20 B/P (MAP) 123/83 (96) Pulse Ox 94 96 O2 Delivery Room Air Room Air Room Air Room Air 01/18/20 01/18/20 01/18/207/20 20:00 20:30 22:02 22:03 Resp 20 20 Pulse Ox 97 O2 Delivery Room Air Room Air Room Air Room Air 01/18/20 01/18/20 01/18/20 01/18/20 22:09 23:00 23:02 23:02 Temp 99.4 99.4 Pulse 98 105 Resp 20 20 20 B/P (MAP) 123/83 123/87 (99) Pulse Ox 92 O2 Delivery Room Air Room Air Room Air 01/18/20 01/19/20 01/19/20 01/19/20 23:39 01:54 01:54 02:38 Resp 20 20 Pulse Ox 93 O2 Delivery Room Air Room Air Room Air Room Air 01/19/20 01/19/20 01/19/20 01/19/20 02:54 02:54 03:00 06:08 Temp 98.5 98.5 Pulse 97 Resp 20 20 20 20 B/P (MAP) 110/81 (91) Pulse Ox 93 O2 Delivery Room Air Room Air Room Air Room Air 01/19/20 01/19/20 01/19/20 01/19/20 06:08 07:00 07:47 08:53 Temp 98.1 98.1 Pulse 92 Resp 20 20 B/P (MAP) 113/89 (97) Pulse Ox 94 O2 Delivery Room Air Room Air Room Air Room Air 01/19/20 01/19/20 01/19/20 01/19/20 08:54 08:55 10:11 10:11 Pulse 92 B/P (MAP) 113/89 O2 Delivery Room Air Room Air Room Air 01/19/20 01/19/20 10:58 11:46 Temp 98.0 98.0 Pulse 93 Resp 20 B/P (MAP) 149/93 (111) Pulse Ox 94 93 O2 Delivery Room Air Room Air Intake and Output 01/18/20 01/18/20 01/19/20 15:00 23:00 07:00 Intake Total 350 ml 850 ml 1400 ml Output Total 800 ml 850 ml 1600 ml Balance -450 ml 0 ml -200 ml Justicifation of Admission Dx: Justifications for Admission: Justification of Admission Dx: N/A JONO DAVIS MD Jan 19, 2020 11:49
[2020-01-19] MEDS: CARVEDILOL 6.25 MG TABLET. PO SCH ×2 (14:14→22:01)
[2020-01-19 15:00] VITALS: BP 157/103
[2020-01-19 19:00] VITALS: BP 129/88
[2020-01-19] MEDS: INSULIN GLARGINE SYRINGE. SQ SCH (21:00)
[2020-01-19] MEDS: SIMVASTATIN 20 MG TABLET PO SCH (21:20)
[2020-01-19] MEDS: NORTRIPTYLINE 25 MG CAPSULE PO SCH (21:20)
[2020-01-19 23:00] VITALS: BP 122/82
[2020-01-20] MEDS: PIPERACILLIN/TAZOBACTAM 3.375 GM in IV NORMAL SALINE 50ML 50 ML IV SCH ×4 (00:11→18:04)
[2020-01-20] MEDS: IPRATRPIUM/ALBUTEROL 0.5/2.5MG 3 ML NEBU. NEB SCH ×6 (00:27→20:11)
[2020-01-20] MEDS: oxyCODONE/APAP 10/325 1 TAB TABLET PO PRN ×6 (02:02→22:01)
[2020-01-20] MEDS: oxyCODONE IR 5 MG TABLET PO SCH ×6 (02:02→22:02)
[2020-01-20] MEDS: VANCOMYCIN 1.5 GM in IV NORMAL SALINE 500ML BAG 500 ML IV SCH ×2 (02:02→14:08)
[2020-01-20 03:00] VITALS: BP 139/100
[2020-01-20] MEDS: LEVOTHYROXINE 88 MCG TABLET PO SCH (05:51)
[2020-01-20] MEDS: guaiFENesin ORAL 200 MG/10 ML LIQUID. PO PRN ×2 (05:51→22:02)
[2020-01-20] MEDS: DOCUSATE SODIUM 100 MG CAPSULE. PO PRN (05:52)
[2020-01-20 07:00] VITALS: BP 132/97
--- NOTE | 2020-01-20 08:40 | PDOC ---
PULMONARY PROGRESS NOTES DATE: 01/20/20 TIME: 08:39 Subjective no soa, has occ cough, no CP is obese no psg done Vitals Vital Signs Date Time Temp Pulse Resp B/P (MAP) Pulse Ox O2 Delivery O2 Flow Rate FiO2 01/20/20 07:38 94 Room Air 01/20/20 05:52 20 01/20/20 03:00 98.9 102 139/100 (113) 98.9 ROS: No Nausea, No Chest Pain General: Alert, No acute distress HEENT: Other (nc at perrl ) Lungs: Wheezing Cardiovascular: S1, S2 Abdomen: Soft, Non-tender, Other (distended, dressing midline) Neuro Exam: Alert Extremities: No Edema Skin: Warm Labs Laboratory Tests Test 01/18/20 11:58 01/18/20 17:02 01/18/20 20:43 01/19/20 04:10 Glucose (Fingerstick) 169 mg/dL (70-99) 164 mg/dL (70-99) 168 mg/dL (70-99) Creatinine 1.1 mg/dL (0.7-1.3) Estimated GFR (Cockcroft-Gault) 69.0 Test 01/19/20 07:52 01/19/20 11:25 01/19/20 16:40 01/19/20 21:01 Glucose (Fingerstick) 105 mg/dL (70-99) 153 mg/dL (70-99) 159 mg/dL (70-99) 144 mg/dL (70-99) Test 01/20/20 07:44 Glucose (Fingerstick) 133 mg/dL (70-99) Laboratory Tests Test 01/19/20 11:25 01/19/20 16:40 01/19/20 21:01 01/20/20 07:44 Glucose (Fingerstick) 153 mg/dL (70-99) 159 mg/dL (70-99) 144 mg/dL (70-99) 133 mg/dL (70-99) Medications Active Scripts Medications Dose Route/Sig Max Daily Dose Days Date Category Percocet 10-325 Mg Tablet (Oxycodone/Acetaminophen) 1 Each Tablet 1 Tab PO Q4HRS MDD 6 Tablet(s) 3 01/16/20 Reported Senna Laxative (Sennosides) 8.6 Mg Tablet 1 Tab PO Q4HRS 30 01/16/20 Reported Aspirin 81 Mg Tab.chew 1 Tab PO DAILY 01/16/20 Reported Metformin Hcl 1,000 Mg Tablet 1,000 Mg PO BIDWMEALS 01/03/20 Reported Lisinopril 10 Mg Tablet 1 Tab PO DAILY 01/03/20 Reported Levothyroxine Sodium 88 Mcg Tablet 88 Mcg PO DAILYAC 01/03/20 Reported Lasix (Furosemide) 40 Mg Tablet 40 Mg PO DAILY 01/03/20 Reported Lantus Solostar (Insulin Glargine,Hum.rec.anlog) 100 Unit/1 Ml Insuln.pen 30 Unit SQ QHS 01/03/20 Reported Vitamin D2 (Ergocalciferol (Vitamin D2)) 1,250 Mcg Capsule 1,250 Mcg PO QMONFR 01/03/20 Reported Nortriptyline Hcl 25 Mg Capsule 2 Cap PO QHS 01/03/20 Reported Omeprazole 40 Mg Capsule.dr 40 Mg PO DAILY 01/03/20 Reported Simvastatin 20 Mg Tablet 20 Mg PO HS 01/03/20 Reported Coreg (Carvedilol) 25 Mg Tablet 6.25 Mg PO BIDWMEALS 01/03/[address] of chest reviewed 1.5 cm noncalcified nodule is seen involving the left lower lobe. . No additional significant pulmonary nodule is seen. Impression . 1. Smooth noncalcified left lower lobe nodule about 1.5 cm in size. This was also seen in previous CAT scan done in December. The patient has known history of lung cancer, being followed at , he is status post chemo and radiation. 2. Abdominal incision infection post-hernia surgery. 3. Incarcerated ventral hernia, status post surgery and enterotomy, and synthetic mesh placement. 4. Diabetes. 5. Morbid obesity prob shanel. 6. wheezing/copd Plan . 1. CT chest reviewed. 1.5 cm LLL nodule. No other mass or adenopathy seen 2. The patient has been followed at regularly every [address] chest follows. We would recommend to continue to follow up at . discussed w pt 3. cont BD, has wheezing will start ICS 4. Antibiotics per Infectious Disease. 5. Follow Surgical input. 6. psg as out pt Discussed with RN. We will follow along with you. MARYLOU BRENNER MD Jan 20, 2020 08:40
[2020-01-20] MEDS: PANTOPRAZOLE 40 MG TABLET.DR. PO SCH (08:44)
[2020-01-20] MEDS: SENNOSIDES 8.6 MG TABLET PO SCH ×4 (08:44→22:01)
[2020-01-20] MEDS: FUROSEMIDE 40 MG TABLET. PO SCH (08:44)
[2020-01-20] MEDS: ASPIRIN CHEWABLE 81 MG TABLET. PO SCH (08:44)
[2020-01-20] MEDS: LISINOPRIL 10 MG TABLET PO SCH (08:44)
[2020-01-20] MEDS: LACTOBACILLUS RHAMNOSUS GG 1 CAPSULE. PO SCH ×2 (08:44→22:01)
[2020-01-20] MEDS ORDERED: BUDESONIDE 0.5 MG/2 ML NEBU. NEB ONE (08:45)
[2020-01-20] MEDS: IV NORMAL SALINE 1000ML BAG 1,000 ML IV SCH ×2 (08:47→16:58)
--- NOTE | 2020-01-20 10:56 | PDOC ---
PROGRESS NOTES Date of Service: DATE: 01/20/20 TIME: 10:55 Chief Complaint Chief Complaint IMPRESSION POST-OP Wound infection Post-op Diagnosis: Incarcerated ventral hernia with high-grade bowel obstruction 12/29/19 RECENT partial SBO Incarcerated umbilical hernia pre-op Acute renal failurevasomotor nephropathy resolving Hypertension Diabetes Dyslipidemia History of constipation// inc senna to qid COPD GERD AEROBIC CULTURE Preliminary Preliminary MANY GRAM POSITIVE COCCI on 01/18/20 at 1333 FINAL ID= [STAPHYLOCOCCUS AUREUS] MANY GRAM NEGATIVE RODS on 01/18/20 at 1333 FINAL ID= [ENTEROBACTER CLOACAE COMPLEX] 41 MIN pt exam, chart review, > 50% of time spent with exam, chart review, pt care coordination History of Present Illness History of Present Illness 01/18/2020 Patient seen and examined Ventral dressing is CDI Wound vacuum attached Discussed with RN Charts reviewed 01/17/2020 Patient seen and examined Ventral dressing is clean, dry and intact Discussed with RN Reviewed Charts Vitals Vitals Vital Signs Date Time Temp Pulse Resp B/P (MAP) Pulse Ox O2 Delivery O2 Flow Rate FiO2 01/20/20 10:05 Room Air 01/20/20 08:44 90 132/97 01/20/20 07:38 94 01/20/20 07:00 98.2 18 98.2 Physical Exam Physical Exam GENERAL: Sitting in the chair, alert, in NAD HEENT: Oral cavity pink, moist. No thrush NECK: Supple, no JVP, no lymphadenopathy. LUNGS: Clear. HEART: S1, S2 regular. ABDOMEN: Obese, BS present, wound vac in place, mild area redness and induration EXTREMITIES: No edema, cyanosis. SKIN: without signs of rash NEUROLOGIC: Alert, awake and appropriate. No focal neurologic deficit. PIV Port-A-Cath not in use, clean General: Alert, Oriented X3, Cooperative Heart: Regular rate, No murmurs Lungs: Wheezing Abdomen: Soft, Other (vac in place) Extremities: No cyanosis Labs LABS ANTIMICROBIAL SUSCEPTIBILITY Final POS PETER TYPE 38 STAPHYLOCOCCUS AUREUS (MRSA) ANTIBIOTIC RESULT INTERPRETATION AZITHROMYCIN >4 R CLINDAMYCIN <=0.25 R* CEFOXITIN SCREEN >4 POS CIPROFLOXACIN <=1 S CEFTAROLINE <=0.5 S DAPTOMYCIN <=0.5 S ERYTHROMYCIN >4 R GENTAMICIN <=4 S INDUCIBLE CLINDAMYCIN >4/0.5 POS LINEZOLID 2 S LEVOFLOXACIN <=1 S OXACILLIN >2 R PENICILLIN >2 R* RIFAMPIN <=1 S TRIMETHOPRIM/SULFAMETHOXAZOLE <=0.5/9.5 S TETRACYCLINE <=4 S VANCOMYCIN 1 S NEG PETER 56 ENTEROBACTER CLOACAE COMPLEX ANTIBIOTIC RESULT INTERPRETATION AMPICILLIN/SULBACTAM <=4/2 R* AMIKACIN <=16 S AMPICILLIN <=8 R* AMOXICILLIN/K CLAVULANATE <=8/4 R* AZTREONAM <=4 S CEFTRIAXONE <=1 S CEFTAZIDIME <=1 S CEFOTAXIME <=2 S CEFOXITIN <=8 R* CIPROFLOXACIN <=0.25 S CEFEPIME <=2 S CEFUROXIME <=4 R* ERTAPENEM <=0.5 S GENTAMICIN <=2 S LEVOFLOXACIN <=0.5 S MEROPENEM <=1 S PIPERACILLIN/TAZOBACTAM <=8 S TRIMETHOPRIM/SULFAMETHOXAZOLE <=0.5/9.5 S TETRACYCLINE <=4 S TOBRAMYCIN <=2 S Objective Assessment Abdominal incision infection post-hernia surgery. GPR (no growth), MRSA and Enterobacter cloacae Incarcerated ventral hernia, status post surgery, resection, enterotomy repair, and a biologic mesh placement on 18 of the last month. Diabetes. Hypertension. Obesity. h/o lung cancer s/p chemo. Port-A-Cath still in place Plan Laboratory Tests Test 01/19/20 11:25 01/19/20 16:40 01/19/20 21:01 01/20/20 07:44 Glucose (Fingerstick) 153 mg/dL (70-99) 159 mg/dL (70-99) 144 mg/dL (70-99) 133 mg/dL (70-99) Comment Review of Relevant I have reviewed the following items catarina (where applicable) has been applied. Labs Laboratory Tests Test 01/18/20 11:58 01/18/20 17:02 01/18/20 20:43 01/19/20 04:10 Glucose (Fingerstick) 169 mg/dL (70-99) 164 mg/dL (70-99) 168 mg/dL (70-99) Creatinine 1.1 mg/dL (0.7-1.3) Estimated GFR (Cockcroft-Gault) 69.0 Test 01/19/20 07:52 01/19/20 11:25 01/19/20 16:40 01/19/20 21:01 Glucose (Fingerstick) 105 mg/dL (70-99) 153 mg/dL (70-99) 159 mg/dL (70-99) 144 mg/dL (70-99) Test 01/20/20 07:44 Glucose (Fingerstick) 133 mg/dL (70-99) Laboratory Tests Test 01/19/20 11:25 01/19/20 16:40 01/19/20 21:01 01/20/20 07:44 Glucose (Fingerstick) 153 mg/dL (70-99) 159 mg/dL (70-99) 144 mg/dL (70-99) 133 mg/dL (70-99) Microbiology 01/16/20 Gram Stain - Final, Resulted 01/16/20 Aerobic Culture - Preliminary, Resulted 01/16/20 Antimicrobic Susceptibility - Preliminary, Resulted 01/16/20 Blood Culture - Preliminary, Resulted NO GROWTH AFTER 3 DAYS Medications Current Medications Sodium Chloride (Normal Saline Flush) 3 ml QSHIFT PRN IV AFTER MEDS AND BLOOD DRAWS; Start 01/16/20 at 12:45 Sodium Chloride 1,000 ml @ 100 mls/hr Q10H IV Last administered on 01/20/20at 08:47; Start 01/16/20 at 12:37 Ondansetron HCl (Zofran) 4 mg PRN Q4HRS PRN IV NAUSEA/VOMITING; Start 01/16/20 at 12:45 Al Hydroxide/Mg Hydroxide (Mylanta Plus Xs) 30 ml PRN DAILY PRN PO HEARTBURN / GAS; Start 01/16/20 at 12:45 Clonidine HCl (Catapres) 0.1 mg PRN Q6HRS PRN PO SBP>160 OR DBP>90; Start 01/16/20 at 12:45 Docusate Sodium (Colace) 100 mg PRN BID PRN PO HARD STOOLS Last administered on 01/20/20at 05:52; Start 01/16/20 at 12:45 Albuterol/ Ipratropium (Duoneb) 3 ml Q4H NEB Last administered on 01/20/20at 07:38; Start 01/16/20 at 12:45 Guaifenesin (Robitussin) 200 mg PRN Q4HRS PRN PO COUGH Last administered on 01/20/20 05:51; Start 01/16/20 at 12:45 Vancomycin HCl (Vanco Per Pharmacy) 1 each PRN DAILY PRN MC SEE COMMENTS Last administered on 01/19/20at 09:01; Start 01/16/20 at 12:45 Piperacillin Sod/ Tazobactam Sod 3.375 gm/Sodium Chloride 50 ml @ 100 mls/hr Q6HRS IV Last administered on 01/20/20at 05:52; Start 01/16/20 at 13:00 Ergocalciferol (Vitamin D2) 50,000 unit QMONFR PO Last administered on 01/18/20at 17:37; Start 01/18/20 at 16:00 Furosemide (Lasix) 40 mg DAILY PO ; Start 01/16/20 at 13:30; Stop 01/16/20 at 16:13; Status DC Levothyroxine Sodium (Synthroid) 88 mcg DAILYAC PO ; Start 01/16/20 at 13:30; Stop 01/17/20 at 01:31; Status DC Lisinopril (Prinivil) 10 mg DAILY PO Last administered on 01/20/20at 08:44; Start 01/16/20 at 13:30 Nortriptyline HCl (Pamelor) 50 mg QHS PO Last administered on 01/19/20at 21:20; Start 01/16/20 at 21:00 Oxycodone/ Acetaminophen (Percocet 10/325) 1 tab HS PO ; Start 01/16/20 at 21:00; Stop 01/16/20 at 16:16; Status DC Oxycodone/ Acetaminophen (Percocet 10/325) 1 tab PRN Q4HRS PRN PO MODERATE PAIN; Start 01/16/20 at 13:00; Status Cancel Simvastatin (Zocor) 20 mg HS PO Last administered on 01/19/20at 21:20; Start 01/16/20 at 21:00 Carvedilol (Coreg) 6.25 mg BIDWMEALS PO ; Start 01/16/20 at 17:00; Stop 01/16/20 at 16:13; Status DC Insulin Glargine (Lantus Syringe) 30 unit QHS SQ Last administered on 01/19/20at 21:00; Start 01/16/20 at 21:00 Pantoprazole Sodium (Protonix) 40 mg DAILYAC PO Last administered on 01/20/20 08:44; Start 01/16/20 at 13:30 Aspirin (Aspirin Chewable) 81 mg DAILY PO Last administered on 01/20/20 08:44; Start 01/17/20 at 09:00 Oxycodone/ Acetaminophen (Percocet 10/325) 1 tab PRN Q4HRS PRN PO PAIN; Start 01/16/20 at 16:00; Stop 01/16/20 at 16:19; Status DC Sennosides (Senna) 8.6 mg BID PO Last administered on 01/19/20 08:55; Start 01/16/20 at 14:00; Stop 01/19/20 at 14:19; Status DC Vancomycin HCl 2 gm/Sodium Chloride 500 ml @ 250 mls/hr 1X ONCE IV Last administered on 01/16/20at 14:07; Start 01/16/20 at 13:30; Stop 01/16/20 at 15:29; Status DC Vancomycin HCl 1.5 gm/Sodium Chloride 500 ml @ 250 mls/hr Q12H IV Last administered on 01/20/20at 02:02; Start 01/17/20 at 02:00 Vancomycin HCl (Vancomycin Trough Level) 1 each 1X ONCE MC Last administered on 01/18/20 01:25; Start 01/18/20 at 01:30; Stop 01/18/20 at 01:31; Status DC Lactobacillus Rhamnosus (Culturelle) 1 cap BID PO Last administered on 01/20/20 08:44; Start 01/16/20 at 21:00 Carvedilol (Coreg) 6.25 mg 1400,2200 PO Last administered on 01/19/20 22:01; Start 01/16/20 at 22:00 Furosemide (Lasix) 40 mg DAILY PO Last administered on 01/20/20 08:44; Start 01/16/20 at 17:00 Oxycodone/ Acetaminophen (Percocet 10/325) 1 tab Q4H PO Last administered on 01/16/20at 18:04; Start 01/16/20 at 18:00; Stop 01/16/20 at 19:26; Status DC Oxycodone/ Acetaminophen (Percocet 10/325) 1 tab PRN Q4HRS PRN PO BREAKTHROUGH PAIN Last administered on 01/20/20at 10:05; Start 01/16/20 at 22:20 Oxycodone HCl (Roxicodone) 10 mg Q4HRS PO Last administered on 01/16/20at 22:08; Start 01/16/20 at 22:00; Stop 01/17/20 at 01:38; Status DC Oxycodone HCl (Roxicodone) 10 mg 1X ONCE PO Last administered on 01/16/20at 19:39; Start 01/16/20 at 19:30; Stop 01/16/20 at 19:33; Status DC Levothyroxine Sodium (Synthroid) 88 mcg DAILY05 PO Last administered on 01/20/20at 05:51; Start 01/17/20 at 05:00 Oxycodone HCl (Roxicodone) 10 mg Q4H PO Last administered on 01/20/20at 10:05; Start 01/17/20 at 02:00 Sennosides (Senna) 8.6 mg QID PO Last administered on 01/20/20at 08:44; Start 01/19/20 at 14:30 Budesonide (Pulmicort) 0.5 mg RTBID NEB ; Start 01/20/20 at 20:00 Budesonide (Pulmicort) 0.5 mg 1X ONCE NEB ; Start 01/20/20 at 08:45; Stop 01/20/20 at 08:59; Status DC Active Scripts Active Reported Percocet 10-325 Mg Tablet (Oxycodone/Acetaminophen) 1 Each Tablet 1 Tab PO Q4HRS MDD 6 Tablet(s) 3 Days Senna Laxative (Sennosides) 8.6 Mg Tablet 1 Tab PO Q4HRS 30 Days Aspirin 81 Mg Tab.chew 1 Tab PO DAILY Metformin Hcl 1,000 Mg Tablet 1,000 Mg PO BIDWMEALS Lisinopril 10 Mg Tablet 1 Tab PO DAILY Levothyroxine Sodium 88 Mcg Tablet 88 Mcg PO DAILYAC Lasix (Furosemide) 40 Mg Tablet 40 Mg PO DAILY Lantus Solostar (Insulin Glargine,Hum.rec.anlog) 100 Unit/1 Ml Insuln.pen 30 Unit SQ QHS Vitamin D2 (Ergocalciferol (Vitamin D2)) 1,250 Mcg Capsule 1,250 Mcg PO QMONFR Nortriptyline Hcl 25 Mg Capsule 2 Cap PO QHS Omeprazole 40 Mg Capsule.dr 40 Mg PO DAILY Simvastatin 20 Mg Tablet 20 Mg PO HS Coreg (Carvedilol) 25 Mg Tablet 6.25 Mg PO BIDWMEALS Vitals/I & O Vital Sign - Last 24 Hours 01/19/20 01/19/20 01/19/20 01/19/20 10:58 11:15 11:15 11:46 Temp 98.0 98.0 Pulse 93 Resp 20 B/P (MAP) 149/93 (111) Pulse Ox 94 93 O2 Delivery Room Air Room Air Room Air Room Air 01/19/20 01/19/20 01/19/20 01/19/20 14:12 14:12 14:14 15:00 Temp 97.8 97.8 Pulse 103 105 Resp 18 B/P (MAP) 142/77 157/103 (121) Pulse Ox 92 O2 Delivery Room Air Room Air Room Air 01/19/20 01/19/20 01/19/20 01/19/20 15:15 15:15 17:56 17:56 O2 Delivery Room Air Room Air Room Air Room Air 01/19/20 01/19/20 01/19/20 01/19/20 19:00 19:17 19:17 20:00 Temp 97.9 97.9 Pulse 105 Resp 18 B/P (MAP) 129/88 (102) Pulse Ox 91 O2 Delivery Room Air Room Air Room Air 01/19/20 01/19/20 01/19/20 01/19/20 20:54 22:01 22:01 22:01 Pulse 52 Resp 22 22 Pulse Ox 96 O2 Delivery Room Air 01/19/20 01/19/20 01/19/20 01/20/20 23:00 23:01 23:01 00:27 Temp 98.8 98.8 Pulse 104 Resp 20 20 20 B/P (MAP) 122/82 (95) Pulse Ox 92 O2 Delivery Room Air 01/20/20 01/20/20 01/20/20 01/20/20 02:02 02:02 03:00 03:10 Temp 98.9 98.9 Pulse 102 Resp 22 22 20 22 B/P (MAP) 139/100 (113) Pulse Ox 92 01/20/20 01/20/20 01/20/20 01/20/20 03:10 04:10 05:52 05:52 Resp O2 Delivery Room Air 01/20/20 01/20/20 01/20/20 01/20/20 07:00 07:38 08:05 08:44 Temp 98.2 98.2 Pulse 90 90 Resp 18 B/P (MAP) 132/97 (109) 132/97 Pulse Ox 90 94 O2 Delivery Room Air Room Air 01/20/20 01/20/20 01/20/20 01/20/20 08:47 08:47 10:05 10:05 O2 Delivery Room Air Room Air Room Air Room Air Intake and Output 01/19/20 01/19/20 01/20/20 15:00 23:00 07:00 Intake Total 360 ml 1440 ml 3065 ml Output Total 850 ml 1400 ml 1500 ml Balance -490 ml 40 ml 1565 ml Justicifation of Admission Dx: Justifications for Admission: Justification of Admission Dx: N/A JONO DAVIS MD Jan 20, 2020 10:56
[2020-01-20 11:00] VITALS: BP 114/81
--- NOTE | 2020-01-20 11:37 | PDOC ---
Infectious Disease Note Subjective Subjective Constipated, No BM yet. + flatus Denies N/V/F/C ROS ROS as mentioned above Vital Sign Vital Signs Vital Signs Date Time Temp Pulse Resp B/P (MAP) Pulse Ox O2 Delivery O2 Flow Rate FiO2 01/20/20 11:00 98.1 95 18 114/81 (92) 91 98.1 01/20/20 10:05 Room Air Physical Exam PHYSICAL EXAM GENERAL: Lying down, awake in NAD HEENT: Oral cavity pink, moist. No thrush NECK: Supple, no JVP, no lymphadenopathy. LUNGS: Clear. HEART: S1, S2 regular. ABDOMEN: Obese, BS present, wound vac in place, redness improving; some induration EXTREMITIES: No edema, cyanosis. SKIN: without signs of rash NEUROLOGIC: Alert, awake and appropriate. No focal neurologic deficit. PIV Port-A-Cath not in use, clean Labs Lab Laboratory Tests Test 01/19/20 16:40 01/19/20 21:01 01/20/20 07:44 Glucose (Fingerstick) 159 mg/dL (70-99) 144 mg/dL (70-99) 133 mg/dL (70-99) Micro 01/15. abdominal wound GRAM STAIN Final Final GRAM NEGATIVE RODS:FEW GRAM POSITIVE RODS:RARE GRAM POSITIVE COCCI:MODERATE SQUAMOUS EPI CELL:FEW PMN (WBCs):MODERATE AEROBIC CULTURE Final STAPHYLOCOCCUS AUREUS (MRSA) ENTEROBACTER CLOACAE COMPLEX ANTIMICROBIAL SUSCEPTIBILITY Final POS PETER TYPE 38 STAPHYLOCOCCUS AUREUS (MRSA) ANTIBIOTIC RESULT INTERPRETATION AZITHROMYCIN >4 R CLINDAMYCIN <=0.25 R* CEFOXITIN SCREEN >4 POS CIPROFLOXACIN <=1 S CEFTAROLINE <=0.5 S DAPTOMYCIN <=0.5 S ERYTHROMYCIN >4 R GENTAMICIN <=4 S INDUCIBLE CLINDAMYCIN >4/0.5 POS LINEZOLID 2 S LEVOFLOXACIN <=1 S OXACILLIN >2 R PENICILLIN >2 R* RIFAMPIN <=1 S TRIMETHOPRIM/SULFAMETHOXAZOLE <=0.5/9.5 S TETRACYCLINE <=4 S VANCOMYCIN 1 S NEG PETER 56 ENTEROBACTER CLOACAE COMPLEX ANTIBIOTIC RESULT INTERPRETATION AMPICILLIN/SULBACTAM <=4/2 R* AMIKACIN <=16 S AMPICILLIN <=8 R* AMOXICILLIN/K CLAVULANATE <=8/4 R* AZTREONAM <=4 S CEFTRIAXONE <=1 S CEFTAZIDIME <=1 S CEFOTAXIME <=2 S CEFOXITIN <=8 R* CIPROFLOXACIN <=0.25 S CEFEPIME <=2 S CEFUROXIME <=4 R* ERTAPENEM <=0.5 S GENTAMICIN <=2 S LEVOFLOXACIN <=0.5 S MEROPENEM <=1 S PIPERACILLIN/TAZOBACTAM <=8 S TRIMETHOPRIM/SULFAMETHOXAZOLE <=0.5/9.5 S TETRACYCLINE <=4 S TOBRAMYCIN <=2 S Objective Assessment Abdominal incision infection post-hernia surgery. GPR (no growth), MRSA and Enterobacter cloacae Incarcerated ventral hernia, status post surgery, resection, enterotomy repair, and a biologic mesh placement on of the last month. Diabetes. Hypertension. Obesity. h/o lung cancer s/p chemo. Port-A-Cath still in place Plan Plan of Care Vancomycin, Zosyn Monitor renal function closely. Cr 1.1, Trough 13.8 on 01/17. Probiotics Bowel regime Wound care as directed Follow-up BC - neg to date Supportive care Attending Co-Sign The patient was seen and interviewed as well as examined at the bedside. The chart was reviewed. The case was discussed. Agree with the plan of care. ROD CABRERA APRN Jan 20, 2020 11:37 CELENA BLEDSOE MD Jan 20, 2020 12:12
[2020-01-20] MEDS ORDERED: BISACODYL 10 MG SUPP.RECT. PR ONE (13:45)
[2020-01-20] MEDS: VANCOMYCIN PER PHARMACY MC PRN (14:42)
[2020-01-20 15:00] VITALS: BP 120/74
[2020-01-20] MEDS: CARVEDILOL 6.25 MG TABLET. PO SCH ×2 (15:08→22:01)
[2020-01-20 19:00] VITALS: BP 113/81
[2020-01-20] MEDS: BUDESONIDE 0.5 MG/2 ML NEBU. NEB SCH (20:11)
[2020-01-20] MEDS: NORTRIPTYLINE 25 MG CAPSULE PO SCH (22:01)
[2020-01-20] MEDS: SIMVASTATIN 20 MG TABLET PO SCH (22:01)
[2020-01-20] MEDS: INSULIN GLARGINE SYRINGE. SQ SCH (22:05)
[2020-01-20 23:00] VITALS: BP 135/90
--- NOTE | 2020-01-20 23:30 | NUR ---
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
[2020-01-21] VITALS (7 sets, daily range): BP systolic 118–147; BP diastolic 67–91
[2020-01-21] MEDS: PIPERACILLIN/TAZOBACTAM 3.375 GM in IV NORMAL SALINE 50ML 50 ML IV SCH ×4 (00:05→18:37)
[2020-01-21] MEDS: IPRATRPIUM/ALBUTEROL 0.5/2.5MG 3 ML NEBU. NEB SCH ×6 (01:00→20:19)
[2020-01-21] MEDS: IV NORMAL SALINE 1000ML BAG 1,000 ML IV SCH ×2 (02:23→21:11)
[2020-01-21] MEDS: VANCOMYCIN 1.5 GM in IV NORMAL SALINE 500ML BAG 500 ML IV SCH ×2 (02:23→16:02)
[2020-01-21] MEDS: oxyCODONE IR 5 MG TABLET PO SCH ×6 (02:24→22:00)
[2020-01-21] MEDS: oxyCODONE/APAP 10/325 1 TAB TABLET PO PRN ×6 (02:24→22:00)
[2020-01-21] MEDS: LEVOTHYROXINE 88 MCG TABLET PO SCH (05:01)
[2020-01-21 05:35] LABS: BASO % 1 % (0-3); EOS # 0.2 x10^3/uL (0.0-0.7); EOS % 2 % (0-3); HEMATOCRIT 31.1 % (39.0-53.0); HEMOGLOBIN 10.3 g/dL (13.0-17.5); LYMPH # 1.3 x10^3/uL (1.0-4.8); LYMPH % 17 % (24-48); MEAN CORPUSCULAR HEMOGLOBIN 30 pg (25-35); MEAN CORPUSCULAR HGB CONC 33 g/dL (31-37); MEAN CORPUSCULAR VOLUME 90 fL (79-100); MONO # 0.5 x10^3/uL (0.0-1.1); MONO % 7 % (0-9); NEUT # 5.7 x10^3/uL (1.8-7.7); NEUT % 74 % (31-73); PLATELET COUNT 591 x10^3/uL (140-400); RED BLOOD COUNT 3.47 x10^6/uL (4.30-5.70); RED CELL DISTRIBUTION WIDTH 14.3 % (11.5-14.5); WHITE BLOOD COUNT 7.8 x10^3/uL (4.0-11.0)
[2020-01-21 05:54] LABS: ALBUMIN 2.4 g/dL (3.4-5.0); ALBUMIN/GLOBULIN RATIO 0.6 (1.0-1.7); CALCIUM 8.6 mg/dL (8.5-10.1); CREATININE 1.1 mg/dL (0.7-1.3); POTASSIUM 3.3 mmol/L (3.5-5.1); TOTAL BILIRUBIN 0.2 mg/dL (0.2-1.0); TOTAL PROTEIN 6.7 g/dL (6.4-8.2)
[2020-01-21] MEDS: SENNOSIDES 8.6 MG TABLET PO SCH ×4 (06:36→18:37)
[2020-01-21] MEDS: BUDESONIDE 0.5 MG/2 ML NEBU. NEB SCH ×2 (07:44→20:19)
[2020-01-21] MEDS: PANTOPRAZOLE 40 MG TABLET.DR. PO SCH (09:13)
[2020-01-21] MEDS: LISINOPRIL 10 MG TABLET PO SCH (09:13)
[2020-01-21] MEDS: FUROSEMIDE 40 MG TABLET. PO SCH (09:13)
[2020-01-21] MEDS: LACTOBACILLUS RHAMNOSUS GG 1 CAPSULE. PO SCH ×2 (09:13→21:13)
[2020-01-21] MEDS: ASPIRIN CHEWABLE 81 MG TABLET. PO SCH (09:13)
[2020-01-21] MEDS: VANCOMYCIN PER PHARMACY MC PRN (09:18)
--- NOTE | 2020-01-21 10:04 | PDOC ---
PROGRESS NOTES Date of Service: DATE: 01/21/20 TIME: 10:04 Chief Complaint Chief Complaint IMPRESSION POST-OP Wound infection Post-op Diagnosis: Incarcerated ventral hernia with high-grade bowel obstruction 12/29/19 RECENT partial SBO Incarcerated umbilical hernia pre-op Acute renal failurevasomotor nephropathy resolving Hypertension Diabetes Dyslipidemia History of constipation// inc senna to qid COPD GERD AEROBIC CULTURE Preliminary Preliminary MANY GRAM POSITIVE COCCI on 01/18/20 at 1333 FINAL ID= [STAPHYLOCOCCUS AUREUS] MANY GRAM NEGATIVE RODS on 01/18/20 at 1333 FINAL ID= [ENTEROBACTER CLOACAE COMPLEX] dulcolax supp daily 31 MIN pt exam, chart review, > 50% of time spent with exam, chart review, pt care coordination History of Present Illness History of Present Illness 01/18/2020 Patient seen and examined Ventral dressing is CDI Wound vacuum attached Discussed with RN Charts reviewed 01/17/2020 Patient seen and examined Ventral dressing is clean, dry and intact Discussed with RN Reviewed Charts Vitals Vitals Vital Signs Date Time Temp Pulse Resp B/P (MAP) Pulse Ox O2 Delivery O2 Flow Rate FiO2 01/21/20 09:13 97 147/90 01/21/20 07:44 92 Room Air 01/21/20 07:12 20 01/21/20 07:00 98.3 98.3 Physical Exam Physical Exam GENERAL: Lying down, awake in NAD HEENT: Oral cavity pink, moist. No thrush NECK: Supple, no JVP, no lymphadenopathy. LUNGS: Clear. HEART: S1, S2 regular. ABDOMEN: Obese, BS present, wound vac in place, redness improving; some induration EXTREMITIES: No edema, cyanosis. SKIN: without signs of rash NEUROLOGIC: Alert, awake and appropriate. No focal neurologic deficit. PIV Port-A-Cath not in use, clean General: Alert, Oriented X3, Cooperative Heart: Regular rate, No murmurs Lungs: Wheezing Abdomen: Soft, Other (vac in place) Extremities: No cyanosis Labs LABS Laboratory Tests Test 01/20/20 11:30 01/20/20 17:06 01/20/20 21:44 01/21/20 05:00 Glucose (Fingerstick) 130 mg/dL (70-99) 164 mg/dL (70-99) 171 mg/dL (70-99) White Blood Count 7.8 x10^3/uL (4.0-11.0) Red Blood Count 3.47 x10^6/uL (4.30-5.70) Hemoglobin 10.3 g/dL (13.0-17.5) Hematocrit 31.1 % (39.0-53.0) Mean Corpuscular Volume 90 fL (79-100) Mean Corpuscular Hemoglobin 30 pg (25-35) Mean Corpuscular Hemoglobin Concent 33 g/dL (31-37) Red Cell Distribution Width 14.3 % (11.5-14.5) Platelet Count 591 x10^3/uL (140-400) Neutrophils (%) (Auto) 74 % (31-73) Lymphocytes (%) (Auto) 17 % (24-48) Monocytes (%) (Auto) 7 % (0-9) Eosinophils (%) (Auto) 2 % (0-3) Basophils (%) (Auto) 1 % (0-3) Neutrophils # (Auto) 5.7 x10^3/uL (1.8-7.7) Lymphocytes # (Auto) 1.3 x10^3/uL (1.0-4.8) Monocytes # (Auto) 0.5 x10^3/uL (0.0-1.1) Eosinophils # (Auto) 0.2 x10^3/uL (0.0-0.7) Basophils # (Auto) 0.0 x10^3/uL (0.0-0.2) Sodium Level 141 mmol/L (136-145) Potassium Level 3.3 mmol/L (3.5-5.1) Chloride Level 105 mmol/L (98-107) Carbon Dioxide Level 26 mmol/L (21-32) Anion Gap 10 (6-14) Blood Urea Nitrogen 10 mg/dL (8-26) Creatinine 1.1 mg/dL (0.7-1.3) Estimated GFR (Cockcroft-Gault) 69.0 BUN/Creatinine Ratio 9 (6-20) Glucose Level 124 mg/dL (70-99) Calcium Level 8.6 mg/dL (8.5-10.1) Total Bilirubin 0.2 mg/dL (0.2-1.0) Aspartate Amino Transf (AST/SGOT) 12 U/L (15-37) Alanine Aminotransferase (ALT/SGPT) 24 U/L (16-63) Alkaline Phosphatase 59 U/L (46-116) Total Protein 6.7 g/dL (6.4-8.2) Albumin 2.4 g/dL (3.4-5.0) Albumin/Globulin Ratio 0.6 (1.0-1.7) Test 01/21/20 07:11 Glucose (Fingerstick) 118 mg/dL (70-99) Comment Review of Relevant I have reviewed the following items catarina (where applicable) has been applied. Labs Laboratory Tests Test 01/19/20 11:25 01/19/20 16:40 01/19/20 21:01 01/20/20 07:44 Glucose (Fingerstick) 153 mg/dL (70-99) 159 mg/dL (70-99) 144 mg/dL (70-99) 133 mg/dL (70-99) Test 01/20/20 11:30 01/20/20 17:06 01/20/20 21:44 01/21/20 05:00 Glucose (Fingerstick) 130 mg/dL (70-99) 164 mg/dL (70-99) 171 mg/dL (70-99) White Blood Count 7.8 x10^3/uL (4.0-11.0) Red Blood Count 3.47 x10^6/uL (4.30-5.70) Hemoglobin 10.3 g/dL (13.0-17.5) Hematocrit 31.1 % (39.0-53.0) Mean Corpuscular Volume 90 fL (79-100) Mean Corpuscular Hemoglobin 30 pg (25-35) Mean Corpuscular Hemoglobin Concent 33 g/dL (31-37) Red Cell Distribution Width 14.3 % (11.5-14.5) Platelet Count 591 x10^3/uL (140-400) Neutrophils (%) (Auto) 74 % (31-73) Lymphocytes (%) (Auto) 17 % (24-48) Monocytes (%) (Auto) 7 % (0-9) Eosinophils (%) (Auto) 2 % (0-3) Basophils (%) (Auto) 1 % (0-3) Neutrophils # (Auto) 5.7 x10^3/uL (1.8-7.7) Lymphocytes # (Auto) 1.3 x10^3/uL (1.0-4.8) Monocytes # (Auto) 0.5 x10^3/uL (0.0-1.1) Eosinophils # (Auto) 0.2 x10^3/uL (0.0-0.7) Basophils # (Auto) 0.0 x10^3/uL (0.0-0.2) Sodium Level 141 mmol/L (136-145) Potassium Level 3.3 mmol/L (3.5-5.1) Chloride Level 105 mmol/L (98-107) Carbon Dioxide Level 26 mmol/L (21-32) Anion Gap 10 (6-14) Blood Urea Nitrogen 10 mg/dL (8-26) Creatinine 1.1 mg/dL (0.7-1.3) Estimated GFR (Cockcroft-Gault) 69.0 BUN/Creatinine Ratio 9 (6-20) Glucose Level 124 mg/dL (70-99) Calcium Level 8.6 mg/dL (8.5-10.1) Total Bilirubin 0.2 mg/dL (0.2-1.0) Aspartate Amino Transf (AST/SGOT) 12 U/L (15-37) Alanine Aminotransferase (ALT/SGPT) 24 U/L (16-63) Alkaline Phosphatase 59 U/L (46-116) Total Protein 6.7 g/dL (6.4-8.2) Albumin 2.4 g/dL (3.4-5.0) Albumin/Globulin Ratio 0.6 (1.0-1.7) Test 01/21/20 07:11 Glucose (Fingerstick) 118 mg/dL (70-99) Laboratory Tests Test 01/20/20 11:30 01/20/20 17:06 01/20/20 21:44 01/21/20 05:00 Glucose (Fingerstick) 130 mg/dL (70-99) 164 mg/dL (70-99) 171 mg/dL (70-99) White Blood Count 7.8 x10^3/uL (4.0-11.0) Red Blood Count 3.47 x10^6/uL (4.30-5.70) Hemoglobin 10.3 g/dL (13.0-17.5) Hematocrit 31.1 % (39.0-53.0) Mean Corpuscular Volume 90 fL (79-100) Mean Corpuscular Hemoglobin 30 pg (25-35) Mean Corpuscular Hemoglobin Concent 33 g/dL (31-37) Red Cell Distribution Width 14.3 % (11.5-14.5) Platelet Count 591 x10^3/uL (140-400) Neutrophils (%) (Auto) 74 % (31-73) Lymphocytes (%) (Auto) 17 % (24-48) Monocytes (%) (Auto) 7 % (0-9) Eosinophils (%) (Auto) 2 % (0-3) Basophils (%) (Auto) 1 % (0-3) Neutrophils # (Auto) 5.7 x10^3/uL (1.8-7.7) Lymphocytes # (Auto) 1.3 x10^3/uL (1.0-4.8) Monocytes # (Auto) 0.5 x10^3/uL (0.0-1.1) Eosinophils # (Auto) 0.2 x10^3/uL (0.0-0.7) Basophils # (Auto) 0.0 x10^3/uL (0.0-0.2) Sodium Level 141 mmol/L (136-145) Potassium Level 3.3 mmol/L (3.5-5.1) Chloride Level 105 mmol/L (98-107) Carbon Dioxide Level 26 mmol/L (21-32) Anion Gap 10 (6-14) Blood Urea Nitrogen 10 mg/dL (8-26) Creatinine 1.1 mg/dL (0.7-1.3) Estimated GFR (Cockcroft-Gault) 69.0 BUN/Creatinine Ratio 9 (6-20) Glucose Level 124 mg/dL (70-99) Calcium Level 8.6 mg/dL (8.5-10.1) Total Bilirubin 0.2 mg/dL (0.2-1.0) Aspartate Amino Transf (AST/SGOT) 12 U/L (15-37) Alanine Aminotransferase (ALT/SGPT) 24 U/L (16-63) Alkaline Phosphatase 59 U/L (46-116) Total Protein 6.7 g/dL (6.4-8.2) Albumin 2.4 g/dL (3.4-5.0) Albumin/Globulin Ratio 0.6 (1.0-1.7) Test 01/21/20 07:11 Glucose (Fingerstick) 118 mg/dL (70-99) Microbiology 01/16/20 Gram Stain - Final, Complete 01/16/20 Aerobic Culture - Final, Complete 01/16/20 Antimicrobic Susceptibility - Final, Complete 01/16/20 Blood Culture - Preliminary, Resulted NO GROWTH AFTER 4 DAYS Medications Current Medications Sodium Chloride (Normal Saline Flush) 3 ml QSHIFT PRN IV AFTER MEDS AND BLOOD DRAWS; Start 01/16/20 at 12:45 Sodium Chloride 1,000 ml @ 100 mls/hr Q10H IV Last administered on 01/21/20at 02:23; Start 01/16/20 at 12:37 Ondansetron HCl (Zofran) 4 mg PRN Q4HRS PRN IV NAUSEA/VOMITING; Start 01/16/20 a t 12:45 Al Hydroxide/Mg Hydroxide (Mylanta Plus Xs) 30 ml PRN DAILY PRN PO HEARTBURN / GAS; Start 01/16/20 at 12:45 Clonidine HCl (Catapres) 0.1 mg PRN Q6HRS PRN PO SBP>160 OR DBP>90; Start 01/16/20 at 12:45 Docusate Sodium (Colace) 100 mg PRN BID PRN PO HARD STOOLS Last administered on 01/20/20at 05:52; Start 01/16/20 at 12:45 Albuterol/ Ipratropium (Duoneb) 3 ml Q4H NEB Last administered on 01/21/20at 07:44; Start 01/16/20 at 12:45 Guaifenesin (Robitussin) 200 mg PRN Q4HRS PRN PO COUGH Last administered on 01/20/20at 22:02; Start 01/16/20 at 12:45 Vancomycin HCl (Vanco Per Pharmacy) 1 each PRN DAILY PRN MC SEE COMMENTS Last administered on 01/21/20at 09:18; Start 01/16/20 at 12:45 Piperacillin Sod/ Tazobactam Sod 3.375 gm/Sodium Chloride 50 ml @ 100 mls/hr Q6HRS IV Last administered on 01/21/20at 06:07; Start 01/16/20 at 13:00 Ergocalciferol (Vitamin D2) 50,000 unit QMONFR PO Last administered on 01/18/20at 17:37; Start 01/18/20 at 16:00 Furosemide (Lasix) 40 mg DAILY PO ; Start 01/16/20 at 13:30; Stop 01/16/20 at 16 :13; Status DC Levothyroxine Sodium (Synthroid) 88 mcg DAILYAC PO ; Start 01/16/20 at 13:30; Stop 01/17/20 at 01:31; Status DC Lisinopril (Prinivil) 10 mg DAILY PO Last administered on 01/21/20at 09:13; Start 01/16/20 at 13:30 Nortriptyline HCl (Pamelor) 50 mg QHS PO Last administered on 01/20/20at 22:01; Start 01/16/20 at 21:00 Oxycodone/ Acetaminophen (Percocet 10/325) 1 tab HS PO ; Start 01/16/20 at 21:00; Stop 01/16/20 at 16:16; Status DC Oxycodone/ Acetaminophen (Percocet 10/325) 1 tab PRN Q4HRS PRN PO MODERATE PAIN; Start 01/16/20 at 13:00; Status Cancel Simvastatin (Zocor) 20 mg HS PO Last administered on 01/20/20at 22:01; Start 01/16/20 at 21:00 Carvedilol (Coreg) 6.25 mg BIDWMEALS PO ; Start 01/16/20 at 17:00; Stop 01/16/20 at 16:13; Status DC Insulin Glargine (Lantus Syringe) 30 unit QHS SQ Last administered on 01/20/20at 22:05; Start 01/16/20 at 21:00 Pantoprazole Sodium (Protonix) 40 mg DAILYAC PO Last administered on 01/21/20at 09:13; Start 01/16/20 at 13:30 Aspirin (Aspirin Chewable) 81 mg DAILY PO Last administered on 01/21/20at 09:13; Start 01/17/20 at 09:00 Oxycodone/ Acetaminophen (Percocet 10/325) 1 tab PRN Q4HRS PRN PO PAIN; Start 01/16/20 at 16:00; Stop 01/16/20 at 16:19; Status DC Sennosides (Senna) 8.6 mg BID PO Last administered on 01/19/20at 08:55; Start 01/16/20 at 14:00; Stop 01/19/20 at 14:19; Status DC Vancomycin HCl 2 gm/Sodium Chloride 500 ml @ 250 mls/hr 1X ONCE IV Last administered on 01/16/20at 14:07; Start 01/16/20 at 13:30; Stop 01/16/20 at 15:29; Status DC Vancomycin HCl 1.5 gm/Sodium Chloride 500 ml @ 250 mls/hr Q12H IV Last administered on 01/21/20at 02:23; Start 01/17/20 at 02:00 Vancomycin HCl (Vancomycin Trough Level) 1 each 1X ONCE MC Last administered on 01/18/20at 01:25; Start 01/18/20 at 01:30; Stop 01/18/20 at 01:31; Status DC Lactobacillus Rhamnosus (Culturelle) 1 cap BID PO Last administered on 01/21/20at 09:13; Start 01/16/20 at 21:00 Carvedilol (Coreg) 6.25 mg 1400,2200 PO Last administered on 01/20/20at 22:01; Start 01/16/20 at 22:00 Furosemide (Lasix) 40 mg DAILY PO Last administered on 01/21/20at 09:13; Start 01/16/20 at 17:00 Oxycodone/ Acetaminophen (Percocet 10/325) 1 tab Q4H PO Last administered on 01/16/20at 18:04; Start 01/16/20 at 18:00; Stop 01/16/20 at 19:26; Status DC Oxycodone/ Acetaminophen (Percocet 10/325) 1 tab PRN Q4HRS PRN PO BREAKTHROUGH PAIN Last administered on 01/21/20at 06:12; Start 01/16/20 at 22:20 Oxycodone HCl (Roxicodone) 10 mg Q4HRS PO Last administered on 01/16/20at 22:08; Start 01/16/20 at 22:00; Stop 01/17/20 at 01:38; Status DC Oxycodone HCl (Roxicodone) 10 mg 1X ONCE PO Last administered on 01/16/20at 19:39; Start 01/16/20 at 19:30; Stop 01/16/20 at 19:33; Status DC Levothyroxine Sodium (Synthroid) 88 mcg DAILY05 PO Last administered on 01/21/20at 05:01; Start 01/17/20 at 05:00 Oxycodone HCl (Roxicodone) 10 mg Q4H PO Last administered on 01/21/20at 06:12; Start 01/17/20 at 02:00 Sennosides (Senna) 8.6 mg QID PO Last administered on 01/21/20at 06:36; Start 01/19/20 at 14:30; Stop 01/21/20 at 06:42; Status DC Budesonide (Pulmicort) 0.5 mg RTBID NEB Last administered on 01/21/20at 07:44; Start 01/20/20 at 20:00 Budesonide (Pulmicort) 0.5 mg 1X ONCE NEB Last administered on 01/20/20at 11:33; Start 01/20/20 at 08:45; Stop 01/20/20 at 08:59; Status DC Bisacodyl (Dulcolax Supp) 10 mg 1X ONCE DE Last administered on 01/20/20at 15:08; Start 01/20/20 at 13:45; Stop 01/20/20 at 13:46; Status DC Sennosides (Senna) 8.6 mg Q6H PO ; Start 01/21/20 at 07:00 Active Scripts Active Reported Percocet 10-325 Mg Tablet (Oxycodone/Acetaminophen) 1 Each Tablet 1 Tab PO Q4HRS MDD 6 Tablet(s) 3 Days Senna Laxative (Sennosides) 8.6 Mg Tablet 1 Tab PO Q4HRS 30 Days Aspirin 81 Mg Tab.chew 1 Tab PO DAILY Metformin Hcl 1,000 Mg Tablet 1,000 Mg PO BIDWMEALS Lisinopril 10 Mg Tablet 1 Tab PO DAILY Levothyroxine Sodium 88 Mcg Tablet 88 Mcg PO DAILYAC Lasix (Furosemide) 40 Mg Tablet 40 Mg PO DAILY Lantus Solostar (Insulin Glargine,Hum.rec.anlog) 100 Unit/1 Ml Insuln.pen 30 Unit SQ QHS Vitamin D2 (Ergocalciferol (Vitamin D2)) 1,250 Mcg Capsule 1,250 Mcg PO QMONFR Nortriptyline Hcl 25 Mg Capsule 2 Cap PO QHS Omeprazole 40 Mg Capsule.dr 40 Mg PO DAILY Simvastatin 20 Mg Tablet 20 Mg PO HS Coreg (Carvedilol) 25 Mg Tablet 6.25 Mg PO BIDWMEALS Vitals/I & O Vital Sign - Last 24 Hours 01/20/20 01/20/20 01/20/20 01/20/20 10:05 10:05 11:00 11:33 Temp 98.1 98.1 Pulse 95 Resp 18 B/P (MAP) 114/81 (92) Pulse Ox 91 94 O2 Delivery Room Air Room Air Room Air 01/20/20 01/20/20 01/20/20 01/20/20 11:38 11:38 14:09 14:09 O2 Delivery Room Air Room Air Room Air Room Air 01/20/20 01/20/20 01/20/20 01/20/20 15:00 15:08 15:16 15:16 Temp 97.7 97.7 Pulse 97 93 Resp 20 B/P (MAP) 120/74 (89) 120/74 Pulse Ox 93 O2 Delivery Room Air Room Air 01/20/20 01/20/20 01/20/20 01/20/20 15:33 18:09 18:09 19:00 Temp 98.2 98.2 Pulse 97 Resp 22 B/P (MAP) 113/81 (92) Pulse Ox 96 93 O2 Delivery Room Air Room Air Room Air 01/20/20 01/20/20 01/20/20 01/20/20 19:15 19:15 19:30 20:12 Pulse Ox 99 O2 Delivery Room Air Room Air Room Air Room Air 01/20/20 01/20/20 01/20/20 01/20/20 20:13 22:01 22:01 22:02 Pulse 97 Resp 20 20 B/P (MAP) 113/81 Pulse Ox 99 O2 Delivery Room Air Room Air Room Air 01/20/20 01/20/20 01/20/20 01/21/20 23:00 23:01 23:01 01:13 Temp 98.3 98.3 Pulse 95 Resp 20 20 20 B/P (MAP) 135/90 (105) Pulse Ox 95 O2 Delivery Room Air Room Air Room Air 01/21/20 01/21/20 01/21/20 01/21/20 02:24 02:24 03:00 03:24 Temp 98.3 98.3 Pulse 95 Resp 18 18 20 20 B/P (MAP) 135/90 (105) Pulse Ox 95 O2 Delivery Room Air Room Air Room Air 01/21/20 01/21/20 01/21/20 01/21/20 03:24 06:12 06:12 07:00 Temp 98.3 98.3 Pulse 97 Resp 20 20 20 18 B/P (MAP) 147/90 (109) Pulse Ox 95 O2 Delivery Room Air Room Air Room Air Room Air 01/21/20 01/21/20 01/21/20 01/21/20 07:12 07:12 07:44 09:13 Pulse 97 Resp 20 20 B/P (MAP) 147/90 Pulse Ox 92 O2 Delivery Room Air Room Air Room Air Intake and Output 01/20/20 01/20/20 01/21/20 15:00 23:00 07:00 Intake Total 720 ml 1150 ml 1550 ml Output Total 200 ml 400 ml 800 ml Balance 520 ml 750 ml 750 ml Justicifation of Admission Dx: Justifications for Admission: Justification of Admission Dx: N/A JONO DAVIS MD Jan 21, 2020 10:04
--- NOTE | 2020-01-21 10:29 | NUR ---
IP: Pt is mrsa + in abscess requiring contact precautions.
--- NOTE | 2020-01-21 10:54 | PDOC ---
Infectious Disease Note Subjective: Subjective Constipated,small bm after suppository yesterday has some aggravation of abdo pain due to constipation tolerating po intake well Denies N/V/F/C Vital Signs: Vital Signs Vital Signs Date Time Temp Pulse Resp B/P (MAP) Pulse Ox O2 Delivery O2 Flow Rate FiO2 01/21/20 10:19 20 94 Room Air 01/21/20 09:13 97 147/90 01/21/20 07:00 98.3 98.3 Physical Exam: PHYSICAL EXAM GENERAL: Lying down, awake in NAD HEENT: Oral cavity pink, moist. No thrush NECK: Supple, no JVP, no lymphadenopathy. LUNGS: Clear. HEART: S1, S2 regular. ABDOMEN: Obese, BS present, wound vac in place, redness improving; some induration EXTREMITIES: No edema, cyanosis. SKIN: without signs of rash NEUROLOGIC: Alert, awake and appropriate. No focal neurologic deficit. PIV Port-A-Cath not in use, clean Medications: Inpatient Meds: Current Medications Medications (Trade) Dose Ordered Sig/Cony Start Time Stop Time Status Last Admin Dose Admin Al Hydroxide/Mg Hydroxide (Mylanta Plus Xs) 30 ml PRN DAILY PRN 01/16/20 12:45 Albuterol/ Ipratropium (Duoneb) 3 ml Q4H 01/16/20 12:45 01/21/20 07:44 3 ML Aspirin (Aspirin Chewable) 81 mg DAILY 01/17/20 09:00 01/21/20 09:13 81 MG Bisacodyl (Dulcolax Supp) 10 mg 1X ONCE 01/20/20 13:45 01/20/20 13:46 DC 01/20/20 15:08 10 MG Budesonide (Pulmicort) 0.5 mg 1X ONCE 01/20/20 08:45 01/20/20 08:59 DC 01/20/20 11:33 0.5 MG Carvedilol (Coreg) 6.25 mg 1400,2200 01/16/20 22:00 01/20/20 22:01 6.25 MG Clonidine HCl (Catapres) 0.1 mg PRN Q6HRS PRN 01/16/20 12:45 Docusate Sodium (Colace) 100 mg PRN BID PRN 01/16/20 12:45 01/20/20 05:52 100 MG Ergocalciferol (Vitamin D2) 50,000 unit QMONFR 01/18/20 16:00 01/18/20 17:37 50,000 UNIT Furosemide (Lasix) 40 mg DAILY 01/16/20 17:00 01/21/20 09:13 40 MG Guaifenesin (Robitussin) 200 mg PRN Q4HRS PRN 01/16/20 12:45 01/20/20 22:02 200 MG Insulin Glargine (Lantus Syringe) 30 unit QHS 01/16/20 21:00 01/20/20 22:05 30 UNIT Lactobacillus Rhamnosus (Culturelle) 1 cap BID 01/16/20 21:00 01/21/20 09:13 1 CAP Levothyroxine Sodium (Synthroid) 88 mcg DAILY05 01/17/20 05:00 01/21/20 05:01 88 MCG Lisinopril (Prinivil) 10 mg DAILY 01/16/20 13:30 01/21/20 09:13 10 MG Nortriptyline HCl (Pamelor) 50 mg QHS 01/16/20 21:00 01/20/20 22:01 50 MG Ondansetron HCl (Zofran) 4 mg PRN Q4HRS PRN 01/16/20 12:45 Oxycodone HCl (Roxicodone) 10 mg Q4H 01/17/20 02:00 01/21/20 10:18 10 MG Oxycodone/ Acetaminophen (Percocet 10/325) 1 tab PRN Q4HRS PRN 01/16/20 22:20 01/21/20 10:19 1 TAB Pantoprazole Sodium (Protonix) 40 mg DAILYAC 01/16/20 13:30 01/21/20 09:13 40 MG Piperacillin Sod/ Tazobactam Sod 3.375 gm/Sodium Chloride 50 ml @ 100 mls/hr Q6HRS 01/16/20 13:00 01/21/20 06:07 100 MLS/HR Sennosides (Senna) 8.6 mg Q6H 01/21/20 07:00 Simvastatin (Zocor) 20 mg HS 01/16/20 21:00 01/20/20 22:01 20 MG Sodium Chloride 1,000 ml @ 100 mls/hr Q10H 01/16/20 12:37 01/21/20 02:23 100 MLS/HR Sodium Chloride (Normal Saline Flush) 3 ml QSHIFT PRN 01/16/20 12:45 Vancomycin HCl (Vanco Per Pharmacy) 1 each PRN DAILY PRN 01/16/20 12:45 01/21/20 09:18 1 EACH Vancomycin HCl (Vancomycin Trough Level) 1 each 1X ONCE 01/18/20 01:30 01/18/20 01:31 DC 01/18/20 01:25 1 EACH Vancomycin HCl 1.5 gm/Sodium Chloride 500 ml @ 250 mls/hr Q12H 01/17/20 02:00 01/21/20 02:23 250 MLS/HR Vancomycin HCl 2 gm/Sodium Chloride 500 ml @ 250 mls/hr 1X ONCE 01/16/20 13:30 01/16/20 15:29 DC 01/16/20 14:07 250 MLS/HR Labs: Lab Laboratory Tests Test 01/20/20 11:30 01/20/20 17:06 01/20/20 21:44 01/21/20 05:00 Glucose (Fingerstick) 130 mg/dL (70-99) 164 mg/dL (70-99) 171 mg/dL (70-99) White Blood Count 7.8 x10^3/uL (4.0-11.0) Red Blood Count 3.47 x10^6/uL (4.30-5.70) Hemoglobin 10.3 g/dL (13.0-17.5) Hematocrit 31.1 % (39.0-53.0) Mean Corpuscular Volume 90 fL (79-100) Mean Corpuscular Hemoglobin 30 pg (25-35) Mean Corpuscular Hemoglobin Concent 33 g/dL (31-37) Red Cell Distribution Width 14.3 % (11.5-14.5) Platelet Count 591 x10^3/uL (140-400) Neutrophils (%) (Auto) 74 % (31-73) Lymphocytes (%) (Auto) 17 % (24-48) Monocytes (%) (Auto) 7 % (0-9) Eosinophils (%) (Auto) 2 % (0-3) Basophils (%) (Auto) 1 % (0-3) Neutrophils # (Auto) 5.7 x10^3/uL (1.8-7.7) Lymphocytes # (Auto) 1.3 x10^3/uL (1.0-4.8) Monocytes # (Auto) 0.5 x10^3/uL (0.0-1.1) Eosinophils # (Auto) 0.2 x10^3/uL (0.0-0.7) Basophils # (Auto) 0.0 x10^3/uL (0.0-0.2) Sodium Level 141 mmol/L (136-145) Potassium Level 3.3 mmol/L (3.5-5.1) Chloride Level 105 mmol/L (98-107) Carbon Dioxide Level 26 mmol/L (21-32) Anion Gap 10 (6-14) Blood Urea Nitrogen 10 mg/dL (8-26) Creatinine 1.1 mg/dL (0.7-1.3) Estimated GFR (Cockcroft-Gault) 69.0 BUN/Creatinine Ratio 9 (6-20) Glucose Level 124 mg/dL (70-99) Calcium Level 8.6 mg/dL (8.5-10.1) Total Bilirubin 0.2 mg/dL (0.2-1.0) Aspartate Amino Transf (AST/SGOT) 12 U/L (15-37) Alanine Aminotransferase (ALT/SGPT) 24 U/L (16-63) Alkaline Phosphatase 59 U/L (46-116) Total Protein 6.7 g/dL (6.4-8.2) Albumin 2.4 g/dL (3.4-5.0) Albumin/Globulin Ratio 0.6 (1.0-1.7) Test 01/21/20 07:11 Glucose (Fingerstick) 118 mg/dL (70-99) Micro RUN DATE: 01/20/20 [facility] *LIVE* PAGE 1 RUN TIME: 1116 Specimen Inquiry PATIENT: JOE HYLTON ACCT: [id number] LOC: [address] [place] [address] U: [id number] AGE/SX: 59/M ROOM: [facility] RE01/16/[address]: JONO DAVIS MD : 1960 BED: 1 DIS: STATUS: ADM IN TLOC: SPEC #: [id number] [place]: 01/16/20-1530 STATUS: COMP REQ #: [id number] RECD: 01/16/20-[address]: JONO DAVIS MD SOURCE: ABSCESS ENTR: 01/16/20-[address]: KATI PICKERING MD SPDESC: CELENA BLEDSOE MD, SCOTT D MD KHAN, AMAN U MD ORDERED: AEROBIC CULT RICKY COMMENTS: WOUND ABSCESS Procedure Result GRAM STAIN Final Final GRAM NEGATIVE RODS:FEW GRAM POSITIVE RODS:RARE GRAM POSITIVE COCCI:MODERATE SQUAMOUS EPI CELL:FEW PMN (WBCs):MODERATE Unless otherwise specified, Testing Performed by: [address] [id number] For Inquires, the Physician may contact the Microbiology department at [phone] AEROBIC CULTURE Final Final MANY GRAM POSITIVE COCCI on 01/18/20 at 1333 FINAL ID= [STAPHYLOCOCCUS AUREUS (MRSA)] MANY GRAM NEGATIVE RODS on 01/18/20 at 1333 FINAL ID= [ENTEROBACTER CLOACAE COMPLEX] Testing Performed by: [address] [id number] For Inquires, the Physician may contact the Microbiology department at [phone] STAPHYLOCOCCUS AUREUS (MRSA) ENTEROBACTER CLOACAE COMPLEX ANTIMICROBIAL SUSCEPTIBILITY Final Comment Comment POS PETER TYPE 38 STAPHYLOCOCCUS AUREUS (MRSA) ANTIBIOTIC RESULT INTERPRETATION AZITHROMYCIN >4 R CLINDAMYCIN <=0.25 R* CONTINUED ON NEXT PAGE RUN DATE: 01/20/20 [facility] *LIVE* PAGE 2 RUN TIME: 1116 Specimen Inquiry SPEC: [id number] PATIENT: JOE HYLTON [id number] (Continued) ----- ------- Procedure Result ANTIMICROBIAL SUSCEPTIBILITY Final (continued) CEFOXITIN SCREEN >4 POS CIPROFLOXACIN <=1 S CEFTAROLINE <=0.5 S DAPTOMYCIN <=0.5 S ERYTHROMYCIN >4 R GENTAMICIN <=4 S INDUCIBLE CLINDAMYCIN >4/0.5 POS LINEZOLID 2 S LEVOFLOXACIN <=1 S OXACILLIN >2 R PENICILLIN >2 R* RIFAMPIN <=1 S TRIMETHOPRIM/SULFAMETHOXAZOLE <=0.5/9.5 S TETRACYCLINE <=4 S VANCOMYCIN 1 S NEG PETER 56 ENTEROBACTER CLOACAE COMPLEX ANTIBIOTIC RESULT INTERPRETATION AMPICILLIN/SULBACTAM <=4/2 R* AMIKACIN <=16 S AMPICILLIN <=8 R* AMOXICILLIN/K CLAVULANATE <=8/4 R* AZTREONAM <=4 S CEFTRIAXONE <=1 S CEFTAZIDIME <=1 S CEFOTAXIME <=2 S CEFOXITIN <=8 R* CIPROFLOXACIN <=0.25 S CEFEPIME <=2 S CEFUROXIME <=4 R* ERTAPENEM <=0.5 S GENTAMICIN <=2 S LEVOFLOXACIN <=0.5 S MEROPENEM <=1 S PIPERACILLIN/TAZOBACTAM <=8 S TRIMETHOPRIM/SULFAMETHOXAZOLE <=0.5/9.5 S TETRACYCLINE <=4 S TOBRAMYCIN <=2 S Unless otherwise specified, Testing Performed by: [address] [id number] For Inquires, the Physician may contact the Microbiology department at [phone] Objective: Assessment: Abdominal incision infection post-hernia surgery. GPR (no growth), MRSA and Enterobacter cloacae Incarcerated ventral hernia, status post surgery, resection, enterotomy repair, and a biologic mesh placement on of the last month. Diabetes. Hypertension. Obesity. h/o lung cancer s/p chemo. Port-A-Cath still in place Plan: Plan of Care Vancomycin, Zosyn Monitor renal function closely. Cr 1.1, Trough 13.8 on 01/17. Probiotics Bowel regime Wound care as directed Follow-up BC - neg to date Supportive care SUSAN BLEDSOE MD Jan 21, 2020 10:54
[2020-01-21] MEDS ORDERED: BISACODYL 5 MG TABLET.DR. PO PRN (11:15)
[2020-01-21] MEDS ORDERED: BISACODYL 10 MG SUPP.RECT. PR PRN (11:15)
--- NOTE | 2020-01-21 11:24 | NUR ---
SW following. Discussed with RN, pt needing home health at discharge. During last admission, [facility] was unable to find home health for pt's insurance. [facility] is still on diversion. SW to try [facility]. Pt on IV abx. [facility] will continue to follow.
[2020-01-21] MEDS ORDERED: BISACODYL 10 MG SUPP.RECT. PR ONE (11:30)
--- NOTE | 2020-01-21 12:17 | PDOC ---
PULMONARY PROGRESS NOTES DATE: 01/21/20 TIME: 12:16 Subjective no soa, has occ cough, no CP is obese no psg done Vitals Vital Signs Date Time Temp Pulse Resp B/P (MAP) Pulse Ox O2 Delivery O2 Flow Rate FiO2 01/21/20 11:11 Room Air 01/21/20 11:00 98.0 94 18 120/91 (101) 92 98.0 ROS: No Nausea, No Chest Pain General: Alert, No acute distress HEENT: Other (nc at perrl ) Lungs: Clear Cardiovascular: S1, S2 Abdomen: Soft, Non-tender, Other (distended, dressing midline) Neuro Exam: Alert Extremities: No Edema Skin: Warm Labs Laboratory Tests Test 01/19/20 16:40 01/19/20 21:01 01/20/20 07:44 01/20/20 11:30 Glucose (Fingerstick) 159 mg/dL (70-99) 144 mg/dL (70-99) 133 mg/dL (70-99) 130 mg/dL (70-99) Test 01/20/20 17:06 01/20/20 21:44 01/21/20 05:00 01/21/20 07:11 Glucose (Fingerstick) 164 mg/dL (70-99) 171 mg/dL (70-99) 118 mg/dL (70-99) White Blood Count 7.8 x10^3/uL (4.0-11.0) Red Blood Count 3.47 x10^6/uL (4.30-5.70) Hemoglobin 10.3 g/dL (13.0-17.5) Hematocrit 31.1 % (39.0-53.0) Mean Corpuscular Volume 90 fL (79-100) Mean Corpuscular Hemoglobin 30 pg (25-35) Mean Corpuscular Hemoglobin Concent 33 g/dL (31-37) Red Cell Distribution Width 14.3 % (11.5-14.5) Platelet Count 591 x10^3/uL (140-400) Neutrophils (%) (Auto) 74 % (31-73) Lymphocytes (%) (Auto) 17 % (24-48) Monocytes (%) (Auto) 7 % (0-9) Eosinophils (%) (Auto) 2 % (0-3) Basophils (%) (Auto) 1 % (0-3) Neutrophils # (Auto) 5.7 x10^3/uL (1.8-7.7) Lymphocytes # (Auto) 1.3 x10^3/uL (1.0-4.8) Monocytes # (Auto) 0.5 x10^3/uL (0.0-1.1) Eosinophils # (Auto) 0.2 x10^3/uL (0.0-0.7) Basophils # (Auto) 0.0 x10^3/uL (0.0-0.2) Sodium Level 141 mmol/L (136-145) Potassium Level 3.3 mmol/L (3.5-5.1) Chloride Level 105 mmol/L (98-107) Carbon Dioxide Level 26 mmol/L (21-32) Anion Gap 10 (6-14) Blood Urea Nitrogen 10 mg/dL (8-26) Creatinine 1.1 mg/dL (0.7-1.3) Estimated GFR (Cockcroft-Gault) 69.0 BUN/Creatinine Ratio 9 (-20) Glucose Level 124 mg/dL (70-99) Calcium Level 8.6 mg/dL (8.5-10.1) Total Bilirubin 0.2 mg/dL (0.2-1.0) Aspartate Amino Transf (AST/SGOT) 12 U/L (15-37) Alanine Aminotransferase (ALT/SGPT) 24 U/L (16-63) Alkaline Phosphatase 59 U/L (46-116) Total Protein 6.7 g/dL (6.4-8.2) Albumin 2.4 g/dL (3.4-5.0) Albumin/Globulin Ratio 0.6 (1.0-1.7) Test 01/21/20 11:45 Glucose (Fingerstick) 117 mg/dL (70-99) Laboratory Tests Test 01/20/20 17:06 01/20/20 21:44 01/21/20 05:00 01/21/20 07:11 Glucose (Fingerstick) 164 mg/dL (70-99) 171 mg/dL (70-99) 118 mg/dL (70-99) White Blood Count 7.8 x10^3/uL (4.0-11.0) Red Blood Count 3.47 x10^6/uL (4.30-5.70) Hemoglobin 10.3 g/dL (13.0-17.5) Hematocrit 31.1 % (39.0-53.0) Mean Corpuscular Volume 90 fL (79-100) Mean Corpuscular Hemoglobin 30 pg (25-35) Mean Corpuscular Hemoglobin Concent 33 g/dL (31-37) Red Cell Distribution Width 14.3 % (11.5-14.5) Platelet Count 591 x10^3/uL (140-400) Neutrophils (%) (Auto) 74 % (31-73) Lymphocytes (%) (Auto) 17 % (24-48) Monocytes (%) (Auto) 7 % (0-9) Eosinophils (%) (Auto) 2 % (0-3) Basophils (%) (Auto) 1 % (0-3) Neutrophils # (Auto) 5.7 x10^3/uL (1.8-7.7) Lymphocytes # (Auto) 1.3 x10^3/uL (1.0-4.8) Monocytes # (Auto) 0.5 x10^3/uL (0.0-1.1) Eosinophils # (Auto) 0.2 x10^3/uL (0.0-0.7) Basophils # (Auto) 0.0 x10^3/uL (0.0-0.2) Sodium Level 141 mmol/L (136-145) Potassium Level 3.3 mmol/L (3.5-5.1) Chloride Level 105 mmol/L (98-107) Carbon Dioxide Level 26 mmol/L (21-32) Anion Gap 10 (6-14) Blood Urea Nitrogen 10 mg/dL (8-26) Creatinine 1.1 mg/dL (0.7-1.3) Estimated GFR (Cockcroft-Gault) 69.0 BUN/Creatinine Ratio 9 (6-20) Glucose Level 124 mg/dL (70-99) Calcium Level 8.6 mg/dL (8.5-10.1) Total Bilirubin 0.2 mg/dL (0.2-1.0) Aspartate Amino Transf (AST/SGOT) 12 U/L (15-37) Alanine Aminotransferase (ALT/SGPT) 24 U/L (16-63) Alkaline Phosphatase 59 U/L (46-116) Total Protein 6.7 g/dL (6.4-8.2) Albumin 2.4 g/dL (3.4-5.0) Albumin/Globulin Ratio 0.6 (1.0-1.7) Test 01/21/20 11:45 Glucose (Fingerstick) 117 mg/dL (70-99) Medications Active Scripts Medications Dose Route/Sig Max Daily Dose Days Date Category Percocet 10-325 Mg Tablet (Oxycodone/Acetaminophen) 1 Each Tablet 1 Tab PO Q4HRS MDD 6 Tablet(s) 3 01/16/20 Reported Senna Laxative (Sennosides) 8.6 Mg Tablet 1 Tab PO Q4HRS 30 01/16/20 Reported Aspirin 81 Mg Tab.chew 1 Tab PO DAILY 01/16/20 Reported Metformin Hcl 1,000 Mg Tablet 1,000 Mg PO BIDWMEALS 01/03/20 Reported Lisinopril 10 Mg Tablet 1 Tab PO DAILY 01/03/20 Reported Levothyroxine Sodium 88 Mcg Tablet 88 Mcg PO DAILYAC 01/03/20 Reported Lasix (Furosemide) 40 Mg Tablet 40 Mg PO DAILY 01/03/20 Reported Lantus Solostar (Insulin Glargine,Hum.rec.anlog) 100 Unit/1 Ml Insuln.pen 30 Unit SQ QHS 01/03/20 Reported Vitamin D2 (Ergocalciferol (Vitamin D2)) 1,250 Mcg Capsule 1,250 Mcg PO QMONFR 01/03/20 Reported Nortriptyline Hcl 25 Mg Capsule 2 Cap PO QHS 01/03/20 Reported Omeprazole 40 Mg Capsule.dr 40 Mg PO DAILY 01/03/20 Reported Simvastatin 20 Mg Tablet 20 Mg PO HS 01/03/20 Reported Coreg (Carvedilol) 25 Mg Tablet 6.25 Mg PO BIDWMEALS 01/03/[address] of chest reviewed 1.5 cm noncalcified nodule is seen involving the left lower lobe. . No additional significant pulmonary nodule is seen. Impression . 1. Smooth noncalcified left lower lobe nodule about 1.5 cm in size. This was also seen in previous CAT scan done in December. The patient has known history of lung cancer, being followed at , he is status post chemo and radiation. 2. Abdominal incision infection post-hernia surgery. 3. Incarcerated ventral hernia, status post surgery and enterotomy, and synthetic mesh placement. 4. Diabetes. 5. Morbid obesity prob shanel. 6. wheezing/copd, resolved Plan . 1. CT chest reviewed. 1.5 cm LLL nodule. No other mass or adenopathy seen 2. The patient has been followed at regularly every [address] chest follows. We would recommend to continue to follow up at . discussed w pt 3. BD, 4. Antibiotics per Infectious Disease. 5. Follow Surgical input. 6. psg as out pt Discussed with RN. stable pulmonary status will see PRN Pt to f/u at post SKYLAR CRISTOBAL MD Jan 21, 2020 12:17
--- NOTE | 2020-01-21 12:54 | PDOC ---
AMY HENRY [employer]INE ENGINE MACHINIST APPRENTICE 01/21/20 1254: SURGICAL PROGRESS NOTE DATE: 01/21/20 TIME: 12:53 Subjective up in chair some constipation Vital Signs Vital Signs Date Time Temp Pulse Resp B/P (MAP) Pulse Ox O2 Delivery O2 Flow Rate FiO2 01/21/20 11:11 Room Air 01/21/20 11:00 98.0 94 18 120/91 (101) 92 98.0 I&O Intake and Output 01/21/20 07:00 Intake Total 3420 ml Output Total 1400 ml Balance 2020 ml Intake Oral 1870 ml IV Total 1550 ml Output Urine Total 1400 ml # Bowel Movements 1 General: Alert, Oriented X3, Cooperative Abdomen: Soft, Other (vac in place) Labs Laboratory Tests Test 01/19/20 16:40 01/19/20 21:01 01/20/20 07:44 01/20/20 11:30 Glucose (Fingerstick) 159 mg/dL (70-99) 144 mg/dL (70-99) 133 mg/dL (70-99) 130 mg/dL (70-99) Test 01/20/20 17:06 01/20/20 21:44 01/21/20 05:00 01/21/20 07:11 Glucose (Fingerstick) 164 mg/dL (70-99) 171 mg/dL (70-99) 118 mg/dL (70-99) White Blood Count 7.8 x10^3/uL (4.0-11.0) Red Blood Count 3.47 x10^6/uL (4.30-5.70) Hemoglobin 10.3 g/dL (13.0-17.5) Hematocrit 31.1 % (39.0-53.0) Mean Corpuscular Volume 90 fL (79-100) Mean Corpuscular Hemoglobin 30 pg (25-35) Mean Corpuscular Hemoglobin Concent 33 g/dL (31-37) Red Cell Distribution Width 14.3 % (11.5-14.5) Platelet Count 591 x10^3/uL (140-400) Neutrophils (%) (Auto) 74 % (31-73) Lymphocytes (%) (Auto) 17 % (24-48) Monocytes (%) (Auto) 7 % (0-9) Eosinophils (%) (Auto) 2 % (0-3) Basophils (%) (Auto) 1 % (0-3) Neutrophils # (Auto) 5.7 x10^3/uL (1.8-7.7) Lymphocytes # (Auto) 1.3 x10^3/uL (1.0-4.8) Monocytes # (Auto) 0.5 x10^3/uL (0.0-1.1) Eosinophils # (Auto) 0.2 x10^3/uL (0.0-0.7) Basophils # (Auto) 0.0 x10^3/uL (0.0-0.2) Sodium Level 141 mmol/L (136-145) Potassium Level 3.3 mmol/L (3.5-5.1) Chloride Level 105 mmol/L (98-107) Carbon Dioxide Level 26 mmol/L (21-32) Anion Gap 10 (6-14) Blood Urea Nitrogen 10 mg/dL (8-26) Creatinine 1.1 mg/dL (0.7-1.3) Estimated GFR (Cockcroft-Gault) 69.0 BUN/Creatinine Ratio 9 (-20) Glucose Level 124 mg/dL (70-99) Calcium Level 8.6 mg/dL (8.5-10.1) Total Bilirubin 0.2 mg/dL (0.2-1.0) Aspartate Amino Transf (AST/SGOT) 12 U/L (15-37) Alanine Aminotransferase (ALT/SGPT) 24 U/L (16-63) Alkaline Phosphatase 59 U/L (46-116) Total Protein 6.7 g/dL (6.4-8.2) Albumin 2.4 g/dL (3.4-5.0) Albumin/Globulin Ratio 0.6 (1.0-1.7) Test 01/21/20 11:45 Glucose (Fingerstick) 117 mg/dL (70-99) Laboratory Tests Test 01/20/20 17:06 01/20/20 21:44 01/21/20 05:00 01/21/20 07:11 Glucose (Fingerstick) 164 mg/dL (70-99) 171 mg/dL (70-99) 118 mg/dL (70-99) White Blood Count 7.8 x10^3/uL (4.0-11.0) Red Blood Count 3.47 x10^6/uL (4.30-5.70) Hemoglobin 10.3 g/dL (13.0-17.5) Hematocrit 31.1 % (39.0-53.0) Mean Corpuscular Volume 90 fL (79-100) Mean Corpuscular Hemoglobin 30 pg (25-35) Mean Corpuscular Hemoglobin Concent 33 g/dL (31-37) Red Cell Distribution Width 14.3 % (11.5-14.5) Platelet Count 591 x10^3/uL (140-400) Neutrophils (%) (Auto) 74 % (31-73) Lymphocytes (%) (Auto) 17 % (24-48) Monocytes (%) (Auto) 7 % (0-9) Eosinophils (%) (Auto) 2 % (0-3) Basophils (%) (Auto) 1 % (0-3) Neutrophils # (Auto) 5.7 x10^3/uL (1.8-7.7) Lymphocytes # (Auto) 1.3 x10^3/uL (1.0-4.8) Monocytes # (Auto) 0.5 x10^3/uL (0.0-1.1) Eosinophils # (Auto) 0.2 x10^3/uL (0.0-0.7) Basophils # (Auto) 0.0 x10^3/uL (0.0-0.2) Sodium Level 141 mmol/L (136-145) Potassium Level 3.3 mmol/L (3.5-5.1) Chloride Level 105 mmol/L (98-107) Carbon Dioxide Level 26 mmol/L (21-32) Anion Gap 10 (6-14) Blood Urea Nitrogen 10 mg/dL (8-26) Creatinine 1.1 mg/dL (0.7-1.3) Estimated GFR (Cockcroft-Gault) 69.0 BUN/Creatinine Ratio 9 (6-20) Glucose Level 124 mg/dL (70-99) Calcium Level 8.6 mg/dL (8.5-10.1) Total Bilirubin 0.2 mg/dL (0.2-1.0) Aspartate Amino Transf (AST/SGOT) 12 U/L (15-37) Alanine Aminotransferase (ALT/SGPT) 24 U/L (16-63) Alkaline Phosphatase 59 U/L (46-116) Total Protein 6.7 g/dL (6.4-8.2) Albumin 2.4 g/dL (3.4-5.0) Albumin/Globulin Ratio 0.6 (1.0-1.7) Test 01/21/20 11:45 Glucose (Fingerstick) 117 mg/dL (70-99) Problem List vac change today--will attempt to eval, or pictures by wound care if possible Justicifation of Admission Dx: Justifications for Admission: Justification of Admission Dx: N/A FELIX DAVIS MD 01/21/20 1336: SURGICAL PROGRESS NOTE Assessment/Plan Agree with above, continue wound vac AMY HENRY [employer] ENGINE MACHINIST APPRENTICE Jan 21, 2020 12:54 FELIX DAVIS MD Jan 21, 2020 13:36
[2020-01-21] MEDS: CARVEDILOL 6.25 MG TABLET. PO SCH ×2 (14:25→22:00)
[2020-01-21] MEDS: ERGOCALCIFEROL (VITAMIN D2) 50,000 UNIT CAPSULE. PO SCH (16:02)
--- NOTE | 2020-01-21 16:25 | NUR ---
Wound Care Wound Type/Assessment: Follow up abdominal wound assessment and veraflow wound vac change; R lateral abdomen intact scab to former drain site.. Wounds pictures and measured. Slough present in wound bed, sutures visualized. No other open areas noted on head to toe assessment. Treatment Recommendations/Plan: Continue veraflow wound vac to abdominal wound, NS 10cc for 5 minute dwell time every 2 hours. Good seal achieved. Leave drain site open to air. Education provided: Educated to turn and change position occasionally to avoid skin breakdown in other areas. Follow up for vac change on
[2020-01-21] MEDS: NORTRIPTYLINE 25 MG CAPSULE PO SCH (21:12)
[2020-01-21] MEDS: SIMVASTATIN 20 MG TABLET PO SCH (21:13)
[2020-01-21] MEDS: INSULIN GLARGINE SYRINGE. SQ SCH (21:18)
[2020-01-22] MEDS: IPRATRPIUM/ALBUTEROL 0.5/2.5MG 3 ML NEBU. NEB SCH ×7 (00:58→23:20)
--- NOTE | 2020-01-22 01:40 | NUR ---
Patient awakened to give his senna and zosyn, patient wants his pain medication at 0200, pt is informed that he would have to call at 0200 for his medication, Patient caalls at 0200, "My pain medication should have been here by now.." This personal lines underwriter brings medication in to patient, he curses this personal lines underwriter, numerous times yelling, using "the F---bomb", complaining that his pain does not get under control if he gets it late, this personal lines underwriter informs patient that he received his pain med at 2200, then this dose is scanned 0203, this personal lines underwriter informs patient that he does not have to cuss at me, patient continues to curse, this personal lines underwriter walks out of the room.
[2020-01-22] MEDS: SENNOSIDES 8.6 MG TABLET PO SCH ×4 (01:42→18:08)
[2020-01-22] MEDS: PIPERACILLIN/TAZOBACTAM 3.375 GM in IV NORMAL SALINE 50ML 50 ML IV SCH ×5 (01:42→23:58)
[2020-01-22] MEDS: oxyCODONE/APAP 10/325 1 TAB TABLET PO PRN ×6 (02:03→21:59)
[2020-01-22] MEDS: oxyCODONE IR 5 MG TABLET PO SCH ×6 (02:03→21:59)
[2020-01-22] MEDS: VANCOMYCIN 1.5 GM in IV NORMAL SALINE 500ML BAG 500 ML IV SCH ×2 (02:27→14:16)
[2020-01-22 03:00] VITALS: BP 143/87
[2020-01-22] MEDS: LEVOTHYROXINE 88 MCG TABLET PO SCH (05:07)
[2020-01-22] MEDS: guaiFENesin ORAL 200 MG/10 ML LIQUID. PO PRN (06:32)
[2020-01-22 07:00] VITALS: BP 110/79
[2020-01-22] MEDS: BUDESONIDE 0.5 MG/2 ML NEBU. NEB SCH ×2 (07:40→20:03)
--- NOTE | 2020-01-22 08:05 | PDOC ---
Infectious Disease Note Subjective: Subjective Constipated,small bm after suppository yesterday has some abdo pain due to constipation tolerating po intake well Denies N/V/F/C Vital Signs: Vital Signs Vital Signs Date Time Temp Pulse Resp B/P (MAP) Pulse Ox O2 Delivery O2 Flow Rate FiO2 01/22/20 07:43 94 Room Air 01/22/20 05:56 18 01/22/20 03:00 97.9 97 143/87 (105) 97.9 Physical Exam: PHYSICAL EXAM GENERAL: Lying down, awake in NAD HEENT: Oral cavity pink, moist. No thrush NECK: Supple, no JVP, no lymphadenopathy. LUNGS: Clear. HEART: S1, S2 regular. ABDOMEN: Obese, BS present, wound vac in place, redness improving; some induration EXTREMITIES: No edema, cyanosis. SKIN: without signs of rash NEUROLOGIC: Alert, awake and appropriate. No focal neurologic deficit. PIV Port-A-Cath not in use, clean Medications: Inpatient Meds: Current Medications Medications (Trade) Dose Ordered Sig/Cony Start Time Stop Time Status Last Admin Dose Admin Al Hydroxide/Mg Hydroxide (Mylanta Plus Xs) 30 ml PRN DAILY PRN 01/16/20 12:45 Albuterol/ Ipratropium (Duoneb) 3 ml Q4H 01/16/20 12:45 01/22/20 07:40 3 ML Aspirin (Aspirin Chewable) 81 mg DAILY 01/17/20 09:00 01/21/20 09:13 81 MG Bisacodyl (Dulcolax Supp) 10 mg PRN DAILY PRN 01/21/20 11:15 Bisacodyl (Dulcolax Tab) 10 mg PRN DAILY PRN 01/21/20 11:15 Budesonide (Pulmicort) 0.5 mg 1X ONCE 01/20/20 08:45 01/20/20 08:59 DC 01/20/20 11:33 0.5 MG Carvedilol (Coreg) 6.25 mg 1400,2200 01/16/20 22:00 01/21/20 22:00 6.25 MG Clonidine HCl (Catapres) 0.1 mg PRN Q6HRS PRN 01/16/20 12:45 Docusate Sodium (Colace) 100 mg PRN BID PRN 01/16/20 12:45 01/20/20 05:52 100 MG Ergocalciferol (Vitamin D2) 50,000 unit QMONFR 01/18/20 16:00 01/21/20 16:02 50,000 UNIT Furosemide (Lasix) 40 mg DAILY 01/16/20 17:00 01/21/20 09:13 40 MG Guaifenesin (Robitussin) 200 mg PRN Q4HRS PRN 01/16/20 12:45 01/22/20 06:32 200 MG Insulin Glargine (Lantus Syringe) 30 unit QHS 01/16/20 21:00 01/21/20 21:18 30 UNIT Lactobacillus Rhamnosus (Culturelle) 1 cap BID 01/16/20 21:00 01/21/20 21:13 1 CAP Levothyroxine Sodium (Synthroid) 88 mcg DAILY05 01/17/20 05:00 01/22/20 05:07 88 MCG Lisinopril (Prinivil) 10 mg DAILY 01/16/20 13:30 01/21/20 09:13 10 MG Nortriptyline HCl (Pamelor) 50 mg QHS 01/16/20 21:00 01/21/20 21:12 50 MG Ondansetron HCl (Zofran) 4 mg PRN Q4HRS PRN 01/16/20 12:45 Oxycodone HCl (Roxicodone) 10 mg Q4H 01/17/20 02:00 01/22/20 05:56 10 MG Oxycodone/ Acetaminophen (Percocet 10/325) 1 tab PRN Q4HRS PRN 01/16/20 22:20 01/22/20 05:56 1 TAB Pantoprazole Sodium (Protonix) 40 mg DAILYAC 01/16/20 13:30 01/21/20 09:13 40 MG Piperacillin Sod/ Tazobactam Sod 3.375 gm/Sodium Chloride 50 ml @ 100 mls/hr Q6HRS 01/16/20 13:00 01/22/20 05:57 100 MLS/HR Sennosides (Senna) 8.6 mg Q6H 01/21/20 07:00 01/22/20 05:55 8.6 MG Simvastatin (Zocor) 20 mg HS 01/16/20 21:00 01/21/20 21:13 20 MG Sodium Chloride 1,000 ml @ 100 mls/hr Q10H 01/16/20 12:37 01/21/20 21:11 100 MLS/HR Sodium Chloride (Normal Saline Flush) 3 ml QSHIFT PRN 01/16/20 12:45 Vancomycin HCl (Vanco Per Pharmacy) 1 each PRN DAILY PRN 01/16/20 12:45 01/21/20 09:18 1 EACH Vancomycin HCl (Vancomycin Trough Level) 1 each 1X ONCE 01/18/20 01:30 01/18/20 01:31 DC 01/18/20 01:25 1 EACH Vancomycin HCl 1.5 gm/Sodium Chloride 500 ml @ 250 mls/hr Q12H 01/17/20 02:00 01/22/20 02:27 250 MLS/HR Vancomycin HCl 2 gm/Sodium Chloride 500 ml @ 250 mls/hr 1X ONCE 01/16/20 13:30 01/16/20 15:29 DC 01/16/20 14:07 250 MLS/HR Labs: Lab Laboratory Tests Test 01/21/20 11:45 01/21/20 16:56 01/21/20 20:31 01/22/20 07:49 Glucose (Fingerstick) 117 mg/dL (70-99) 148 mg/dL (70-99) 183 mg/dL (70-99) 100 mg/dL (70-99) Micro --------- --- RUN DATE: 01/20/20 [facility] LAB *LIVE* PAGE 1 RUN TIME: 1116 Specimen Inquiry PATIENT: JOE HYLTON ACCT: [id number] LOC: [address] [place] [address] U: [id number] AGE/SX: 59/M ROOM: [facility] RE01/16/[address]: JONO DAVIS MD : 1960 BED: 1 DIS: STATUS: ADM IN TLOC: SPEC #: [id number] [id number] DELIA: 01/16/20 STATUS: COMP REQ #: [id number] RECD: 01/16/[address] [facility] [address]: JONO DAVIS MD SOURCE: ABSCESS ENTR: 01/16/20-[address] [facility] [address]: KATI PICKERING MD SPDESC: CELENA BLEDSOE MD, SCOTT D MD KHAN, AMAN U MD ORDERED: AEROBIC CULT GS COMMENTS: WOUND ABSCESS Procedure Result --- --------- GRAM STAIN Final Final GRAM NEGATIVE RODS:FEW GRAM POSITIVE RODS:RARE GRAM POSITIVE COCCI:MODERATE SQUAMOUS EPI CELL:FEW PMN (WBCs):MODERATE Unless otherwise specified, Testing Performed by: [address] [address] For Inquires, the Physician may contact the Microbiology department at [phone] AEROBIC CULTURE Final Final MANY GRAM POSITIVE COCCI on 01/18/20 at 1333 FINAL ID= [STAPHYLOCOCCUS AUREUS (MRSA)] MANY GRAM NEGATIVE RODS on 01/18/20 at 1333 FINAL ID= [ENTEROBACTER CLOACAE COMPLEX] Testing Performed by: [address] [address] For Inquires, the Physician may contact the Microbiology department at [phone] STAPHYLOCOCCUS AUREUS (MRSA) ENTEROBACTER CLOACAE COMPLEX ANTIMICROBIAL SUSCEPTIBILITY Final Comment Comment POS PETER TYPE 38 STAPHYLOCOCCUS AUREUS (MRSA) ANTIBIOTIC RESULT INTERPRETATION AZITHROMYCIN >4 R CLINDAMYCIN <=0.25 R* CONTINUED ON NEXT PAGE RUN DATE: 01/20/20 [facility] LAB *LIVE* PAGE 2 RUN TIME: 1116 Specimen Inquiry SPEC: [id number] PATIENT: JOE HYLTON [id number] (Continued) Procedure Result ANTIMICROBIAL SUSCEPTIBILITY Final (continued) CEFOXITIN SCREEN >4 POS CIPROFLOXACIN <=1 S CEFTAROLINE <=0.5 S DAPTOMYCIN <=0.5 S ERYTHROMYCIN >4 R GENTAMICIN <=4 S INDUCIBLE CLINDAMYCIN >4/0.5 POS LINEZOLID 2 S LEVOFLOXACIN <=1 S OXACILLIN >2 R PENICILLIN >2 R* RIFAMPIN <=1 S TRIMETHOPRIM/SULFAMETHOXAZOLE <=0.5/9.5 S TETRACYCLINE <=4 S VANCOMYCIN 1 S NEG PETER 56 ENTEROBACTER CLOACAE COMPLEX ANTIBIOTIC RESULT INTERPRETATION AMPICILLIN/SULBACTAM <=4/2 R* AMIKACIN <=16 S AMPICILLIN <=8 R* AMOXICILLIN/K CLAVULANATE <=8/4 R* AZTREONAM <=4 S CEFTRIAXONE <=1 S CEFTAZIDIME <=1 S CEFOTAXIME <=2 S CEFOXITIN <=8 R* CIPROFLOXACIN <=0.25 S CEFEPIME <=2 S CEFUROXIME <=4 R* ERTAPENEM <=0.5 S GENTAMICIN <=2 S LEVOFLOXACIN <=0.5 S MEROPENEM <=1 S PIPERACILLIN/TAZOBACTAM <=8 S TRIMETHOPRIM/SULFAMETHOXAZOLE <=0.5/9.5 S TETRACYCLINE <=4 S TOBRAMYCIN <=2 S Unless otherwise specified, Testing Performed by: [facility] [address] [place] [address] For Inquires, the Physician may contact the Microbiology department at [phone] Objective: Assessment: Abdominal incision infection post-hernia surgery. 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 Hypertension. Obesity. h/o lung cancer s/p chemo. Port-A-Cath still in place Plan: Plan of Care cont Vancomycin,monitor labs closely, last vanc trough 13 cont Zosyn Probiotics Bowel regime Wound care as directed bc neg Supportive care d/w SUSAN Phillips MD Jan 22, 2020 08:05
--- NOTE | 2020-01-22 08:39 | PDOC ---
SURGICAL PROGRESS NOTE DATE: 01/22/20 TIME: 08:38 Subjective main complaint today is constipation Vital Signs Vital Signs Date Time Temp Pulse Resp B/P (MAP) Pulse Ox O2 Delivery O2 Flow Rate FiO2 01/22/20 07:43 94 Room Air 01/22/20 05:56 18 01/22/20 03:00 97.9 97 143/87 (105) 97.9 I&O Intake and Output 01/22/20 07:00 Intake Total 1150 ml Output Total 1450 ml Balance -300 ml Intake Oral 100 ml IV Total 1050 ml Output Urine Total 1450 ml General: Alert, Oriented X3, Cooperative Abdomen: Soft, Other (vac in place less erythema ) Labs Laboratory Tests Test 01/20/20 11:30 01/20/20 17:06 01/20/20 21:44 01/21/20 05:00 Glucose (Fingerstick) 130 mg/dL (70-99) 164 mg/dL (70-99) 171 mg/dL (70-99) White Blood Count 7.8 x10^3/uL (4.0-11.0) Red Blood Count 3.47 x10^6/uL (4.30-5.70) Hemoglobin 10.3 g/dL (13.0-17.5) Hematocrit 31.1 % (39.0-53.0) Mean Corpuscular Volume 90 fL (79-100) Mean Corpuscular Hemoglobin 30 pg (25-35) Mean Corpuscular Hemoglobin Concent 33 g/dL (31-37) Red Cell Distribution Width 14.3 % (11.5-14.5) Platelet Count 591 x10^3/uL (140-400) Neutrophils (%) (Auto) 74 % (31-73) Lymphocytes (%) (Auto) 17 % (24-48) Monocytes (%) (Auto) 7 % (0-9) Eosinophils (%) (Auto) 2 % (0-3) Basophils (%) (Auto) 1 % (0-3) Neutrophils # (Auto) 5.7 x10^3/uL (1.8-7.7) Lymphocytes # (Auto) 1.3 x10^3/uL (1.0-4.8) Monocytes # (Auto) 0.5 x10^3/uL (0.0-1.1) Eosinophils # (Auto) 0.2 x10^3/uL (0.0-0.7) Basophils # (Auto) 0.0 x10^3/uL (0.0-0.2) Sodium Level 141 mmol/L (136-145) Potassium Level 3.3 mmol/L (3.5-5.1) Chloride Level 105 mmol/L (98-107) Carbon Dioxide Level 26 mmol/L (21-32) Anion Gap 10 (6-14) Blood Urea Nitrogen 10 mg/dL (8-26) Creatinine 1.1 mg/dL (0.7-1.3) Estimated GFR (Cockcroft-Gault) 69.0 BUN/Creatinine Ratio 9 (6-20) Glucose Level 124 mg/dL (70-99) Calcium Level 8.6 mg/dL (8.5-10.1) Total Bilirubin 0.2 mg/dL (0.2-1.0) Aspartate Amino Transf (AST/SGOT) 12 U/L (15-37) Alanine Aminotransferase (ALT/SGPT) 24 U/L (16-63) Alkaline Phosphatase 59 U/L (46-116) Total Protein 6.7 g/dL (6.4-8.2) Albumin 2.4 g/dL (3.4-5.0) Albumin/Globulin Ratio 0.6 (1.0-1.7) Test 01/21/20 07:11 01/21/20 11:45 01/21/20 16:56 01/21/20 20:31 Glucose (Fingerstick) 118 mg/dL (70-99) 117 mg/dL (70-99) 148 mg/dL (70-99) 183 mg/dL (70-99) Test 01/22/20 07:49 Glucose (Fingerstick) 100 mg/dL (70-99) Laboratory Tests Test 01/21/20 11:45 01/21/20 16:56 01/21/20 20:31 01/22/20 07:49 Glucose (Fingerstick) 117 mg/dL (70-99) 148 mg/dL (70-99) 183 mg/dL (70-99) 100 mg/dL (70-99) Assessment/Plan continue vac, abx reviewed pictures from vac change--appear improved, will review with Dr Mcleod Justicifation of Admission Dx: Justifications for Admission: Justification of Admission Dx: N/A 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
[2020-01-22] MEDS: ASPIRIN CHEWABLE 81 MG TABLET. PO SCH (09:19)
[2020-01-22] MEDS: FUROSEMIDE 40 MG TABLET. PO SCH (09:19)
[2020-01-22] MEDS: LACTOBACILLUS RHAMNOSUS GG 1 CAPSULE. PO SCH ×2 (09:19→22:07)
[2020-01-22] MEDS: LISINOPRIL 10 MG TABLET PO SCH (09:19)
[2020-01-22] MEDS: PANTOPRAZOLE 40 MG TABLET.DR. PO SCH (09:19)
--- NOTE | 2020-01-22 10:33 | PDOC ---
PROGRESS NOTES Date of Service: DATE: 01/22/20 TIME: 10:33 Chief Complaint Chief Complaint IMPRESSION POST-OP Wound infection Post-op Diagnosis: Incarcerated ventral hernia with high-grade bowel obstruction 12/29/19 RECENT partial SBO Incarcerated umbilical hernia pre-op Acute renal failurevasomotor nephropathy resolving Hypertension Diabetes Dyslipidemia History of constipation// inc senna to qid COPD GERD AEROBIC CULTURE Preliminary Preliminary MANY GRAM POSITIVE COCCI on 01/18/20 at 1333 FINAL ID= [STAPHYLOCOCCUS AUREUS] MANY GRAM NEGATIVE RODS on 01/18/20 at 1333 FINAL ID= [ENTEROBACTER CLOACAE COMPLEX] dulcolax supp daily 30 MIN pt exam, chart review, > 50% of time spent with exam, chart review, pt care coordination History of Present Illness History of Present Illness 01/18/2020 Patient seen and examined Ventral dressing is CDI Wound vacuum attached Discussed with RN Charts reviewed 01/17/2020 Patient seen and examined Ventral dressing is clean, dry and intact Discussed with RN Reviewed Charts Vitals Vitals Vital Signs Date Time Temp Pulse Resp B/P (MAP) Pulse Ox O2 Delivery O2 Flow Rate FiO2 01/22/20 09:19 94 110/79 01/22/20 07:43 94 Room Air 01/22/20 07:15 20 01/22/20 07:00 97.8 97.8 Physical Exam Physical Exam GENERAL: Lying down, awake in NAD HEENT: Oral cavity pink, moist. No thrush NECK: Supple, no JVP, no lymphadenopathy. LUNGS: Clear. HEART: S1, S2 regular. ABDOMEN: Obese, BS present, wound vac in place, redness improving; some induration EXTREMITIES: No edema, cyanosis. SKIN: without signs of rash NEUROLOGIC: Alert, awake and appropriate. No focal neurologic deficit. PIV Port-A-Cath not in use, clean General: Alert, Oriented X3, Cooperative, No acute distress Heart: Regular rate, Normal S1, Normal S2, No murmurs Lungs: Clear Abdomen: Soft, Other (vac in place less erythema ) Extremities: No cyanosis Labs LABS Laboratory Tests Test 01/21/20 11:45 01/21/20 16:56 01/21/20 20:31 01/22/20 07:49 Glucose (Fingerstick) 117 mg/dL (70-99) 148 mg/dL (70-99) 183 mg/dL (70-99) 100 mg/dL (70-99) Comment Review of Relevant I have reviewed the following items catarina (where applicable) has been applied. Labs Laboratory Tests Test 01/20/20 11:30 01/20/20 17:06 01/20/20 21:44 01/21/20 05:00 Glucose (Fingerstick) 130 mg/dL (70-99) 164 mg/dL (70-99) 171 mg/dL (70-99) White Blood Count 7.8 x10^3/uL (4.0-11.0) Red Blood Count 3.47 x10^6/uL (4.30-5.70) Hemoglobin 10.3 g/dL (13.0-17.5) Hematocrit 31.1 % (39.0-53.0) Mean Corpuscular Volume 90 fL (79-100) Mean Corpuscular Hemoglobin 30 pg (25-35) Mean Corpuscular Hemoglobin Concent 33 g/dL (31-37) Red Cell Distribution Width 14.3 % (11.5-14.5) Platelet Count 591 x10^3/uL (140-400) Neutrophils (%) (Auto) 74 % (31-73) Lymphocytes (%) (Auto) 17 % (24-48) Monocytes (%) (Auto) 7 % (0-9) Eosinophils (%) (Auto) 2 % (0-3) Basophils (%) (Auto) 1 % (0-3) Neutrophils # (Auto) 5.7 x10^3/uL (1.8-7.7) Lymphocytes # (Auto) 1.3 x10^3/uL (1.0-4.8) Monocytes # (Auto) 0.5 x10^3/uL (0.0-1.1) Eosinophils # (Auto) 0.2 x10^3/uL (0.0-0.7) Basophils # (Auto) 0.0 x10^3/uL (0.0-0.2) Sodium Level 141 mmol/L (136-145) Potassium Level 3.3 mmol/L (3.5-5.1) Chloride Level 105 mmol/L (98-107) Carbon Dioxide Level 26 mmol/L (21-32) Anion Gap 10 (6-14) Blood Urea Nitrogen 10 mg/dL (8-26) Creatinine 1.1 mg/dL (0.7-1.3) Estimated GFR (Cockcroft-Gault) 69.0 BUN/Creatinine Ratio 9 (6-20) Glucose Level 124 mg/dL (70-99) Calcium Level 8.6 mg/dL (8.5-10.1) Total Bilirubin 0.2 mg/dL (0.2-1.0) Aspartate Amino Transf (AST/SGOT) 12 U/L (15-37) Alanine Aminotransferase (ALT/SGPT) 24 U/L (16-63) Alkaline Phosphatase 59 U/L (46-116) Total Protein 6.7 g/dL (6.4-8.2) Albumin 2.4 g/dL (3.4-5.0) Albumin/Globulin Ratio 0.6 (1.0-1.7) Test 01/21/20 07:11 01/21/20 11:45 01/21/20 16:56 01/21/20 20:31 Glucose (Fingerstick) 118 mg/dL (70-99) 117 mg/dL (70-99) 148 mg/dL (70-99) 183 mg/dL (70-99) Test 01/22/20 07:49 Glucose (Fingerstick) 100 mg/dL (70-99) Laboratory Tests Test 01/21/20 11:45 01/21/20 16:56 01/21/20 20:31 01/22/20 07:49 Glucose (Fingerstick) 117 mg/dL (70-99) 148 mg/dL (70-99) 183 mg/dL (70-99) 100 mg/dL (70-99) Microbiology 01/16/20 Gram Stain - Final, Complete 01/16/20 Aerobic Culture - Final, Complete 01/16/20 Antimicrobic Susceptibility - Final, Complete 01/16/20 Blood Culture - Final, Complete NO GROWTH AFTER 5 DAYS Medications Current Medications Sodium Chloride (Normal Saline Flush) 3 ml QSHIFT PRN IV AFTER MEDS AND BLOOD DRAWS; Start 01/16/20 at 12:45 Sodium Chloride 1,000 ml @ 100 mls/hr Q10H IV Last administered on 01/21/20at 21:11; Start 01/16/20 at 12:37 Ondansetron HCl (Zofran) 4 mg PRN Q4HRS PRN IV NAUSEA/VOMITING; Start 01/16/20 at 12:45 Al Hydroxide/Mg Hydroxide (Mylanta Plus Xs) 30 ml PRN DAILY PRN PO HEARTBURN / GAS; Start 01/16/20 at 12:45 Clonidine HCl (Catapres) 0.1 mg PRN Q6HRS PRN PO SBP>160 OR DBP>90; Start 01/16/20 at 12:45 Docusate Sodium (Colace) 100 mg PRN BID PRN PO HARD STOOLS Last administered on 01/20/20 05:52; Start 01/16/20 at 12:45 Albuterol/ Ipratropium (Duoneb) 3 ml Q4H NEB Last administered on 01/22/20at 07:40; Start 01/16/20 at 12:45 Guaifenesin (Robitussin) 200 mg PRN Q4HRS PRN PO COUGH Last administered on 01/22/20at 06:32; Start 01/16/20 at 12:45 Vancomycin HCl (Vanco Per Pharmacy) 1 each PRN DAILY PRN MC SEE COMMENTS Last administered on 01/21/20at 09:18; Start 01/16/20 at 12:45 Piperacillin Sod/ Tazobactam Sod 3.375 gm/Sodium Chloride 50 ml @ 100 mls/hr Q6HRS IV Last administered on 01/22/20at 05:57; Start 01/16/20 at 13:00 Ergocalciferol (Vitamin D2) 50,000 unit QMONFR PO Last administered on 01/21/20at 16:02; Start 01/18/20 at 16:00 Furosemide (Lasix) 40 mg DAILY PO ; Start 01/16/20 at 13:30; Stop 01/16/20 at 16:13; Status DC Levothyroxine Sodium (Synthroid) 88 mcg DAILYAC PO ; Start 01/16/20 at 13:30; Stop 01/17/20 at 01:31; Status DC Lisinopril (Prinivil) 10 mg DAILY PO Last administered on 01/22/20at 09:19; Start 01/16/20 at 13:30 Nortriptyline HCl (Pamelor) 50 mg QHS PO Last administered on 01/21/20at 21:12; Start 01/16/20 at 21:00 Oxycodone/ Acetaminophen (Percocet 10/325) 1 tab HS PO ; Start 01/16/20 at 21:00; Stop 01/16/20 at 16:16; Status DC Oxycodone/ Acetaminophen (Percocet 10/325) 1 tab PRN Q4HRS PRN PO MODERATE PAIN; Start 01/16/20 at 13:00; Status Cancel Simvastatin (Zocor) 20 mg HS PO Last administered on 01/21/20at 21:13; Start 01/16/20 at 21:00 Carvedilol (Coreg) 6.25 mg BIDWMEALS PO ; Start 01/16/20 at 17:00; Stop 01/16/20 at 16:13; Status DC Insulin Glargine (Lantus Syringe) 30 unit QHS SQ Last administered on 01/21/20at 21:18; Start 01/16/20 at 21:00 Pantoprazole Sodium (Protonix) 40 mg DAILYAC PO Last administered on 01/22/20at 09:19; Start 01/16/20 at 13:30 Aspirin (Aspirin Chewable) 81 mg DAILY PO Last administered on 01/22/20at 09:19; Start 01/17/20 at 09:00 Oxycodone/ Acetaminophen (Percocet 10/325) 1 tab PRN Q4HRS PRN PO PAIN; Start 01/16/20 at 16:00; Stop 01/16/20 at 16:19; Status DC Sennosides (Senna) 8.6 mg BID PO Last administered on 01/19/20at 08:55; Start 01/16/20 at 14:00; Stop 01/19/20 at 14:19; Status DC Vancomycin HCl 2 gm/Sodium Chloride 500 ml @ 250 mls/hr 1X ONCE IV Last administered on 01/16/20at 14:07; Start 01/16/20 at 13:30; Stop 01/16/20 at 15:29; Status DC Vancomycin HCl 1.5 gm/Sodium Chloride 500 ml @ 250 mls/hr Q12H IV Last administered on 01/22/20at 02:27; Start 01/17/20 at 02:00 Vancomycin HCl (Vancomycin Trough Level) 1 each 1X ONCE MC Last administered on 01/18/20 01:25; Start 01/18/20 at 01:30; Stop 01/18/20 at 01:31; Status DC Lactobacillus Rhamnosus (Culturelle) 1 cap BID PO Last administered on 01/22/20at 09:19; Start 01/16/20 at 21:00 Carvedilol (Coreg) 6.25 mg 1400,2200 PO Last administered on 01/21/20at 22:00; Start 01/16/20 at 22:00 Furosemide (Lasix) 40 mg DAILY PO Last administered on 01/22/20at 09:19; Start 01/16/20 at 17:00 Oxycodone/ Acetaminophen (Percocet 10/325) 1 tab Q4H PO Last administered on 01/16/20at 18:04; Start 01/16/20 at 18:00; Stop 01/16/20 at 19:26; Status DC Oxycodone/ Acetaminophen (Percocet 10/325) 1 tab PRN Q4HRS PRN PO BREAKTHROUGH PAIN Last administered on 01/22/20at 05:56; Start 01/16/20 at 22:20 Oxycodone HCl (Roxicodone) 10 mg Q4HRS PO Last administered on 01/16/20at 22:08; Start 01/16/20 at 22:00; Stop 01/17/20 at 01:38; Status DC Oxycodone HCl (Roxicodone) 10 mg 1X ONCE PO Last administered on 01/16/20at 19:39; Start 01/16/20 at 19:30; Stop 01/16/20 at 19:33; Status DC Levothyroxine Sodium (Synthroid) 88 mcg DAILY05 PO Last administered on 01/22/20at 05:07; Start 01/17/20 at 05:00 Oxycodone HCl (Roxicodone) 10 mg Q4H PO Last administered on 01/22/20at 05:56; Start 01/17/20 at 02:00 Sennosides (Senna) 8.6 mg QID PO Last administered on 01/21/20at 06:36; Start 01/19/20 at 14:30; Stop 01/21/20 at 06:42; Status DC Budesonide (Pulmicort) 0.5 mg RTBID NEB Last administered on 01/22/20at 07:40; Start 01/20/20 at 20:00 Budesonide (Pulmicort) 0.5 mg 1X ONCE NEB Last administered on 01/20/20at 11:33; Start 01/20/20 at 08:45; Stop 01/20/20 at 08:59; Status DC Bisacodyl (Dulcolax Supp) 10 mg 1X ONCE SC Last administered on 01/20/20at 15:08; Start 01/20/20 at 13:45; Stop 01/20/20 at 13:46; Status DC Sennosides (Senna) 8.6 mg Q6H PO Last administered on 01/22/20at 05:55; Start 01/21/20 at 07:00 Bisacodyl (Dulcolax Supp) 10 mg 1X ONCE SC Last administered on 01/21/20at 13:07; Start 01/21/20 at 11:30; Stop 01/21/20 at 11:31; Status DC Bisacodyl (Dulcolax Supp) 10 mg PRN DAILY PRN SC CONSTIPATION; Start 01/21/20 at 11:15 Bisacodyl (Dulcolax Tab) 10 mg PRN DAILY PRN PO CONSTIPATION; Start 01/21/20 at 11:15 Active Scripts Active Reported Percocet 10-325 Mg Tablet (Oxycodone/Acetaminophen) 1 Each Tablet 1 Tab PO Q4HRS MDD 6 Tablet(s) 3 Days Senna Laxative (Sennosides) 8.6 Mg Tablet 1 Tab PO Q4HRS 30 Days Aspirin 81 Mg Tab.chew 1 Tab PO DAILY Metformin Hcl 1,000 Mg Tablet 1,000 Mg PO BIDWMEALS Lisinopril 10 Mg Tablet 1 Tab PO DAILY Levothyroxine Sodium 88 Mcg Tablet 88 Mcg PO DAILYAC Lasix (Furosemide) 40 Mg Tablet 40 Mg PO DAILY Lantus Solostar (Insulin Glargine,Hum.rec.anlog) 100 Unit/1 Ml Insuln.pen 30 Unit SQ QHS Vitamin D2 (Ergocalciferol (Vitamin D2)) 1,250 Mcg Capsule 1,250 Mcg PO QMONFR Nortriptyline Hcl 25 Mg Capsule 2 Cap PO QHS Omeprazole 40 Mg Capsule.dr 40 Mg PO DAILY Simvastatin 20 Mg Tablet 20 Mg PO HS Coreg (Carvedilol) 25 Mg Tablet 6.25 Mg PO BIDWMEALS Vitals/I & O Vital Sign - Last 24 Hours 01/21/20 01/21/20 01/21/20 01/21/20 11:00 11:11 11:20 11:20 Temp 98.0 98.0 Pulse 94 Resp 18 20 20 B/P (MAP) 120/91 (101) Pulse Ox 92 94 94 O2 Delivery Room Air Room Air Room Air Room Air 01/21/20 01/21/20 01/21/20 01/21/20 14:22 14:24 14:24 14:25 Temp 97.9 97.9 Pulse 93 93 Resp 20 20 20 B/P (MAP) 122/89 (100) 122/89 Pulse Ox 94 94 94 O2 Delivery Room Air Room Air Room Air 01/21/20 01/21/20 01/21/20 01/21/20 15:00 15:30 15:30 16:07 Temp 98.1 98.1 Pulse 94 Resp 18 20 20 B/P (MAP) 118/84 (95) Pulse Ox 94 94 94 O2 Delivery Room Air Room Air Room Air Room Air 01/21/20 01/21/20 01/21/20 01/21/20 18:36 18:37 19:00 19:36 Temp 97.7 97.7 Pulse 98 Resp 20 20 20 20 B/P (MAP) 136/84 (101) Pulse Ox 94 94 93 O2 Delivery Room Air Room Air Room Air Room Air 01/21/20 01/21/20 01/21/20 01/21/20 19:36 20:00 20:19 20:20 Resp 20 Pulse Ox 96 96 O2 Delivery Room Air Room Air Room Air Room Air 01/21/20 01/21/20 01/21/20 01/21/20 22:00 22:00 22:00 23:00 Temp 97.9 97.9 Pulse 98 101 Resp 18 18 19 B/P (MAP) 136/84 121/67 (85) Pulse Ox 95 O2 Delivery Room Air Room Air Room Air 01/21/20 01/21/20 01/22/20 01/22/20 23:00 23:00 00:58 02:03 Resp 20 20 20 Pulse Ox 95 O2 Delivery Room Air Room Air Room Air Room Air 01/22/20 01/22/20 01/22/20 01/22/20 02:03 03:00 03:40 05:56 Temp 97.9 97.9 Pulse 97 Resp 20 19 18 B/P (MAP) 143/87 (105) Pulse Ox 98 O2 Delivery Room Air Room Air Room Air Room Air 01/22/20 01/22/20 01/22/20 01/22/20 05:56 07:00 07:15 07:15 Temp 97.8 97.8 Pulse 94 Resp 18 20 20 B/P (MAP) 110/79 (89) Pulse Ox 94 94 94 O2 Delivery Room Air Room Air Room Air Room Air 01/22/20 01/22/20 01/22/20 07:42 07:43 09:19 Pulse 94 B/P (MAP) 110/79 Pulse Ox 94 94 O2 Delivery Room Air Room Air Intake and Output 01/21/20 01/21/20 01/22/20 15:00 23:00 07:00 Intake Total 1100 ml 50 ml Output Total 400 ml 350 ml 700 ml Balance -400 ml 750 ml -650 ml Justicifation of Admission Dx: Justifications for Admission: Justification of Admission Dx: N/A JONO DAVIS MD Jan 22, 2020 10:33
[2020-01-22 10:57] VITALS: BP 173/93
[2020-01-22] MEDS: IV NORMAL SALINE 1000ML BAG 1,000 ML IV SCH ×2 (12:37→18:37)
[2020-01-22] MEDS: VANCOMYCIN PER PHARMACY MC PRN (13:01)
[2020-01-22] MEDS: CARVEDILOL 6.25 MG TABLET. PO SCH ×2 (14:15→22:01)
[2020-01-22 15:00] VITALS: BP 133/90
--- NOTE | 2020-01-22 16:02 | NUR ---
SW following. Discussed with RN, pt has wound vac, IV abx. SW spoke with pt via room telephone - agreeable to home health, understands difficulty of finding home health for his insurance. [facility] is still on diversion, [facility] is not in network. Referral faxed to [facility]. SW will continue to follow.
[2020-01-22 19:00] VITALS: BP 106/78
[2020-01-22] MEDS: NORTRIPTYLINE 25 MG CAPSULE PO SCH (21:59)
[2020-01-22] MEDS: INSULIN GLARGINE SYRINGE. SQ SCH (22:05)
[2020-01-22] MEDS: SIMVASTATIN 20 MG TABLET PO SCH (22:07)
[2020-01-22 23:00] VITALS: BP 124/80
[2020-01-23] MEDS: SENNOSIDES 8.6 MG TABLET PO SCH ×4 (01:10→17:57)
[2020-01-23] MEDS: oxyCODONE IR 5 MG TABLET PO SCH ×6 (02:01→22:02)
[2020-01-23] MEDS: VANCOMYCIN 1.5 GM in IV NORMAL SALINE 500ML BAG 500 ML IV SCH (02:01)
[2020-01-23] MEDS: oxyCODONE/APAP 10/325 1 TAB TABLET PO PRN ×6 (02:02→22:01)
[2020-01-23 03:00] VITALS: BP 116/74
[2020-01-23] MEDS: IPRATRPIUM/ALBUTEROL 0.5/2.5MG 3 ML NEBU. NEB SCH ×6 (03:35→23:58)
[2020-01-23] MEDS: IV NORMAL SALINE 1000ML BAG 1,000 ML IV SCH ×2 (04:37→05:13)
[2020-01-23] MEDS: LEVOTHYROXINE 88 MCG TABLET PO SCH (05:13)
[2020-01-23] MEDS: PIPERACILLIN/TAZOBACTAM 3.375 GM in IV NORMAL SALINE 50ML 50 ML IV SCH ×3 (05:58→17:58)
[2020-01-23 06:27] LABS: BASO # 0.1 x10^3/uL (0.0-0.2); BASO % 1 % (0-3); EOS # 0.2 x10^3/uL (0.0-0.7); EOS % 3 % (0-3); HEMATOCRIT 28.5 % (39.0-53.0); HEMOGLOBIN 9.5 g/dL (13.0-17.5); LYMPH # 1.2 x10^3/uL (1.0-4.8); LYMPH % 18 % (24-48); MEAN CORPUSCULAR HEMOGLOBIN 30 pg (25-35); MEAN CORPUSCULAR HGB CONC 33 g/dL (31-37); MEAN CORPUSCULAR VOLUME 90 fL (79-100); MONO # 0.5 x10^3/uL (0.0-1.1); MONO % 7 % (0-9); NEUT % 71 % (31-73); PLATELET COUNT 498 x10^3/uL (140-400); RED BLOOD COUNT 3.16 x10^6/uL (4.30-5.70); RED CELL DISTRIBUTION WIDTH 14.5 % (11.5-14.5)
[2020-01-23 06:50] LABS: CALCIUM 8.5 mg/dL (8.5-10.1); CREATININE 1.4 mg/dL (0.7-1.3); GFR 52.2; POTASSIUM 3.4 mmol/L (3.5-5.1)
[2020-01-23 07:00] VITALS: BP 114/77
[2020-01-23] MEDS: BUDESONIDE 0.5 MG/2 ML NEBU. NEB SCH ×2 (07:57→20:00)
[2020-01-23] MEDS: LACTOBACILLUS RHAMNOSUS GG 1 CAPSULE. PO SCH ×2 (08:33→21:22)
[2020-01-23] MEDS: LISINOPRIL 10 MG TABLET PO SCH (08:34)
[2020-01-23] MEDS: ASPIRIN CHEWABLE 81 MG TABLET. PO SCH (08:34)
[2020-01-23] MEDS: FUROSEMIDE 40 MG TABLET. PO SCH (08:34)
[2020-01-23] MEDS: PANTOPRAZOLE 40 MG TABLET.DR. PO SCH (08:34)
[2020-01-23] MEDS: DOCUSATE SODIUM 100 MG CAPSULE. PO PRN (08:34)
--- NOTE | 2020-01-23 09:37 | PDOC ---
Infectious Disease Note Subjective: Subjective Patient ambulating tolerating po intake well Denies N/V/F/C Vital Signs: Vital Signs Vital Signs Date Time Temp Pulse Resp B/P (MAP) Pulse Ox O2 Delivery O2 Flow Rate FiO2 01/23/20 08:34 97 114/77 01/23/20 08:00 93 Room Air 01/23/20 07:00 98.4 20 98.4 Physical Exam: PHYSICAL EXAM GENERAL: Lying down, awake in NAD HEENT: Oral cavity pink, moist. No thrush NECK: Supple, no JVP, no lymphadenopathy. LUNGS: Clear. HEART: S1, S2 regular. ABDOMEN: Obese, BS present, wound vac in place, redness improving; some induration EXTREMITIES: No edema, cyanosis. SKIN: without signs of rash NEUROLOGIC: Alert, awake and appropriate. No focal neurologic deficit. PIV Port-A-Cath not in use, clean Medications: Inpatient Meds: Current Medications Medications (Trade) Dose Ordered Sig/Cony Start Time Stop Time Status Last Admin Dose Admin Al Hydroxide/Mg Hydroxide (Mylanta Plus Xs) 30 ml PRN DAILY PRN 01/16/20 12:45 Albuterol/ Ipratropium (Duoneb) 3 ml Q4H 01/16/20 12:45 01/23/20 07:57 3 ML Aspirin (Aspirin Chewable) 81 mg DAILY 01/17/20 09:00 01/23/20 08:34 81 MG Bisacodyl (Dulcolax Supp) 10 mg PRN DAILY PRN 01/21/20 11:15 Bisacodyl (Dulcolax Tab) 10 mg PRN DAILY PRN 01/21/20 11:15 Budesonide (Pulmicort) 0.5 mg 1X ONCE 01/20/20 08:45 01/20/20 08:59 DC 01/20/20 11:33 0.5 MG Carvedilol (Coreg) 6.25 mg 1400,2200 01/16/20 22:00 01/22/20 22:01 6.25 MG Clonidine HCl (Catapres) 0.1 mg PRN Q6HRS PRN 01/16/20 12:45 Docusate Sodium (Colace) 100 mg PRN BID PRN 01/16/20 12:45 01/23/20 08:34 100 MG Ergocalciferol (Vitamin D2) 50,000 unit QMONFR 01/18/20 16:00 01/21/20 16:02 50,000 UNIT Furosemide (Lasix) 40 mg DAILY 01/16/20 17:00 01/23/20 08:34 40 MG Guaifenesin (Robitussin) 200 mg PRN Q4HRS PRN 01/16/20 12:45 01/22/20 06:32 200 MG Insulin Glargine (Lantus Syringe) 30 unit QHS 01/16/20 21:00 01/22/20 22:05 30 UNIT Lactobacillus Rhamnosus (Culturelle) 1 cap BID 01/16/20 21:00 01/23/20 08:33 1 CAP Levothyroxine Sodium (Synthroid) 88 mcg DAILY05 01/17/20 05:00 01/23/20 05:13 88 MCG Lisinopril (Prinivil) 10 mg DAILY 01/16/20 13:30 01/23/20 08:34 10 MG Nortriptyline HCl (Pamelor) 50 mg QHS 01/16/20 21:00 01/22/20 21:59 50 MG Ondansetron HCl (Zofran) 4 mg PRN Q4HRS PRN 01/16/20 12:45 Oxycodone HCl (Roxicodone) 10 mg Q4H 01/17/20 02:00 01/23/20 05:59 10 MG Oxycodone/ Acetaminophen (Percocet 10/325) 1 tab PRN Q4HRS PRN 01/16/20 22:20 01/23/20 05:59 1 TAB Pantoprazole Sodium (Protonix) 40 mg DAILYAC 01/16/20 13:30 01/23/20 08:34 40 MG Piperacillin Sod/ Tazobactam Sod 3.375 gm/Sodium Chloride 50 ml @ 100 mls/hr Q6HRS 01/16/20 13:00 01/23/20 05:58 100 MLS/HR Sennosides (Senna) 8.6 mg Q6H 01/21/20 07:00 01/23/20 05:59 8.6 MG Simvastatin (Zocor) 20 mg HS 01/16/20 21:00 01/22/20 22:07 20 MG Sodium Chloride 1,000 ml @ 100 mls/hr Q10H 01/16/20 12:37 01/23/20 05:13 100 MLS/HR Sodium Chloride (Normal Saline Flush) 3 ml QSHIFT PRN 01/16/20 12:45 Vancomycin HCl (Vanco Per Pharmacy) 1 each PRN DAILY PRN 01/16/20 12:45 01/22/20 13:01 1 EACH Vancomycin HCl (Vancomycin Trough Level) 1 each 1X ONCE 01/18/20 01:30 01/18/20 01:31 DC 01/18/20 01:25 1 EACH Vancomycin HCl 1.5 gm/Sodium Chloride 500 ml @ 250 mls/hr Q12H 01/17/20 02:00 01/23/20 02:01 250 MLS/HR Vancomycin HCl 2 gm/Sodium Chloride 500 ml @ 250 mls/hr 1X ONCE 01/16/20 13:30 01/16/20 15:29 DC 01/16/20 14:07 250 MLS/HR Labs: Lab Laboratory Tests Test 01/22/20 11:34 01/22/20 17:01 01/22/20 21:10 01/23/20 06:10 Glucose (Fingerstick) 122 mg/dL (70-99) 134 mg/dL (70-99) 148 mg/dL (70-99) White Blood Count 7.0 x10^3/uL (4.0-11.0) Red Blood Count 3.16 x10^6/uL (4.30-5.70) Hemoglobin 9.5 g/dL (13.0-17.5) Hematocrit 28.5 % (39.0-53.0) Mean Corpuscular Volume 90 fL (79-100) Mean Corpuscular Hemoglobin 30 pg (25-35) Mean Corpuscular Hemoglobin Concent 33 g/dL (31-37) Red Cell Distribution Width 14.5 % (11.5-14.5) Platelet Count 498 x10^3/uL (140-400) Neutrophils (%) (Auto) 71 % (31-73) Lymphocytes (%) (Auto) 18 % (24-48) Monocytes (%) (Auto) 7 % (0-9) Eosinophils (%) (Auto) 3 % (0-3) Basophils (%) (Auto) 1 % (0-3) Neutrophils # (Auto) 5.0 x10^3/uL (1.8-7.7) Lymphocytes # (Auto) 1.2 x10^3/uL (1.0-4.8) Monocytes # (Auto) 0.5 x10^3/uL (0.0-1.1) Eosinophils # (Auto) 0.2 x10^3/uL (0.0-0.7) Basophils # (Auto) 0.1 x10^3/uL (0.0-0.2) Sodium Level 141 mmol/L (136-145) Potassium Level 3.4 mmol/L (3.5-5.1) Chloride Level 105 mmol/L (98-107) Carbon Dioxide Level 27 mmol/L (21-32) Anion Gap 9 (6-14) Blood Urea Nitrogen 11 mg/dL (8-26) Creatinine 1.4 mg/dL (0.7-1.3) Estimated GFR (Cockcroft-Gault) 52.2 Glucose Level 138 mg/dL (70-99) Calcium Level 8.5 mg/dL (8.5-10.1) Micro RUN DATE: 01/20/20 [facility] *LIVE* PAGE 1 RUN TIME: 1116 Specimen Inquiry PATIENT: JOE HYLTON ACCT: [id number] LOC: [address] [place] [address] U: [id number] AGE/SX: 59/M ROOM: 514 RE01/16/[address]: JONO DAVIS MD : 1960 BED: 1 DIS: STATUS: ADM IN TLOC: SPEC #: [id number] [id number] DELIA: 01/16/20 STATUS: COMP REQ #: [id number] RECD: 01/16/[address]: JONO DAVIS MD SOURCE: ABSCESS ENTR: 01/16/[address]: KATI PICKERING MD SPDESC: CELENA BLEDSOE MD, SCOTT D MD KHAN, AMAN U MD ORDERED: AEROBIC CULT GS COMMENTS: WOUND ABSCESS Procedure Result GRAM STAIN Final Final GRAM NEGATIVE RODS:FEW GRAM POSITIVE RODS:RARE GRAM POSITIVE COCCI:MODERATE SQUAMOUS EPI CELL:FEW PMN (WBCs):MODERATE Unless otherwise specified, Testing Performed by: [address] [address] For Inquires, the Physician may contact the Microbiology department at [phone] AEROBIC CULTURE Final Final MANY GRAM POSITIVE COCCI on 01/18/20 at 1333 FINAL ID= [STAPHYLOCOCCUS AUREUS (MRSA)] MANY GRAM NEGATIVE RODS on 01/18/20 at 1333 FINAL ID= [ENTEROBACTER CLOACAE COMPLEX] Testing Performed by: [address] [address] For Inquires, the Physician may contact the Microbiology department at [phone] STAPHYLOCOCCUS AUREUS (MRSA) ENTEROBACTER CLOACAE COMPLEX ANTIMICROBIAL SUSCEPTIBILITY Final Comment Comment POS PETER TYPE 38 STAPHYLOCOCCUS AUREUS (MRSA) ANTIBIOTIC RESULT INTERPRETATION AZITHROMYCIN >4 R CLINDAMYCIN <=0.25 R* CONTINUED ON NEXT PAGE -------- ---- RUN DATE: 01/20/20 [facility] *LIVE* PAGE 2 RUN TIME: 1116 Specimen Inquiry SPEC: [id number] PATIENT: JOE HYLTON [id number] (Continued) Procedure Result ANTIMICROBIAL SUSCEPTIBILITY Final (continued) CEFOXITIN SCREEN >4 POS CIPROFLOXACIN <=1 S CEFTAROLINE <=0.5 S DAPTOMYCIN <=0.5 S ERYTHROMYCIN >4 R GENTAMICIN <=4 S INDUCIBLE CLINDAMYCIN >4/0.5 POS LINEZOLID 2 S LEVOFLOXACIN <=1 S OXACILLIN >2 R PENICILLIN >2 R* RIFAMPIN <=1 S TRIMETHOPRIM/SULFAMETHOXAZOLE <=0.5/9.5 S TETRACYCLINE <=4 S VANCOMYCIN 1 S NEG PETER 56 ENTEROBACTER CLOACAE COMPLEX ANTIBIOTIC RESULT INTERPRETATION AMPICILLIN/SULBACTAM <=4/2 R* AMIKACIN <=16 S AMPICILLIN <=8 R* AMOXICILLIN/K CLAVULANATE <=8/4 R* AZTREONAM <=4 S CEFTRIAXONE <=1 S CEFTAZIDIME <=1 S CEFOTAXIME <=2 S CEFOXITIN <=8 R* CIPROFLOXACIN <=0.25 S CEFEPIME <=2 S CEFUROXIME <=4 R* ERTAPENEM <=0.5 S GENTAMICIN <=2 S LEVOFLOXACIN <=0.5 S MEROPENEM <=1 S PIPERACILLIN/TAZOBACTAM <=8 S TRIMETHOPRIM/SULFAMETHOXAZOLE <=0.5/9.5 S TETRACYCLINE <=4 S TOBRAMYCIN <=2 S Unless otherwise specified, Testing Performed by: [address] [id number] For Inquires, the Physician may contact the Microbiology department at [phone] Objective: Assessment: Abdominal incision infection post-hernia surgery. 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 Hypertension. Obesity. h/o lung cancer s/p chemo. Port-A-Cath still in place SHAUN mild Plan: Plan of Care Discontinue vancomycin due to SHAUN Start Zyvox cont Zosyn Probiotics Bowel regimen Wound care as directed [facility] Supportive care d/w SUSAN Phillips MD Jan 23, 2020 09:37
[2020-01-23] MEDS: LINEZOLID 600 MG TABLET PO SCH ×2 (09:58→21:22)
--- NOTE | 2020-01-23 10:02 | PDOC ---
PROGRESS NOTES Date of Service: DATE: 01/23/20 TIME: 10:02 Chief Complaint Chief Complaint IMPRESSION POST-OP Wound infection Post-op Diagnosis: Incarcerated ventral hernia with high-grade bowel obstruction 12/29/19 RECENT partial SBO Incarcerated umbilical hernia pre-op Acute renal failurevasomotor nephropathy resolving Hypertension Diabetes Dyslipidemia History of constipation// inc senna to qid COPD GERD AEROBIC CULTURE Preliminary Preliminary MANY GRAM POSITIVE COCCI on 01/18/20 at 1333 FINAL ID= [STAPHYLOCOCCUS AUREUS] MANY GRAM NEGATIVE RODS on 01/18/20 at 1333 FINAL ID= [ENTEROBACTER CLOACAE COMPLEX] dulcolax supp daily 30 MIN pt exam, chart review, > 50% of time spent with exam, chart review, pt care coordination History of Present Illness History of Present Illness 01/18/2020 Patient seen and examined Ventral dressing is CDI Wound vacuum attached Discussed with RN Charts reviewed 01/17/2020 Patient seen and examined Ventral dressing is clean, dry and intact Discussed with RN Reviewed Charts Vitals Vitals Vital Signs Date Time Temp Pulse Resp B/P (MAP) Pulse Ox O2 Delivery O2 Flow Rate FiO2 01/23/20 09:58 Room Air 01/23/20 08:34 97 114/77 01/23/20 08:00 93 01/23/20 07:00 98.4 20 98.4 Physical Exam Physical Exam GENERAL: Lying down, awake in NAD HEENT: Oral cavity pink, moist. No thrush NECK: Supple, no JVP, no lymphadenopathy. LUNGS: Clear. HEART: S1, S2 regular. ABDOMEN: Obese, BS present, wound vac in place, redness improving; some induration EXTREMITIES: No edema, cyanosis. SKIN: without signs of rash NEUROLOGIC: Alert, awake and appropriate. No focal neurologic deficit. PIV Port-A-Cath not in use, clean General: Alert, Oriented X3, Cooperative, No acute distress Heart: Regular rate, Normal S1, Normal S2, No murmurs Lungs: Clear Abdomen: Soft, Other (vac in place less erythema ) Extremities: No cyanosis Labs LABS Laboratory Tests Test 01/22/20 11:34 01/22/20 17:01 01/22/20 21:10 01/23/20 06:10 Glucose (Fingerstick) 122 mg/dL (70-99) 134 mg/dL (70-99) 148 mg/dL (70-99) White Blood Count 7.0 x10^3/uL (4.0-11.0) Red Blood Count 3.16 x10^6/uL (4.30-5.70) Hemoglobin 9.5 g/dL (13.0-17.5) Hematocrit 28.5 % (39.0-53.0) Mean Corpuscular Volume 90 fL (79-100) Mean Corpuscular Hemoglobin 30 pg (25-35) Mean Corpuscular Hemoglobin Concent 33 g/dL (31-37) Red Cell Distribution Width 14.5 % (11.5-14.5) Platelet Count 498 x10^3/uL (140-400) Neutrophils (%) (Auto) 71 % (31-73) Lymphocytes (%) (Auto) 18 % (24-48) Monocytes (%) (Auto) 7 % (0-9) Eosinophils (%) (Auto) 3 % (0-3) Basophils (%) (Auto) 1 % (0-3) Neutrophils # (Auto) 5.0 x10^3/uL (1.8-7.7) Lymphocytes # (Auto) 1.2 x10^3/uL (1.0-4.8) Monocytes # (Auto) 0.5 x10^3/uL (0.0-1.1) Eosinophils # (Auto) 0.2 x10^3/uL (0.0-0.7) Basophils # (Auto) 0.1 x10^3/uL (0.0-0.2) Sodium Level 141 mmol/L (136-145) Potassium Level 3.4 mmol/L (3.5-5.1) Chloride Level 105 mmol/L (98-107) Carbon Dioxide Level 27 mmol/L (21-32) Anion Gap 9 (6-14) Blood Urea Nitrogen 11 mg/dL (8-26) Creatinine 1.4 mg/dL (0.7-1.3) Estimated GFR (Cockcroft-Gault) 52.2 Glucose Level 138 mg/dL (70-99) Calcium Level 8.5 mg/dL (8.5-10.1) Comment Review of Relevant I have reviewed the following items catarina (where applicable) has been applied. Labs Laboratory Tests Test 8/10/20 11:45 01/21/20 16:56 01/21/20 20:31 01/22/20 07:49 Glucose (Fingerstick) 117 mg/dL (70-99) 148 mg/dL (70-99) 183 mg/dL (70-99) 100 mg/dL (70-99) Test 01/22/20 11:34 01/22/20 17:01 01/22/20 21:10 01/23/20 06:10 Glucose (Fingerstick) 122 mg/dL (70-99) 134 mg/dL (70-99) 148 mg/dL (70-99) White Blood Count 7.0 x10^3/uL (4.0-11.0) Red Blood Count 3.16 x10^6/uL (4.30-5.70) Hemoglobin 9.5 g/dL (13.0-17.5) Hematocrit 28.5 % (39.0-53.0) Mean Corpuscular Volume 90 fL (79-100) Mean Corpuscular Hemoglobin 30 pg (25-35) Mean Corpuscular Hemoglobin Concent 33 g/dL (31-37) Red Cell Distribution Width 14.5 % (11.5-14.5) Platelet Count 498 x10^3/uL (140-400) Neutrophils (%) (Auto) 71 % (31-73) Lymphocytes (%) (Auto) 18 % (24-48) Monocytes (%) (Auto) 7 % (0-9) Eosinophils (%) (Auto) 3 % (0-3) Basophils (%) (Auto) 1 % (0-3) Neutrophils # (Auto) 5.0 x10^3/uL (1.8-7.7) Lymphocytes # (Auto) 1.2 x10^3/uL (1.0-4.8) Monocytes # (Auto) 0.5 x10^3/uL (0.0-1.1) Eosinophils # (Auto) 0.2 x10^3/uL (0.0-0.7) Basophils # (Auto) 0.1 x10^3/uL (0.0-0.2) Sodium Level 141 mmol/L (136-145) Potassium Level 3.4 mmol/L (3.5-5.1) Chloride Level 105 mmol/L (98-107) Carbon Dioxide Level 27 mmol/L (21-32) Anion Gap 9 (6-14) Blood Urea Nitrogen 11 mg/dL (8-26) Creatinine 1.4 mg/dL (0.7-1.3) Estimated GFR (Cockcroft-Gault) 52.2 Glucose Level 138 mg/dL (70-99) Calcium Level 8.5 mg/dL (8.5-10.1) Laboratory Tests Test 01/22/20 11:34 01/22/20 17:01 01/22/20 21:10 01/23/20 06:10 Glucose (Fingerstick) 122 mg/dL (70-99) 134 mg/dL (70-99) 148 mg/dL (70-99) White Blood Count 7.0 x10^3/uL (4.0-11.0) Red Blood Count 3.16 x10^6/uL (4.30-5.70) Hemoglobin 9.5 g/dL (13.0-17.5) Hematocrit 28.5 % (39.0-53.0) Mean Corpuscular Volume 90 fL (79-100) Mean Corpuscular Hemoglobin 30 pg (25-35) Mean Corpuscular Hemoglobin Concent 33 g/dL (31-37) Red Cell Distribution Width 14.5 % (11.5-14.5) Platelet Count 498 x10^3/uL (140-400) Neutrophils (%) (Auto) 71 % (31-73) Lymphocytes (%) (Auto) 18 % (24-48) Monocytes (%) (Auto) 7 % (0-9) Eosinophils (%) (Auto) 3 % (0-3) Basophils (%) (Auto) 1 % (0-3) Neutrophils # (Auto) 5.0 x10^3/uL (1.8-7.7) Lymphocytes # (Auto) 1.2 x10^3/uL (1.0-4.8) Monocytes # (Auto) 0.5 x10^3/uL (0.0-1.1) Eosinophils # (Auto) 0.2 x10^3/uL (0.0-0.7) Basophils # (Auto) 0.1 x10^3/uL (0.0-0.2) Sodium Level 141 mmol/L (136-145) Potassium Level 3.4 mmol/L (3.5-5.1) Chloride Level 105 mmol/L (98-107) Carbon Dioxide Level 27 mmol/L (21-32) Anion Gap 9 (6-14) Blood Urea Nitrogen 11 mg/dL (8-26) Creatinine 1.4 mg/dL (0.7-1.3) Estimated GFR (Cockcroft-Gault) 52.2 Glucose Level 138 mg/dL (70-99) Calcium Level 8.5 mg/dL (8.5-10.1) Microbiology 01/16/20 Gram Stain - Final, Complete 01/16/20 Aerobic Culture - Final, Complete 01/16/20 Antimicrobic Susceptibility - Final, Complete 01/16/20 Blood Culture - Final, Complete NO GROWTH AFTER 5 DAYS Medications Current Medications Sodium Chloride (Normal Saline Flush) 3 ml QSHIFT PRN IV AFTER MEDS AND BLOOD DRAWS; Start 01/16/20 at 12:45 Sodium Chloride 1,000 ml @ 100 mls/hr Q10H IV Last administered on 01/23/20at 05:13; Start 01/16/20 at 12:37 Ondansetron HCl (Zofran) 4 mg PRN Q4HRS PRN IV NAUSEA/VOMITING; Start 01/16/20 at 12:45 Al Hydroxide/Mg Hydroxide (Mylanta Plus Xs) 30 ml PRN DAILY PRN PO HEARTBURN / GAS; Start 01/16/20 at 12:45 Clonidine HCl (Catapres) 0.1 mg PRN Q6HRS PRN PO SBP>160 OR DBP>90; Start 01/16/20 at 12:45 Docusate Sodium (Colace) 100 mg PRN BID PRN PO HARD STOOLS Last administered on 01/23/20at 08:34; Start 01/16/20 at 12:45 Albuterol/ Ipratropium (Duoneb) 3 ml Q4H NEB Last administered on 01/23/20at 07:57; Start 01/16/20 at 12:45 Guaifenesin (Robitussin) 200 mg PRN Q4HRS PRN PO COUGH Last administered on 01/22/20at 06:32; Start 01/16/20 at 12:45 Vancomycin HCl (Vanco Per Pharmacy) 1 each PRN DAILY PRN MC SEE COMMENTS Last administered on 01/22/20at 13:01; Start 01/16/20 at 12:45; Stop 01/23/20 at 09:40; Status DC Piperacillin Sod/ Tazobactam Sod 3.375 gm/Sodium Chloride 50 ml @ 100 mls/hr Q6HRS IV Last administered on 01/23/20at 05:58; Start 01/16/20 at 13:00 Ergocalciferol (Vitamin D2) 50,000 unit QMONFR PO Last administered on 01/21/20at 16:02; Start 01/18/20 at 16:00 Furosemide (Lasix) 40 mg DAILY PO ; Start 01/16/20 at 13:30; Stop 01/16/20 at 16:13; Status DC Levothyroxine Sodium (Synthroid) 88 mcg DAILYAC PO ; Start 01/16/20 at 13:30; Stop 01/17/20 at 01:31; Status DC Lisinopril (Prinivil) 10 mg DAILY PO Last administered on 01/23/20at 08:34; Start 01/16/20 at 13:30 Nortriptyline HCl (Pamelor) 50 mg QHS PO Last administered on 01/22/20at 21:59; Start 01/16/20 at 21:00 Oxycodone/ Acetaminophen (Percocet 10/325) 1 tab HS PO ; Start 01/16/20 at 21:00; Stop 01/16/20 at 16:16; Status DC Oxycodone/ Acetaminophen (Percocet 10/325) 1 tab PRN Q4HRS PRN PO MODERATE PAIN; Start 01/16/20 at 13:00; Status Cancel Simvastatin (Zocor) 20 mg HS PO Last administered on 01/22/20at 22:07; Start 01/16/20 at 21:00 Carvedilol (Coreg) 6.25 mg BIDWMEALS PO ; Start 01/16/20 at 17:00; Stop 01/16/20 at 16:13; Status DC Insulin Glargine (Lantus Syringe) 30 unit QHS SQ Last administered on 01/22/20at 22:05; Start 01/16/20 at 21:00 Pantoprazole Sodium (Protonix) 40 mg DAILYAC PO Last administered on 01/23/20 08:34; Start 01/16/20 at 13:30 Aspirin (Aspirin Chewable) 81 mg DAILY PO Last administered on 01/23/20at 08:34; Start 01/17/20 at 09:00 Oxycodone/ Acetaminophen (Percocet 10/325) 1 tab PRN Q4HRS PRN PO PAIN; Start 01/16/20 at 16:00; Stop 01/16/20 at 16:19; Status DC Sennosides (Senna) 8.6 mg BID PO Last administered on 01/19/20at 08:55; Start 01/16/20 at 14:00; Stop 01/19/20 at 14:19; Status DC Vancomycin HCl 2 gm/Sodium Chloride 500 ml @ 250 mls/hr 1X ONCE IV Last administered on 01/16/20at 14:07; Start 01/16/20 at 13:30; Stop 01/16/20 at 15:29; Status DC Vancomycin HCl 1.5 gm/Sodium Chloride 500 ml @ 250 mls/hr Q12H IV Last administered on 01/23/20at 02:01; Start 01/17/20 at 02:00; Stop 01/23/20 at 09:38; Status DC Vancomycin HCl (Vancomycin Trough Level) 1 each 1X ONCE MC Last administered o n 01/18/20at 01:25; Start 01/18/20 at 01:30; Stop 01/18/20 at 01:31; Status DC Lactobacillus Rhamnosus (Culturelle) 1 cap BID PO Last administered on 01/23/20at 08:33; Start 01/16/20 at 21:00 Carvedilol (Coreg) 6.25 mg 1400,2200 PO Last administered on 01/22/20at 22:01; Start 01/16/20 at 22:00 Furosemide (Lasix) 40 mg DAILY PO Last administered on 01/23/20at 08:34; Start 01/16/20 at 17:00 Oxycodone/ Acetaminophen (Percocet 10/325) 1 tab Q4H PO Last administered on 01/16/20at 18:04; Start 01/16/20 at 18:00; Stop 01/16/20 at 19:26; Status DC Oxycodone/ Acetaminophen (Percocet 10/325) 1 tab PRN Q4HRS PRN PO BREAKTHROUGH PAIN Last administered on 01/23/20 09:58; Start 01/16/20 at 22:20 Oxycodone HCl (Roxicodone) 10 mg Q4HRS PO Last administered on 01/16/20at 22:08; Start 01/16/20 at 22:00; Stop 01/17/20 at 01:38; Status DC Oxycodone HCl (Roxicodone) 10 mg 1X ONCE PO Last administered on 01/16/20at 19:39; Start 01/16/20 at 19:30; Stop 01/16/20 at 19:33; Status DC Levothyroxine Sodium (Synthroid) 88 mcg DAILY05 PO Last administered on 01/23/20at 05:13; Start 01/17/20 at 05:00 Oxycodone HCl (Roxicodone) 10 mg Q4H PO Last administered on 01/23/20 09:58; Start 01/17/20 at 02:00 Sennosides (Senna) 8.6 mg QID PO Last administered on 01/21/20at 06:36; Start 01/19/20 at 14:30; Stop 01/21/20 at 06:42; Status DC Budesonide (Pulmicort) 0.5 mg RTBID NEB Last administered on 01/23/20at 07:57; Start 01/20/20 at 20:00 Budesonide (Pulmicort) 0.5 mg 1X ONCE NEB Last administered on 01/20/20at 11:33; Start 01/20/20 at 08:45; Stop 01/20/20 at 08:59; Status DC Bisacodyl (Dulcolax Supp) 10 mg 1X ONCE NC Last administered on 01/20/20at 15:08; Start 01/20/20 at 13:45; Stop 01/20/20 at 13:46; Status DC Sennosides (Senna) 8.6 mg Q6H PO Last administered on 01/23/20at 05:59; Start 01/21/20 at 07:00 Bisacodyl (Dulcolax Supp) 10 mg 1X ONCE NC Last administered on 01/21/20at 13:07; Start 01/21/20 at 11:30; Stop 01/21/20 at 11:31; Status DC Bisacodyl (Dulcolax Supp) 10 mg PRN DAILY PRN NC CONSTIPATION; Start 01/21/20 at 11:15 Bisacodyl (Dulcolax Tab) 10 mg PRN DAILY PRN PO CONSTIPATION; Start 01/21/20 at 11:15 Linezolid (Zyvox) 600 mg BID PO Last administered on 01/23/20at 09:58; Start 01/23/20 at 10:00 Active Scripts Active Reported Percocet 10-325 Mg Tablet (Oxycodone/Acetaminophen) 1 Each Tablet 1 Tab PO Q4HRS MDD 6 Tablet(s) 3 Days Senna Laxative (Sennosides) 8.6 Mg Tablet 1 Tab PO Q4HRS 30 Days Aspirin 81 Mg Tab.chew 1 Tab PO DAILY Metformin Hcl 1,000 Mg Tablet 1,000 Mg PO BIDWMEALS Lisinopril 10 Mg Tablet 1 Tab PO DAILY Levothyroxine Sodium 88 Mcg Tablet 88 Mcg PO DAILYAC Lasix (Furosemide) 40 Mg Tablet 40 Mg PO DAILY Lantus Solostar (Insulin Glargine,Hum.rec.anlog) 100 Unit/1 Ml Insuln.pen 30 Unit SQ QHS Vitamin D2 (Ergocalciferol (Vitamin D2)) 1,250 Mcg Capsule 1,250 Mcg PO QMONFR Nortriptyline Hcl 25 Mg Capsule 2 Cap PO QHS Omeprazole 40 Mg Capsule.dr 40 Mg PO DAILY Simvastatin 20 Mg Tablet 20 Mg PO HS Coreg (Carvedilol) 25 Mg Tablet 6.25 Mg PO BIDWMEALS Vitals/I & O Vital Sign - Last 24 Hours 01/22/20 01/22/20 01/22/20 01/22/20 10:35 10:37 10:57 11:35 Temp 98.2 98.2 Pulse 104 Resp 20 20 24 20 B/P (MAP) 173/93 (119) Pulse Ox 94 94 97 94 O2 Delivery Room Air Room Air Room Air 01/22/20 01/22/20 01/22/20 01/22/20 11:35 12:32 14:15 14:16 Pulse 104 Resp 20 20 B/P (MAP) 173/93 Pulse Ox 94 94 O2 Delivery Room Air Room Air Room Air 01/22/20 01/22/20 01/22/2001/21/20 14:16 15:00 15:20 15:20 Temp 98.1 98.1 Pulse 102 Resp 20 20 B/P (MAP) 133/90 (104) Pulse Ox 94 96 94 94 O2 Delivery Room Air Room Air Room Air Room Air 01/22/20 01/22/20 01/22/20 01/22/20 16:26 18:07 18:08 19:00 Temp 98.1 98.1 Pulse 108 Resp 18 B/P (MAP) 106/78 (87) Pulse Ox 94 94 93 O2 Delivery Room Air Room Air Room Air Room Air 01/22/20 01/22/20 01/22/20 01/22/20 20:00 20:07 21:59 21:59 Resp 20 20 Pulse Ox 94 O2 Delivery Room Air Room Air Room Air Room Air 01/22/20 01/22/20 01/22/20 01/23/20 22:01 23:00 23:30 02:01 Temp 98.3 98.3 Pulse 108 98 Resp 20 20 B/P (MAP) 106/78 124/80 (95) Pulse Ox 93 O2 Delivery Room Air Room Air Room Air 01/23/20 01/23/20 01/23/20 01/23/20 02:02 03:00 03:01 03:01 Temp 98.5 98.5 Pulse 95 Resp 20 B/P (MAP) 116/74 (88) Pulse Ox 92 O2 Delivery Room Air Room Air Room Air Room Air 01/23/20 01/23/20 01/23/20 01/23/20 03:35 05:59 05:59 06:59 Resp 18 18 Pulse Ox 93 O2 Delivery Room Air Room Air Room Air Room Air 01/23/20 01/23/20 01/23/20 01/23/20 06:59 07:00 08:00 08:34 Temp 98.4 98.4 Pulse 97 97 Resp 20 B/P (MAP) 114/77 (89) 114/77 Pulse Ox 90 93 O2 Delivery Room Air Room Air Room Air 01/23/20 01/23/20 09:58 09:58 O2 Delivery Room Air Room Air Intake and Output 01/22/20 01/22/20 01/23/20 15:00 23:00 07:00 Intake Total 250 ml 750 ml Output Total 440 ml 400 ml 450 ml Balance -440 ml -150 ml 300 ml Justicifation of Admission Dx: Justifications for Admission: Justification of Admission Dx: N/A JONO DAVIS MD Jan 23, 2020 10:02
[2020-01-23 11:00] VITALS: BP 135/90
--- NOTE | 2020-01-23 13:28 | PDOC ---
SURGICAL PROGRESS NOTE DATE: 01/23/20 TIME: 13:27 Subjective Patient doing quite well with no complaints Vital Signs Vital Signs Date Time Temp Pulse Resp B/P (MAP) Pulse Ox O2 Delivery O2 Flow Rate FiO2 01/23/20 11:36 Room Air 01/23/20 11:00 98.1 101 22 135/90 (105) 95 98.1 I&O Intake and Output 01/23/20 07:00 Intake Total 1000 ml Output Total 1290 ml Balance -290 ml Intake Oral 450 ml IV Total 550 ml Output Urine Total 1290 ml # Voids 4 PATIENT HAS A LOONEY: No General: Alert, Oriented X3, Cooperative, mild distress Abdomen: Normal bowel sounds, Soft, No tenderness, Other (Wound VAC in place mild erythema of the skin around the wound VAC) Labs Laboratory Tests Test 01/21/20 16:56 01/21/20 20:31 01/22/20 07:49 01/22/20 11:34 Glucose (Fingerstick) 148 mg/dL (70-99) 183 mg/dL (70-99) 100 mg/dL (70-99) 122 mg/dL (70-99) Test 01/22/20 17:01 01/22/20 21:10 01/23/20 06:10 Glucose (Fingerstick) 134 mg/dL (70-99) 148 mg/dL (70-99) White Blood Count 7.0 x10^3/uL (4.0-11.0) Red Blood Count 3.16 x10^6/uL (4.30-5.70) Hemoglobin 9.5 g/dL (13.0-17.5) Hematocrit 28.5 % (39.0-53.0) Mean Corpuscular Volume 90 fL (79-100) Mean Corpuscular Hemoglobin 30 pg (25-35) Mean Corpuscular Hemoglobin Concent 33 g/dL (31-37) Red Cell Distribution Width 14.5 % (11.5-14.5) Platelet Count 498 x10^3/uL (140-400) Neutrophils (%) (Auto) 71 % (31-73) Lymphocytes (%) (Auto) 18 % (24-48) Monocytes (%) (Auto) 7 % (0-9) Eosinophils (%) (Auto) 3 % (0-3) Basophils (%) (Auto) 1 % (0-3) Neutrophils # (Auto) 5.0 x10^3/uL (1.8-7.7) Lymphocytes # (Auto) 1.2 x10^3/uL (1.0-4.8) Monocytes # (Auto) 0.5 x10^3/uL (0.0-1.1) Eosinophils # (Auto) 0.2 x10^3/uL (0.0-0.7) Basophils # (Auto) 0.1 x10^3/uL (0.0-0.2) Sodium Level 141 mmol/L (136-145) Potassium Level 3.4 mmol/L (3.5-5.1) Chloride Level 105 mmol/L (98-107) Carbon Dioxide Level 27 mmol/L (21-32) Anion Gap 9 (6-14) Blood Urea Nitrogen 11 mg/dL (8-26) Creatinine 1.4 mg/dL (0.7-1.3) Estimated GFR (Cockcroft-Gault) 52.2 Glucose Level 138 mg/dL (70-99) Calcium Level 8.5 mg/dL (8.5-10.1) Laboratory Tests Test 01/22/20 17:01 01/22/20 21:10 01/23/20 06:10 Glucose (Fingerstick) 134 mg/dL (70-99) 148 mg/dL (70-99) White Blood Count 7.0 x10^3/uL (4.0-11.0) Red Blood Count 3.16 x10^6/uL (4.30-5.70) Hemoglobin 9.5 g/dL (13.0-17.5) Hematocrit 28.5 % (39.0-53.0) Mean Corpuscular Volume 90 fL (79-100) Mean Corpuscular Hemoglobin 30 pg (25-35) Mean Corpuscular Hemoglobin Concent 33 g/dL (31-37) Red Cell Distribution Width 14.5 % (11.5-14.5) Platelet Count 498 x10^3/uL (140-400) Neutrophils (%) (Auto) 71 % (31-73) Lymphocytes (%) (Auto) 18 % (24-48) Monocytes (%) (Auto) 7 % (0-9) Eosinophils (%) (Auto) 3 % (0-3) Basophils (%) (Auto) 1 % (0-3) Neutrophils # (Auto) 5.0 x10^3/uL (1.8-7.7) Lymphocytes # (Auto) 1.2 x10^3/uL (1.0-4.8) Monocytes # (Auto) 0.5 x10^3/uL (0.0-1.1) Eosinophils # (Auto) 0.2 x10^3/uL (0.0-0.7) Basophils # (Auto) 0.1 x10^3/uL (0.0-0.2) Sodium Level 141 mmol/L (136-145) Potassium Level 3.4 mmol/L (3.5-5.1) Chloride Level 105 mmol/L (98-107) Carbon Dioxide Level 27 mmol/L (21-32) Anion Gap 9 (6-14) Blood Urea Nitrogen 11 mg/dL (8-26) Creatinine 1.4 mg/dL (0.7-1.3) Estimated GFR (Cockcroft-Gault) 52.2 Glucose Level 138 mg/dL (70-99) Calcium Level 8.5 mg/dL (8.5-10.1) Assessment/Plan Midline abdominal wound with wound VAC No acute changes Continue current wound care Justicifation of Admission Dx: Justifications for Admission: Justification of Admission Dx: N/A JONO JACOBSON MD Jan 23, 2020 13:28
[2020-01-23] MEDS: guaiFENesin ORAL 200 MG/10 ML LIQUID. PO PRN (14:00)
[2020-01-23] MEDS: CARVEDILOL 6.25 MG TABLET. PO SCH ×2 (14:01→22:02)
--- NOTE | 2020-01-23 14:36 | NUR ---
SW following. Spoke with RN and reviewed chart. [facility] can't accept this pt. SUMAN phoned and faxed referrals to both [facility] and [facility], , (fax) as they take pt's insurance. Spoke with pt. Pt agreeable these referrals and stated no preference in provider. SUMAN did completed a Patient Choice of Vendor form. SW to continue following. Addendum: 01/23/20 at 1629 by ALLI WILL Both [facility] and [facility] called to say they can't meet pt's needs per staffing. SUMAN requested that [facility] check to see if they can take this pt next week.
[2020-01-23 15:00] VITALS: BP 147/94
[2020-01-23 19:00] VITALS: BP 148/105
[2020-01-23] MEDS: NORTRIPTYLINE 25 MG CAPSULE PO SCH (21:22)
[2020-01-23] MEDS: SIMVASTATIN 20 MG TABLET PO SCH (21:22)
[2020-01-23] MEDS: INSULIN GLARGINE SYRINGE. SQ SCH (21:26)
[2020-01-23 22:37] VITALS: BP 142/86
[2020-01-24] MEDS: SENNOSIDES 8.6 MG TABLET PO SCH ×4 (00:10→18:08)
[2020-01-24] MEDS: PIPERACILLIN/TAZOBACTAM 3.375 GM in IV NORMAL SALINE 50ML 50 ML IV SCH ×4 (00:10→18:09)
[2020-01-24] MEDS: oxyCODONE/APAP 10/325 1 TAB TABLET PO PRN ×6 (02:19→22:02)
[2020-01-24] MEDS: oxyCODONE IR 5 MG TABLET PO SCH ×6 (02:19→22:00)
[2020-01-24 02:43] VITALS: BP 131/80
[2020-01-24] MEDS: IPRATRPIUM/ALBUTEROL 0.5/2.5MG 3 ML NEBU. NEB SCH ×7 (04:18→23:23)
[2020-01-24] MEDS: LEVOTHYROXINE 88 MCG TABLET PO SCH (05:36)
[2020-01-24] MEDS: PANTOPRAZOLE 40 MG TABLET.DR. PO SCH (06:04)
[2020-01-24] MEDS: BUDESONIDE 0.5 MG/2 ML NEBU. NEB SCH ×3 (07:24→20:41)
[2020-01-24 07:50] VITALS: BP 147/87
--- NOTE | 2020-01-24 08:10 | PDOC ---
PROGRESS NOTES Date of Service: DATE: 01/24/20 TIME: 08:09 Chief Complaint Chief Complaint IMPRESSION POST-OP Wound infection Post-op Diagnosis: Incarcerated ventral hernia with high-grade bowel obstruction 12/29/19 RECENT partial SBO Incarcerated umbilical hernia pre-op Acute renal failurevasomotor nephropathy resolving Hypertension Diabetes Dyslipidemia History of constipation// inc senna to qid COPD GERD hypokalemia on replacement protocol AEROBIC CULTURE Preliminary Preliminary MANY GRAM POSITIVE COCCI on 01/18/20 at 1333 FINAL ID= [STAPHYLOCOCCUS AUREUS] MANY GRAM NEGATIVE RODS on 01/18/20 at 1333 FINAL ID= [ENTEROBACTER CLOACAE COMPLEX] dulcolax supp daily Midline abdominal wound with wound VAC 01/23 cont iv zosyn 30 MIN pt exam, chart review, > 50% of time spent with exam, chart review, pt care coordination History of Present Illness History of Present Illness 01/23 Patient seen and examined Ventral dressing is CDI Wound vacuum attached Discussed with RN Charts reviewed LARGE BM LAST NIGHT Vitals Vitals Vital Signs Date Time Temp Pulse Resp B/P (MAP) Pulse Ox O2 Delivery O2 Flow Rate FiO2 01/24/20 07:50 98.2 101 20 147/87 (107) 94 Room Air 98.2 Physical Exam Physical Exam GENERAL: Lying down, awake in NAD HEENT: Oral cavity pink, moist. No thrush NECK: Supple, no JVP, no lymphadenopathy. LUNGS: Clear. HEART: S1, S2 regular. ABDOMEN: Obese, BS present, wound vac in place, redness improving; some induration EXTREMITIES: No edema, cyanosis. SKIN: without signs of rash NEUROLOGIC: Alert, awake and appropriate. No focal neurologic deficit. PIV Port-A-Cath not in use, clean General: Alert, Oriented X3, Cooperative, No acute distress Heart: Regular rate, Normal S1, Normal S2, No murmurs Lungs: Clear Abdomen: Normal bowel sounds, Soft, No tenderness, Other (Wound VAC in place mild erythema of the skin around the wound VAC, less bloating ) Extremities: No cyanosis Labs LABS Laboratory Tests Test 01/23/20 21:05 01/24/20 07:12 Glucose (Fingerstick) 151 mg/dL (70-99) 120 mg/dL (70-99) Comment Review of Relevant I have reviewed the following items catarina (where applicable) has been applied. Labs Laboratory Tests Test 01/22/20 11:34 01/22/20 17:01 01/22/20 21:10 01/23/20 06:10 Glucose (Fingerstick) 122 mg/dL (70-99) 134 mg/dL (70-99) 148 mg/dL (70-99) White Blood Count 7.0 x10^3/uL (4.0-11.0) Red Blood Count 3.16 x10^6/uL (4.30-5.70) Hemoglobin 9.5 g/dL (13.0-17.5) Hematocrit 28.5 % (39.0-53.0) Mean Corpuscular Volume 90 fL (79-100) Mean Corpuscular Hemoglobin 30 pg (25-35) Mean Corpuscular Hemoglobin Concent 33 g/dL (31-37) Red Cell Distribution Width 14.5 % (11.5-14.5) Platelet Count 498 x10^3/uL (140-400) Neutrophils (%) (Auto) 71 % (31-73) Lymphocytes (%) (Auto) 18 % (24-48) Monocytes (%) (Auto) 7 % (0-9) Eosinophils (%) (Auto) 3 % (0-3) Basophils (%) (Auto) 1 % (0-3) Neutrophils # (Auto) 5.0 x10^3/uL (1.8-7.7) Lymphocytes # (Auto) 1.2 x10^3/uL (1.0-4.8) Monocytes # (Auto) 0.5 x10^3/uL (0.0-1.1) Eosinophils # (Auto) 0.2 x10^3/uL (0.0-0.7) Basophils # (Auto) 0.1 x10^3/uL (0.0-0.2) Sodium Level 141 mmol/L (136-145) Potassium Level 3.4 mmol/L (3.5-5.1) Chloride Level 105 mmol/L (98-107) Carbon Dioxide Level 27 mmol/L (21-32) Anion Gap 9 (6-14) Blood Urea Nitrogen 11 mg/dL (8-26) Creatinine 1.4 mg/dL (0.7-1.3) Estimated GFR (Cockcroft-Gault) 52.2 Glucose Level 138 mg/dL (70-99) Calcium Level 8.5 mg/dL (8.5-10.1) Test 01/23/20 21:05 01/24/20 07:12 Glucose (Fingerstick) 151 mg/dL (70-99) 120 mg/dL (70-99) Laboratory Tests Test 01/23/20 21:05 01/24/20 07:12 Glucose (Fingerstick) 151 mg/dL (70-99) 120 mg/dL (70-99) Microbiology 01/16/20 Gram Stain - Final, Complete 01/16/20 Aerobic Culture - Final, Complete 01/16/20 Antimicrobic Susceptibility - Final, Complete 01/16/20 Blood Culture - Final, Complete NO GROWTH AFTER 5 DAYS Medications Current Medications Sodium Chloride (Normal Saline Flush) 3 ml QSHIFT PRN IV AFTER MEDS AND BLOOD DRAWS; Start 01/16/20 at 12:45 Sodium Chloride 1,000 ml @ 100 mls/hr Q10H IV Last administered on 01/23/20at 05:13; Start 01/16/20 at 12:37; Stop 01/23/20 at 14:48; Status DC Ondansetron HCl (Zofran) 4 mg PRN Q4HRS PRN IV NAUSEA/VOMITING; Start 01/16/20 at 12:45 Al Hydroxide/Mg Hydroxide (Mylanta Plus Xs) 30 ml PRN DAILY PRN PO HEARTBURN / GAS; Start 01/16/20 at 12:45 Clonidine HCl (Catapres) 0.1 mg PRN Q6HRS PRN PO SBP>160 OR DBP>90; Start 01/16/20 at 12:45 Docusate Sodium (Colace) 100 mg PRN BID PRN PO HARD STOOLS Last administered on 01/23/20at 08:34; Start 01/16/20 at 12:45 Albuterol/ Ipratropium (Duoneb) 3 ml Q4H NEB Last administered on 01/24/20at 07:29; Start 01/16/20 at 12:45 Guaifenesin (Robitussin) 200 mg PRN Q4HRS PRN PO COUGH Last administered on 01/23/20at 14:00; Start 01/16/20 at 12:45 Vancomycin HCl (Vanco Per Pharmacy) 1 each PRN DAILY PRN MC SEE COMMENTS Last administered on 01/22/20at 13:01; Start 01/16/20 at 12:45; Stop 01/23/20 at 09:40; Status DC Piperacillin Sod/ Tazobactam Sod 3.375 gm/Sodium Chloride 50 ml @ 100 mls/hr Q6HRS IV Last administered on 01/24/20at 05:38; Start 01/16/20 at 13:00 Ergocalciferol (Vitamin D2) 50,000 unit QMONFR PO Last administered on 01/21/20at 16:02; Start 01/18/20 at 16:00 Furosemide (Lasix) 40 mg DAILY PO ; Start 01/16/20 at 13:30; Stop 01/16/20 at 16:13; Status DC Levothyroxine Sodium (Synthroid) 88 mcg DAILYAC PO ; Start 01/16/20 at 13:30; Stop 01/17/20 at 01:31; Status DC Lisinopril (Prinivil) 10 mg DAILY PO Last administered on 01/23/20at 08:34; Start 01/16/20 at 13:30 Nortriptyline HCl (Pamelor) 50 mg QHS PO Last administered on 01/23/20at 21:22; Start 01/16/20 at 21:00 Oxycodone/ Acetaminophen (Percocet 10/325) 1 tab HS PO ; Start 01/16/20 at 21:00; Stop 01/16/20 at 16:16; Status DC Oxycodone/ Acetaminophen (Percocet 10/325) 1 tab PRN Q4HRS PRN PO MODERATE PAIN; Start 01/16/20 at 13:00; Status Cancel Simvastatin (Zocor) 20 mg HS PO Last administered on 01/23/20at 21:22; Start 01/16/20 at 21:00 Carvedilol (Coreg) 6.25 mg BIDWMEALS PO ; Start 01/16/20 at 17:00; Stop 01/16/20 at 16:13; Status DC Insulin Glargine (Lantus Syringe) 30 unit QHS SQ Last administered on 01/23/20at 21:26; Start 01/16/20 at 21:00 Pantoprazole Sodium (Protonix) 40 mg DAILYAC PO Last administered on 01/24/20at 06:04; Start 01/16/20 at 13:30 Aspirin (Aspirin Chewable) 81 mg DAILY PO Last administered on 01/23/20at 08:34; Start 01/17/20 at 09:00 Oxycodone/ Acetaminophen (Percocet 10/325) 1 tab PRN Q4HRS PRN PO PAIN; Start 01/16/20 at 16:00; Stop 01/16/20 at 16:19; Status DC Sennosides (Senna) 8.6 mg BID PO Last administered on 01/19/20at 08:55; Start 01/16/20 at 14:00; Stop 01/19/20 at 14:19; Status DC Vancomycin HCl 2 gm/Sodium Chloride 500 ml @ 250 mls/hr 1X ONCE IV Last administered on 01/16/20at 14:07; Start 01/16/20 at 13:30; Stop 01/16/20 at 15:29; Status DC Vancomycin HCl 1.5 gm/Sodium Chloride 500 ml @ 250 mls/hr Q12H IV Last administered on 01/23/20 02:01; Start 01/17/20 at 02:00; Stop 01/23/20 at 09:38; Status DC Vancomycin HCl (Vancomycin Trough Level) 1 each 1X ONCE MC Last administered on 01/18/20at 01:25; Start 01/18/20 at 01:30; Stop 01/18/20 at 01:31; Status DC Lactobacillus Rhamnosus (Culturelle) 1 cap BID PO Last administered on 01/23/20at 21:22; Start 01/16/20 at 21:00 Carvedilol (Coreg) 6.25 mg 1400,2200 PO Last administered on 01/23/20at 22:02; Start 01/16/20 at 22:00 Furosemide (Lasix) 40 mg DAILY PO Last administered on 01/23/20at 08:34; Start 01/16/20 at 17:00 Oxycodone/ Acetaminophen (Percocet 10/325) 1 tab Q4H PO Last administered on 01/16/20at 18:04; Start 01/16/20 at 18:00; Stop 01/16/20 at 19:26; Status DC Oxycodone/ Acetaminophen (Percocet 10/325) 1 tab PRN Q4HRS PRN PO BREAKTHROUGH PAIN Last administered on 01/24/20 06:04; Start 01/16/20 at 22:20 Oxycodone HCl (Roxicodone) 10 mg Q4HRS PO Last administered on 01/16/20 22:08; Start 01/16/20 at 22:00; Stop 01/17/20 at 01:38; Status DC Oxycodone HCl (Roxicodone) 10 mg 1X ONCE PO Last administered on 01/16/20at 19 :39; Start 01/16/20 at 19:30; Stop 01/16/20 at 19:33; Status DC Levothyroxine Sodium (Synthroid) 88 mcg DAILY05 PO Last administered on 01/24/20 05:36; Start 01/17/20 at 05:00 Oxycodone HCl (Roxicodone) 10 mg Q4H PO Last administered on 01/24/20 06:04; Start 01/17/20 at 02:00 Sennosides (Senna) 8.6 mg QID PO Last administered on 01/21/20 06:36; Start 01/19/20 at 14:30; Stop 01/21/20 at 06:42; Status DC Budesonide (Pulmicort) 0.5 mg RTBID NEB Last administered on 01/24/20at 07:29; Start 01/20/20 at 20:00 Budesonide (Pulmicort) 0.5 mg 1X ONCE NEB Last administered on 01/20/20at 11:33; Start 01/20/20 at 08:45; Stop 01/20/20 at 08:59; Status DC Bisacodyl (Dulcolax Supp) 10 mg 1X ONCE MI Last administered on 01/20/20 15:08; Start 01/20/20 at 13:45; Stop 01/20/20 at 13:46; Status DC Sennosides (Senna) 8.6 mg Q6H PO Last administered on 01/24/20 05:36; Start 01/21/20 at 07:00 Bisacodyl (Dulcolax Supp) 10 mg 1X ONCE MI Last administered on 01/21/20at 13:07; Start 01/21/20 at 11:30; Stop 01/21/20 at 11:31; Status DC Bisacodyl (Dulcolax Supp) 10 mg PRN DAILY PRN MI CONSTIPATION; Start 01/21/20 at 11:15 Bisacodyl (Dulcolax Tab) 10 mg PRN DAILY PRN PO CONSTIPATION; Start 01/21/20 at 11:15 Linezolid (Zyvox) 600 mg BID PO Last administered on 01/23/20at 21:22; Start 01/23/20 at 10:00 Active Scripts Active Reported Percocet 10-325 Mg Tablet (Oxycodone/Acetaminophen) 1 Each Tablet 1 Tab PO Q4HRS MDD 6 Tablet(s) 3 Days Senna Laxative (Sennosides) 8.6 Mg Tablet 1 Tab PO Q4HRS 30 Days Aspirin 81 Mg Tab.chew 1 Tab PO DAILY Metformin Hcl 1,000 Mg Tablet 1,000 Mg PO BIDWMEALS Lisinopril 10 Mg Tablet 1 Tab PO DAILY Levothyroxine Sodium 88 Mcg Tablet 88 Mcg PO DAILYAC Lasix (Furosemide) 40 Mg Tablet 40 Mg PO DAILY Lantus Solostar (Insulin Glargine,Hum.rec.anlog) 100 Unit/1 Ml Insuln.pen 30 Unit SQ QHS Vitamin D2 (Ergocalciferol (Vitamin D2)) 1,250 Mcg Capsule 1,250 Mcg PO QMONFR Nortriptyline Hcl 25 Mg Capsule 2 Cap PO QHS Omeprazole 40 Mg Capsule.dr 40 Mg PO DAILY Simvastatin 20 Mg Tablet 20 Mg PO HS Coreg (Carvedilol) 25 Mg Tablet 6.25 Mg PO BIDWMEALS Vitals/I & O Vital Sign - Last 24 Hours 01/23/20 01/23/20 01/23/20 01/23/20 08:34 09:58 09:58 10:58 Pulse 97 B/P (MAP) 114/77 O2 Delivery Room Air Room Air Room Air 01/23/20 01/23/20 01/23/20 01/23/20 10:58 11:00 11:36 14:00 Temp 98.1 98.1 Pulse 101 Resp 22 B/P (MAP) 135/90 (105) Pulse Ox 95 O2 Delivery Room Air Room Air Room Air Room Air 01/23/20 01/23/20 01/23/20 01/23/20 14:01 14:01 15:00 15:00 Pulse 101 B/P (MAP) 135/90 O2 Delivery Room Air Room Air Room Air 01/23/20 01/23/20 01/23/20 01/23/20 15:00 15:32 17:57 17:57 Temp 97.8 97.8 Pulse 105 Resp 20 B/P (MAP) 147/94 (111) Pulse Ox 95 94 O2 Delivery Room Air Room Air Room Air Room Air 01/23/20 01/23/20 01/23/20 01/23/20 18:57 18:57 19:00 20:00 Temp 98.4 98.4 Pulse 110 Resp 16 16 28 B/P (MAP) 148/105 (119) Pulse Ox 97 97 98 O2 Delivery Room Air Room Air Room Air 01/23/20 01/23/20 01/23/20 01/23/20 21:08 21:08 22:01 22:02 Pulse 110 Resp 18 B/P (MAP) 148/105 Pulse Ox 95 95 95 O2 Delivery Room Air Room Air Room Air 01/23/20 01/23/20 01/23/20 01/23/20 22:02 22:37 23:02 23:02 Temp 98.8 98.8 Pulse 101 Resp 20 20 18 18 B/P (MAP) 142/86 (104) Pulse Ox 95 96 97 97 O2 Delivery Room Air Room Air Room Air Room Air 01/23/20 01/24/20 01/24/20 01/24/20 23:58 02:19 02:19 02:43 Temp 98.6 98.6 Pulse 99 Resp 16 16 26 B/P (MAP) 131/80 (97) Pulse Ox 95 95 95 94 O2 Delivery Room Air Room Air Room Air Room Air 01/24/20 01/24/20 01/24/20 01/24/20 03:19 03:19 04:18 06:04 Resp 18 18 18 Pulse Ox 97 97 95 95 O2 Delivery Room Air Room Air Room Air Room Air 01/24/20 01/24/20 01/24/20 01/24/20 06:04 07:04 07:04 07:29 Resp 18 16 16 Pulse Ox 95 97 97 97 O2 Delivery Room Air Room Air Room Air Room Air 01/24/20 07:50 Temp 98.2 98.2 Pulse 101 Resp 20 B/P (MAP) 147/87 (107) Pulse Ox 94 O2 Delivery Room Air Intake and Output 01/23/20 01/23/20 01/24/20 15:00 23:00 07:00 Intake Total 1200 ml 600 ml Output Total 850 ml 1450 ml 0 ml Balance 350 ml -850 ml 0 ml Justicifation of Admission Dx: Justifications for Admission: Justification of Admission Dx: N/A JONO DAVIS MD Jan 24, 2020 08:10
[2020-01-24] MEDS: LINEZOLID 600 MG TABLET PO SCH ×2 (09:06→21:21)
[2020-01-24] MEDS: LACTOBACILLUS RHAMNOSUS GG 1 CAPSULE. PO SCH ×2 (09:06→21:22)
[2020-01-24] MEDS: ASPIRIN CHEWABLE 81 MG TABLET. PO SCH (09:07)
[2020-01-24] MEDS: FUROSEMIDE 40 MG TABLET. PO SCH (09:07)
[2020-01-24] MEDS: LISINOPRIL 10 MG TABLET PO SCH (09:08)
[2020-01-24] MEDS ORDERED: POTASSIUM BICARB 20 MEQ EFFERVESCENT TABLET. PO SCH (11:15)
[2020-01-24] MEDS ORDERED: POTASSIUM BICARB 20 MEQ EFFERVESCENT TABLET. FT ONE (11:30)
[2020-01-24] MEDS ORDERED: ELECTROLYTE (NON-ICU) PROTOCOL MC PRN (11:30)
[2020-01-24 11:43] VITALS: BP 138/92
--- NOTE | 2020-01-24 11:53 | PDOC ---
Infectious Disease Note Subjective: Subjective Patient ambulating tolerating po intake well Abdominal pain improved after large bowel movement last p.m. Denies N/V/F/C Vital Signs: Vital Signs Vital Signs Date Time Temp Pulse Resp B/P (MAP) Pulse Ox O2 Delivery O2 Flow Rate FiO2 01/24/20 11:43 97.9 101 20 138/92 (107) 95 Room Air 97.9 Physical Exam: PHYSICAL EXAM GENERAL: Lying down, awake in NAD HEENT: Oral cavity pink, moist. No thrush NECK: Supple, no JVP, no lymphadenopathy. LUNGS: Clear. HEART: S1, S2 regular. ABDOMEN: Obese, BS present, wound vac in place, redness improving; some induration EXTREMITIES: No edema, cyanosis. SKIN: without signs of rash NEUROLOGIC: Alert, awake and appropriate. No focal neurologic deficit. PIV Port-A-Cath not in use, clean Medications: Inpatient Meds: Current Medications Medications (Trade) Dose Ordered Sig/Cony Start Time Stop Time Status Last Admin Dose Admin Al Hydroxide/Mg Hydroxide (Mylanta Plus Xs) 30 ml PRN DAILY PRN 01/16/20 12:45 Albuterol/ Ipratropium (Duoneb) 3 ml Q4H 01/16/20 12:45 01/24/20 11:38 3 ML Aspirin (Aspirin Chewable) 81 mg DAILY 01/17/20 09:00 01/24/20 09:07 81 MG Bisacodyl (Dulcolax Supp) 10 mg PRN DAILY PRN 01/21/20 11:15 Bisacodyl (Dulcolax Tab) 10 mg PRN DAILY PRN 01/21/20 11:15 Budesonide (Pulmicort) 0.5 mg 1X ONCE 01/20/20 08:45 01/20/20 08:59 DC 01/20/20 11:33 0.5 MG Carvedilol (Coreg) 6.25 mg 1400,2200 01/16/20 22:00 01/23/20 22:02 6.25 MG Clonidine HCl (Catapres) 0.1 mg PRN Q6HRS PRN 01/16/20 12:45 Docusate Sodium (Colace) 100 mg PRN BID PRN 01/16/20 12:45 01/23/20 08:34 100 MG Ergocalciferol (Vitamin D2) 50,000 unit QMONFR 01/18/20 16:00 01/21/20 16:02 50,000 UNIT Furosemide (Lasix) 40 mg DAILY 01/16/20 17:00 01/24/20 09:07 40 MG Guaifenesin (Robitussin) 200 mg PRN Q4HRS PRN 01/16/20 12:45 01/23/20 14:00 200 MG Info (Non-Icu Electrolyte Protocol) 1 ea CONT PRN PRN 01/24/20 11:30 Insulin Glargine (Lantus Syringe) 30 unit QHS 01/16/20 21:00 01/23/20 21:26 30 UNIT Lactobacillus Rhamnosus (Culturelle) 1 cap BID 01/16/20 21:00 01/24/20 09:06 1 CAP Levothyroxine Sodium (Synthroid) 88 mcg DAILY05 01/17/20 05:00 01/24/20 05:36 88 MCG Linezolid (Zyvox) 600 mg BID 01/23/20 10:00 01/24/20 09:06 600 MG Lisinopril (Prinivil) 10 mg DAILY 01/16/20 13:30 01/24/20 09:08 10 MG Magnesium Oxide (Magnesium Oxide) 400 mg BID 01/24/20 21:00 01/26/20 09:01 UNV Nortriptyline HCl (Pamelor) 50 mg QHS 01/16/20 21:00 01/23/20 21:22 50 MG Ondansetron HCl (Zofran) 4 mg PRN Q4HRS PRN 01/16/20 12:45 Oxycodone HCl (Roxicodone) 10 mg Q4H 01/17/20 02:00 01/24/20 10:03 10 MG Oxycodone/ Acetaminophen (Percocet 10/325) 1 tab PRN Q4HRS PRN 01/16/20 22:20 01/24/20 10:03 1 TAB Pantoprazole Sodium (Protonix) 40 mg DAILYAC 01/16/20 13:30 01/24/20 06:04 40 MG Piperacillin Sod/ Tazobactam Sod 3.375 gm/Sodium Chloride 50 ml @ 100 mls/hr Q6HRS 01/16/20 13:00 01/24/20 05:38 100 MLS/HR Potassium Bicarbonate (Potassium Effervescent Tablet) 40 meq Q4H 01/24/20 11:15 01/24/20 15:16 UNV Potassium Phos/ Sodium Phos (Phos-Nak) 1 pkt BID 01/24/20 21:00 01/25/20 09:01 UNV Sennosides (Senna) 8.6 mg Q6H 01/21/20 07:00 01/24/20 05:36 8.6 MG Simvastatin (Zocor) 20 mg HS 01/16/20 21:00 01/23/20 21:22 20 MG Sodium Chloride 1,000 ml @ 100 mls/hr Q10H 01/16/20 12:37 01/23/20 14:48 DC 01/23/20 05:13 100 MLS/HR Sodium Chloride (Normal Saline Flush) 3 ml QSHIFT PRN 01/16/20 12:45 Vancomycin HCl (Vanco Per Pharmacy) 1 each PRN DAILY PRN 01/16/20 12:45 01/23/20 09:40 DC 01/22/20 13:01 1 EACH Vancomycin HCl (Vancomycin Trough Level) 1 each 1X ONCE 01/18/20 01:30 01/18/20 01:31 DC 01/18/20 01:25 1 EACH Vancomycin HCl 1.5 gm/Sodium Chloride 500 ml @ 250 mls/hr Q12H 01/17/20 02:00 01/23/20 09:38 DC 01/23/20 02:01 250 MLS/HR Vancomycin HCl 2 gm/Sodium Chloride 500 ml @ 250 mls/hr 1X ONCE 01/16/20 13:30 01/16/20 15:29 DC 01/16/20 14:07 250 MLS/HR Labs: Lab Laboratory Tests Test 01/23/20 21:05 01/24/20 07:12 01/24/20 10:55 Glucose (Fingerstick) 151 mg/dL (70-99) 120 mg/dL (70-99) 110 mg/dL (70-99) Micro RUN DATE: 01/20/20 [facility] LAB *LIVE* PAGE 1 RUN TIME: 1116 Specimen Inquiry PATIENT: JOE HYLTON ACCT: [id number] LOC: [address] [place] [address] U: [id number] AGE/SX: 59/M ROOM: [facility] RE01/16/[address]: JONO DAVIS MD : 1960 BED: 1 DIS: STATUS: ADM IN TLOC: SPEC #: [id number] AL[place] DELIA: 01/16/20-1530 STATUS: COMP REQ #: [id number] RECD: 01/16/20-[address]: JONO DAVIS MD SOURCE: ABSCESS ENTR: 01/16/20-[address]: KATI PICKERING MD SPDC: CELENA BLEDSOE MD, SCOTT D MD KHAN, AMAN U MD ORDERED: AEROBIC CULT GS COMMENTS: WOUND ABSCESS Procedure Result GRAM STAIN Final Final GRAM NEGATIVE RODS:FEW GRAM POSITIVE RODS:RARE GRAM POSITIVE COCCI:MODERATE SQUAMOUS EPI CELL:FEW PMN (WBCs):MODERATE Unless otherwise specified, Testing Performed by: [address] [address] For Inquires, the Physician may contact the Microbiology department at [phone] AEROBIC CULTURE Final Final MANY GRAM POSITIVE COCCI on 01/18/20 at 1333 FINAL ID= [STAPHYLOCOCCUS AUREUS (MRSA)] MANY GRAM NEGATIVE RODS on 01/18/20 at 1333 FINAL ID= [ENTEROBACTER CLOACAE COMPLEX] Testing Performed by: [address] [address] For Inquires, the Physician may contact the Microbiology department at [phone] STAPHYLOCOCCUS AUREUS (MRSA) ENTEROBACTER CLOACAE COMPLEX ANTIMICROBIAL SUSCEPTIBILITY Final Comment Comment POS PETER TYPE 38 STAPHYLOCOCCUS AUREUS (MRSA) ANTIBIOTIC RESULT INTERPRETATION AZITHROMYCIN >4 R CLINDAMYCIN <=0.25 R* CONTINUED ON NEXT PAGE RUN DATE: 01/20/20 [facility] *LIVE* PAGE 2 RUN TIME: 1116 Specimen Inquiry SPEC: [id number] PATIENT: JOE HYLTON [id number] (Arianne ntstephanie) Procedure Result ANTIMICROBIAL SUSCEPTIBILITY Final (continued) CEFOXITIN SCREEN >4 POS CIPROFLOXACIN <=1 S CEFTAROLINE <=0.5 S DAPTOMYCIN <=0.5 S ERYTHROMYCIN >4 R GENTAMICIN <=4 S INDUCIBLE CLINDAMYCIN >4/0.5 POS LINEZOLID 2 S LEVOFLOXACIN <=1 S OXACILLIN >2 R PENICILLIN >2 R* RIFAMPIN <=1 S TRIMETHOPRIM/SULFAMETHOXAZOLE <=0.5/9.5 S TETRACYCLINE <=4 S VANCOMYCIN 1 S NEG EPTER 56 ENTEROBACTER CLOACAE COMPLEX ANTIBIOTIC RESULT INTERPRETATION AMPICILLIN/SULBACTAM <=4/2 R* AMIKACIN <=16 S AMPICILLIN <=8 R* AMOXICILLIN/K CLAVULANATE <=8/4 R* AZTREONAM <=4 S CEFTRIAXONE <=1 S CEFTAZIDIME <=1 S CEFOTAXIME <=2 S CEFOXITIN <=8 R* CIPROFLOXACIN <=0.25 S CEFEPIME <=2 S CEFUROXIME <=4 R* ERTAPENEM <=0.5 S GENTAMICIN <=2 S LEVOFLOXACIN <=0.5 S MEROPENEM <=1 S PIPERACILLIN/TAZOBACTAM <=8 S TRIMETHOPRIM/SULFAMETHOXAZOLE <=0.5/9.5 S TETRACYCLINE <=4 S TOBRAMYCIN <=2 S Unless otherwise specified, Testing Performed by: [facility] [address] [place] [address] For Inquires, the Physician may contact the Microbiology department at [phone] Objective: Assessment: Abdominal incision infection post-hernia surgery. 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 Hypertension. Obesity. h/o lung cancer s/p chemo. Port-A-Cath still in place SHAUN mild Plan: Plan of Care Continue Zyvox cont Zosyn, will transition to p.o. antibiotics when ready for discharge Probiotics Bowel regimen Wound care as directed ; plan is for wound dressing change tomorrow Supportive care SUSAN BLEDSOE MD Jan 24, 2020 11:53
[2020-01-24] MEDS: CARVEDILOL 6.25 MG TABLET. PO SCH ×2 (14:17→21:22)
--- NOTE | 2020-01-24 15:25 | NUR ---
SW following. Discussed with RN. SUMAN left voicemail for [facility] [facility] [employer] to determine if they are in network for pt's insurance. SUMAN queried if [facility] could take patient pro devaughn, unfortunately Tony declined. Pt will have to discharge home with outpatient wound care. Per Tony Fonseca RN, pt lives [place] the [address] from , follows there for cancer treatment. Could follow at for outpatient wound care and IV abx if needed. SUMAN will continue to follow.
[2020-01-24 15:45] VITALS: BP 165/99
--- NOTE | 2020-01-24 16:01 | NUR ---
Wound Care: Patient seen per wound care for wound vac veraflo dressing change. Dressings removed and wounds cleansed and assessed. Skin prepped for vac placement and 4 pieces of silver foam utilized, an ostomy ring to shawn-wound, and a good seal maintained. Veraflo settings to 16mL for 5 minutes every 2 hours. to the right abdomen the wound redressed with Xeroform gauze and foam dressing. Patient tolerated well. Wound care will follow up on Tuesday for next vac dressing change. Bed lowered and call light in reach. Spoke with RN regarding POC.
[2020-01-24 19:00] VITALS: BP_SYST 131; BP_SYST 150; BP_DIAS 86; BP_DIAS 87
[2020-01-24] MEDS ORDERED: POTASSIUM & SODIUM PHOSPHATES PACKET. PO SCH (21:00)
[2020-01-24] MEDS ORDERED: MAGNESIUM OXIDE 400 MG TABLET PO SCH (21:00)
[2020-01-24] MEDS: SIMVASTATIN 20 MG TABLET PO SCH (21:22)
[2020-01-24] MEDS: NORTRIPTYLINE 25 MG CAPSULE PO SCH (21:22)
[2020-01-24] MEDS: INSULIN GLARGINE SYRINGE. SQ SCH (21:27)
[2020-01-24 23:00] VITALS: BP 122/67
[2020-01-25] MEDS: PIPERACILLIN/TAZOBACTAM 3.375 GM in IV NORMAL SALINE 50ML 50 ML IV SCH ×4 (00:17→18:18)
[2020-01-25] MEDS: SENNOSIDES 8.6 MG TABLET PO SCH ×4 (01:52→20:31)
[2020-01-25] MEDS: oxyCODONE/APAP 10/325 1 TAB TABLET PO PRN ×6 (01:52→22:33)
[2020-01-25] MEDS: oxyCODONE IR 5 MG TABLET PO SCH ×6 (01:54→22:34)
[2020-01-25 03:13] VITALS: BP 153/92
[2020-01-25] MEDS: IPRATRPIUM/ALBUTEROL 0.5/2.5MG 3 ML NEBU. NEB SCH ×5 (04:21→20:12)
[2020-01-25 04:34] LABS: BASO % 1 % (0-3); EOS # 0.2 x10^3/uL (0.0-0.7); EOS % 3 % (0-3); LYMPH # 1.1 x10^3/uL (1.0-4.8); LYMPH % 15 % (24-48); MEAN CORPUSCULAR HEMOGLOBIN 30 pg (25-35); MEAN CORPUSCULAR HGB CONC 33 g/dL (31-37); MEAN CORPUSCULAR VOLUME 89 fL (79-100); MONO # 0.6 x10^3/uL (0.0-1.1); MONO % 8 % (0-9); NEUT # 5.5 x10^3/uL (1.8-7.7); NEUT % 74 % (31-73); PLATELET COUNT 538 x10^3/uL (140-400); RED BLOOD COUNT 3.36 x10^6/uL (4.30-5.70); RED CELL DISTRIBUTION WIDTH 14.8 % (11.5-14.5); WHITE BLOOD COUNT 7.4 x10^3/uL (4.0-11.0)
[2020-01-25 04:51] LABS: ALBUMIN 2.4 g/dL (3.4-5.0); ALBUMIN/GLOBULIN RATIO 0.6 (1.0-1.7); CALCIUM 8.6 mg/dL (8.5-10.1); CREATININE 1.5 mg/dL (0.7-1.3); GFR 48.2; POTASSIUM 3.7 mmol/L (3.5-5.1); TOTAL BILIRUBIN 0.2 mg/dL (0.2-1.0); TOTAL PROTEIN 6.7 g/dL (6.4-8.2)
[2020-01-25] MEDS: LEVOTHYROXINE 88 MCG TABLET PO SCH (06:00)
[2020-01-25] MEDS: PANTOPRAZOLE 40 MG TABLET.DR. PO SCH (06:03)
[2020-01-25 07:15] VITALS: BP 150/94
[2020-01-25] MEDS: BUDESONIDE 0.5 MG/2 ML NEBU. NEB SCH ×2 (08:22→20:12)
--- NOTE | 2020-01-25 08:37 | PDOC ---
PROGRESS NOTES Date of Service: DATE: 01/25/20 TIME: 08:36 Chief Complaint Chief Complaint IMPRESSION POST-OP Wound infection Post-op Diagnosis: Incarcerated ventral hernia with high-grade bowel obstruction 12/29/19 RECENT partial SBO Incarcerated umbilical hernia pre-op Acute renal failurevasomotor nephropathy resolving Hypertension Diabetes Dyslipidemia History of constipation// inc senna to qid COPD GERD hypokalemia on replacement protocol AEROBIC CULTURE Preliminary Preliminary MANY GRAM POSITIVE COCCI on 01/18/20 at 1333 FINAL ID= [STAPHYLOCOCCUS AUREUS] MANY GRAM NEGATIVE RODS on 01/18/20 at 1333 FINAL ID= [ENTEROBACTER CLOACAE COMPLEX] dulcolax supp daily Midline abdominal wound with wound VAC 01/23 cont iv zosyn 01/24 large bm yesterday 30 MIN pt exam, chart review, > 50% of time spent with exam, chart review, pt care coordination History of Present Illness History of Present Illness 01/23 Patient seen and examined Ventral dressing is CDI Wound vacuum attached Discussed with RN Charts reviewed LARGE BM LAST NIGHT Vitals Vitals Vital Signs Date Time Temp Pulse Resp B/P (MAP) Pulse Ox O2 Delivery O2 Flow Rate FiO2 01/25/20 08:22 92 Room Air 01/25/20 07:01 18 01/25/20 03:13 97.6 104 153/92 (112) 97.6 Physical Exam Physical Exam GENERAL: Lying down, awake in NAD HEENT: Oral cavity pink, moist. No thrush NECK: Supple, no JVP, no lymphadenopathy. LUNGS: Clear. HEART: S1, S2 regular. ABDOMEN: Obese, BS present, wound vac in place, redness improving; some in duration EXTREMITIES: No edema, cyanosis. SKIN: without signs of rash NEUROLOGIC: Alert, awake and appropriate. No focal neurologic deficit. PIV Port-A-Cath not in use, clean General: Alert, Oriented X3, Cooperative, No acute distress Heart: Regular rate, Normal S1, Normal S2, No murmurs Lungs: Clear Abdomen: Normal bowel sounds, Soft, No tenderness, Other (Wound VAC in place mild erythema of the skin around the wound VAC, less bloating ) Extremities: No cyanosis Labs LABS Laboratory Tests Test 01/24/20 10:55 01/24/20 16:46 01/24/20 21:21 01/25/20 03:50 Glucose (Fingerstick) 110 mg/dL (70-99) 140 mg/dL (70-99) 171 mg/dL (70-99) White Blood Count 7.4 x10^3/uL (4.0-11.0) Red Blood Count 3.36 x10^6/uL (4.30-5.70) Hemoglobin 10.0 g/dL (13.0-17.5) Hematocrit 30.0 % (39.0-53.0) Mean Corpuscular Volume 89 fL (79-100) Mean Corpuscular Hemoglobin 30 pg (25-35) Mean Corpuscular Hemoglobin Concent 33 g/dL (31-37) Red Cell Distribution Width 14.8 % (11.5-14.5) Platelet Count 538 x10^3/uL (140-400) Neutrophils (%) (Auto) 74 % (31-73) Lymphocytes (%) (Auto) 15 % (24-48) Monocytes (%) (Auto) 8 % (0-9) Eosinophils (%) (Auto) 3 % (0-3) Basophils (%) (Auto) 1 % (0-3) Neutrophils # (Auto) 5.5 x10^3/uL (1.8-7.7) Lymphocytes # (Auto) 1.1 x10^3/uL (1.0-4.8) Monocytes # (Auto) 0.6 x10^3/uL (0.0-1.1) Eosinophils # (Auto) 0.2 x10^3/uL (0.0-0.7) Basophils # (Auto) 0.0 x10^3/uL (0.0-0.2) Sodium Level 139 mmol/L (136-145) Potassium Level 3.7 mmol/L (3.5-5.1) Chloride Level 103 mmol/L (98-107) Carbon Dioxide Level 27 mmol/L (21-32) Anion Gap 9 (6-14) Blood Urea Nitrogen 14 mg/dL (8-26) Creatinine 1.5 mg/dL (0.7-1.3) Estimated GFR (Cockcroft-Gault) 48.2 BUN/Creatinine Ratio 9 (6-20) Glucose Level 157 mg/dL (70-99) Calcium Level 8.6 mg/dL (8.5-10.1) Phosphorus Level 3.8 mg/dL (2.6-4.7) Total Bilirubin 0.2 mg/dL (0.2-1.0) Aspartate Amino Transf (AST/SGOT) 10 U/L (15-37) Alanine Aminotransferase (ALT/SGPT) 16 U/L (16-63) Alkaline Phosphatase 52 U/L (46-116) Total Protein 6.7 g/dL (6.4-8.2) Albumin 2.4 g/dL (3.4-5.0) Albumin/Globulin Ratio 0.6 (1.0-1.7) Test 01/25/20 07:48 Glucose (Fingerstick) 116 mg/dL (70-99) Comment Review of Relevant I have reviewed the following items catarina (where applicable) has been applied. Labs Laboratory Tests Test 01/23/20 21:05 01/24/20 07:12 01/24/20 10:55 01/24/20 16:46 Glucose (Fingerstick) 151 mg/dL (70-99) 120 mg/dL (70-99) 110 mg/dL (70-99) 140 mg/dL (70-99) Test 01/24/20 21:21 01/25/20 03:50 01/25/20 07:48 Glucose (Fingerstick) 171 mg/dL (70-99) 116 mg/dL (70-99) White Blood Count 7.4 x10^3/uL (4.0-11.0) Red Blood Count 3.36 x10^6/uL (4.30-5.70) Hemoglobin 10.0 g/dL (13.0-17.5) Hematocrit 30.0 % (39.0-53.0) Mean Corpuscular Volume 89 fL (79-100) Mean Corpuscular Hemoglobin 30 pg (25-35) Mean Corpuscular Hemoglobin Concent 33 g/dL (31-37) Red Cell Distribution Width 14.8 % (11.5-14.5) Platelet Count 538 x10^3/uL (140-400) Neutrophils (%) (Auto) 74 % (31-73) Lymphocytes (%) (Auto) 15 % (24-48) Monocytes (%) (Auto) 8 % (0-9) Eosinophils (%) (Auto) 3 % (0-3) Basophils (%) (Auto) 1 % (0-3) Neutrophils # (Auto) 5.5 x10^3/uL (1.8-7.7) Lymphocytes # (Auto) 1.1 x10^3/uL (1.0-4.8) Monocytes # (Auto) 0.6 x10^3/uL (0.0-1.1) Eosinophils # (Auto) 0.2 x10^3/uL (0.0-0.7) Basophils # (Auto) 0.0 x10^3/uL (0.0-0.2) Sodium Level 139 mmol/L (136-145) Potassium Level 3.7 mmol/L (3.5-5.1) Chloride Level 103 mmol/L (98-107) Carbon Dioxide Level 27 mmol/L (21-32) Anion Gap 9 (6-14) Blood Urea Nitrogen 14 mg/dL (8-26) Creatinine 1.5 mg/dL (0.7-1.3) Estimated GFR (Cockcroft-Gault) 48.2 BUN/Creatinine Ratio 9 (6-20) Glucose Level 157 mg/dL (70-99) Calcium Level 8.6 mg/dL (8.5-10.1) Phosphorus Level 3.8 mg/dL (2.6-4.7) Total Bilirubin 0.2 mg/dL (0.2-1.0) Aspartate Amino Transf (AST/SGOT) 10 U/L (15-37) Alanine Aminotransferase (ALT/SGPT) 16 U/L (16-63) Alkaline Phosphatase 52 U/L (46-116) Total Protein 6.7 g/dL (6.4-8.2) Albumin 2.4 g/dL (3.4-5.0) Albumin/Globulin Ratio 0.6 (1.0-1.7) Laboratory Tests Test 01/24/20 10:55 01/24/20 16:46 01/24/20 21:21 01/25/20 03:50 Glucose (Fingerstick) 110 mg/dL (70-99) 140 mg/dL (70-99) 171 mg/dL (70-99) White Blood Count 7.4 x10^3/uL (4.0-11.0) Red Blood Count 3.36 x10^6/uL (4.30-5.70) Hemoglobin 10.0 g/dL (13.0-17.5) Hematocrit 30.0 % (39.0-53.0) Mean Corpuscular Volume 89 fL (79-100) Mean Corpuscular Hemoglobin 30 pg (25-35) Mean Corpuscular Hemoglobin Concent 33 g/dL (31-37) Red Cell Distribution Width 14.8 % (11.5-14.5) Platelet Count 538 x10^3/uL (140-400) Neutrophils (%) (Auto) 74 % (31-73) Lymphocytes (%) (Auto) 15 % (24-48) Monocytes (%) (Auto) 8 % (0-9) Eosinophils (%) (Auto) 3 % (0-3) Basophils (%) (Auto) 1 % (0-3) Neutrophils # (Auto) 5.5 x10^3/uL (1.8-7.7) Lymphocytes # (Auto) 1.1 x10^3/uL (1.0-4.8) Monocytes # (Auto) 0.6 x10^3/uL (0.0-1.1) Eosinophils # (Auto) 0.2 x10^3/uL (0.0-0.7) Basophils # (Auto) 0.0 x10^3/uL (0.0-0.2) Sodium Level 139 mmol/L (136-145) Potassium Level 3.7 mmol/L (3.5-5.1) Chloride Level 103 mmol/L (98-107) Carbon Dioxide Level 27 mmol/L (21-32) Anion Gap 9 (6-14) Blood Urea Nitrogen 14 mg/dL (8-26) Creatinine 1.5 mg/dL (0.7-1.3) Estimated GFR (Cockcroft-Gault) 48.2 BUN/Creatinine Ratio 9 (6-20) Glucose Level 157 mg/dL (70-99) Calcium Level 8.6 mg/dL (8.5-10.1) Phosphorus Level 3.8 mg/dL (2.6-4.7) Total Bilirubin 0.2 mg/dL (0.2-1.0) Aspartate Amino Transf (AST/SGOT) 10 U/L (15-37) Alanine Aminotransferase (ALT/SGPT) 16 U/L (16-63) Alkaline Phosphatase 52 U/L (46-116) Total Protein 6.7 g/dL (6.4-8.2) Albumin 2.4 g/dL (3.4-5.0) Albumin/Globulin Ratio 0.6 (1.0-1.7) Test 01/25/20 07:48 Glucose (Fingerstick) 116 mg/dL (70-99) Microbiology 01/16/20 Gram Stain - Final, Complete 01/16/20 Aerobic Culture - Final, Complete 01/16/20 Antimicrobic Susceptibility - Final, Complete 01/16/20 Blood Culture - Final, Complete NO GROWTH AFTER 5 DAYS Medications Current Medications Sodium Chloride (Normal Saline Flush) 3 ml QSHIFT PRN IV AFTER MEDS AND BLOOD DRAWS; Start 01/16/20 at 12:45 Sodium Chloride 1,000 ml @ 100 mls/hr Q10H IV Last administered on 01/23/20at 05:13; Start 01/16/20 at 12:37; Stop 01/23/20 at 14:48; Status DC Ondansetron HCl (Zofran) 4 mg PRN Q4HRS PRN IV NAUSEA/VOMITING; Start 01/16/20 at 12:45 Al Hydroxide/Mg Hydroxide (Mylanta Plus Xs) 30 ml PRN DAILY PRN PO HEARTBURN / GAS; Start 01/16/20 at 12:45 Clonidine HCl (Catapres) 0.1 mg PRN Q6HRS PRN PO SBP>160 OR DBP>90; Start 01/16/20 at 12:45 Docusate Sodium (Colace) 100 mg PRN BID PRN PO HARD STOOLS Last administered on 01/23/20at 08:34; Start 01/16/20 at 12:45 Albuterol/ Ipratropium (Duoneb) 3 ml Q4H NEB Last administered on 01/25/20at 08:21; Start 01/16/20 at 12:45 Guaifenesin (Robitussin) 200 mg PRN Q4HRS PRN PO COUGH Last administered on 01/23/20at 14:00; Start 01/16/20 at 12:45 Vancomycin HCl (Vanco Per Pharmacy) 1 each PRN DAILY PRN MC SEE COMMENTS Last administered on 01/22/20at 13:01; Start 01/16/20 at 12:45; Stop 01/23/20 at 09:40; Status DC Piperacillin Sod/ Tazobactam Sod 3.375 gm/Sodium Chloride 50 ml @ 100 mls/hr Q6HRS IV Last administered on 01/25/20at 06:03; Start 01/16/20 at 13:00 Ergocalciferol (Vitamin D2) 50,000 unit QMONFR PO Last administered on 01/21/20at 16:02; Start 01/18/20 at 16:00 Furosemide (Lasix) 40 mg DAILY PO ; Start 01/16/20 at 13:30; Stop 01/16/20 at 16:13; Status DC Levothyroxine Sodium (Synthroid) 88 mcg DAILYAC PO ; Start 01/16/20 at 13:30; Stop 01/17/20 at 01:31; Status DC Lisinopril (Prinivil) 10 mg DAILY PO Last administered on 01/24/20at 09:08; Start 01/16/20 at 13:30 Nortriptyline HCl (Pamelor) 50 mg QHS PO Last administered on 01/24/20at 21:22; Start 01/16/20 at 21:00 Oxycodone/ Acetaminophen (Percocet 10/325) 1 tab HS PO ; Start 01/16/20 at 21:00; Stop 01/16/20 at 16:16; Status DC Oxycodone/ Acetaminophen (Percocet 10/325) 1 tab PRN Q4HRS PRN PO MODERATE PAIN; Start 01/16/20 at 13:00; Status Cancel Simvastatin (Zocor) 20 mg HS PO Last administered on 01/24/20at 21:22; Start 01/16/20 at 21:00 Carvedilol (Coreg) 6.25 mg BIDWMEALS PO ; Start 01/16/20 at 17:00; Stop 01/16/20 at 16:13; Status DC Insulin Glargine (Lantus Syringe) 30 unit QHS SQ Last administered on 01/24/20at 21:27; Start 01/16/20 at 21:00 Pantoprazole Sodium (Protonix) 40 mg DAILYAC PO Last administered on 01/25/20at 06:03; Start 01/16/20 at 13:30 Aspirin (Aspirin Chewable) 81 mg DAILY PO Last administered on 01/24/20at 09:07; Start 01/17/20 at 09:00 Oxycodone/ Acetaminophen (Percocet 10/325) 1 tab PRN Q4HRS PRN PO PAIN; Start 01/16/20 at 16:00; Stop 01/16/20 at 16:19; Status DC Sennosides (Senna) 8.6 mg BID PO Last administered on 01/19/20at 08:55; Start 01/16/20 at 14:00; Stop 01/19/20 at 14:19; Status DC Vancomycin HCl 2 gm/Sodium Chloride 500 ml @ 250 mls/hr 1X ONCE IV Last administered on 01/16/20 14:07; Start 01/16/20 at 13:30; Stop 01/16/20 at 15:29; Status DC Vancomycin HCl 1.5 gm/Sodium Chloride 500 ml @ 250 mls/hr Q12H IV Last administered on 01/23/20at 02:01; Start 01/17/20 at 02:00; Stop 01/23/20 at 09:38; Status DC Vancomycin HCl (Vancomycin Trough Level) 1 each 1X ONCE MC Last administered on 01/18/20at 01:25; Start 01/18/20 at 01:30; Stop 01/18/20 at 01:31; Status DC Lactobacillus Rhamnosus (Culturelle) 1 cap BID PO Last administered on 01/24/20 21:22; Start 01/16/20 at 21:00 Carvedilol (Coreg) 6.25 mg 1400,2200 PO Last administered on 01/24/20at 21:22; Start 01/16/20 at 22:00 Furosemide (Lasix) 40 mg DAILY PO Last administered on 01/24/20 09:07; Start 01/16/20 at 17:00 Oxycodone/ Acetaminophen (Percocet 10/325) 1 tab Q4H PO Last administered on 01/16/20at 18:04; Start 01/16/20 at 18:00; Stop 01/16/20 at 19:26; Status DC Oxycodone/ Acetaminophen (Percocet 10/325) 1 tab PRN Q4HRS PRN PO BREAKTHROUGH PAIN Last administered on 01/25/20 06:02; Start 01/16/20 at 22:20 Oxycodone HCl (Roxicodone) 10 mg Q4HRS PO Last administered on 01/16/20at 22:08; Start 01/16/20 at 22:00; Stop 01/17/20 at 01:38; Status DC Oxycodone HCl (Roxicodone) 10 mg 1X ONCE PO Last administered on 01/16/20at 19:39; Start 01/16/20 at 19:30; Stop 01/16/20 at 19:33; Status DC Levothyroxine Sodium (Synthroid) 88 mcg DAILY05 PO Last administered on 01/25/20 06:00; Start 01/17/20 at 05:00 Oxycodone HCl (Roxicodone) 10 mg Q4H PO Last administered on 01/25/20 06:01; Start 01/17/20 at 02:00 Sennosides (Senna) 8.6 mg QID PO Last administered on 01/21/20at 06:36; Start 01/19/20 at 14:30; Stop 01/21/20 at 06:42; Status DC Budesonide (Pulmicort) 0.5 mg RTBID NEB Last administered on 01/25/20 08:22; Start 01/20/20 at 20:00 Budesonide (Pulmicort) 0.5 mg 1X ONCE NEB Last administered on 01/20/20at 11:33; Start 01/20/20 at 08:45; Stop 01/20/20 at 08:59; Status DC Bisacodyl (Dulcolax Supp) [address] Last administered on 01/20/20at 15:08; Start 01/20/20 at 13:45; Stop 01/20/20 at 13:46; Status DC Sennosides (Senna) 8.6 mg Q6H PO Last administered on 01/25/20at 06:00; Start 01/21/20 at 07:00 Bisacodyl (Dulcolax Supp) [address] Last administered on 01/21/20at 13:07; Start 01/21/20 at 11:30; Stop 01/21/20 at 11:31; Status DC Bisacodyl (Dulcolax Supp) [address] CONSTIPATION; Start 01/21/20 at 11:15 Bisacodyl (Dulcolax Tab) 10 mg PRN DAILY PRN PO CONSTIPATION; Start 01/21/20 at 11:15 Linezolid (Zyvox) 600 mg BID PO Last administered on 01/24/20at 21:21; Start 01/23/20 at 10:00 Potassium Bicarbonate (Potassium Effervescent Tablet) 40 meq 1X ONCE FT Last administered on 01/24/20at 14:24; Start 01/24/20 at 11:30; Stop 01/24/20 at 11:31; Status DC Magnesium Oxide (Magnesium Oxide) 400 mg BID PO ; Start 01/24/20 at 21:00; Stop 01/26/20 at 09:01; Status UNV Potassium Phos/ Sodium Phos (Phos-Nak) 1 pkt BID PO ; Start 01/24/20 at 21:00; Stop 01/25/20 at 09:01; Status UNV Potassium Bicarbonate (Potassium Effervescent Tablet) 40 meq Q4H PO ; Start 01/24/20 at 11:15; Stop 01/24/20 at 15:16; Status UNV Info (Non-Icu Electrolyte Protocol) 1 ea CONT PRN PRN MC SEE COMMENTS; Start 01/24/20 at 11:30 Active Scripts Active Reported Percocet 10-325 Mg Tablet (Oxycodone/Acetaminophen) 1 Each Tablet 1 Tab PO Q4HRS MDD 6 Tablet(s) 3 Days Senna Laxative (Sennosides) 8.6 Mg Tablet 1 Tab PO Q4HRS 30 Days Aspirin 81 Mg Tab.chew 1 Tab PO DAILY Metformin Hcl 1,000 Mg Tablet 1,000 Mg PO BIDWMEALS Lisinopril 10 Mg Tablet 1 Tab PO DAILY Levothyroxine Sodium 88 Mcg Tablet 88 Mcg PO DAILYAC Lasix (Furosemide) 40 Mg Tablet 40 Mg PO DAILY Lantus Solostar (Insulin Glargine,Hum.rec.anlog) 100 Unit/1 Ml Insuln.pen 30 Unit SQ QHS Vitamin D2 (Ergocalciferol (Vitamin D2)) 1,250 Mcg Capsule 1,250 Mcg PO QMONFR Nortriptyline Hcl 25 Mg Capsule 2 Cap PO QHS Omeprazole 40 Mg Capsule.dr 40 Mg PO DAILY Simvastatin 20 Mg Tablet 20 Mg PO HS Coreg (Carvedilol) 25 Mg Tablet 6.25 Mg PO BIDWMEALS Vitals/I & O Vital Sign - Last 24 Hours 01/24/20 01/24/20 01/24/20 01/24/20 09:08 10:03 10:03 11:27 Pulse 101 B/P (MAP) 147/87 O2 Delivery Room Air Room Air Room Air 01/24/20 01/24/20 01/24/20 01/24/20 11:27 11:38 11:43 14:16 Temp 97.9 97.9 Pulse 101 Resp 20 B/P (MAP) 138/92 (107) Pulse Ox 97 95 O2 Delivery Room Air Room Air Room Air Room Air 01/24/20 01/24/20 01/24/20 01/24/20 14:16 14:17 15:22 15:22 Pulse 96 B/P (MAP) 131/94 O2 Delivery Room Air Room Air Room Air 01/24/20 01/24/20 01/24/20 01/24/20 15:45 16:32 18:08 18:09 Temp 97.6 97.6 Pulse 102 Resp 22 B/P (MAP) 165/99 (121) Pulse Ox 93 O2 Delivery Room Air Room Air Room Air Room Air 01/24/20 01/24/20 01/24/20 01/24/20 19:00 19:24 19:24 20:00 Temp 97.7 97.7 Pulse 103 Resp 20 B/P (MAP) 150/86 (107) Pulse Ox 91 O2 Delivery Room Air Room Air Room Air Room Air 01/24/20 01/24/20 01/24/20 01/24/20 20:43 20:43 21:22 22:00 Pulse 72 Resp 20 B/P (MAP) 131/87 Pulse Ox 96 96 96 O2 Delivery Room Air Room Air Room Air 01/24/20 01/24/20 01/24/20 01/24/20 22:02 23:00 23:00 23:00 Temp 97.9 97.9 Pulse 102 Resp 18 20 20 20 B/P (MAP) 122/67 (85) Pulse Ox 96 92 96 96 O2 Delivery Room Air Room Air Room Air Room Air 01/24/20 01/25/20 01/25/2020 23:19 01:52 01:54 02:52 Resp 18 18 18 Pulse Ox 96 96 96 96 O2 Delivery Room Air Room Air Room Air Room Air 01/25/20 01/25/20 01/25/20 01/25/20 02:52 03:13 04:21 06:01 Temp 97.6 97.6 Pulse 104 Resp 18 20 18 B/P (MAP) 153/92 (112) Pulse Ox 96 91 96 96 O2 Delivery Room Air Room Air Room Air Room Air 01/25/20 01/25/20 01/25/20 01/25/20 06:02 07:01 07:01 08:22 Resp 16 18 18 Pulse Ox 96 96 96 92 O2 Delivery Room Air Room Air Room Air Room Air Intake and Output 01/24/20 01/24/20 01/25/20 15:00 23:00 07:00 Intake Total 600 ml 400 ml Output Total 750 ml Balance 600 ml 400 ml -750 ml Justicifation of Admission Dx: Justifications for Admission: Justification of Admission Dx: N/A JONO DAVIS MD Jan 25, 2020 08:36
[2020-01-25] MEDS: FUROSEMIDE 40 MG TABLET. PO SCH (09:29)
[2020-01-25] MEDS: LINEZOLID 600 MG TABLET PO SCH ×2 (09:29→21:19)
[2020-01-25] MEDS: ASPIRIN CHEWABLE 81 MG TABLET. PO SCH (09:29)
[2020-01-25] MEDS: LACTOBACILLUS RHAMNOSUS GG 1 CAPSULE. PO SCH ×2 (09:30→21:14)
[2020-01-25] MEDS: LISINOPRIL 10 MG TABLET PO SCH (09:30)
--- NOTE | 2020-01-25 09:44 | PDOC ---
AMY HENRY PAPER REWINDER 01/25/20 0944: SURGICAL PROGRESS NOTE DATE: 01/25/20 TIME: 09:43 Subjective needs constipation/pain meds abdomen feels better Vital Signs Vital Signs Date Time Temp Pulse Resp B/P (MAP) Pulse Ox O2 Delivery O2 Flow Rate FiO2 01/25/20 09:31 92 Room Air 5.0 01/25/20 09:30 102 150/94 01/25/20 07:15 97.8 18 97.8 I&O Intake and Output 01/25/20 07:00 Intake Total 1000 ml Output Total 750 ml Balance 250 ml Intake Oral 1000 ml Output Urine Total 750 ml # Voids 2 General: Alert, Oriented X3, Cooperative Abdomen: Soft, Other (vac in place ) Labs Laboratory Tests Test 01/23/20 21:05 01/24/20 07:12 01/24/20 10:55 01/24/20 16:46 Glucose (Fingerstick) 151 mg/dL (70-99) 120 mg/dL (70-99) 110 mg/dL (70-99) 140 mg/dL (70-99) Test 01/24/20 21:21 01/25/20 03:50 01/25/20 07:48 Glucose (Fingerstick) 171 mg/dL (70-99) 116 mg/dL (70-99) White Blood Count 7.4 x10^3/uL (4.0-11.0) Red Blood Count 3.36 x10^6/uL (4.30-5.70) Hemoglobin 10.0 g/dL (13.0-17.5) Hematocrit 30.0 % (39.0-53.0) Mean Corpuscular Volume 89 fL (79-100) Mean Corpuscular Hemoglobin 30 pg (25-35) Mean Corpuscular Hemoglobin Concent 33 g/dL (31-37) Red Cell Distribution Width 14.8 % (11.5-14.5) Platelet Count 538 x10^3/uL (140-400) Neutrophils (%) (Auto) 74 % (31-73) Lymphocytes (%) (Auto) 15 % (24-48) Monocytes (%) (Auto) 8 % (0-9) Eosinophils (%) (Auto) 3 % (0-3) Basophils (%) (Auto) 1 % (0-3) Neutrophils # (Auto) 5.5 x10^3/uL (1.8-7.7) Lymphocytes # (Auto) 1.1 x10^3/uL (1.0-4.8) Monocytes # (Auto) 0.6 x10^3/uL (0.0-1.1) Eosinophils # (Auto) 0.2 x10^3/uL (0.0-0.7) Basophils # (Auto) 0.0 x10^3/uL (0.0-0.2) Sodium Level 139 mmol/L (136-145) Potassium Level 3.7 mmol/L (3.5-5.1) Chloride Level 103 mmol/L (98-107) Carbon Dioxide Level 27 mmol/L (21-32) Anion Gap 9 (6-14) Blood Urea Nitrogen 14 mg/dL (8-26) Creatinine 1.5 mg/dL (0.7-1.3) Estimated GFR (Cockcroft-Gault) 48.2 BUN/Creatinine Ratio 9 (6-20) Glucose Level 157 mg/dL (70-99) Calcium Level 8.6 mg/dL (8.5-10.1) Phosphorus Level 3.8 mg/dL (2.6-4.7) Total Bilirubin 0.2 mg/dL (0.2-1.0) Aspartate Amino Transf (AST/SGOT) 10 U/L (15-37) Alanine Aminotransferase (ALT/SGPT) 16 U/L (16-63) Alkaline Phosphatase 52 U/L (46-116) Total Protein 6.7 g/dL (6.4-8.2) Albumin 2.4 g/dL (3.4-5.0) Albumin/Globulin Ratio 0.6 (1.0-1.7) Laboratory Tests Test 01/24/20 10:55 01/24/20 16:46 01/24/20 21:21 01/25/20 03:50 Glucose (Fingerstick) 110 mg/dL (70-99) 140 mg/dL (70-99) 171 mg/dL (70-99) White Blood Count 7.4 x10^3/uL (4.0-11.0) Red Blood Count 3.36 x10^6/uL (4.30-5.70) Hemoglobin 10.0 g/dL (13.0-17.5) Hematocrit 30.0 % (39.0-53.0) Mean Corpuscular Volume 89 fL (79-100) Mean Corpuscular Hemoglobin 30 pg (25-35) Mean Corpuscular Hemoglobin Concent 33 g/dL (31-37) Red Cell Distribution Width 14.8 % (11.5-14.5) Platelet Count 538 x10^3/uL (140-400) Neutrophils (%) (Auto) 74 % (31-73) Lymphocytes (%) (Auto) 15 % (24-48) Monocytes (%) (Auto) 8 % (0-9) Eosinophils (%) (Auto) 3 % (0-3) Basophils (%) (Auto) 1 % (0-3) Neutrophils # (Auto) 5.5 x10^3/uL (1.8-7.7) Lymphocytes # (Auto) 1.1 x10^3/uL (1.0-4.8) Monocytes # (Auto) 0.6 x10^3/uL (0.0-1.1) Eosinophils # (Auto) 0.2 x10^3/uL (0.0-0.7) Basophils # (Auto) 0.0 x10^3/uL (0.0-0.2) Sodium Level 139 mmol/L (136-145) Potassium Level 3.7 mmol/L (3.5-5.1) Chloride Level 103 mmol/L (98-107) Carbon Dioxide Level 27 mmol/L (21-32) Anion Gap 9 (6-14) Blood Urea Nitrogen 14 mg/dL (8-26) Creatinine 1.5 mg/dL (0.7-1.3) Estimated GFR (Cockcroft-Gault) 48.2 BUN/Creatinine Ratio 9 (6-20) Glucose Level 157 mg/dL (70-99) Calcium Level 8.6 mg/dL (8.5-10.1) Phosphorus Level 3.8 mg/dL (2.6-4.7) Total Bilirubin 0.2 mg/dL (0.2-1.0) Aspartate Amino Transf (AST/SGOT) 10 U/L (15-37) Alanine Aminotransferase (ALT/SGPT) 16 U/L (16-63) Alkaline Phosphatase 52 U/L (46-116) Total Protein 6.7 g/dL (6.4-8.2) Albumin 2.4 g/dL (3.4-5.0) Albumin/Globulin Ratio 0.6 (1.0-1.7) Test 01/25/20 07:48 Glucose (Fingerstick) 116 mg/dL (70-99) Problem List d/w wound care yesterday will check wound on Tuesday Justicifation of Admission Dx: Justifications for Admission: Justification of Admission Dx: N/A FELIX DAVIS MD 01/26/20 0843: SURGICAL PROGRESS NOTE Assessment/Plan Agree with above AMY HENRY APRN Jan 25, 2020 09:44 FELIX DAVIS MD Jan 26, 2020 08:43
--- NOTE | 2020-01-25 10:06 | NUR ---
SW following. Discussed with RN, pt will be transitioned to oral abx at discharge. Surgical note stating "will check wound on Tuesday." [facility]AN has been unable to find home health for pt. Pt will have to follow up with outpatient wound care. SUMAN will continue to follow.
--- NOTE | 2020-01-25 10:56 | PDOC ---
Infectious Disease Note Subjective: Subjective Patient continues to request for pain medication for abdominal pain He had bowel movement earlier this morning Denies N/V/F/C Vital Signs: Vital Signs Vital Signs Date Time Temp Pulse Resp B/P (MAP) Pulse Ox O2 Delivery O2 Flow Rate FiO2 01/25/20 09:31 92 Room Air 5.0 01/25/20 09:30 102 150/94 01/25/20 07:15 97.8 18 97.8 Physical Exam: PHYSICAL EXAM GENERAL: Lying down, awake in NAD HEENT: Oral cavity pink, moist. No thrush NECK: Supple, no JVP, no lymphadenopathy. LUNGS: Clear. HEART: S1, S2 regular. ABDOMEN: Obese, BS present, wound vac in place, redness improving; some induration EXTREMITIES: No edema, cyanosis. SKIN: without signs of rash NEUROLOGIC: Alert, awake and appropriate. No focal neurologic deficit. PIV Port-A-Cath not in use, clean Medications: Inpatient Meds: Current Medications Medications (Trade) Dose Ordered Sig/Cony Start Time Stop Time Status Last Admin Dose Admin Al Hydroxide/Mg Hydroxide (Mylanta Plus Xs) 30 ml PRN DAILY PRN 01/16/20 12:45 Albuterol/ Ipratropium (Duoneb) 3 ml Q4H 01/16/20 12:45 01/25/20 08:21 3 ML Aspirin (Aspirin Chewable) 81 mg DAILY 01/17/20 09:00 01/25/20 09:29 81 MG Bisacodyl (Dulcolax Supp) 10 mg PRN DAILY PRN 01/21/20 11:15 Bisacodyl (Dulcolax Tab) 10 mg PRN DAILY PRN 01/21/20 11:15 Budesonide (Pulmicort) 0.5 mg 1X ONCE 01/20/20 08:45 01/20/20 08:59 DC 01/20/20 11:33 0.5 MG Carvedilol (Coreg) 6.25 mg 1400,2200 01/16/20 22:00 01/24/20 21:22 6.25 MG Clonidine HCl (Catapres) 0.1 mg PRN Q6HRS PRN 01/16/20 12:45 Docusate Sodium (Colace) 100 mg PRN BID PRN 01/16/20 12:45 01/23/20 08:34 100 MG Ergocalciferol (Vitamin D2) 50,000 unit QMONFR 01/18/20 16:00 01/21/20 16:02 50,000 UNIT Furosemide (Lasix) 40 mg DAILY 01/16/20 17:00 01/25/20 09:29 40 MG Guaifenesin (Robitussin) 200 mg PRN Q4HRS PRN 01/16/20 12:45 01/23/20 14:00 200 MG Info (Non-Icu Electrolyte Protocol) 1 ea CONT PRN PRN 01/24/20 11:30 Insulin Glargine (Lantus Syringe) 30 unit QHS 01/16/20 21:00 01/24/20 21:27 30 UNIT Lactobacillus Rhamnosus (Culturelle) 1 cap BID 01/16/20 21:00 01/25/20 09:30 1 CAP Levothyroxine Sodium (Synthroid) 88 mcg DAILY05 01/17/20 05:00 01/25/20 06:00 88 MCG Linezolid (Zyvox) 600 mg BID 01/23/20 10:00 01/25/20 09:29 600 MG Lisinopril (Prinivil) 10 mg DAILY 01/16/20 13:30 01/25/20 09:30 10 MG Magnesium Oxide (Magnesium Oxide) 400 mg BID 01/24/20 21:00 01/26/20 09:01 UNV Nortriptyline HCl (Pamelor) 50 mg QHS 01/16/20 21:00 01/24/20 21:22 50 MG Ondansetron HCl (Zofran) 4 mg PRN Q4HRS PRN 01/16/20 12:45 Oxycodone HCl (Roxicodone) 10 mg Q4H 01/17/20 02:00 01/25/20 09:37 10 MG Oxycodone/ Acetaminophen (Percocet 10/325) 1 tab PRN Q4HRS PRN 01/16/20 22:20 01/25/20 09:31 1 TAB Pantoprazole Sodium (Protonix) 40 mg DAILYAC 01/16/20 13:30 01/25/20 06:03 40 MG Piperacillin Sod/ Tazobactam Sod 3.375 gm/Sodium Chloride 50 ml @ 100 mls/hr Q6HRS 01/16/20 13:00 01/25/20 06:03 100 MLS/HR Potassium Bicarbonate (Potassium Effervescent Tablet) 40 meq Q4H 01/24/20 11:15 01/24/20 15:16 UNV Potassium Phos/ Sodium Phos (Phos-Nak) 1 pkt BID 01/24/20 21:00 01/25/20 09:01 UNV Sennosides (Senna) 8.6 mg Q6H 01/21/20 07:00 01/25/20 06:00 8.6 MG Simvastatin (Zocor) 20 mg HS 01/16/20 21:00 01/24/20 21:22 20 MG Sodium Chloride 1,000 ml @ 100 mls/hr Q10H 01/16/20 12:37 01/23/20 14:48 DC 01/23/20 05:13 100 MLS/HR Sodium Chloride (Normal Saline Flush) 3 ml QSHIFT PRN 01/16/20 12:45 Vancomycin HCl (Vanco Per Pharmacy) 1 each PRN DAILY PRN 01/16/20 12:45 01/23/20 09:40 DC 01/22/20 13:01 1 EACH Vancomycin HCl (Vancomycin Trough Level) 1 each 1X ONCE 01/18/20 01:30 01/18/20 01:31 DC 01/18/20 01:25 1 EACH Vancomycin HCl 1.5 gm/Sodium Chloride 500 ml @ 250 mls/hr Q12H 01/17/20 02:00 01/23/20 09:38 DC 01/23/20 02:01 250 MLS/HR Vancomycin HCl 2 gm/Sodium Chloride 500 ml @ 250 mls/hr 1X ONCE 01/16/20 13:30 01/16/20 15:29 DC 01/16/20 14:07 250 MLS/HR Labs: Lab Laboratory Tests Test 01/24/20 16:46 01/24/20 21:21 01/25/20 03:50 01/25/20 07:48 Glucose (Fingerstick) 140 mg/dL (70-99) 171 mg/dL (70-99) 116 mg/dL (70-99) White Blood Count 7.4 x10^3/uL (4.0-11.0) Red Blood Count 3.36 x10^6/uL (4.30-5.70) Hemoglobin 10.0 g/dL (13.0-17.5) Hematocrit 30.0 % (39.0-53.0) Mean Corpuscular Volume 89 fL (79-100) Mean Corpuscular Hemoglobin 30 pg (25-35) Mean Corpuscular Hemoglobin Concent 33 g/dL (31-37) Red Cell Distribution Width 14.8 % (11.5-14.5) Platelet Count 538 x10^3/uL (140-400) Neutrophils (%) (Auto) 74 % (31-73) Lymphocytes (%) (Auto) 15 % (24-48) Monocytes (%) (Auto) 8 % (0-9) Eosinophils (%) (Auto) 3 % (0-3) Basophils (%) (Auto) 1 % (0-3) Neutrophils # (Auto) 5.5 x10^3/uL (1.8-7.7) Lymphocytes # (Auto) 1.1 x10^3/uL (1.0-4.8) Monocytes # (Auto) 0.6 x10^3/uL (0.0-1.1) Eosinophils # (Auto) 0.2 x10^3/uL (0.0-0.7) Basophils # (Auto) 0.0 x10^3/uL (0.0-0.2) Sodium Level 139 mmol/L (136-145) Potassium Level 3.7 mmol/L (3.5-5.1) Chloride Level 103 mmol/L (98-107) Carbon Dioxide Level 27 mmol/L (21-32) Anion Gap 9 (6-14) Blood Urea Nitrogen 14 mg/dL (8-26) Creatinine 1.5 mg/dL (0.7-1.3) Estimated GFR (Cockcroft-Gault) 48.2 BUN/Creatinine Ratio 9 (6-20) Glucose Level 157 mg/dL (70-99) Calcium Level 8.6 mg/dL (8.5-10.1) Phosphorus Level 3.8 mg/dL (2.6-4.7) Total Bilirubin 0.2 mg/dL (0.2-1.0) Aspartate Amino Transf (AST/SGOT) 10 U/L (15-37) Alanine Aminotransferase (ALT/SGPT) 16 U/L (16-63) Alkaline Phosphatase 52 U/L (46-116) Total Protein 6.7 g/dL (6.4-8.2) Albumin 2.4 g/dL (3.4-5.0) Albumin/Globulin Ratio 0.6 (1.0-1.7) Micro RUN DATE: 01/20/20 [facility] *LIVE* PAGE 1 RUN TIME: 1116 Specimen Inquiry PATIENT: JOE HYLTON Jose ACCT: [id number] LOC: [address] [place] [address] U: [id number] AGE/SX: 59/M ROOM: [facility] RE01/16/[address]: JONO DAVIS MD : 1960 BED: 1 DIS: STATUS: ADM IN TLOC: SPEC #: [id number] [place] DELIA: 01/16/20-153 STATUS: COMP REQ #: [id number] RECD: 01/16/20-160 [facility] DR: JONO DAVIS MD SOURCE: ABSCESS ENTR: 01/16/20-15[address] [facility] DR: KATI PICKERING MD [facility]: CELENA BLEDSOE MD, SCOTT D MD KHAN, AMAN U MD ORDERED: AEROBIC CULT GS COMMENTS: WOUND ABSCESS Procedure Result GRAM STAIN Final Final GRAM NEGATIVE RODS:FEW GRAM POSITIVE RODS:RARE GRAM POSITIVE COCCI:MODERATE SQUAMOUS EPI CELL:FEW PMN (WBCs):MODERATE Unless otherwise specified, Testing Performed by: [address] [address] For Inquires, the Physician may contact the Microbiology department at [phone] AEROBIC CULTURE Final Final MANY GRAM POSITIVE COCCI on 01/18/20 at 1333 FINAL ID= [STAPHYLOCOCCUS AUREUS (MRSA)] MANY GRAM NEGATIVE RODS on 01/18/20 at 1333 FINAL ID= [ENTEROBACTER CLOACAE COMPLEX] Testing Performed by: [address] [address] For Inquires, the Physician may contact the Microbiology department at [phone] STAPHYLOCOCCUS AUREUS (MRSA) ENTEROBACTER CLOACAE COMPLEX ANTIMICROBIAL SUSCEPTIBILITY Final Comment Comment POS PETER TYPE 38 STAPHYLOCOCCUS AUREUS (MRSA) ANTIBIOTIC RESULT INTERPRETATION AZITHROMYCIN >4 R CLINDAMYCIN <=0.25 R* CONTINUED ON NEXT PAGE RUN DATE: 01/20/20 [facility] *LIVE* PAGE 2 RUN TIME: 1116 Specimen Inquiry SPEC: [id number] PATIENT: JOE HYLTON [id number] (Continued) Procedure Result ANTIMICROBIAL SUSCEPTIBILITY Final (continued) CEFOXITIN SCREEN >4 POS CIPROFLOXACIN <=1 S CEFTAROLINE <=0.5 S DAPTOMYCIN <=0.5 S ERYTHROMYCIN >4 R GENTAMICIN <=4 S INDUCIBLE CLINDAMYCIN >4/0.5 POS LINEZOLID 2 S LEVOFLOXACIN <=1 S OXACILLIN >2 R PENICILLIN >2 R* RIFAMPIN <=1 S TRIMETHOPRIM/SULFAMETHOXAZOLE <=0.5/9.5 S TETRACYCLINE <=4 S VANCOMYCIN 1 S NEG PETER 56 ENTEROBACTER CLOACAE COMPLEX ANTIBIOTIC RESULT INTERPRETATION AMPICILLIN/SULBACTAM <=4/2 R* AMIKACIN <=16 S AMPICILLIN <=8 R* AMOXICILLIN/K CLAVULANATE <=8/4 R* AZTREONAM <=4 S CEFTRIAXONE <=1 S CEFTAZIDIME <=1 S CEFOTAXIME <=2 S CEFOXITIN <=8 R* CIPROFLOXACIN <=0.25 S CEFEPIME <=2 S CEFUROXIME <=4 R* ERTAPENEM <=0.5 S GENTAMICIN <=2 S LEVOFLOXACIN <=0.5 S MEROPENEM <=1 S PIPERACILLIN/TAZOBACTAM <=8 S TRIMETHOPRIM/SULFAMETHOXAZOLE <=0.5/9.5 S TETRACYCLINE <=4 S TOBRAMYCIN <=2 S Unless otherwise specified, Testing Performed by: [address] [address] For Inquires, the Physician may contact the Microbiology department at [phone] Objective: Assessment: Abdominal incision infection post-hernia surgery. 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 Hypertension. Obesity. h/o lung cancer s/p chemo. Port-A-Cath still in place SHAUN mild Plan: Plan of Care Continue Zyvox cont Zosyn, wound evaluation next mon Probiotics Bowel regimen Wound care as directed ; Supportive care SUSAN BLEDSOE MD Jan 25, 2020 10:56
[2020-01-25 11:15] VITALS: BP 107/89
[2020-01-25] MEDS: guaiFENesin ORAL 200 MG/10 ML LIQUID. PO PRN (13:21)
[2020-01-25] MEDS: CARVEDILOL 6.25 MG TABLET. PO SCH ×2 (14:26→22:34)
[2020-01-25 15:00] VITALS: BP 136/91
[2020-01-25] MEDS: ERGOCALCIFEROL (VITAMIN D2) 50,000 UNIT CAPSULE. PO SCH (18:06)
--- NOTE | 2020-01-25 18:18 | NUR ---
Dropped 1-pill oxycodone ext released in the WOW - scheduled 1800 hours med. ALAINA Bundy RN watch waste. Pulled another pill for med.
[2020-01-25 19:00] VITALS: BP 137/88
[2020-01-25] MEDS: NORTRIPTYLINE 25 MG CAPSULE PO SCH (21:14)
[2020-01-25] MEDS: SIMVASTATIN 20 MG TABLET PO SCH (21:14)
[2020-01-25] MEDS: INSULIN GLARGINE SYRINGE. SQ SCH (21:24)
[2020-01-25 23:00] VITALS: BP 152/104
[2020-01-26] MEDS: IPRATRPIUM/ALBUTEROL 0.5/2.5MG 3 ML NEBU. NEB SCH ×6 (00:05→19:45)
[2020-01-26] MEDS: PIPERACILLIN/TAZOBACTAM 3.375 GM in IV NORMAL SALINE 50ML 50 ML IV SCH ×4 (00:26→19:10)
[2020-01-26] MEDS: oxyCODONE/APAP 10/325 1 TAB TABLET PO PRN ×6 (02:01→22:11)
[2020-01-26] MEDS: SENNOSIDES 8.6 MG TABLET PO SCH ×4 (02:01→19:13)
[2020-01-26] MEDS: oxyCODONE IR 5 MG TABLET PO SCH ×6 (02:02→22:11)
[2020-01-26 03:00] VITALS: BP 120/86
[2020-01-26] MEDS: LEVOTHYROXINE 88 MCG TABLET PO SCH (06:11)
[2020-01-26] MEDS: PANTOPRAZOLE 40 MG TABLET.DR. PO SCH (06:11)
[2020-01-26 07:00] VITALS: BP 132/90
[2020-01-26] MEDS: BUDESONIDE 0.5 MG/2 ML NEBU. NEB SCH ×2 (07:11→19:45)
[2020-01-26] MEDS: FUROSEMIDE 40 MG TABLET. PO SCH (08:50)
[2020-01-26] MEDS: LINEZOLID 600 MG TABLET PO SCH ×2 (08:51→22:10)
[2020-01-26] MEDS: ASPIRIN CHEWABLE 81 MG TABLET. PO SCH (08:51)
[2020-01-26] MEDS: LISINOPRIL 10 MG TABLET PO SCH (08:51)
[2020-01-26] MEDS: LACTOBACILLUS RHAMNOSUS GG 1 CAPSULE. PO SCH ×2 (08:51→22:11)
--- NOTE | 2020-01-26 10:21 | PDOC ---
PROGRESS NOTES Date of Service: DATE: 01/26/20 TIME: 10:21 Chief Complaint Chief Complaint IMPRESSION POST-OP Wound infection Post-op Diagnosis: Incarcerated ventral hernia with high-grade bowel obstruction 12/29/19 RECENT partial SBO Incarcerated umbilical hernia pre-op Acute renal failurevasomotor nephropathy resolving Hypertension Diabetes Dyslipidemia History of constipation// inc senna to qid COPD GERD hypokalemia on replacement protocol AEROBIC CULTURE Preliminary Preliminary MANY GRAM POSITIVE COCCI on 01/18/20 at 1333 FINAL ID= [STAPHYLOCOCCUS AUREUS] MANY GRAM NEGATIVE RODS on 01/18/20 at 1333 FINAL ID= [ENTEROBACTER CLOACAE COMPLEX] dulcolax supp daily Midline abdominal wound with wound VAC 01/23 cont iv zosyn 01/24 large bm yesterday 01/25 Continue Zyvox and Zosyn, wound evaluation mon 31 MIN pt exam, chart review, > 50% of time spent with exam, chart review, pt care coordination History of Present Illness History of Present Illness 01/23 Patient seen and examined Ventral dressing is CDI Wound vacuum attached Discussed with RN Charts reviewed LARGE BM LAST NIGHT Vitals Vitals Vital Signs Date Time Temp Pulse Resp B/P (MAP) Pulse Ox O2 Delivery O2 Flow Rate FiO2 01/26/20 10:05 21 94 Room Air 01/26/20 08:51 91 120/86 01/26/20 07:00 97.7 97.7 01/25/20 09:31 5.0 Physical Exam Physical Exam GENERAL: Lying down, awake in NAD HEENT: Oral cavity pink, moist. No thrush NECK: Supple, no JVP, no lymphadenopathy. LUNGS: Clear. HEART: S1, S2 regular. ABDOMEN: Obese, BS present, wound vac in place, redness improving; some induration EXTREMITIES: No edema, cyanosis. SKIN: without signs of rash NEUROLOGIC: Alert, awake and appropriate. No focal neurologic deficit. PIV Port-A-Cath not in use, clean General: Alert, Oriented X3, Cooperative Heart: Regular rate, Normal S1, Normal S2, No murmurs Lungs: Clear Abdomen: Soft, Other (vac in place ) Extremities: No cyanosis Labs LABS Laboratory Tests Test 01/25/20 11:46 01/25/20 17:06 01/25/20 21:13 01/26/20 07:59 Glucose (Fingerstick) 137 mg/dL (70-99) 165 mg/dL (70-99) 146 mg/dL (70-99) 140 mg/dL (70-99) Comment Review of Relevant I have reviewed the following items catarina (where applicable) has been applied. Labs Laboratory Tests Test 01/24/20 10:55 01/24/20 16:46 01/24/20 21:21 01/25/20 03:50 Glucose (Fingerstick) 110 mg/dL (70-99) 140 mg/dL (70-99) 171 mg/dL (70-99) White Blood Count 7.4 x10^3/uL (4.0-11.0) Red Blood Count 3.36 x10^6/uL (4.30-5.70) Hemoglobin 10.0 g/dL (13.0-17.5) Hematocrit 30.0 % (39.0-53.0) Mean Corpuscular Volume 89 fL (79-100) Mean Corpuscular Hemoglobin 30 pg (25-35) Mean Corpuscular Hemoglobin Concent 33 g/dL (31-37) Red Cell Distribution Width 14.8 % (11.5-14.5) Platelet Count 538 x10^3/uL (140-400) Neutrophils (%) (Auto) 74 % (31-73) Lymphocytes (%) (Auto) 15 % (24-48) Monocytes (%) (Auto) 8 % (0-9) Eosinophils (%) (Auto) 3 % (0-3) Basophils (%) (Auto) 1 % (0-3) Neutrophils # (Auto) 5.5 x10^3/uL (1.8-7.7) Lymphocytes # (Auto) 1.1 x10^3/uL (1.0-4.8) Monocytes # (Auto) 0.6 x10^3/uL (0.0-1.1) Eosinophils # (Auto) 0.2 x10^3/uL (0.0-0.7) Basophils # (Auto) 0.0 x10^3/uL (0.0-0.2) Sodium Level 139 mmol/L (136-145) Potassium Level 3.7 mmol/L (3.5-5.1) Chloride Level 103 mmol/L (98-107) Carbon Dioxide Level 27 mmol/L (21-32) Anion Gap 9 (6-14) Blood Urea Nitrogen 14 mg/dL (8-26) Creatinine 1.5 mg/dL (0.7-1.3) Estimated GFR (Cockcroft-Gault) 48.2 BUN/Creatinine Ratio 9 (6-20) Glucose Level 157 mg/dL (70-99) Calcium Level 8.6 mg/dL (8.5-10.1) Phosphorus Level 3.8 mg/dL (2.6-4.7) Total Bilirubin 0.2 mg/dL (0.2-1.0) Aspartate Amino Transf (AST/SGOT) 10 U/L (15-37) Alanine Aminotransferase (ALT/SGPT) 16 U/L (16-63) Alkaline Phosphatase 52 U/L (46-116) Total Protein 6.7 g/dL (6.4-8.2) Albumin 2.4 g/dL (3.4-5.0) Albumin/Globulin Ratio 0.6 (1.0-1.7) Test 01/25/20 07:48 01/25/20 11:46 01/25/20 17:06 01/25/20 21:13 Glucose (Fingerstick) 116 mg/dL (70-99) 137 mg/dL (70-99) 165 mg/dL (70-99) 146 mg/dL (70-99) Test 01/26/20 07:59 Glucose (Fingerstick) 140 mg/dL (70-99) Laboratory Tests Test 01/25/20 11:46 01/25/20 17:06 01/25/20 21:13 01/26/20 07:59 Glucose (Fingerstick) 137 mg/dL (70-99) 165 mg/dL (70-99) 146 mg/dL (70-99) 140 mg/dL (70-99) Microbiology 01/16/20 Gram Stain - Final, Complete 01/16/20 Aerobic Culture - Final, Complete 01/16/20 Antimicrobic Susceptibility - Final, Complete 01/16/20 Blood Culture - Final, Complete NO GROWTH AFTER 5 DAYS Medications Current Medications Sodium Chloride (Normal Saline Flush) 3 ml QSHIFT PRN IV AFTER MEDS AND BLOOD DRAWS; Start 01/16/20 at 12:45 Sodium Chloride 1,000 ml @ 100 mls/hr Q10H IV Last administered on 01/23/20at 05:13; Start 01/16/20 at 12:37; Stop 01/23/20 at 14:48; Status DC Ondansetron HCl (Zofran) 4 mg PRN Q4HRS PRN IV NAUSEA/VOMITING; Start 01/16/20 at 12:45 Al Hydroxide/Mg Hydroxide (Mylanta Plus Xs) 30 ml PRN DAILY PRN PO HEARTBURN / GAS; Start 01/16/20 at 12:45 Clonidine HCl (Catapres) 0.1 mg PRN Q6HRS PRN PO SBP>160 OR DBP>90; Start 01/16/20 at 12:45 Docusate Sodium (Colace) 100 mg PRN BID PRN PO HARD STOOLS Last administered on 01/23/20at 08:34; Start 01/16/20 at 12:45 Albuterol/ Ipratropium (Duoneb) 3 ml Q4H NEB Last administered on 01/26/20at 07:11; Start 01/16/20 at 12:45 Guaifenesin (Robitussin) 200 mg PRN Q4HRS PRN PO COUGH Last administered on 01/25/20at 13:21; Start 01/16/20 at 12:45 Vancomycin HCl (Vanco Per Pharmacy) 1 each PRN DAILY PRN MC SEE COMMENTS Last administered on 01/22/20at 13:01; Start 01/16/20 at 12:45; Stop 01/23/20 at 09:40; Status DC Piperacillin Sod/ Tazobactam Sod 3.375 gm/Sodium Chloride 50 ml @ 100 mls/hr Q6HRS IV Last administered on 01/26/20at 06:15; Start 01/16/20 at 13:00 Ergocalciferol (Vitamin D2) 50,000 unit QMONFR PO Last administered on 01/25/20at 18:06; Start 01/18/20 at 16:00 Furosemide (Lasix) 40 mg DAILY PO ; Start 01/16/20 at 13:30; Stop 01/16/20 at 16:13; Status DC Levothyroxine Sodium (Synthroid) 88 mcg DAILYAC PO ; Start 01/16/20 at 13:30; Stop 01/17/20 at 01:31; Status DC Lisinopril (Prinivil) 10 mg DAILY PO Last administered on 01/26/20at 08:51; Start 01/16/20 at 13:30 Nortriptyline HCl (Pamelor) 50 mg QHS PO Last administered on 01/25/20at 21:14; Start 01/16/20 at 21:00 Oxycodone/ Acetaminophen (Percocet 10/325) 1 tab HS PO ; Start 01/16/20 at 21:00; Stop 01/16/20 at 16:16; Status DC Oxycodone/ Acetaminophen (Percocet 10/325) 1 tab PRN Q4HRS PRN PO MODERATE PAIN; Start 01/16/20 at 13:00; Status Cancel Simvastatin (Zocor) 20 mg HS PO Last administered on 01/25/20at 21:14; Start 01/16/20 at 21:00 Carvedilol (Coreg) 6.25 mg BIDWMEALS PO ; Start 01/16/20 at 17:00; Stop 01/16/20 at 16:13; Status DC Insulin Glargine (Lantus Syringe) 30 unit QHS SQ Last administered on 01/25/20at 21:24; Start 01/16/20 at 21:00 Pantoprazole Sodium (Protonix) 40 mg DAILYAC PO Last administered on 01/26/20at 06:11; Start 01/16/20 at 13:30 Aspirin (Aspirin Chewable) 81 mg DAILY PO Last administered on 01/26/20at 08:51; Start 01/17/20 at 09:00 Oxycodone/ Acetaminophen (Percocet 10/325) 1 tab PRN Q4HRS PRN PO PAIN; Start 01/16/20 at 16:00; Stop 01/16/20 at 16:19; Status DC Sennosides (Senna) 8.6 mg BID PO Last administered on 01/19/20at 08:55; Start 01/16/20 at 14:00; Stop 01/19/20 at 14:19; Status DC Vancomycin HCl 2 gm/Sodium Chloride 500 ml @ 250 mls/hr 1X ONCE IV Last administered on 01/16/20at 14:07; Start 01/16/20 at 13:30; Stop 01/16/20 at 15:29; Status DC Vancomycin HCl 1.5 gm/Sodium Chloride 500 ml @ 250 mls/hr Q12H IV Last administered on 01/23/20at 02:01; Start 01/17/20 at 02:00; Stop 01/23/20 at 09:38; Status DC Vancomycin HCl (Vancomycin Trough Level) 1 each 1X ONCE MC Last administered on 01/18/20at 01:25; Start 01/18/20 at 01:30; Stop 01/18/20 at 01:31; Status DC Lactobacillus Rhamnosus (Culturelle) 1 cap BID PO Last administered on 01/26/20 08:51; Start 01/16/20 at 21:00 Carvedilol (Coreg) 6.25 mg 1400,2200 PO Last administered on 01/25/20at 22:34; Start 01/16/20 at 22:00 Furosemide (Lasix) 40 mg DAILY PO Last administered on 01/26/20at 08:50; Start 01/16/20 at 17:00 Oxycodone/ Acetaminophen (Percocet 10/325) 1 tab Q4H PO Last administered on 01/16/20at 18:04; Start 01/16/20 at 18:00; Stop 01/16/20 at 19:26; Status DC Oxycodone/ Acetaminophen (Percocet 10/325) 1 tab PRN Q4HRS PRN PO BREAKTHROUGH PAIN Last administered on 01/26/20at 10:05; Start 01/16/20 at 22:20 Oxycodone HCl (Roxicodone) 10 mg Q4HRS PO Last administered on 01/16/20at 22:08; Start 01/16/20 at 22:00; Stop 01/17/20 at 01:38; Status DC Oxycodone HCl (Roxicodone) 10 mg 1X ONCE PO Last administered on 01/16/20at 19:39; Start 01/16/20 at 19:30; Stop 01/16/20 at 19:33; Status DC Levothyroxine Sodium (Synthroid) 88 mcg DAILY05 PO Last administered on 01/26/20at 06:11; Start 01/17/20 at 05:00 Oxycodone HCl (Roxicodone) 10 mg Q4H PO Last administered on 8/15/20at 10:05; Start 01/17/20 at 02:00 Sennosides (Senna) 8.6 mg QID PO Last administered on 01/21/20at 06:36; Start 01/19/20 at 14:30; Stop 01/21/20 at 06:42; Status DC Budesonide (Pulmicort) 0.5 mg RTBID NEB Last administered on 01/26/20at 07:11; Start 01/20/20 at 20:00 Budesonide (Pulmicort) 0.5 mg 1X ONCE NEB Last administered on 01/20/20at 11:33; Start 01/20/20 at 08:45; Stop 01/20/20 at 08:59; Status DC Bisacodyl (Dulcolax Supp) 10 mg 1X ONCE [place] Last administered on 01/20/20at 15:08; Start 01/20/20 at 13:45; Stop 01/20/20 at 13:46; Status DC Sennosides (Senna) 8.6 mg Q6H PO Last administered on 01/26/20at 06:11; Start 01/21/20 at 07:00 Bisacodyl (Dulcolax Supp) 10 mg 1X ONCE [place] Last administered on 01/21/20at 13 :07; Start 01/21/20 at 11:30; Stop 01/21/20 at 11:31; Status DC Bisacodyl (Dulcolax Supp) 10 mg PRN DAILY PRN [place] CONSTIPATION; Start 01/21/20 at 11:15 Bisacodyl (Dulcolax Tab) 10 mg PRN DAILY PRN PO CONSTIPATION; Start 01/21/20 at 11:15 Linezolid (Zyvox) 600 mg BID PO Last administered on 01/26/20at 08:51; Start 01/23/20 at 10:00 Potassium Bicarbonate (Potassium Effervescent Tablet) 40 meq 1X ONCE FT Last administered on 01/24/20at 14:24; Start 01/24/20 at 11:30; Stop 01/24/20 at 11:31; Status DC Magnesium Oxide (Magnesium Oxide) 400 mg BID PO ; Start 01/24/20 at 21:00; Stop 01/26/20 at 09:01; Status UNV Potassium Phos/ Sodium Phos (Phos-Nak) 1 pkt BID PO ; Start 01/24/20 at 21:00; Stop 01/25/20 at 09:01; Status UNV Potassium Bicarbonate (Potassium Effervescent Tablet) 40 meq Q4H PO ; Start 01/24/20 at 11:15; Stop 01/24/20 at 15:16; Status UNV Info (Non-Icu Electrolyte Protocol) 1 ea CONT PRN PRN MC SEE COMMENTS; Start 01/24/20 at 11:30 Active Scripts Active Reported Percocet 10-325 Mg Tablet (Oxycodone/Acetaminophen) 1 Each Tablet 1 Tab PO Q4HRS MDD 6 Tablet(s) 3 Days Senna Laxative (Sennosides) 8.6 Mg Tablet 1 Tab PO Q4HRS 30 Days Aspirin 81 Mg Tab.chew 1 Tab PO DAILY Metformin Hcl 1,000 Mg Tablet 1,000 Mg PO BIDWMEALS Lisinopril 10 Mg Tablet 1 Tab PO DAILY Levothyroxine Sodium 88 Mcg Tablet 88 Mcg PO DAILYAC Lasix (Furosemide) 40 Mg Tablet 40 Mg PO DAILY Lantus Solostar (Insulin Glargine,Hum.rec.anlog) 100 Unit/1 Ml Insuln.pen 30 Unit SQ QHS Vitamin D2 (Ergocalciferol (Vitamin D2)) 1,250 Mcg Capsule 1,250 Mcg PO QMONFR Nortriptyline Hcl 25 Mg Capsule 2 Cap PO QHS Omeprazole 40 Mg Capsule.dr 40 Mg PO DAILY Simvastatin 20 Mg Tablet 20 Mg PO HS Coreg (Carvedilol) 25 Mg Tablet 6.25 Mg PO BIDWMEALS Vitals/I & O Vital Sign - Last 24 Hours 01/25/20 01/25/20 01/25/20 01/25/20 11:15 11:57 14:25 14:26 Temp 98.0 98.0 Pulse 97 97 Resp 16 B/P (MAP) 107/89 (95) 107/89 Pulse Ox 95 94 O2 Delivery Room Air Room Air Room Air 01/25/20 01/25/20 01/25/20 01/25/20 15:00 15:24 15:24 15:56 Temp 97.9 97.9 Pulse 96 Resp 16 B/P (MAP) 136/91 (106) Pulse Ox 94 96 O2 Delivery Room Air Room Air Room Air Room Air 801/25/20 01/25/20 01/25/20 18:06 19:00 19:06 19:06 Temp 97.6 97.6 Pulse 100 Resp 20 18 18 B/P (MAP) 137/88 (104) Pulse Ox 92 96 96 O2 Delivery Room Air Room Air Room Air Room Air 01/25/20 01/25/20 01/25/20 01/25/20 20:00 20:13 20:14 22:33 Resp 20 Pulse Ox 97 97 97 O2 Delivery Room Air Room Air Room Air Room Air 01/25/20 01/25/20 01/25/20 01/25/20 22:34 22:34 23:00 23:33 Temp 98.1 98.1 Pulse 100 93 Resp 20 20 18 B/P (MAP) 137/88 152/104 (120) Pulse Ox 97 93 96 O2 Delivery Room Air Room Air Room Air 01/25/20 01/26/20 01/26/20 01/26/20 23:33 00:05 02:01 02:02 Resp 18 16 16 Pulse Ox 96 97 97 97 O2 Delivery Room Air Room Air Room Air Room Air 01/26/20 01/26/20 01/26/20 01/26/20 03:00 03:01 03:01 03:18 Temp 97.9 97.9 Pulse 91 Resp 20 16 16 B/P (MAP) 120/86 (97) Pulse Ox 93 96 96 O2 Delivery Room Air Room Air Room Air Room Air 01/26/20 01/26/20 01/26/20 01/26/20 06:12 06:30 07:00 07:12 Temp 97.7 97.7 Pulse 80 Resp 18 16 18 16 B/P (MAP) 132/90 (104) Pulse Ox 93 93 92 96 O2 Delivery Room Air Room Air Room Air Room Air 01/26/20 01/26/20 01/26/20 01/26/20 07:12 07:30 08:51 10:05 Pulse 91 Resp 19 21 B/P (MAP) 120/86 Pulse Ox 96 93 94 O2 Delivery Room Air Room Air Room Air 01/26/20 10:05 Resp 21 Pulse Ox 94 O2 Delivery Room Air Intake and Output 01/25/20 01/25/20 01/26/20 15:00 23:00 07:00 Intake Total 300 ml 780 ml Output Total 950 ml 1 ml 1300 ml Balance -950 ml 299 ml -520 ml Justicifation of Admission Dx: Justifications for Admission: Justification of Admission Dx: N/A JONO DAVIS MD Jan 26, 2020 10:21
[2020-01-26 11:00] VITALS: BP 137/91
--- NOTE | 2020-01-26 11:56 | PDOC ---
Infectious Disease Note Subjective Subjective Patient continues to request for pain medication for abdominal pain He had bowel movement yesterday Denies N/V/F/C ROS ROS as mentioned above Vital Sign Vital Signs Vital Signs Date Time Temp Pulse Resp B/P (MAP) Pulse Ox O2 Delivery O2 Flow Rate FiO2 01/26/20 11:07 97 Room Air 01/26/20 10:05 21 01/26/20 08:51 91 120/86 01/26/20 07:00 97.7 97.7 01/25/20 09:31 5.0 Physical Exam PHYSICAL EXAM GENERAL: Up in the chair, alert, tired appearance HEENT: Oral cavity pink, moist. No thrush NECK: Supple LUNGS: Clear. HEART: S1, S2 regular. ABDOMEN: Obese, BS present, wound vac in place, redness improving; some induration EXTREMITIES: No edema, cyanosis. SKIN: without signs of rash NEUROLOGIC: Alert, awake and appropriate. No focal neurologic deficit. PIV Port-A-Cath, clean Labs Lab Laboratory Tests Test 01/25/20 17:06 01/25/20 21:13 01/26/20 07:59 Glucose (Fingerstick) 165 mg/dL (70-99) 146 mg/dL (70-99) 140 mg/dL (70-99) Objective Assessment Abdominal incision infection post-hernia surgery. 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 Diabetes. Hypertension. Obesity. h/o lung cancer s/p chemo. Port-A-Cath still in place SHAUN mild Plan Plan of Care Continue Zyvox and Zosyn, wound evaluation next tue Probiotics Bowel regimen Wound care as directed Supportive care Attending Co-Sign Attending Co-Sign Attending Co-Sign The patient was seen and examined at the bedside. The chart was reviewed. The case was discussed. Agree with the plan of care. ROD CABRERA APRN Jan 26, 2020 11:56 SUSAN BLEDSOE MD Jan 26, 2020 13:27
[2020-01-26] MEDS: CARVEDILOL 6.25 MG TABLET. PO SCH ×2 (15:01→22:10)
[2020-01-26 15:22] VITALS: BP 122/101
[2020-01-26 19:00] VITALS: BP 147/80
[2020-01-26] MEDS: SIMVASTATIN 20 MG TABLET PO SCH (22:11)
[2020-01-26] MEDS: NORTRIPTYLINE 25 MG CAPSULE PO SCH (22:11)
[2020-01-26] MEDS: INSULIN GLARGINE SYRINGE. SQ SCH (22:16)
[2020-01-26 23:00] VITALS: BP 130/93
[2020-01-27] VITALS (7 sets, daily range): BP systolic 107–148; BP diastolic 69–86
[2020-01-27] MEDS: SENNOSIDES 8.6 MG TABLET PO SCH ×4 (00:14→18:05)
[2020-01-27] MEDS: PIPERACILLIN/TAZOBACTAM 3.375 GM in IV NORMAL SALINE 50ML 50 ML IV SCH ×4 (00:15→18:07)
[2020-01-27] MEDS: IPRATRPIUM/ALBUTEROL 0.5/2.5MG 3 ML NEBU. NEB SCH ×7 (01:00→23:39)
[2020-01-27] MEDS: oxyCODONE IR 5 MG TABLET PO SCH ×6 (02:10→22:03)
[2020-01-27] MEDS: oxyCODONE/APAP 10/325 1 TAB TABLET PO PRN ×6 (02:10→22:03)
[2020-01-27] MEDS: LEVOTHYROXINE 88 MCG TABLET PO SCH (05:05)
[2020-01-27] MEDS: BUDESONIDE 0.5 MG/2 ML NEBU. NEB SCH ×2 (06:31→20:43)
[2020-01-27 07:40] LABS: BASO % 1 % (0-3); EOS # 0.2 x10^3/uL (0.0-0.7); EOS % 3 % (0-3); HEMATOCRIT 32.7 % (39.0-53.0); HEMOGLOBIN 10.8 g/dL (13.0-17.5); LYMPH # 1.2 x10^3/uL (1.0-4.8); LYMPH % 19 % (24-48); MEAN CORPUSCULAR HEMOGLOBIN 30 pg (25-35); MEAN CORPUSCULAR HGB CONC 33 g/dL (31-37); MEAN CORPUSCULAR VOLUME 89 fL (79-100); MONO # 0.6 x10^3/uL (0.0-1.1); MONO % 9 % (0-9); NEUT # 4.3 x10^3/uL (1.8-7.7); NEUT % 68 % (31-73); PLATELET COUNT 581 x10^3/uL (140-400); RED BLOOD COUNT 3.68 x10^6/uL (4.30-5.70); RED CELL DISTRIBUTION WIDTH 14.8 % (11.5-14.5); WHITE BLOOD COUNT 6.4 x10^3/uL (4.0-11.0)
[2020-01-27 07:58] LABS: ALBUMIN 2.6 g/dL (3.4-5.0); ALBUMIN/GLOBULIN RATIO 0.6 (1.0-1.7); CALCIUM 8.8 mg/dL (8.5-10.1); CREATININE 1.2 mg/dL (0.7-1.3); GFR 62.4; POTASSIUM 3.8 mmol/L (3.5-5.1); TOTAL BILIRUBIN 0.2 mg/dL (0.2-1.0); TOTAL PROTEIN 7.1 g/dL (6.4-8.2)
[2020-01-27] MEDS: LACTOBACILLUS RHAMNOSUS GG 1 CAPSULE. PO SCH ×2 (08:50→22:01)
[2020-01-27] MEDS: FUROSEMIDE 40 MG TABLET. PO SCH (08:50)
[2020-01-27] MEDS: LINEZOLID 600 MG TABLET PO SCH ×2 (08:50→22:01)
[2020-01-27] MEDS: PANTOPRAZOLE 40 MG TABLET.DR. PO SCH (08:50)
[2020-01-27] MEDS: ASPIRIN CHEWABLE 81 MG TABLET. PO SCH (08:50)
[2020-01-27] MEDS: LISINOPRIL 10 MG TABLET PO SCH (08:51)
--- NOTE | 2020-01-27 10:51 | PDOC ---
PROGRESS NOTES Date of Service: DATE: 01/27/20 TIME: 10:51 Chief Complaint Chief Complaint IMPRESSION POST-OP Wound infection Post-op Diagnosis: Incarcerated ventral hernia with high-grade bowel obstruction 12/29/19 RECENT partial SBO Incarcerated umbilical hernia pre-op Acute renal failurevasomotor nephropathy resolving Hypertension Diabetes Dyslipidemia History of constipation// inc senna to qid COPD GERD hypokalemia on replacement protocol AEROBIC CULTURE Preliminary Preliminary MANY GRAM POSITIVE COCCI on 01/18/20 at 1333 FINAL ID= [STAPHYLOCOCCUS AUREUS] MANY GRAM NEGATIVE RODS on 01/18/20 at 1333 FINAL ID= [ENTEROBACTER CLOACAE COMPLEX] dulcolax supp daily Midline abdominal wound with wound VAC 01/23 cont iv zosyn 01/24 large bm yesterday 01/26 Continue Zyvox and Zosyn, wound evaluation mon , now having daily BM 30 MIN pt exam, chart review, > 50% of time spent with exam, chart review, pt care coordination History of Present Illness History of Present Illness 01/23 Patient seen and examined Ventral dressing is CDI Wound vacuum attached Discussed with RN Charts reviewed LARGE BM LAST NIGHT Vitals Vitals Vital Signs Date Time Temp Pulse Resp B/P (MAP) Pulse Ox O2 Delivery O2 Flow Rate FiO2 01/27/20 09:59 20 94 Room Air 01/27/20 08:51 102 129/80 01/27/20 07:00 97.9 97.9 Physical Exam Physical Exam GENERAL: Up in the chair, alert, tired appearance HEENT: Oral cavity pink, moist. No thrush NECK: Supple LUNGS: Clear. HEART: S1, S2 regular. ABDOMEN: Obese, BS present, wound vac in place, redness improving; some induration EXTREMITIES: No edema, cyanosis. SKIN: without signs of rash NEUROLOGIC: Alert, awake and appropriate. No focal neurologic deficit. PIV Port-A-Cath, clean General: Alert, Oriented X3, Cooperative Heart: Regular rate, Normal S1, Normal S2, No murmurs Lungs: Clear Abdomen: Soft, Other (vac in place ) Extremities: No cyanosis Labs LABS Laboratory Tests Test 01/26/20 11:51 01/26/20 16:57 01/26/20 20:27 01/27/20 06:00 Glucose (Fingerstick) 170 mg/dL (70-99) 149 mg/dL (70-99) 179 mg/dL (70-99) White Blood Count 6.4 x10^3/uL (4.0-11.0) Red Blood Count 3.68 x10^6/uL (4.30-5.70) Hemoglobin 10.8 g/dL (13.0-17.5) Hematocrit 32.7 % (39.0-53.0) Mean Corpuscular Volume 89 fL (79-100) Mean Corpuscular Hemoglobin 30 pg (25-35) Mean Corpuscular Hemoglobin Concent 33 g/dL (31-37) Red Cell Distribution Width 14.8 % (11.5-14.5) Platelet Count 581 x10^3/uL (140-400) Neutrophils (%) (Auto) 68 % (31-73) Lymphocytes (%) (Auto) 19 % (24-48) Monocytes (%) (Auto) 9 % (0-9) Eosinophils (%) (Auto) 3 % (0-3) Basophils (%) (Auto) 1 % (0-3) Neutrophils # (Auto) 4.3 x10^3/uL (1.8-7.7) Lymphocytes # (Auto) 1.2 x10^3/uL (1.0-4.8) Monocytes # (Auto) 0.6 x10^3/uL (0.0-1.1) Eosinophils # (Auto) 0.2 x10^3/uL (0.0-0.7) Basophils # (Auto) 0.0 x10^3/uL (0.0-0.2) Sodium Level 140 mmol/L (136-145) Potassium Level 3.8 mmol/L (3.5-5.1) Chloride Level 103 mmol/L (98-107) Carbon Dioxide Level 28 mmol/L (21-32) Anion Gap 9 (6-14) Blood Urea Nitrogen 17 mg/dL (8-26) Creatinine 1.2 mg/dL (0.7-1.3) Estimated GFR (Cockcroft-Gault) 62.4 BUN/Creatinine Ratio 14 (6-20) Glucose Level 137 mg/dL (70-99) Calcium Level 8.8 mg/dL (8.5-10.1) Total Bilirubin 0.2 mg/dL (0.2-1.0) Aspartate Amino Transf (AST/SGOT) 11 U/L (15-37) Alanine Aminotransferase (ALT/SGPT) 17 U/L (16-63) Alkaline Phosphatase 53 U/L (46-116) Total Protein 7.1 g/dL (6.4-8.2) Albumin 2.6 g/dL (3.4-5.0) Albumin/Globulin Ratio 0.6 (1.0-1.7) Test 01/27/20 07:43 Glucose (Fingerstick) 147 mg/dL (70-99) Comment Review of Relevant I have reviewed the following items catarina (where applicable) has been applied. Labs Laboratory Tests Test 01/25/20 11:46 01/25/20 17:06 01/25/20 21:13 01/26/20 07:59 Glucose (Fingerstick) 137 mg/dL (70-99) 165 mg/dL (70-99) 146 mg/dL (70-99) 140 mg/dL (70-99) Test 01/26/20 11:51 01/26/20 16:57 01/26/20 20:27 01/27/20 06:00 Glucose (Fingerstick) 170 mg/dL (70-99) 149 mg/dL (70-99) 179 mg/dL (70-99) White Blood Count 6.4 x10^3/uL (4.0-11.0) Red Blood Count 3.68 x10^6/uL (4.30-5.70) Hemoglobin 10.8 g/dL (13.0-17.5) Hematocrit 32.7 % (39.0-53.0) Mean Corpuscular Volume 89 fL (79-100) Mean Corpuscular Hemoglobin 30 pg (25-35) Mean Corpuscular Hemoglobin Concent 33 g/dL (31-37) Red Cell Distribution Width 14.8 % (11.5-14.5) Platelet Count 581 x10^3/uL (140-400) Neutrophils (%) (Auto) 68 % (31-73) Lymphocytes (%) (Auto) 19 % (24-48) Monocytes (%) (Auto) 9 % (0-9) Eosinophils (%) (Auto) 3 % (0-3) Basophils (%) (Auto) 1 % (0-3) Neutrophils # (Auto) 4.3 x10^3/uL (1.8-7.7) Lymphocytes # (Auto) 1.2 x10^3/uL (1.0-4.8) Monocytes # (Auto) 0.6 x10^3/uL (0.0-1.1) Eosinophils # (Auto) 0.2 x10^3/uL (0.0-0.7) Basophils # (Auto) 0.0 x10^3/uL (0.0-0.2) Sodium Level 140 mmol/L (136-145) Potassium Level 3.8 mmol/L (3.5-5.1) Chloride Level 103 mmol/L (98-107) Carbon Dioxide Level 28 mmol/L (21-32) Anion Gap 9 (6-14) Blood Urea Nitrogen 17 mg/dL (8-26) Creatinine 1.2 mg/dL (0.7-1.3) Estimated GFR (Cockcroft-Gault) 62.4 BUN/Creatinine Ratio 14 (6-20) Glucose Level 137 mg/dL (70-99) Calcium Level 8.8 mg/dL (8.5-10.1) Total Bilirubin 0.2 mg/dL (0.2-1.0) Aspartate Amino Transf (AST/SGOT) 11 U/L (15-37) Alanine Aminotransferase (ALT/SGPT) 17 U/L (16-63) Alkaline Phosphatase 53 U/L (46-116) Total Protein 7.1 g/dL (6.4-8.2) Albumin 2.6 g/dL (3.4-5.0) Albumin/Globulin Ratio 0.6 (1.0-1.7) Test 01/27/20 07:43 Glucose (Fingerstick) 147 mg/dL (70-99) Laboratory Tests Test 01/26/20 11:51 01/26/20 16:57 01/26/20 20:27 01/27/20 06:00 Glucose (Fingerstick) 170 mg/dL (70-99) 149 mg/dL (70-99) 179 mg/dL (70-99) White Blood Count 6.4 x10^3/uL (4.0-11.0) Red Blood Count 3.68 x10^6/uL (4.30-5.70) Hemoglobin 10.8 g/dL (13.0-17.5) Hematocrit 32.7 % (39.0-53.0) Mean Corpuscular Volume 89 fL (79-100) Mean Corpuscular Hemoglobin 30 pg (25-35) Mean Corpuscular Hemoglobin Concent 33 g/dL (31-37) Red Cell Distribution Width 14.8 % (11.5-14.5) Platelet Count 581 x10^3/uL (140-400) Neutrophils (%) (Auto) 68 % (31-73) Lymphocytes (%) (Auto) 19 % (24-48) Monocytes (%) (Auto) 9 % (0-9) Eosinophils (%) (Auto) 3 % (0-3) Basophils (%) (Auto) 1 % (0-3) Neutrophils # (Auto) 4.3 x10^3/uL (1.8-7.7) Lymphocytes # (Auto) 1.2 x10^3/uL (1.0-4.8) Monocytes # (Auto) 0.6 x10^3/uL (0.0-1.1) Eosinophils # (Auto) 0.2 x10^3/uL (0.0-0.7) Basophils # (Auto) 0.0 x10^3/uL (0.0-0.2) Sodium Level 140 mmol/L (136-145) Potassium Level 3.8 mmol/L (3.5-5.1) Chloride Level 103 mmol/L (98-107) Carbon Dioxide Level 28 mmol/L (21-32) Anion Gap 9 (6-14) Blood Urea Nitrogen 17 mg/dL (8-26) Creatinine 1.2 mg/dL (0.7-1.3) Estimated GFR (Cockcroft-Gault) 62.4 BUN/Creatinine Ratio 14 (6-20) Glucose Level 137 mg/dL (70-99) Calcium Level 8.8 mg/dL (8.5-10.1) Total Bilirubin 0.2 mg/dL (0.2-1.0) Aspartate Amino Transf (AST/SGOT) 11 U/L (15-37) Alanine Aminotransferase (ALT/SGPT) 17 U/L (16-63) Alkaline Phosphatase 53 U/L (46-116) Total Protein 7.1 g/dL (6.4-8.2) Albumin 2.6 g/dL (3.4-5.0) Albumin/Globulin Ratio 0.6 (1.0-1.7) Test 01/27/20 07:43 Glucose (Fingerstick) 147 mg/dL (70-99) Microbiology 01/16/20 Gram Stain - Final, Complete 01/16/20 Aerobic Culture - Final, Complete 01/16/20 Antimicrobic Susceptibility - Final, Complete 01/16/20 Blood Culture - Final, Complete NO GROWTH AFTER 5 DAYS Medications Current Medications Sodium Chloride (Normal Saline Flush) 3 ml QSHIFT PRN IV AFTER MEDS AND BLOOD DRAWS; Start 01/16/20 at 12:45 Sodium Chloride 1,000 ml @ 100 mls/hr Q10H IV Last administered on 01/23/20at 05:13; Start 01/16/20 at 12:37; Stop 01/23/20 at 14:48; Status DC Ondansetron HCl (Zofran) 4 mg PRN Q4HRS PRN IV NAUSEA/VOMITING; Start 01/16/20 at 12:45 Al Hydroxide/Mg Hydroxide (Mylanta Plus Xs) 30 ml PRN DAILY PRN PO HEARTBURN / GAS; Start 01/16/20 at 12:45 Clonidine HCl (Catapres) 0.1 mg PRN Q6HRS PRN PO SBP>160 OR DBP>90; Start 01/16/20 at 12:45 Docusate Sodium (Colace) 100 mg PRN BID PRN PO HARD STOOLS Last administered on 01/23/20at 08:34; Start 01/16/20 at 12:45 Albuterol/ Ipratropium (Duoneb) 3 ml Q4H NEB Last administered on 01/27/20at 06:30; Start 01/16/20 at 12:45 Guaifenesin (Robitussin) 200 mg PRN Q4HRS PRN PO COUGH Last administered on 01/25/20at 13:21; Start 01/16/20 at 12:45 Vancomycin HCl (Vanco Per Pharmacy) 1 each PRN DAILY PRN MC SEE COMMENTS Last administered on 01/22/20at 13:01; Start 01/16/20 at 12:45; Stop 01/23/20 at 09:40; Status DC Piperacillin Sod/ Tazobactam Sod 3.375 gm/Sodium Chloride 50 ml @ 100 mls/hr Q6HRS IV Last administered on 01/27/20at 06:12; Start 01/16/20 at 13:00 Ergocalciferol (Vitamin D2) 50,000 unit QMONFR PO Last administered on 01/25/20at 18:06; Start 01/18/20 at 16:00 Furosemide (Lasix) 40 mg DAILY PO ; Start 01/16/20 at 13:30; Stop 01/16/20 at 16:13; Status DC Levothyroxine Sodium (Synthroid) 88 mcg DAILYAC PO ; Start 01/16/20 at 13:30; Stop 01/17/20 at 01:31; Status DC Lisinopril (Prinivil) 10 mg DAILY PO Last administered on 01/27/20at 08:51; Start 01/16/20 at 13:30 Nortriptyline HCl (Pamelor) 50 mg QHS PO Last administered on 01/26/20at 22:11; Start 01/16/20 at 21:00 Oxycodone/ Acetaminophen (Percocet 10/325) 1 tab HS PO ; Start 01/16/20 at 21:00; Stop 01/16/20 at 16:16; Status DC Oxycodone/ Acetaminophen (Percocet 10/325) 1 tab PRN Q4HRS PRN PO MODERATE PAIN; Start 01/16/20 at 13:00; Status Cancel Simvastatin (Zocor) 20 mg HS PO Last administered on 01/26/20at 22:11; Start 01/16/20 at 21:00 Carvedilol (Coreg) 6.25 mg BIDWMEALS PO ; Start 01/16/20 at 17:00; Stop 01/16/20 at 16:13; Status DC Insulin Glargine (Lantus Syringe) 30 unit QHS SQ Last administered on 01/26/20at 22:16; Start 01/16/20 at 21:00 Pantoprazole Sodium (Protonix) 40 mg DAILYAC PO Last administered on 01/27/20at 08:50; Start 01/16/20 at 13:30 Aspirin (Aspirin Chewable) 81 mg DAILY PO Last administered on 01/27/20at 08:50; Start 01/17/20 at 09:00 Oxycodone/ Acetaminophen (Percocet 10/325) 1 tab PRN Q4HRS PRN PO PAIN; Start 01/16/20 at 16:00; Stop 01/16/20 at 16:19; Status DC Sennosides (Senna) 8.6 mg BID PO Last administered on 01/19/20at 08:55; Start 01/16/20 at 14:00; Stop 01/19/20 at 14:19; Status DC Vancomycin HCl 2 gm/Sodium Chloride 500 ml @ 250 mls/hr 1X ONCE IV Last administered on 01/16/20at 14:07; Start 01/16/20 at 13:30; Stop 01/16/20 at 15:29; Status DC Vancomycin HCl 1.5 gm/Sodium Chloride 500 ml @ 250 mls/hr Q12H IV Last administered on 01/23/20at 02:01; Start 01/17/20 at 02:00; Stop 01/23/20 at 09:38; Status DC Vancomycin HCl (Vancomycin Trough Level) 1 each 1X ONCE MC Last administered on 01/18/20at 01:25; Start 01/18/20 at 01:30; Stop 01/18/20 at 01:31; Status DC Lactobacillus Rhamnosus (Culturelle) 1 cap BID PO Last administered on 01/27/20at 08:50; Start 01/16/20 at 21:00 Carvedilol (Coreg) 6.25 mg 1400,2200 PO Last administered on 01/26/20at 22:10; Start 01/16/20 at 22:00 Furosemide (Lasix) 40 mg DAILY PO Last administered on 01/27/20at 08:50; Start 01/16/20 at 17:00 Oxycodone/ Acetaminophen (Percocet 10/325) 1 tab Q4H PO Last administered on 01/16/20at 18:04; Start 01/16/20 at 18:00; Stop 01/16/20 at 19:26; Status DC Oxycodone/ Acetaminophen (Percocet 10/325) 1 tab PRN Q4HRS PRN PO BREAKTHROUGH PAIN Last administered on 01/27/20at 09:59; Start 01/16/20 at 22:20 Oxycodone HCl (Roxicodone) 10 mg Q4HRS PO Last administered on 01/16/20at 22:08; Start 01/16/20 at 22:00; Stop 01/17/20 at 01:38; Status DC Oxycodone HCl (Roxicodone) 10 mg 1X ONCE PO Last administered on 01/16/20at 19:39; Start 01/16/20 at 19:30; Stop 01/16/20 at 19:33; Status DC Levothyroxine Sodium (Synthroid) 88 mcg DAILY05 PO Last administered on 01/27/20at 05:05; Start 01/17/20 at 05:00 Oxycodone HCl (Roxicodone) 10 mg Q4H PO Last administered on 01/27/20at 09:59; Start 01/17/20 at 02:00 Sennosides (Senna) 8.6 mg QID PO Last administered on 01/21/20at 06:36; Start 01/19/20 at 14:30; Stop 01/21/20 at 06:42; Status DC Budesonide (Pulmicort) 0.5 mg RTBID NEB Last administered on 01/27/20at 06:31; Start 01/20/20 at 20:00 Budesonide (Pulmicort) 0.5 mg 1X ONCE NEB Last administered on 01/20/20at 11:33; Start 01/20/20 at 08:45; Stop 01/20/20 at 08:59; Status DC Bisacodyl (Dulcolax Supp) 10 mg 1X ONCE GA Last administered on 01/20/20at 15:08; Start 01/20/20 at 13:45; Stop 01/20/20 at 13:46; Status DC Sennosides (Senna) 8.6 mg Q6H PO Last administered on 01/27/20at 06:11; Start 01/21/20 at 07:00 Bisacodyl (Dulcolax Supp) 10 mg 1X ONCE GA Last administered on 01/21/20at 13:07; Start 01/21/20 at 11:30; Stop 01/21/20 at 11:31; Status DC Bisacodyl (Dulcolax Supp) 10 mg PRN DAILY PRN GA CONSTIPATION Last administered on 01/26/20at 13:25; Start 01/21/20 at 11:15 Bisacodyl (Dulcolax Tab) 10 mg PRN DAILY PRN PO CONSTIPATION; Start 01/21/20 at 11:15 Linezolid (Zyvox) 600 mg BID PO Last administered on 01/27/20at 08:50; Start 01/23/20 at 10:00 Potassium Bicarbonate (Potassium Effervescent Tablet) 40 meq 1X ONCE FT Last administered on 01/24/20at 14:24; Start 01/24/20 at 11:30; Stop 01/24/20 at 11:31; Status DC Magnesium Oxide (Magnesium Oxide) 400 mg BID PO ; Start 01/24/20 at 21:00; Stop 01/26/20 at 09:01; Status UNV Potassium Phos/ Sodium Phos (Phos-Nak) 1 pkt BID PO ; Start 01/24/20 at 21:00; Stop 01/25/20 at 09:01; Status UNV Potassium Bicarbonate (Potassium Effervescent Tablet) 40 meq Q4H PO ; Start 01/24/20 at 11:15; Stop 01/24/20 at 15:16; Status UNV Info (Non-Icu Electrolyte Protocol) 1 ea CONT PRN PRN MC SEE COMMENTS; Start 01/24/20 at 11:30 Active Scripts Active Reported Percocet 10-325 Mg Tablet (Oxycodone/Acetaminophen) 1 Each Tablet 1 Tab PO Q4HRS MDD 6 Tablet(s) 3 Days Senna Laxative (Sennosides) 8.6 Mg Tablet 1 Tab PO Q4HRS 30 Days Aspirin 81 Mg Tab.chew 1 Tab PO DAILY Metformin Hcl 1,000 Mg Tablet 1,000 Mg PO BIDWMEALS Lisinopril 10 Mg Tablet 1 Tab PO DAILY Levothyroxine Sodium 88 Mcg Tablet 88 Mcg PO DAILYAC Lasix (Furosemide) 40 Mg Tablet 40 Mg PO DAILY Lantus Solostar (Insulin Glargine,Hum.rec.anlog) 100 Unit/1 Ml Insuln.pen 30 Unit SQ QHS Vitamin D2 (Ergocalciferol (Vitamin D2)) 1,250 Mcg Capsule 1,250 Mcg PO QMONFR Nortriptyline Hcl 25 Mg Capsule 2 Cap PO QHS Omeprazole 40 Mg Capsule.dr 40 Mg PO DAILY Simvastatin 20 Mg Tablet 20 Mg PO HS Coreg (Carvedilol) 25 Mg Tablet 6.25 Mg PO BIDWMEALS Vitals/I & O Vital Sign - Last 24 Hours 01/26/20 01/26/20 01/26/20 01/26/20 11:00 11:07 11:10 11:10 Temp 98.0 98.0 Pulse 104 Resp 18 20 20 B/P (MAP) 137/91 (106) Pulse Ox 94 97 94 94 O2 Delivery Room Air Room Air Room Air Room Air 01/26/20 01/26/20 01/26/20 01/26/20 15:00 15:01 15:01 15:22 Temp 97.9 97.9 Pulse 104 90 Resp 20 20 18 B/P (MAP) 137/91 122/101 (108) Pulse Ox 94 94 100 O2 Delivery Room Air Room Air Room Air 01/26/20 01/26/20 01/26/20 01/26/20 15:26 16:05 16:05 19:00 Temp 97.7 97.7 Pulse 95 Resp 19 19 20 B/P (MAP) 147/80 (102) Pulse Ox 97 94 94 92 O2 Delivery Room Air Room Air Room Air Room Air 01/26/20 01/26/20 01/26/20 01/26/20 19:14 19:14 19:45 19:46 Resp 20 20 Pulse Ox 94 94 97 97 O2 Delivery Room Air Room Air Room Air Room Air 01/26/20 01/26/20 01/26/20 01/26/20 20:00 20:15 20:15 22:10 Pulse 95 B/P (MAP) 147/80 Pulse Ox 95 95 O2 Delivery Room Air Room Air Room Air 01/26/20 01/26/20 01/26/20 01/26/20 22:11 22:11 23:00 23:15 Temp 98.1 98.1 Pulse 104 Resp 20 B/P (MAP) 130/93 (105) Pulse Ox 97 97 95 95 O2 Delivery Room Air Room Air Room Air Room Air 01/26/20 01/26/20 01/27/20 01/27/20 23:15 23:50 02:10 02:10 Pulse Ox 95 95 95 O2 Delivery Room Air Room Air Room Air Room Air 01/27/20 01/27/20 01/27/20 01/27/20 03:10 03:15 03:15 06:11 Temp 97.9 97.9 Pulse 102 Resp 20 B/P (MAP) 129/80 (96) Pulse Ox 90 90 90 90 O2 Delivery Room Air Room Air Room Air Room Air 01/27/20 01/27/20 01/27/20 01/27/20 06:11 06:30 07:00 07:15 Temp 97.9 97.9 Pulse 95 Resp 17 B/P (MAP) 131/78 (95) Pulse Ox 90 94 90 O2 Delivery Room Air Room Air Room Air Room Air 01/27/20 01/27/20 01/27/20 01/27/20 07:15 08:51 09:59 09:59 Pulse 102 Resp 20 20 B/P (MAP) 129/80 Pulse Ox 90 94 94 O2 Delivery Room Air Room Air Room Air Intake and Output 01/26/20 01/26/20 01/27/20 15:00 23:00 07:00 Intake Total 100 ml Output Total 200 ml 1350 ml Balance -200 ml -1250 ml Justicifation of Admission Dx: Justifications for Admission: Justification of Admission Dx: N/A JONO DAVIS MD Jan 27, 2020 10:51
--- NOTE | 2020-01-27 11:50 | PDOC ---
Infectious Disease Note Subjective Subjective c/o back pain Denies N/V/F/C/SOA ROS ROS as mentioned above Vital Sign Vital Signs Vital Signs Date Time Temp Pulse Resp B/P (MAP) Pulse Ox O2 Delivery O2 Flow Rate FiO2 01/27/20 09:59 20 94 Room Air 01/27/20 08:51 102 129/80 01/27/20 07:00 97.9 97.9 Physical Exam PHYSICAL EXAM GENERAL: Up in the chair, alert, tired appearance HEENT: Oral cavity pink, moist. No thrush NECK: Supple LUNGS: Clear. HEART: S1, S2 regular. ABDOMEN: Obese, BS present, wound vac in place, redness improving; some induration EXTREMITIES: No edema, cyanosis. SKIN: without signs of rash NEUROLOGIC: Alert, awake and appropriate. No focal neurologic deficit. PIV Port-A-Cath, clean Labs Lab Laboratory Tests Test 01/26/20 11:51 01/26/20 16:57 01/26/20 20:27 01/27/20 06:00 Glucose (Fingerstick) 170 mg/dL (70-99) 149 mg/dL (70-99) 179 mg/dL (70-99) White Blood Count 6.4 x10^3/uL (4.0-11.0) Red Blood Count 3.68 x10^6/uL (4.30-5.70) Hemoglobin 10.8 g/dL (13.0-17.5) Hematocrit 32.7 % (39.0-53.0) Mean Corpuscular Volume 89 fL (79-100) Mean Corpuscular Hemoglobin 30 pg (25-35) Mean Corpuscular Hemoglobin Concent 33 g/dL (31-37) Red Cell Distribution Width 14.8 % (11.5-14.5) Platelet Count 581 x10^3/uL (140-400) Neutrophils (%) (Auto) 68 % (31-73) Lymphocytes (%) (Auto) 19 % (24-48) Monocytes (%) (Auto) 9 % (0-9) Eosinophils (%) (Auto) 3 % (0-3) Basophils (%) (Auto) 1 % (0-3) Neutrophils # (Auto) 4.3 x10^3/uL (1.8-7.7) Lymphocytes # (Auto) 1.2 x10^3/uL (1.0-4.8) Monocytes # (Auto) 0.6 x10^3/uL (0.0-1.1) Eosinophils # (Auto) 0.2 x10^3/uL (0.0-0.7) Basophils # (Auto) 0.0 x10^3/uL (0.0-0.2) Sodium Level 140 mmol/L (136-145) Potassium Level 3.8 mmol/L (3.5-5.1) Chloride Level 103 mmol/L (98-107) Carbon Dioxide Level 28 mmol/L (21-32) Anion Gap 9 (6-14) Blood Urea Nitrogen 17 mg/dL (8-26) Creatinine 1.2 mg/dL (0.7-1.3) Estimated GFR (Cockcroft-Gault) 62.4 BUN/Creatinine Ratio 14 (6-20) Glucose Level 137 mg/dL (70-99) Calcium Level 8.8 mg/dL (8.5-10.1) Total Bilirubin 0.2 mg/dL (0.2-1.0) Aspartate Amino Transf (AST/SGOT) 11 U/L (15-37) Alanine Aminotransferase (ALT/SGPT) 17 U/L (16-63) Alkaline Phosphatase 53 U/L (46-116) Total Protein 7.1 g/dL (6.4-8.2) Albumin 2.6 g/dL (3.4-5.0) Albumin/Globulin Ratio 0.6 (1.0-1.7) Test 01/27/20 07:43 01/27/20 11:38 Glucose (Fingerstick) 147 mg/dL (70-99) 181 mg/dL (70-99) Objective Assessment Abdominal incision infection post-hernia surgery. 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 Diabetes. Hypertension. Obesity. h/o lung cancer s/p chemo. Port-A-Cath still in place SHAUN mild Plan Plan of Care Continue Zyvox and Zosyn, wound evaluation on Tuesday Probiotics Bowel regimen Wound care as directed Supportive care Attending Co-Sign The patient was seen and interviewed as well as examined at the bedside. The chart was reviewed. The case was discussed. Agree with the plan of care. ROD CABRERA APRN Jan 27, 2020 11:50 SUSAN BLEDSOE MD Jan 27, 2020 15:07
[2020-01-27] MEDS: CARVEDILOL 6.25 MG TABLET. PO SCH ×2 (14:08→22:02)
[2020-01-27] MEDS: NORTRIPTYLINE 25 MG CAPSULE PO SCH (22:01)
[2020-01-27] MEDS: SIMVASTATIN 20 MG TABLET PO SCH (22:01)
[2020-01-27] MEDS: INSULIN GLARGINE SYRINGE. SQ SCH (22:07)
[2020-01-28] MEDS: SENNOSIDES 8.6 MG TABLET PO SCH ×4 (00:07→18:21)
[2020-01-28] MEDS: PIPERACILLIN/TAZOBACTAM 3.375 GM in IV NORMAL SALINE 50ML 50 ML IV SCH ×5 (00:07→22:47)
[2020-01-28] MEDS: oxyCODONE/APAP 10/325 1 TAB TABLET PO PRN ×6 (02:24→22:47)
[2020-01-28] MEDS: oxyCODONE IR 5 MG TABLET PO SCH ×6 (02:24→21:55)
[2020-01-28 03:39] VITALS: BP 144/82
[2020-01-28] MEDS: IPRATRPIUM/ALBUTEROL 0.5/2.5MG 3 ML NEBU. NEB SCH ×5 (04:13→20:06)
[2020-01-28] MEDS: LEVOTHYROXINE 88 MCG TABLET PO SCH (04:22)
[2020-01-28 07:00] VITALS: BP 153/96
[2020-01-28] MEDS: BUDESONIDE 0.5 MG/2 ML NEBU. NEB SCH ×2 (07:28→20:06)
--- NOTE | 2020-01-28 09:10 | PDOC ---
AMY HENRY ANALYTICAL SCIENTIST 01/28/20 0910: SURGICAL PROGRESS NOTE DATE: 01/28/20 TIME: 09:[address] Mcleod and wound care main complaint currently is back pain Vital Signs Vital Signs Date Time Temp Pulse Resp B/P (MAP) Pulse Ox O2 Delivery O2 Flow Rate FiO2 01/28/20 07:28 96 Room Air 01/28/20 07:15 20 01/28/20 07:00 97.8 67 153/96 (115) 97.8 I&O Intake and Output 01/28/20 07:00 Intake Total 650 ml Output Total 2625 ml Balance -1975 ml Intake Oral 500 ml IV Total 150 ml Output Urine Total 2625 ml # Voids 1 General: Alert, Oriented X3, Cooperative Abdomen: Other (wound viewed, some bedside debridement done by Dr Mcleod) Labs Laboratory Tests Test 01/26/20 11:51 01/26/20 16:57 01/26/20 20:27 01/27/20 06:00 Glucose (Fingerstick) 170 mg/dL (70-99) 149 mg/dL (70-99) 179 mg/dL (70-99) White Blood Count 6.4 x10^3/uL (4.0-11.0) Red Blood Count 3.68 x10^6/uL (4.30-5.70) Hemoglobin 10.8 g/dL (13.0-17.5) Hematocrit 32.7 % (39.0-53.0) Mean Corpuscular Volume 89 fL (79-100) Mean Corpuscular Hemoglobin 30 pg (25-35) Mean Corpuscular Hemoglobin Concent 33 g/dL (31-37) Red Cell Distribution Width 14.8 % (11.5-14.5) Platelet Count 581 x10^3/uL (140-400) Neutrophils (%) (Auto) 68 % (31-73) Lymphocytes (%) (Auto) 19 % (24-48) Monocytes (%) (Auto) 9 % (0-9) Eosinophils (%) (Auto) 3 % (0-3) Basophils (%) (Auto) 1 % (0-3) Neutrophils # (Auto) 4.3 x10^3/uL (1.8-7.7) Lymphocytes # (Auto) 1.2 x10^3/uL (1.0-4.8) Monocytes # (Auto) 0.6 x10^3/uL (0.0-1.1) Eosinophils # (Auto) 0.2 x10^3/uL (0.0-0.7) Basophils # (Auto) 0.0 x10^3/uL (0.0-0.2) Sodium Level 140 mmol/L (136-145) Potassium Level 3.8 mmol/L (3.5-5.1) Chloride Level 103 mmol/L (98-107) Carbon Dioxide Level 28 mmol/L (21-32) Anion Gap 9 (6-14) Blood Urea Nitrogen 17 mg/dL (8-26) Creatinine 1.2 mg/dL (0.7-1.3) Estimated GFR (Cockcroft-Gault) 62.4 BUN/Creatinine Ratio 14 (6-20) Glucose Level 137 mg/dL (70-99) Calcium Level 8.8 mg/dL (8.5-10.1) Total Bilirubin 0.2 mg/dL (0.2-1.0) Aspartate Amino Transf (AST/SGOT) 11 U/L (15-37) Alanine Aminotransferase (ALT/SGPT) 17 U/L (16-63) Alkaline Phosphatase 53 U/L (46-116) Total Protein 7.1 g/dL (6.4-8.2) Albumin 2.6 g/dL (3.4-5.0) Albumin/Globulin Ratio 0.6 (1.0-1.7) Test 01/27/20 07:43 01/27/20 11:38 01/27/20 16:43 01/27/20 20:06 Glucose (Fingerstick) 147 mg/dL (70-99) 181 mg/dL (70-99) 157 mg/dL (70-99) 187 mg/dL (70-99) Test 01/28/20 07:39 Glucose (Fingerstick) 127 mg/dL (70-99) Laboratory Tests Test 01/27/20 11:38 01/27/20 16:43 01/27/20 20:06 01/28/20 07:39 Glucose (Fingerstick) 181 mg/dL (70-99) 157 mg/dL (70-99) 187 mg/dL (70-99) 127 mg/dL (70-99) Assessment/Plan continue wound vac dc planning can DC when home arrangements made from a surgical POV Justicifation of Admission Dx: Justifications for Admission: Justification of Admission Dx: N/A FELIX MCLEOD MD 01/28/20 1142: SURGICAL PROGRESS NOTE Assessment/Plan wound examined, improving; some limited bedside debridement done; work toward DC with wound vac upon discharge AMY HENRY APRN Jan 28, 2020 09:10 FELIX MCLEOD MD Jan 28, 2020 11:42
--- NOTE | 2020-01-28 09:40 | PDOC ---
[employer] PROGRESS NOTE Date of Service DOS: DATE: 01/28/20 TIME: 09:38 Chief Complaint Chief Complaint A/P: Abdominal wound Incarcerated umbilical hernia - s/p resection and hernia repair 12/29/2019 Acute renal failurevasomotor nephropathy resolving Hypertension Diabetes Dyslipidemia History of constipation// inc senna to qid COPD GERD hypokalemia on replacement protocol AEROBIC CULTURE Preliminary Preliminary MANY GRAM POSITIVE COCCI on 01/18/20 at 1333 FINAL ID= [STAPHYLOCOCCUS AUREUS] MANY GRAM NEGATIVE RODS on 01/18/20 at 1333 FINAL ID= [ENTEROBACTER CLOACAE COMPLEX] dulcolax supp daily Midline abdominal wound with wound VAC 30 MIN pt exam, chart review, > 50% of time spent with exam, chart review, pt care coordination History of Present Illness History of Present Illness 01/23 cont iv zosyn 01/24 large bm yesterday 01/26 Continue Zyvox and Zosyn, wound evaluation mon , now having daily BM Wound care this morning. Only complaint is back pain, states abdominal pain is improved. No SOB or CP. Afebrile. He is asking to have [facility] wound care as he is only 2 blocks from the facility. Vitals/I&O Vitals/I&O: Vital Signs Date Time Temp Pulse Resp B/P (MAP) Pulse Ox O2 Delivery O2 Flow Rate FiO2 01/28/20 07:28 96 Room Air 01/28/20 07:15 20 01/28/20 07:00 97.8 67 153/96 (115) 97.8 I & O 01/27/20 01/27/20 01/28/20 15:00 23:00 07:00 Intake Total 50 ml 600 ml Output Total 900 ml 400 ml 1325 ml Balance -900 ml -350 ml -725 ml Physical Exam Physical Exam: GENERAL: Up in the chair, alert, tired appearance HEENT: Oral cavity pink, moist. No thrush NECK: Supple LUNGS: Clear. HEART: S1, S2 regular. ABDOMEN: Obese, BS present, wound vac in place, redness improving; some induration EXTREMITIES: No edema, cyanosis. SKIN: without signs of rash NEUROLOGIC: Alert, awake and appropriate. No focal neurologic deficit. PIV Port-A-Cath, clean General: Alert, Oriented X3, Cooperative Heart: Regular rate, Normal S1, Normal S2, No murmurs Lungs: Clear Abdomen: Other (wound viewed, some bedside debridement done by Dr Mcleod) Extremities: No cyanosis Labs Labs: Laboratory Tests Test 01/27/20 11:38 01/27/20 16:43 01/27/20 20:06 01/28/20 07:39 Glucose (Fingerstick) 181 mg/dL (70-99) 157 mg/dL (70-99) 187 mg/dL (70-99) 127 mg/dL (70-99) Comment Review of Relevant I have reviewed the following items catarina (where applicable) has been applied. Justicifation of Admission Dx: Justifications for Admission: Justification of Admission Dx: N/A CHELSEY DE LA TORRE MD Jan 28, 2020 09:40
[2020-01-28] MEDS: LINEZOLID 600 MG TABLET PO SCH ×2 (09:47→21:54)
[2020-01-28] MEDS: LACTOBACILLUS RHAMNOSUS GG 1 CAPSULE. PO SCH ×2 (09:48→21:54)
[2020-01-28] MEDS: PANTOPRAZOLE 40 MG TABLET.DR. PO SCH (09:49)
[2020-01-28] MEDS: FUROSEMIDE 40 MG TABLET. PO SCH (09:49)
[2020-01-28] MEDS: ASPIRIN CHEWABLE 81 MG TABLET. PO SCH (09:49)
[2020-01-28] MEDS: LISINOPRIL 10 MG TABLET PO SCH (09:49)
[2020-01-28] MEDS: ERGOCALCIFEROL (VITAMIN D2) 50,000 UNIT CAPSULE. PO SCH (09:49)
--- NOTE | 2020-01-28 09:59 | NUR ---
Wound Care: Patient seen per wound care for wound vac veraflo dressing change. Dr. Mcleod and Olivia, CONTINUITY READER at bedside at time of wound assessment.. Both wounds cleansed, pictured and measured. Skin prepped for vac placement, ostomy ring to periwound, 5 pieces of silver foam utilized and a good seal maintained at -125mmhg. Veraflo settings to 16mL for 5 minutes every 2 hours. Right abdomen wound redressed with Xeroform gauze and foam dressing. Patient tolerated well. Pt has been approved for home wound vac. Wound care will follow up on 01/30 for vac dressing change.
--- NOTE | 2020-01-28 10:45 | NUR ---
SW following. Discussed with RN, if outpatient wound care can be arranged pt can discharge. SUMAN spoke with pt about following up at wound center, pt agreeable, stated he could walk there as he only lives a block away. SUMAN verified with Sunny from [facility] wound clinic about frequency of wound care - twice a week for wound vac changes. SUMAN contacted outpatient wound clinic, requested clinicals faxed as pt has not been there before. SUMAN faxed clinicals to (ph: [phone], fax: [phone]). Awaiting return call to schedule appointment. SUMAN will continue to follow. Addendum: 01/28/20 at 1315 by MARILYN WILL FRANCOIS contacted pt, scheduled time for Tuesday. Pt will come to [facility] on . SUMAN spoke with pt, pt will arrange transportation through his cousin or through his medicaid. Pt agreeable. Declined any further SUMAN needs. RN notified.
[2020-01-28 11:00] VITALS: BP 170/107
--- NOTE | 2020-01-28 12:30 | PDOC ---
Infectious Disease Note Subjective Subjective better Denies N/V/F/C/SOA ROS ROS o/w neg Vital Sign Vital Signs Vital Signs Date Time Temp Pulse Resp B/P (MAP) Pulse Ox O2 Delivery O2 Flow Rate FiO2 01/28/20 11:27 Room Air 01/28/20 11:00 97.6 170/107 (128) 97.6 01/28/20 09:49 67 01/28/20 07:28 96 01/28/20 07:15 20 Physical Exam PHYSICAL EXAM GENERAL: Up in the chair, alert, NAD - Eating HEENT: Oral cavity pink, moist. No thrush NECK: Supple LUNGS: Clear. HEART: S1, S2 regular. ABDOMEN: Obese, BS present, wound vac in place, redness improving; some induration EXTREMITIES: No edema, cyanosis. SKIN: without signs of rash NEUROLOGIC: Alert, awake and appropriate. No focal neurologic deficit. PIV Port-A-Cath, clean Labs Lab Laboratory Tests Test 01/27/20 16:43 01/27/20 20:06 01/28/20 07:39 01/28/20 11:52 Glucose (Fingerstick) 157 mg/dL (70-99) 187 mg/dL (70-99) 127 mg/dL (70-99) 200 mg/dL (70-99) Micro MANY GRAM POSITIVE COCCI on 01/18/20 at 1333 FINAL ID= [STAPHYLOCOCCUS AUREUS (MRSA)] MANY GRAM NEGATIVE RODS on 01/18/20 at 1333 FINAL ID= [ENTEROBACTER CLOACAE COMPLEX] Testing Performed by: [address] [address] For Inquires, the Physician may contact the Microbiology department at [phone] STAPHYLOCOCCUS AUREUS (MRSA) ENTEROBACTER CLOACAE COMPLEX ANTIMICROBIAL SUSCEPTIBILITY Final Comment Comment POS PETER TYPE 38 STAPHYLOCOCCUS AUREUS (MRSA) ANTIBIOTIC RESULT INTERPRETATION AZITHROMYCIN >4 R CLINDAMYCIN <=0.25 R* CONTINUED ON NEXT PAGE RUN DATE: 01/20/20 [facility] *LIVE* PAGE 2 RUN TIME: 1116 Specimen Inquiry SPEC: [id number] PATIENT: JOE HYLTON [id number] (Continued) Procedure Result -- ANTIMICROBIAL SUSCEPTIBILITY Final (continued) CEFOXITIN SCREEN >4 POS CIPROFLOXACIN <=1 S CEFTAROLINE <=0.5 S DAPTOMYCIN <=0.5 S ERYTHROMYCIN >4 R GENTAMICIN <=4 S INDUCIBLE CLINDAMYCIN >4/0.5 POS LINEZOLID 2 S LEVOFLOXACIN <=1 S OXACILLIN >2 R PENICILLIN >2 R* RIFAMPIN <=1 S TRIMETHOPRIM/SULFAMETHOXAZOLE <=0.5/9.5 S TETRACYCLINE <=4 S VANCOMYCIN 1 S NEG PETER 56 ENTEROBACTER CLOACAE COMPLEX ANTIBIOTIC RESULT INTERPRETATION AMPICILLIN/SULBACTAM <=4/2 R* AMIKACIN <=16 S AMPICILLIN <=8 R* AMOXICILLIN/K CLAVULANATE <=8/4 R* AZTREONAM <=4 S CEFTRIAXONE <=1 S CEFTAZIDIME <=1 S CEFOTAXIME <=2 S CEFOXITIN <=8 R* CIPROFLOXACIN <=0.25 S CEFEPIME <=2 S CEFUROXIME <=4 R* ERTAPENEM <=0.5 S GENTAMICIN <=2 S LEVOFLOXACIN <=0.5 S MEROPENEM <=1 S PIPERACILLIN/TAZOBACTAM <=8 S TRIMETHOPRIM/SULFAMETHOXAZOLE <=0.5/9.5 S TETRACYCLINE <=4 S TOBRAMYCIN <=2 S Microbiology 01/16/20 Gram Stain - Final, Complete 01/16/20 Aerobic Culture - Final, Complete 01/16/20 Antimicrobic Susceptibility - Final, Complete 01/16/20 Blood Culture - Final, Complete NO GROWTH AFTER 5 DAYS Objective Assessment Abdominal incision infection post-hernia surgery. GPR (no growth), MRSA and Enterobacter cloacae - sp local debridement today Incarcerated ventral hernia, status post surgery, resection, enterotomy repair, and a biologic mesh placement on December 28. Diabetes. Hypertension. Obesity. h/o lung cancer s/p chemo. Port-A-Cath still in place SHAUN mild Plan Plan of Care Continue Zyvox and Zosyn,- await approval for home vac and then can dc home with po Doxycycline 100 mg po BID for 10 days F/u being arranged at wound care center Probiotics Bowel regimen Wound care as directed Supportive care D/w HUAN Kimball MD Jan 28, 2020 12:30
[2020-01-28] MEDS: CARVEDILOL 6.25 MG TABLET. PO SCH ×2 (13:57→21:54)
[2020-01-28 15:00] VITALS: BP 137/89
[2020-01-28 19:00] VITALS: BP 108/81
[2020-01-28] MEDS: NORTRIPTYLINE 25 MG CAPSULE PO SCH (21:53)
[2020-01-28] MEDS: SIMVASTATIN 20 MG TABLET PO SCH (21:55)
[2020-01-28] MEDS: INSULIN GLARGINE SYRINGE. SQ SCH (22:01)
[2020-01-28 23:00] VITALS: BP 109/85
[2020-01-29] MEDS: IPRATRPIUM/ALBUTEROL 0.5/2.5MG 3 ML NEBU. NEB SCH ×5 (00:25→16:33)
[2020-01-29] MEDS: SENNOSIDES 8.6 MG TABLET PO SCH ×3 (02:00→14:53)
[2020-01-29] MEDS: oxyCODONE IR 5 MG TABLET PO SCH ×4 (02:01→14:55)
--- NOTE | 2020-01-29 02:25 | NUR ---
This Nurse went into Patient's room at 02:00 AM to administer scheduled Oxycodone IR 10mg as ordered for pain, after scanning the medication and handing them to the Patient he held them tightly in his hand and started hollering out at this nurse, "Where is the other half of the pain medication!" This nurse looked at this MAR and explained to him that it was not due for another 47 minutes but would be more than glad to come back in 20 to 25 minutes to reassess the pain and go from there, Patient refuses and followed, this nurse out to the desk, requested for the doctor, head nurse and or security, spoke with Dr. Allen at 0224, he said that he had already explained to the Patient that the Bandon was not to take both pain medications together one was scheduled and the other was for breakthrough pain, Patient disagreed and said he has been taking it for years and wanted to be discharged, Nursing supervisor assembly, ADIA Lowe and Security came up to unit, after Patient was done arguing over the phone with Dr. Allen 30 minutes had passed and this nurse was went a head and administered PRN pain medication, Nursing Project Control Manager attempted to reason with Patient that Nurses must follow Doctors directions. Patient finally calmed down after a while.
[2020-01-29] MEDS: oxyCODONE/APAP 10/325 1 TAB TABLET PO PRN ×4 (02:33→14:54)
[2020-01-29 03:00] VITALS: BP 109/85
[2020-01-29] MEDS: LEVOTHYROXINE 88 MCG TABLET PO SCH (05:15)
[2020-01-29] MEDS: PIPERACILLIN/TAZOBACTAM 3.375 GM in IV NORMAL SALINE 50ML 50 ML IV SCH (05:16)
[2020-01-29] MEDS: PANTOPRAZOLE 40 MG TABLET.DR. PO SCH (05:53)
[2020-01-29 07:00] VITALS: BP 153/98
[2020-01-29] MEDS: BUDESONIDE 0.5 MG/2 ML NEBU. NEB SCH (07:38)
--- NOTE | 2020-01-29 08:03 | PDOC ---
[employer] PROGRESS NOTE Date of Service DOS: DATE: 01/29/20 TIME: 08:03 Chief Complaint Chief Complaint A/P: Abdominal wound Incarcerated umbilical hernia - s/p resection and hernia repair 12/29/2019 Acute renal failurevasomotor nephropathy resolving Hypertension Diabetes Dyslipidemia History of constipation// inc senna to qid COPD GERD hypokalemia on replacement protocol AEROBIC CULTURE Preliminary Preliminary MANY GRAM POSITIVE COCCI on 01/18/20 at 1333 FINAL ID= [STAPHYLOCOCCUS AUREUS] MANY GRAM NEGATIVE RODS on 01/18/20 at 1333 FINAL ID= [ENTEROBACTER CLOACAE COMPLEX] dulcolax supp daily Midline abdominal wound with wound VAC 30 MIN pt exam, chart review, > 50% of time spent with exam, chart review, pt care coordination History of Present Illness History of Present Illness 01/23 cont iv zosyn 01/24 large bm yesterday 01/26 Continue Zyvox and Zosyn, wound evaluation tue , now having daily BM 01/27: Wound care this morning. Only complaint is back pain, states abdominal pain is improved. No SOB or CP. Afebrile. He is asking to have [facility] wound care as he is only 2 blocks from the facility. Afebrile. Abdominal pain improved, now his complaint is back pain he was insistent on pain medication no changes overnight. Organisms he has been changed to Zyvox and doxycycline on discharge and will have outpatient wound care and wound VAC change on 01/31/[address] [facility] and subsequently on 02/04/2028 [facility] Vitals/I&O Vitals/I&O: Vital Signs Date Time Temp Pulse Resp B/P (MAP) Pulse Ox O2 Delivery O2 Flow Rate FiO2 01/29/20 07:41 93 Room Air 01/29/20 06:53 18 01/29/20 03:00 98.3 100 109/85 (93) 98.3 I & O 0 01/28/20 01/28/20 01/29/20 15:00 23:00 07:00 Intake Total 240 ml 240 ml 920 ml Output Total 900 ml 500 ml Balance 240 ml -660 ml 420 ml Physical Exam Physical Exam: GENERAL: Up in the chair, alert, NAD - Eating HEENT: Oral cavity pink, moist. No thrush NECK: Supple LUNGS: Clear. HEART: S1, S2 regular. ABDOMEN: Obese, BS present, wound vac in place, redness improving; some induration EXTREMITIES: No edema, cyanosis. SKIN: without signs of rash NEUROLOGIC: Alert, awake and appropriate. No focal neurologic deficit. PIV Port-A-Cath, clean General: Alert, Oriented X3, Cooperative Heart: Regular rate, Normal S1, Normal S2, No murmurs Lungs: Clear Abdomen: Other (wound viewed, some bedside debridement done by Dr Mcleod) Extremities: No cyanosis Labs Labs: Laboratory Tests Test 01/28/20 11:52 01/28/20 16:50 01/28/20 20:37 01/29/20 07:44 Glucose (Fingerstick) 200 mg/dL (70-99) 198 mg/dL (70-99) 236 mg/dL (70-99) 151 mg/dL (70-99) Comment Review of Relevant I have reviewed the following items catarina (where applicable) has been applied. Justicifation of Admission Dx: Justifications for Admission: Justification of Admission Dx: N/A CHELSEY DE LA TORRE MD Jan 29, 2020 08:03
[2020-01-29 08:05] VITALS: BP 153/98
[2020-01-29] MEDS ORDERED: LINE600T12 PO (08:07)
--- NOTE | 2020-01-29 08:10 | SNU/HH DC ---
DISCHARGE WITH HOME HEALTH DISCHARGE INFORMATION: Discharge Date: Jan 29, 2020 Final Diagnosis: Abdominal wound Condition on Discharge: Stable CODE STATUS: Code Status: Full HOME HEALTH: Face to Face: I certify this patient is under my care and that I, or a nurse practitioner or physician's assistant federal public defender working with me, had a face to face encounter that meets the physician face to face encounter requirements with this patient on 01/29/2020. Medical Complications: DM, Other (Abdominal wound) Snf For: Assess & Educate Safety, Assess/Skilled Observatio, Hi dication Management, Pain Management, Wound Care, Wound Vac RN For Eval/Treatment: Yes Physical Therapy For: Evalulation/Treatment Occupational Therapy For: Evaluation/Treatment APPLIED MARINE PHYSICS PROFESSOR For: Community Resources Pt Meets Homebound Status: Extreme weakness w/ amb., Limited distance walking POST DISCHARGE ORDERS: Activity Instructions for Disc: Avoid exertion Weight Bearing Status after Di: As tolerated Bathing Instructions: No Tub Bath until see DIET AFTER DISCHARGE: ADA CHECKS AFTER DISCHARGE: Checks after discharge: Check blood sugar, ac/hs FOLLOW-UP: Additional Instructions: Follow up in [facility] wound clinic 01/31/2020 and [facility] wound clinic on Tuesday02/04/2020 TREATMENT/EQUIPMENT ORDERS: Adaptive Equipment Issued: Front wheeled walker CERTIFICATION STATEMENT: Certification Statement: Certification Statement: Based on the above finding, I certify that this patient is confined to the home and needs intermittent prison care, physical therapy and/or speech therapy, or continues to need occupational therapy.~ This patient is under my care, and I have initiated the establishment of the plan of care.~ This patient will be followed by myself or a community physician who will periodically review the plan of care. Home Meds Active Scripts Doxycycline Hyclate (DOXYCYCLINE HYCLATE) 100 Mg Capsule, 1 CAP PO BID for Enterobacter infection for 10 Days, #20 CAP Prov:CHELSEY DE LA TORRE MD 01/29/20 Linezolid (ZYVOX) 600 Mg Tablet, 600 MG PO BID for MRSA abdominal wound for 10 Days, #20 TAB Prov:CHELSEY DE LA TORRE MD 01/29/20 Reported Medications Oxycodone/Apap 10-325 (PERCOCET 10-325 MG TABLET ) 1 Each Tablet, 1 TAB PO Q4HRS for pain MDD 6 Tablet(s) for 3 Days, #18 TAB 0 Refills 01/16/20 Sennosides (SENNA LAXATIVE) 8.6 Mg Tablet, 1 TAB PO Q4HRS for constipation for 30 Days, #180 TAB 0 Refills 01/16/20 Aspirin (ASPIRIN) 81 Mg Tab.chew, 1 TAB PO DAILY for blood thinner, #30 TAB 3 Refills 01/16/20 Metformin Hcl (METFORMIN HCL) 1,000 Mg Tablet, 1000 MG PO BIDWMEALS for diabetes, TAB 01/03/20 Lisinopril (LISINOPRIL) 10 Mg Tablet, 1 TAB PO DAILY for HTN, #30 TAB 5 Refills 01/03/20 Levothyroxine Sodium (LEVOTHYROXINE SODIUM) 88 Mcg Tablet, 88 MCG PO DAILYAC for THYROID SUPPLEMENT, #30 TAB 0 Refills 01/03/20 Furosemide (LASIX) 40 Mg Tablet, 40 MG PO DAILY for diuretic, TAB 01/03/20 Insulin Glargine,Hum.rec.anlog (LANTUS SOLOSTAR) 100 Unit/1 Ml Insuln.pen, 30 UNIT SQ QHS for diabetes, #15 ML 3 Refills 01/03/20 Ergocalciferol (Vitamin D2) (Vitamin D2) 1,250 Mcg Capsule, 1250 MCG PO QMONFR for supplement, CAP 01/03/20 Nortriptyline Hcl (NORTRIPTYLINE HCL) 25 Mg Capsule, 2 CAP PO QHS for nerve pain, #30 CAP 01/03/20 Omeprazole (OMEPRAZOLE) 40 Mg Capsule.dr, 40 MG PO DAILY for GERD, CAP 01/03/20 Simvastatin (SIMVASTATIN) 20 Mg Tablet, 20 MG PO HS for FOR CHOLESTEROL, #30 TAB 0 Refills 01/03/20 Carvedilol (COREG) 25 Mg Tablet, 6.25 MG PO BIDWMEALS for CARDIAC, TAB 01/03/20 WHITNEYFECHELSEY Gilmore MD Jan 29, 2020 08:10
[2020-01-29] MEDS: ASPIRIN CHEWABLE 81 MG TABLET. PO SCH (09:09)
[2020-01-29] MEDS: FUROSEMIDE 40 MG TABLET. PO SCH (09:10)
[2020-01-29] MEDS: LINEZOLID 600 MG TABLET PO SCH ×2 (09:10→16:50)
[2020-01-29] MEDS: LISINOPRIL 10 MG TABLET PO SCH (09:10)
[2020-01-29] MEDS: LACTOBACILLUS RHAMNOSUS GG 1 CAPSULE. PO SCH (09:10)
--- NOTE | 2020-01-29 09:58 | NUR ---
SW following. Discussed with RN, pt discharging today after home wound vac paced. Pt has been set up with [facility] wound care for and [facility] wound care for Tuesday for wound vac changes. Pt will discharge on oral abx. No further SW needs.
[2020-01-29] MEDS ORDERED: DOXY100C2 PO (10:16)
--- NOTE | 2020-01-29 10:23 | PDOC3 ---
Discharge Summary Visit Information Date of Admission: Jan 16, 2020 Date of Discharge: Jan 29, 2020 Admitting Diagnosis: Abdominal wound Final Diagnosis Abdominal wound Brief Hospital Course Allergies Allergies Coded Allergies Type Severity Reaction Last Updated Verified Iodinated Contrast Media Allergy Intermediate hives 12/28/19 Yes ketorolac Allergy Intermediate hives 12/28/19 Yes I S O L A T I O N *CONTACT* Allergy Unknown 01/21/20 Yes Vital Signs Vital Signs Date Time Temp Pulse Resp B/P (MAP) Pulse Ox O2 Delivery O2 Flow Rate FiO2 01/29/20 09:10 102 153/98 01/29/20 08:05 98.5 17 96 Room Air 98.5 Lab Results Laboratory Tests Test 01/27/20 11:38 01/27/20 16:43 01/27/20 20:06 01/28/20 07:39 Glucose (Fingerstick) 181 mg/dL (70-99) 157 mg/dL (70-99) 187 mg/dL (70-99) 127 mg/dL (70-99) Test 01/28/20 11:52 01/28/20 16:50 01/28/20 20:37 01/29/20 07:44 Glucose (Fingerstick) 200 mg/dL (70-99) 198 mg/dL (70-99) 236 mg/dL (70-99) 151 mg/dL (70-99) Laboratory Tests Test 01/28/20 11:52 01/28/20 16:50 01/28/20 20:37 01/29/20 07:44 Glucose (Fingerstick) 200 mg/dL (70-99) 198 mg/dL (70-99) 236 mg/dL (70-99) 151 mg/dL (70-99) Brief Hospital Course Mr Goldman is a 59-year-old male with past medical history of hypertension, diabe max, lung cancer, depression, hypothyroidism, chronic back pain who had what appears to be abdominal hernia. The patient underwent an incarcerated ventral hernia with mesh on 12/29/2019. The patient had high-grade bowel obstruction. The patient ended up with lysis of adhesion. Repair to free up the bowel, a small enterotomy was made, which was repaired and biologic mesh was applied. The patient then was discharged home and noted at follow up office visit he had leaking and this leakage had been a significant leakage when he was seen by Dr. Mcleod. He was recommended to get admitted. The patient denied any fever, denied any nausea, vomiting, diarrhea, chest pain, or shortness of breath. Consults: General surgery, ID, Pulmonology 01/23 cont iv zosyn 01/24 large bm yesterday 01/26 Continue Zyvox and Zosyn, wound evaluation mon , now having daily BM 01/27: Wound care this morning. Only complaint is back pain, states abdominal pain is improved. No SOB or CP. Afebrile. He is asking to have [facility] wound care a s he is only 2 blocks from the facility. Bedside debridement with Dr. Mcleod Afebrile. Abdominal pain improved, now his complaint is back pain he was insistent on pain medication no changes overnight. Organisms he has been changed to Zyvox and doxycycline on discharge and will have outpatient wound care and wound VAC change on 01/31/2020 at [facility] and subsequently on 02/04/2028 [facility] Problem list: A/P: Abdominal wound Incarcerated umbilical hernia - s/p resection and hernia repair 12/29/2019 Acute renal failurevasomotor nephropathy resolving Hypertension Diabetes Dyslipidemia History of constipation// inc senna to qid COPD GERD hypokalemia on replacement protocol AEROBIC CULTURE Preliminary Preliminary MANY GRAM POSITIVE COCCI on 01/18/20 at 1333 FINAL ID= [STAPHYLOCOCCUS AUREUS] MANY GRAM NEGATIVE RODS on 01/18/20 at 1333 FINAL ID= [ENTEROBACTER CLOACAE COMPLEX] dulcolax supp daily Midline abdominal wound with wound VAC 30 MIN pt exam, chart review, > 50% of time spent with exam, chart review, pt care coordination Discharge Information Condition at Discharge: Improved Follow Up: Weeks (1) Disposition/Orders: D/C to Home w/ HH Scheduled Aspirin (Aspirin) 81 Mg Tab.chew, 1 TAB PO DAILY for blood thinner, #30 Ref 3 (Reported) Entered as Reported by: MAGDALENE FRY on 01/16/20 1302 Last Action: Continued on 01/16/20 1318 by MAGDALENE FRY Carvedilol (Coreg) 25 Mg Tablet, 6.25 MG PO BIDWMEALS for CARDIAC, (Reported) Entered as Reported by: ADRIENNE JACOB on 01/03/20 1551 Last Action: Reviewed on 8/10/30 1301 by MAGDALENE FRY Doxycycline Hyclate (Doxycycline Hyclate) 100 Mg Capsule, 1 CAP PO BID for Ent erobacter infection for 10 Days, #20 Prescribed by: CHELSEY DE LA TORRE MD on 01/29/20 1016 Ergocalciferol (Vitamin D2) (Vitamin D2) 1,250 Mcg Capsule, 1,250 MCG PO QMONFR for supplement, (Reported) Entered as Reported by: ADRIENNE JACOB on 01/03/201550 Last Action: Reviewed on 01/16/201301 by MAGDALENE FRY Furosemide (Lasix) 40 Mg Tablet, 40 MG PO DAILY for diuretic, (Reported) Entered as Reported by: ADIRENNE JACOB on 01/03/201550 Last Action: Reviewed on 01/16/201301 by MAGDALENE FRY Insulin Glargine,Hum.rec.anlog (Lantus Solostar) 100 Unit/1 Ml Insuln.pen, 30 UNIT SQ QHS for diabetes, #15 Ref 3 (Reported) Entered as Reported by: ADRIENNE JACOB on 01/03/201550 Last Action: Reviewed on 01/16/201301 by MAGDALENE FRY Levothyroxine Sodium (Levothyroxine Sodium) 88 Mcg Tablet, 88 MCG PO DAILYAC for THYROID SUPPLEMENT, #30 Ref 0 (Reported) Entered as Reported by: ADRIENNE JACOB on 01/03/201550 Last Action: Reviewed on 01/16/201301 by MAGDALENE FRY Linezolid (Zyvox) 600 Mg Tablet, 600 MG PO BID for MRSA abdominal wound for 10 Days, #20 Prescribed by: CHELSEY DE LA TORRE MD on 01/29/20 0807 Lisinopril (Lisinopril) 10 Mg Tablet, 1 TAB PO DAILY for HTN, #30 Ref 5 (Reported) Entered as Reported by: ADRIENNE JACOB on 01/03/201550 Last Action: Reviewed on 01/16/201301 by MAGDALENE FRY Metformin Hcl (Metformin Hcl) 1,000 Mg Tablet, 1,000 MG PO BIDWMEALS for diabetes, (Reported) Entered as Reported by: ADRIENNE JACOB on 01/03/201550 Last Action: Reviewed on 01/16/201301 by MAGDALENE FRY Nortriptyline Hcl (Nortriptyline Hcl) 25 Mg Capsule, 2 CAP PO QHS for nerve pain, #30 (Reported) Entered as Reported by: ADRIENNE JACOB on 01/03/201550 Last Action: Reviewed on 01/16/201301 by MAGDALENE FRY Omeprazole (Omeprazole) 40 Mg Capsule.dr, 40 MG PO DAILY for GERD, (Reported) Entered as Reported by: ADRIENNE JACOB on 01/03/201550 Last Action: Reviewed on 01/16/201301 by MAGDALENE FRY Oxycodone/Apap 10-325 (Percocet 10-325 Mg Tablet ) 1 Each Tablet, 1 TAB PO Q4HRS for pain MDD 6 Tablet(s) for 3 Days, #18 Ref 0 (Reported) Entered as Reported by: MAGDALENE FRY on 01/16/20 1317 Last Action: Continued on 01/16/201317 by MAGDALENE FRY Sennosides (Senna Laxative) 8.6 Mg Tablet, 1 TAB PO Q4HRS for constipation for 30 Days, #180 Ref 0 (Reported) Entered as Reported by: MAGDALENE FRY on 01/16/20 1303 Last Action: Continued on 01/16/201317 by MAGDALENE FRY Simvastatin (Simvastatin) 20 Mg Tablet, 20 MG PO HS for FOR CHOLESTEROL, #30 Ref 0 (Reported) Entered as Reported by: ADRIENNE JACOB on 01/03/201550 Last Action: Reviewed on 01/16/201301 by MAGDALENE FRY Justicifation of Admission Dx: Justifications for Admission: Justification of Admission Dx: N/A CHELSEY DE LA TORRE MD Jan 29, 2020 10:23
[2020-01-29 11:07] VITALS: BP 134/86
[2020-01-29] MEDS: CARVEDILOL 6.25 MG TABLET. PO SCH (14:54)
[2020-01-29 15:11] VITALS: BP 102/67
[2020-01-29] MEDS ORDERED: DOXYCYCLINE HYCLATE 100 MG TABLET PO ONE (16:30)
--- NOTE | 2020-01-29 17:17 | NUR ---
after home wound vac placed, patient discharged home w/ cousin. meds and follow up reviewed. meds from pharmacy returned to patient. pt stable upon dc. IV removed from LFA cath intact.
== END 2020-01-29 17:19 | disposition home or self-care (01) | DRG 856 ==
LOC: 5 NORTH 12:08
PROVIDERS: ADMIT Family Medicine; ATTEND Family Medicine
PROC: 0JB80ZZ Excision of Abdomen Subcutaneous Tissue and Fascia, Open Approach (ICD-10-PCS; principal; 2020-01-28)
DX: T81.41XA Infection following a procedure, superficial incisional surgical site, initial encounter (principal); N17.0 Acute kidney failure with tubular necrosis; E03.9 Hypothyroidism, unspecified; E11.9 Type 2 diabetes mellitus without complications; E66.01 Morbid (severe) obesity due to excess calories; E78.5 Hyperlipidemia, unspecified; F17.210 Nicotine dependence, cigarettes, uncomplicated; G47.33 Obstructive sleep apnea (adult) (pediatric); I10 Essential (primary) hypertension; J44.9 Chronic obstructive pulmonary disease, unspecified; K21.9 Gastro-esophageal reflux disease without esophagitis; K57.30 Diverticulosis of large intestine without perforation or abscess without bleeding; K76.0 Fatty (change of) liver, not elsewhere classified; M51.36 Other intervertebral disc degeneration, lumbar region; Z82.49 Family history of ischemic heart disease and other diseases of the circulatory system; Z85.118 Personal history of other malignant neoplasm of bronchus and lung; Z92.21 Personal history of antineoplastic chemotherapy; Z90.49 Acquired absence of other specified parts of digestive tract; Z92.3 Personal history of irradiation; F32.9 Major depressive disorder, single episode, unspecified; G89.29 Other chronic pain; E87.6 Hypokalemia; B95.62 Methicillin resistant Staphylococcus aureus infection as the cause of diseases classified elsewhere; Z20.828 Contact with and (suspected) exposure to other viral communicable diseases
CPT/HCPCS: 36415; 71250; 74176; 80048; 80053; 80202; 82565; 82962; 84100; 84145; 84484; 85025; 87040; 87070; 87077; 87186; 94640; 94760; J1815; J2543; J3370; J7030; J7040; 97116-GP; 97530-GO; 97530-GP; 97535-GO; G0378; J7626

== ENCOUNTER → 2020-01-31 | Outpatient (CLI) | payer OTHER ==
[2020-01-28 11:00] VITALS: BP 170/107
[~2020-01-31] MED LIST changes: +ASPI-630 PO; +DOXY100C2 PO; +LINE600T12 PO; +SENN8.6T11 PO
--- NOTE | 2020-02-01 10:26 | NUR ---
Wound Care Wound Type/Assessment: Midline abdominal dehiscence, s/p hernia repair. Vac dressing and foam removed from cavity, wound cleansed. Pt has significant depth and tunneling in wound bed, complete visualization obstructed by overlying adipose tissue and sutures, but wound has several areas of tunneling of at least 6-9 cm. Treatment Recommendations/Plan: Pt is to follow up at [facility] on Tuesday, February 03 at 0745 for next vac change and continued wound care, per his request, as he lives within walking distance of . Pt was brought in today for a vac change until he could get appt at . 3 pieces of white vac foam packed into tunnels, and 1 piece of drake foam placed over remaining wound bed. Vac showing strong seal at -125 mmHg continuous suction, pt tolerated well. Education provided: to pt re: wound vac, f/u at [facility], and to call us with any problems, pt v/u. Offloading surface/device: n/a Recommended Referrals/Tests: Surgical referral, as wound probably could benefit from surgical debridement to open up/visualize wound base and have more benefit from NPWT. Discharge Recommendations for dressings: see treatment plan above.
== END | disposition home or self-care (01) ==
LOC: OPS 13:48
PROVIDERS: ATTEND Surgery
DX: L03.311 Cellulitis of abdominal wall (principal); E11.628 Type 2 diabetes mellitus with other skin complications; J44.9 Chronic obstructive pulmonary disease, unspecified; I10 Essential (primary) hypertension; E78.5 Hyperlipidemia, unspecified; K21.9 Gastro-esophageal reflux disease without esophagitis; E03.9 Hypothyroidism, unspecified; F32.9 Major depressive disorder, single episode, unspecified; G47.33 Obstructive sleep apnea (adult) (pediatric); G89.29 Other chronic pain; E78.00 Pure hypercholesterolemia, unspecified; M19.90 Unspecified osteoarthritis, unspecified site; F17.210 Nicotine dependence, cigarettes, uncomplicated; E66.01 Morbid (severe) obesity due to excess calories; Z68.36 Body mass index [BMI] 36.0-36.9, adult; Z85.118 Personal history of other malignant neoplasm of bronchus and lung; Z88.6 Allergy status to analgesic agent; Z88.8 Allergy status to other drugs, medicaments and biological substances; Z90.49 Acquired absence of other specified parts of digestive tract; Z86.14 Personal history of Methicillin resistant Staphylococcus aureus infection
CPT/HCPCS: 97605

== ENCOUNTER → 2020-02-28 | Outpatient (CLI) | payer OTHER ==
--- NOTE | 2020-02-28 19:58 | RAD ---
EXAM: CT ABDOMEN/PELVIS WITHOUT CONTRAST. HISTORY: Abdominal abscess. TECHNIQUE: Computed tomography of the abdomen and pelvis was performed without intravenous contrast. One or more of the following individualized dose reduction techniques were utilized for this examination: 1. Automated exposure control. 2. Adjustment of the mA and/or kV according to patient size. 3. Use of iterative reconstruction technique. COMPARISON: 01/16/2020. FINDINGS: Lung windows through the visualized portions of the bases reveal a smooth 1.4 x 1.2 cm uncalcified pulmonary nodule in the left lower lobe, unchanged since the most recent study. Infiltrate about the right hilum is completely visualized. A catheter tip is noted in the superior vena cava. Coronary atherosclerotic calcifications are noted. Bone windows reveal no suspicious lesions. Hypoattenuation of the hepatic parenchyma is consistent with diffuse hepatic steatosis. The gallbladder, pancreas, spleen and kidneys are unremarkable. Thickening of the left adrenal gland is stable chronically and likely benign. Of the right adrenal gland is unremarkable. There are no pathologically enlarged lymph nodes. The appendix is not inflamed. Stool throughout the colon is consistent with constipation. There is no small bowel obstruction. A midline abdominal wound is now open in its subcutaneous portion and packed with radiolucent material. The deep fascia is intact. There is no associated fluid collection or intra-abdominal extension of inflammation. IMPRESSION: 1. Open midline abdominal wound. No drainable collection. The deep fascia is intact. 2. A 14 mm left lower lobe nodule is unchanged in the short interval but is indeterminate. Ongoing follow-up/management is recommended. 3. Infiltrate or scarring about the right hilum, incompletely visualized. 4. Correlate for mild constipation. 5. Diffuse hepatic steatosis. Electronically signed by: Samantha Carvalho MD (02/28/2020 7:55 PM) [facility]
== END | disposition home or self-care (01) ==
LOC: CT 11:35
PROVIDERS: ATTEND Emergency Medicine Undersea and Hyperbaric Medicine
DX: K65.1 Peritoneal abscess (principal); K76.0 Fatty (change of) liver, not elsewhere classified; R91.1 Solitary pulmonary nodule; I25.10 Atherosclerotic heart disease of native coronary artery without angina pectoris
CPT/HCPCS: 74176

== ENCOUNTER → 2020-07-21 | Outpatient (CLI) | payer OTHER ==
[~2020-07-21] MED LIST changes: +LISI10TA16 PO; -LISI10TA2 PO
[2020-07-21 10:30] LABS: HEMATOCRIT 45.4 % (39.0-53.0); HEMOGLOBIN 14.7 g/dL (13.0-17.5); MEAN CORPUSCULAR VOLUME 87 fL (79-100); WHITE BLOOD COUNT 8.3 x10^3/uL (4.0-11.0)
[2020-07-21 10:31] LABS: BASO % 1 % (0-3); EOS # 0.1 x10^3/uL (0.0-0.7); EOS % 2 % (0-3); LYMPH # 2.2 x10^3/uL (1.0-4.8); LYMPH % 26 % (24-48); MEAN CORPUSCULAR HEMOGLOBIN 28 pg (25-35); MEAN CORPUSCULAR HGB CONC 32 g/dL (31-37); MONO # 0.5 x10^3/uL (0.0-1.1); MONO % 7 % (0-9); NEUT # 5.4 x10^3/uL (1.8-7.7); NEUT % 65 % (31-73); PLATELET COUNT 356 x10^3/uL (140-400); RED CELL DISTRIBUTION WIDTH 17.1 % (11.5-14.5)
[2020-07-21 10:43] LABS: ALBUMIN 3.8 g/dL (3.4-5.0); CALCIUM 9.7 mg/dL (8.5-10.1); CHOLESTEROL/HDL RATIO 4.4; CREATININE 1.2 mg/dL (0.7-1.3); GFR 62.2; POTASSIUM 4.4 mmol/L (3.5-5.1); TOTAL BILIRUBIN 0.2 mg/dL (0.2-1.0); TOTAL PROTEIN 7.7 g/dL (6.4-8.2)
[2020-07-21 10:53] LABS: FREE T4 1.35 ng/dL (0.76-1.46); THYROID STIM HORMONE (TSH) 0.839 uIU/mL (0.358-3.74)
== END ==
LOC: LAB 09:34
PROVIDERS: ATTEND Internal Medicine
DX: E55.9 Vitamin D deficiency, unspecified (principal); E03.9 Hypothyroidism, unspecified; I10 Essential (primary) hypertension; R60.9 Edema, unspecified
CPT/HCPCS: 36415; 80053; 80061; 82306; 82607; 84439; 84443; 85025

== ENCOUNTER → 2020-09-22 | Outpatient (CLI) | payer OTHER ==
[2020-09-22 23:16] LABS: HEMOGLOBIN A1C 7.7 % (4.8-5.6)
== END ==
LOC: LAB 09:53
PROVIDERS: ATTEND Internal Medicine
DX: E11.9 Type 2 diabetes mellitus without complications (principal)
CPT/HCPCS: 36415; 83036